=== PATIENT | male | born 1945 | race Caucasian/White ===

== ENCOUNTER 2020-11-19 09:20 | Outpatient (REF) | payer MEDICARE, SELFPAY ==
[2020-11-19 09:58] LABS: MANUAL DIFF FLAG NO
[2020-11-19 10:01] LABS: Basophils Percent Auto 0.8 % (0-2); Eosinophils Absolute Auto 0.3 X10*3/uL (0.0-0.4); Eosinophils Percent Auto 5.8 % (0-4); Hematocrit 39.1 % (42-52); Hemoglobin 13.1 g/dl (14.0-18.0); Imm Gran Abs Auto 0.05 X10*3/uL (0.00-0.03); Lymphocytes Absolute Auto 1.2 X10*3/uL (1.2-4.9); Lymphocytes Percent Auto 23.4 % (20-40); Mean Corpuscular HGB Conc 33.5 g/dl (31.0-36.0); Mean Corpuscular Hemoglobin 30.8 pg (27.0-33.0); Mean Platelet Volume 9.2 fL (9.4-12.4); Monocytes Absolute Auto 0.5 X10*3/uL (0.1-1.2); Monocytes Percent Auto 10.1 % (2-11); Neutrophils Percent Auto 58.9 % (45-73); Platelet Count 269 X10*3/uL (160-400); Red Blood Count 4.25 X10*6/uL (4.60-5.80); Red Cell Distribution Width 13.2 % (11.0-16.0); White Blood Count 5.2 X10*3/uL (4.8-10.8)
[2020-11-19 10:28] LABS: Alanine Aminotransferase 15 U/L (0-40); Albumin Level 4.2 g/dL (3.5-5.0); Alkaline Phosphatase 65 U/L (39-117); Anion Gap 12 (12-20); Aspartate Amino Transferase 18 U/L (5-37); Bilirubin Total 0.5 mg/dL (0.0-1.0); Blood Urea Nitrogen 14 mg/dL (9-16); Calcium 9.4 mg/dL (8.4-10.2); Carbon Dioxide 27 mmol/L (22-29); Chloride 100 mmol/L (96-108); Cholesterol 194 mg/dL; Estimated Glomerular Filt Rate > 60; Glucose Fasting 106 mg/dL (60-99); HDL Cholesterol 83 mg/dL; LDL Cholesterol Calculated 103 mg/dl; Potassium 4.3 mmol/L (3.3-5.1); Sodium 135 mmol/L (135-145); Total Protein 6.7 g/dL (6.5-8.0); Triglycerides 41 mg/dL
[2020-11-19 10:45] LABS: Prostate Specific Antigen 1.01 ng/mL (<0.05-4.0)
== END 2020-11-19 09:21 | disposition home or self-care (01) ==
LOC: HO.LAB 09:20
PROVIDERS: PCP Internal Medicine Medical Oncology; Visit Provider Internal Medicine Medical Oncology
DX: Z12.5 Encounter for screening for malignant neoplasm of prostate (principal); I10 Essential (primary) hypertension; E66.3 Overweight
CPT/HCPCS: 36415; 80053; 80061; 84153; 85025

== ENCOUNTER 2021-02-10 12:15 | Outpatient (REF) | payer MEDICARE, SELFPAY ==
--- NOTE | ~2021-02-10 | XR_ITS ---
EXAMINATION: XR CHEST CLINICAL INFORMATION: Dyspnea on exertion COMPARISON: Chest radiographs 01/07/2013 TECHNIQUE: 2 views of the chest were obtained. FINDINGS: There is mild hyperinflation similar to remote prior exam 2012. Fine linear scar versus disc atelectasis is present left posterior lateral base. Lungs otherwise clear. The vascularity is normal. There is no airspace consolidation or groundglass opacity or effusion. The costophrenic sulci are clear. The heart is normal in size. The hilar and mediastinal contours are normal. No acute bony abnormality. XR/XR chest 2V IMPRESSION: 1. Chronic mild hyperinflation. 2. Fine linear scar versus disc atelectasis left posterior lateral base. 3. Lungs otherwise clear.
== END 2021-02-10 12:16 | disposition home or self-care (01) ==
LOC: HO.XRAY 12:15
PROVIDERS: PCP Internal Medicine Medical Oncology; Visit Provider Internal Medicine Medical Oncology
DX: R06.00 Dyspnea, unspecified (principal)
CPT/HCPCS: 71046

== ENCOUNTER → 2021-07-18 09:35 | Outpatient (REF) | payer MEDICARE, SELFPAY ==
--- NOTE | 2021-07-18 09:39 | CA_ITS ---
Acquisition Time: 2021-07-18 10:38:24 Total Exercise Time: 00:03:22 Test Indications: Chest pain Medications: Protocol: ELDER Max HR: 160 BPM 111% of Pred: 143 BPM Max BP: 178/084 mmHG Max Work Load: 4.7 METS Exercise stress test with exercise 3 min 22 sec of Elder protocol, with moderate shortness of breath, no chest discomfort, with frequent isolated PACs, occassional PVCs and during exercise with short runs of atrial tachycardia ( artifact makes this difficult to see), with normotensive response to exercise, without EKG changes meeting criteria for ischemia at acheived workload. Test reviewed with Dr Somers. Referred By: Babatunde Hoff Overread By: MIGUEL ANGEL WELCH
== END ==
LOC: HO.CARD 09:35
PROVIDERS: PCP Internal Medicine Medical Oncology; Visit Provider Internal Medicine Medical Oncology
DX: R07.9 Chest pain, unspecified (principal)
CPT/HCPCS: 93017

== ENCOUNTER 2022-03-27 09:03 | Outpatient (REF) | payer MEDICARE, SELFPAY ==
[2022-03-27 10:43] LABS: MANUAL DIFF FLAG NO
[2022-03-27 10:53] LABS: Basophils Percent Auto 0.2 % (0-2); Eosinophils Absolute Auto 0.1 X10*3/uL (0.0-0.4); Eosinophils Percent Auto 2.6 % (0-4); Hematocrit 39.1 % (42.0-52.0); Hemoglobin 13.4 g/dl (14.0-18.0); Imm Gran Abs Auto 0.07 X10*3/uL (0.00-0.03); Imm Gran Pct Auto 1.7 % (0.0-0.4); Lymphocytes Absolute Auto 1.2 X10*3/uL (1.2-4.9); Lymphocytes Percent Auto 29.3 % (20-40); Mean Corpuscular HGB Conc 34.3 g/dl (31.0-36.0); Mean Corpuscular Volume 90.5 fL (80.0-98.0); Mean Platelet Volume 9.6 fL (9.4-12.4); Monocytes Absolute Auto 0.5 X10*3/uL (0.1-1.2); Monocytes Percent Auto 11.1 % (2-11); Neutrophils Absolute Auto 2.3 x10*3/uL (2.0-8.3); Neutrophils Percent Auto 55.1 % (45-73); Platelet Count 280 X10*3/uL (160-400); Red Blood Count 4.32 X10*6/uL (4.60-5.80); White Blood Count 4.2 X10*3/uL (4.8-10.8)
[2022-03-27 11:10] LABS: Alanine Aminotransferase 14 U/L (0-40); Albumin Level 4.4 g/dL (3.5-5.0); Alkaline Phosphatase 57 U/L (39-117); Anion Gap 15 (12-20); Aspartate Amino Transferase 18 U/L (5-37); Bilirubin Total 0.5 mg/dL (0.0-1.0); Blood Urea Nitrogen 12 mg/dL (9-16); Calcium 9.9 mg/dL (8.4-10.2); Carbon Dioxide 26 mmol/L (22-29); Chloride 99 mmol/L (96-108); Cholesterol 205 mg/dL; Estimated Glomerular Filt Rate > 60; Glucose Fasting 110 mg/dL (60-99); HDL Cholesterol 78 mg/dL; LDL Cholesterol Calculated 115 mg/dl; Potassium 4.5 mmol/L (3.3-5.1); Sodium 135 mmol/L (135-145); Triglycerides 64 mg/dL
[2022-03-27 11:36] LABS: Prostate Specific Antigen 1.06 ng/mL (<0.05-4.0)
== END 2022-03-27 09:04 | disposition home or self-care (01) ==
LOC: HO.10HDL 09:03
PROVIDERS: Visit Provider Internal Medicine Medical Oncology
DX: Z00.00 Encounter for general adult medical examination without abnormal findings (principal); E66.3 Overweight; N40.0 Benign prostatic hyperplasia without lower urinary tract symptoms; Z12.5 Encounter for screening for malignant neoplasm of prostate
CPT/HCPCS: 36415; 80053; 80061; 84153; 85025

== ENCOUNTER 2022-07-23 12:20 | Emergency (ER) | payer MEDICARE, SELFPAY ==
[2022-07-23] VITALS (8 sets, daily range): BP systolic 124–143; BP diastolic 73–81; PULSE 59–92; RESP 16–20; TEMP 36.5–36.7; O2SAT 94–98; BMI 26.1
--- NOTE | ~2022-07-23 | XR_ITS ---
EXAMINATION: XR CHEST CLINICAL INFORMATION: Cough. COMPARISON: 02/10/2021 chest radiographs. TECHNIQUE: Frontal view of the chest was obtained. FINDINGS: Mild linear markings are seen in the lingula and right middle lobe. The lungs are otherwise clear. There are no pleural effusions. The heart and mediastinal structures are unremarkable. XR/XR chest 1V IMPRESSION: Mild linear atelectasis versus scarring. No acute cardiopulmonary process.
--- NOTE | 2022-07-23 12:35 | ECG_ITS ---
Test Reason : DIZZINESS Blood Pressure : / mmHG Vent. Rate : 069 BPM Atrial Rate : 069 BPM P-R Int : 186 ms QRS Dur : 086 ms QT Int : 426 ms P-R-T Axes : 060 036 060 degrees QTc Int : 456 ms Sinus rhythm with Premature atrial complexes in a pattern of bigeminy Otherwise normal ECG No previous ECGs available Referred By: Caren Garcia Electronically Signed By:Deshawn Gama
--- NOTE | 2022-07-23 13:02 | ED_ITS ---
HPI - General Adult General Chief complaint: General Medical Stated complaint: DIZY,WEAK,LIGHTHEADED PER EMS Time Seen by Provider: 07/23/22 12:29 Source: patient and other Mode of arrival: EMS History of Present Illness HPI narrative: 76-year-old male who is brought in by EMS with reports of dizziness, lightheadedness, weakness and thirst after an argument with his friend. Patient states he has not been drinking adequate fluids and has a dry mouth. He otherwise denies any fever, chills, GI or symptoms and denies any shortness o f breath or chest pain /palpitations. The friend that he had an argument with is at the bedside and provides additional information stating that patient suffers from significant and debilitating anxiety. Related Data Allergies Allergy/AdvReac Type Severity Reaction Status Date / Time Unable to Assess Allergy Verified 07/23/22 12:35 Review of Systems Review of Systems: Pertinent positives and negatives as stated in HPI PMFSH Past Medical History Source: nursing notes reviewed Surgical History History of hernia surgery Social History Social History Smoked in Last 30 Days: No Use of substances other than those prescribed or required for medical reasons: Yes Substance Use Type: Marijuana Advance Directives: No Advance Directives Information Provided: No Physical Exam ED Vital Signs: Vital Signs - 24 hr 07/23/22 12:29 07/23/22 13:21 07/23/22 13:50 Temperature 98 F 98.0 F Pulse Rate 73 71 Respiratory Rate 20 Blood Pressure 138/77 124/73 Pulse Oximetry 98 Oxygen Delivery Method Room Air 07/23/22 14:00 07/23/22 13:52 07/23/22 13:54 Temperature 97.8 F Pulse Rate 92 72 68 Respiratory Rate Blood Pressure 143/81 H 133/76 143/81 H Pulse Oximetry 94 Oxygen Delivery Method Room Air 07/23/22 16:00 Temperature 97.7 F Pulse Rate 60 Respiratory Rate 20 Blood Pressure 133/77 Pulse Oximetry 97 Oxygen Delivery Method Room Air BMI result Body Mass Index 26.1 VITAL SIGNS: Reviewed. GENERAL: Well developed, well nourished, in no acute distress. HEAD: Normocephalic/atraumatic EYES: PERRLA, EOMI EARS: Ext canals without abnormality NOSE: Nares patent bilateral OROPHARYNX: no oral lesions noted, posterior pharynx clear, dry mucosa NECK: Supple, no adenopathy LUNGS: Normal breath sounds. No adventitious sounds or accessory muscle use. SpO2<94> CARDIOVASCULAR: Regular rate and rhythm without noted murmurs, no JVD or lower extremity edema. ABDOMEN: Soft, non-tender, non-distended with bowel sounds. MUSCULOSKELETAL: No tenderness, deformities, or effusions noted on gross inspection. EXTREMITIES: No cyanosis, clubbing or edema. SKIN: Inspection of the skin reveals no rashes NEUROLOGIC: Alert and oriented x 4. Strength and sensation to light touch were grossly intact x 4, no facial asymmetry, no pronator drift, cranial nerves 2-12 are grossly intact. Patient is noted to be leaning to the left, however he conf irms as well as his friend at bedside that this is normal for him. Medications Administered Discontinued Medications Generic Name Dose Route Start Last Admin Trade Name Freq PRN Reason Stop Dose Admin Sodium Chloride 1,000 mls @ 999 mls/hr 07/23/22 13:15 07/23/22 14:26 Ns IV 07/23/22 14:15 Infused .Q1H1M DANIEL Infusion Medical Decision Making Medical Decision Making MDM Narrative: 76-year-old male with history and clinical presentation possible underlying infection. However, after review of investigations my interpretation is that findings are consistent with patient's statement that he has not been drinking water and is dehydrated. He has received 1 L of IV fluids, will repeat BMP, in the meantime will obtain chest x-ray although on clinical exam there are no acute findings. And patient is afebrile. Review of all investigations and imaging studies and my interpretation is that patient has clinical and objective findings consistent with dehydration. On collateral information gathering from his friend who is at bedside she informs me that patient will become very diaphoretic throughout the night if he is feeling particularly anxious. Patient himself stated that he attempts to drink plenty of water . On re-evaluation with BMP after 1 L of IV fluids patient's electrolytes have significantly improved, he states that he feels much better and his friend who is at bedside concurs that patient is now at his baseline. I informed the patient that I would be sending my note to his primary care provider for further outpatient evaluation regarding the nighttime sweats, in addition, I have instructed the friend and the patient to rehydrate with Pedialyte to avoid electrolyte losses. Patient was ambulated and noted to have a steady gait and is otherwise hemodynamically stable for discharge to home. Differential Diagnosis Please see the discussion above Lab Data please see the discussion above 07/23/22 13:44 07/23/22 13:14 Labs: Lab Results 07/23/22 07/23/22 07/23/22 Range/Units 13:14 13:14 13:14 WBC (4.8-10.8) X10*3/uL RBC (4.60-5.80) X10*6/uL Hgb (14.0-18.0) g/dl Hct (42.0-52.0) % MCV (80.0-98.0) fL MCH (27.0-33.0) pg MCHC (31.0-36.0) g/dl RDW (11.0-16.0) % Plt Count (160-400) X10*3/uL MPV (9.4-12.4) fL Immature Gran % (Auto) (0.0-0.4) % Neut % (Auto) (45-73) % Lymph % (Auto) (20-40) % [place] % (Auto) (2-11) % Eos % (Auto) (0-4) % Baso % (Auto) (0-2) % Lymph # (Auto) (1.2-4.9) X10*3/uL [place] # (Auto) (0.1-1.2) X10*3/uL Eos # (Auto) (0.0-0.4) X10*3/uL Baso # (Auto) (0.0-0.2) X10*3/uL Abs Immat Gran (auto) (0.00-0.03) X10*3/uL Absolute Neuts (auto) (2.0-8.3) x10*3/uL Absolute Nucleated RBC (0.0-0.012) X10*3/uL Nucleated RBC % (auto) (0.0-0.2) /100WBC PT 11.8 (10.0-13.1) SEC INR 1.0 (0.9-1.1) Sodium 125 L (135-145) mmol/L Potassium 3.6 (3.3-5.1) mmol/L Chloride 92 L (96-108) mmol/L Carbon Dioxide 23 (22-29) mmol/L Anion Gap 14 (12-20) BUN 5 L (9-16) mg/dL Creatinine 0.75 (0.5-1.4) mg/dL Estim Creat Clear Calc 83.8 Estimated GFR > 60 Random Glucose 109 (60-115) mg/dL Calcium 8.5 D (8.4-10.2) mg/dL Total Bilirubin 0.7 (0.0-1.0) mg/dL AST 20 (5-37) U/L ALT 14 (0-40) U/L Alkaline Phosphatase 51 (39-117) U/L Troponin I High Sens 10.0 (<3.5-35.0) ng/L Total Protein 6.0 L (6.5-8.0) g/dL Albumin 3.9 (3.5-5.0) g/dL Urine Color Urine Appearance Urine pH (5.0-9.0) Ur Specific [place] (1.005-1.025) Urine Protein (Neg-Trace) mg/dL Urine Glucose (UA) (Negative) mg/dL Urine Ketones (Negative) mg/dL Urine Blood (Negative) Urine Nitrite (Negative) Ur Leukocyte Esterase (Negative) Urine RBC (0-2) /HPF Urine WBC (0-5) /HPF Ur Squamous Epith Cells (0-2) /HPF Urine Bacteria (None Seen) Hyaline Casts (0-2) /LPF COVID-19 ([facility]) (Negative) COVID-19 Clin Com 07/23/22 07/23/22 07/23/22 Range/Units 13:14 13:44 14:03 WBC 6.7 (4.8-10.8) X10*3/uL RBC 3.84 L (4.60-5.80) X10*6/uL Hgb 11.9 L (14.0-18.0) g/dl Hct 34.3 L (42.0-52.0) % MCV 89.3 (80.0-98.0) fL MCH 31.0 (27.0-33.0) pg MCHC 34.7 (31.0-36.0) g/dl RDW 12.5 (11.0-16.0) % Plt Count 237 (160-400) X10*3/uL MPV 9.3 L (9.4-12.4) fL Immature Gran % (Auto) 1.0 H (0.0-0.4) % Neut % (Auto) 78.0 H (45-73) % Lymph % (Auto) 12.1 L (20-40) % [place] % (Auto) 7.5 (2-11) % Eos % (Auto) 1.0 (0-4) % Baso % (Auto) 0.4 (0-2) % Lymph # (Auto) 0.8 L (1.2-4.9) X10*3/uL [place] # (Auto) 0.5 (0.1-1.2) X10*3/uL Eos # (Auto) 0.1 (0.0-0.4) X10*3/uL Baso # (Auto) 0.0 (0.0-0.2) X10*3/uL Abs Immat Gran (auto) 0.07 H (0.00-0.03) X10*3/uL Absolute Neuts (auto) 5.2 (2.0-8.3) x10*3/uL Absolute Nucleated RBC 0.000 (0.0-0.012) X10*3/uL Nucleated RBC % (auto) 0.0 (0.0-0.2) /100WBC PT (10.0-13.1) SEC INR (0.9-1.1) Sodium (135-145) mmol/L Potassium (3.3-5.1) mmol/L Chloride (96-108) mmol/L Carbon Dioxide (22-29) mmol/L Anion Gap (12-20) BUN (9-16) mg/dL Creatinine (0.5-1.4) mg/dL Estim Creat Clear Calc Estimated GFR Random Glucose (60-115) mg/dL Calcium (8.4-10.2) mg/dL Total Bilirubin (0.0-1.0) mg/dL AST (5-37) U/L ALT (0-40) U/L Alkaline Phosphatase (39-117) U/L Troponin I High Sens (<3.5-35.0) ng/L Total Protein (6.5-8.0) g/dL Albumin (3.5-5.0) g/dL Urine Color Yellow Urine Appearance Clear Urine pH 6.0 (5.0-9.0) Ur Specific [place] 1.010 (1.005-1.025) Urine Protein 100 (2+) H (Neg-Trace) mg/dL Urine Glucose (UA) Negative (Negative) mg/dL Urine Ketones 15 (Negative) mg/dL Urine Blood Negative (Negative) Urine Nitrite Negative (Negative) Ur Leukocyte Esterase Negative (Negative) Urine RBC 0-2 (0-2) /HPF Urine WBC 0-5 (0-5) /HPF Ur Squamous Epith Cells 0-2 (0-2) /HPF Urine Bacteria None Seen (None Seen) Hyaline Casts 0-2 (0-2) /LPF COVID-19 ([facility]) Negative (Negative) COVID-19 Clin Com See Note 07/23/22 Range/Units 16:06 WBC (4.8-10.8) X10*3/uL RBC (4.60-5.80) X10*6/uL Hgb (14.0-18.0) g/dl Hct (42.0-52.0) % MCV (80.0-98.0) fL MCH (27.0-33.0) pg MCHC (31.0-36.0) g/dl RDW (11.0-16.0) % Plt Count (160-400) X10*3/uL MPV (9.4-12.4) fL Immature Gran % (Auto) (0.0-0.4) % Neut % (Auto) (45-73) % Lymph % (Auto) (20-40) % [place] % (Auto) (2-11) % Eos % (Auto) (0-4) % Baso % (Auto) (0-2) % Lymph # (Auto) (1.2-4.9) X10*3/uL [place] # (Auto) (0.1-1.2) X10*3/uL Eos # (Auto) (0.0-0.4) X10*3/uL Baso # (Auto) (0.0-0.2) X10*3/uL Abs Immat Gran (auto) (0.00-0.03) X10*3/uL Absolute Neuts (auto) (2.0-8.3) x10*3/uL Absolute Nucleated RBC (0.0-0.012) X10*3/uL Nucleated RBC % (auto) (0.0-0.2) /100WBC PT (10.0-13.1) SEC INR (0.9-1.1) Sodium 129 L (135-145) mmol/L Potassium 3.8 (3.3-5.1) mmol/L Chloride 95 L (96-108) mmol/L Carbon Dioxide 26 (22-29) mmol/L Anion Gap 12 (12-20) BUN 5 L (9-16) mg/dL Creatinine 0.69 (0.5-1.4) mg/dL Estim Creat Clear Calc 91.1 Estimated GFR > 60 Random Glucose 91 (60-115) mg/dL Calcium 8.3 L (8.4-10.2) mg/dL Total Bilirubin (0.0-1.0) mg/dL AST (5-37) U/L ALT (0-40) U/L Alkaline Phosphatase (39-117) U/L Troponin I High Sens (<3.5-35.0) ng/L Total Protein (6.5-8.0) g/dL Albumin (3.5-5.0) g/dL Urine Color Urine Appearance Urine pH (5.0-9.0) Ur Specific [place] (1.005-1.025) Urine Protein (Neg-Trace) mg/dL Urine Glucose (UA) (Negative) mg/dL Urine Ketones (Negative) mg/dL Urine Blood (Negative) Urine Nitrite (Negative) Ur Leukocyte Esterase (Negative) Urine RBC (0-2) /HPF Urine WBC (0-5) /HPF Ur Squamous Epith Cells (0-2) /HPF Urine Bacteria (None Seen) Hyaline Casts (0-2) /LPF COVID-19 ([facility]) (Negative) COVID-19 Clin Com Independent Interpretation I performed an independent interpretation of an: EKG Interpretation: Sinus rhythm with PACs, HR- 69, no STEMI, MD/ QRS /QTC is within normal limits. Radiology Impression Radiologist Impression: My interpretation is in agreement with the radiology's impression of the imaging study. External Record Review External record reviewed: Prior outpatient labs Discharge Plan Discharge Clinical Impression: Dizziness, Lightheadedness, Dehydration Patient Disposition: Home, Self-Care Instructions: Dehydration (ED), Lightheadedness (ED) Additional Instructions: - As we discussed at the bedside, you will need to occasionally rehydrate with either Pedialyte or Gatorade. - You need to call the office of Dr. Hoff in the morning to set up an appointment for re-evaluation and further outpatient management Do not hesitate to return to the emergency room for any worsening of symptoms. Referrals: Babatunde Hoff MD [Primary Care Provider] -
[2022-07-23] MEDS: 0.9 % Sodium Chloride 1,000 ML 999 ML IV (13:25)
--- NOTE | 2022-07-23 13:26 | PC.NURSE ---
pt alert, oriented to place, but unsure of day. VSS. Rectal temp taken 98.0. EKG done, labs drawn, fluids running via pressure bag per order.
[2022-07-23 13:27] LABS: Prothrombin Time 11.8 SEC (10.0-13.1)
[2022-07-23 13:38] LABS: Alanine Aminotransferase 14 U/L (0-40); Albumin Level 3.9 g/dL (3.5-5.0); Alkaline Phosphatase 51 U/L (39-117); Anion Gap 14 (12-20); Aspartate Amino Transferase 20 U/L (5-37); Bilirubin Total 0.7 mg/dL (0.0-1.0); Blood Urea Nitrogen 5 mg/dL (9-16); Calcium 8.5 mg/dL (8.4-10.2); Carbon Dioxide 23 mmol/L (22-29); Chloride 92 mmol/L (96-108); Creatinine Clr Calc Pharmacy 83.8; Estimated Glomerular Filt Rate > 60; Glucose Random 109 mg/dL (60-115); Potassium 3.6 mmol/L (3.3-5.1); Sodium 125 mmol/L (135-145)
[2022-07-23 13:43] LABS: COVID-19 Test Negative (Negative); IDNOW Serial# 16C4AD1C
[2022-07-23 13:48] LABS: Basophils Percent Auto 0.4 % (0-2); Eosinophils Absolute Auto 0.1 X10*3/uL (0.0-0.4); Hematocrit 34.3 % (42.0-52.0); Hemoglobin 11.9 g/dl (14.0-18.0); Imm Gran Abs Auto 0.07 X10*3/uL (0.00-0.03); Lymphocytes Absolute Auto 0.8 X10*3/uL (1.2-4.9); Lymphocytes Percent Auto 12.1 % (20-40); Mean Corpuscular HGB Conc 34.7 g/dl (31.0-36.0); Mean Corpuscular Volume 89.3 fL (80.0-98.0); Mean Platelet Volume 9.3 fL (9.4-12.4); Monocytes Absolute Auto 0.5 X10*3/uL (0.1-1.2); Monocytes Percent Auto 7.5 % (2-11); Neutrophils Absolute Auto 5.2 x10*3/uL (2.0-8.3); Platelet Count 237 X10*3/uL (160-400); Red Blood Count 3.84 X10*6/uL (4.60-5.80); Red Cell Distribution Width 12.5 % (11.0-16.0); White Blood Count 6.7 X10*3/uL (4.8-10.8)
--- NOTE | 2022-07-23 14:06 | PC.NURSE ---
Urine sample collected. Orthostatic vitals neg.
[2022-07-23 14:19] LABS: Appearance Urine Clear; Color Urine Yellow; Glucose Urine UA Negative (Negative); Leukocyte Esterase Urine Negative (Negative); Nitrite Urine Negative (Negative); UMIC TRIGGER UACC YES; Urine Blood Negative (Negative); Urine Ketones 15 mg/dL (Negative); Urine Protein 100 (2+) mg/dL (Neg-Trace)
[2022-07-23 14:22] LABS: Bacteria Urine None Seen (None Seen); Hyaline Casts Urine 0-2 /LPF (0-2); RBC Urine 0-2 /HPF (0-2); Squamous Epithelial Cell Urine 0-2 /HPF (0-2); WBC Urine 0-5 /HPF (0-5)
--- NOTE | 2022-07-23 15:15 | PC.NURSE ---
pt alert and oriented. pt steadier on feet than upon arrival. conveyor monitor intact- pt resting. will continue to monitor.
--- NOTE | 2022-07-23 16:07 | PC.NURSE ---
BMP sent to lab
--- NOTE | 2022-07-23 16:11 | PC.NURSE ---
awaiting lab results, hospital monitor intact, VSS. pt resting comfortably. will cont to derek
[2022-07-23 16:37] LABS: Anion Gap 12 (12-20); Blood Urea Nitrogen 5 mg/dL (9-16); Calcium 8.3 mg/dL (8.4-10.2); Carbon Dioxide 26 mmol/L (22-29); Chloride 95 mmol/L (96-108); Creatinine Clr Calc Pharmacy 91.1; Estimated Glomerular Filt Rate > 60; Glucose Random 91 mg/dL (60-115); Potassium 3.8 mmol/L (3.3-5.1); Sodium 129 mmol/L (135-145)
== END 2022-07-23 17:48 | disposition home or self-care (01) ==
PROVIDERS: Emergency Provider Student in an Organized Health Care Education/Training Program; PCP Internal Medicine Medical Oncology
DX: R42 Dizziness and giddiness (principal); R53.1 Weakness; R07.89 Other chest pain; E86.0 Dehydration; Z20.822 Contact with and (suspected) exposure to COVID-19; Z20.828 Contact with and (suspected) exposure to other viral communicable diseases; Z79.899 Other long term (current) drug therapy
CPT/HCPCS: 36415; 71045; 80048; 80053; 81001; 84484; 85025; 85610; 87635; 93005; 99285

== ENCOUNTER 2022-07-31 15:49 | Outpatient (REF) | payer MEDICARE, SELFPAY ==
[2022-07-31 17:36] LABS: Alanine Aminotransferase 13 U/L (0-40); Albumin Level 4.5 g/dL (3.5-5.0); Alkaline Phosphatase 72 U/L (39-117); Anion Gap 17 (12-20); Aspartate Amino Transferase 19 U/L (5-37); Bilirubin Total 0.7 mg/dL (0.0-1.0); Blood Urea Nitrogen 6 mg/dL (9-16); Calcium 9.7 mg/dL (8.4-10.2); Carbon Dioxide 26 mmol/L (22-29); Chloride 96 mmol/L (96-108); Estimated Glomerular Filt Rate > 60; Glucose Random 114 mg/dL (60-115); Potassium 4.1 mmol/L (3.3-5.1); Sodium 135 mmol/L (135-145)
== END 2022-07-31 15:50 | disposition home or self-care (01) ==
LOC: HO.LAB 15:49
PROVIDERS: PCP Internal Medicine Medical Oncology; Visit Provider Internal Medicine Medical Oncology
DX: I10 Essential (primary) hypertension (principal); F41.9 Anxiety disorder, unspecified
CPT/HCPCS: 36415; 80053

== ENCOUNTER 2022-08-02 22:21 | Emergency (ER) | payer MEDICARE, SELFPAY ==
[2022-08-02 22:24] VITALS: BP 140/84; PULSE 70; O2SAT 100; BMI 27.4
[2022-08-02 22:36] VITALS: BP 132/76; PULSE 62; RESP 16; TEMP 36.4; O2SAT 95
--- NOTE | 2022-08-02 22:37 | MHC.EDTECH ---
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
--- NOTE | 2022-08-02 22:46 | ED.SOB ---
HPI - SOB/Dyspnea General Chief Complaint: Dyspnea Stated Complaint: SOB Time Seen by Provider: 08/02/22 22:39 Source: patient Mode of arrival: EMS Limitations: no limitations History of Present Illness HPI Narrative: Patient comes to the emergency room complaining of an asthma exacerbation. Patient states that today he fell a bit short of breath, patient was looking for his Combivent, confined at the and called the ambulance hoping that they would bring him a Combivent inhaler. Instead, patient was brought to the emergency room, he received a dose of DuoNeb EN route to the hospital. By the time the patient arrived to the ED, patient was feeling completely normal. At this time, patient denies chest pain or shortness of breath. Patient states that after the 1 time respiratory treatment, patient feels back to normal. Patient denies fever chills, denies any recent URI or UTI symptoms, no abdominal pain or chest pain. No shortness of breath at this time Related Data Previous Rx's Medication Instructions Recorded albuterol sulfate 90 mcg/actuation 2 puff inhalation Q4-6H PRN 08/02/22 aerosol inhaler shortness of breath or wheezing #8.5 grams ipratropium 20 mcg-albuterol 100 1 puff inhalation Q4H #4 grams 08/02/22 mcg/actuation mist for inhalation (Combivent Respimat) Allergies Allergy/AdvReac Type Severity Reaction Status Date / Time Unable to Assess Allergy Verified 07/23/22 12:35 Review of Systems Review of Systems: Constitutional : No Weight loss, No Fever, No Chills, No Night Sweats, No Fatigue, No Malaise ENT/Mouth : No Hearing loss, No Ear Pain, No Nasal Congestion, No Sinus Pain, No Hoarseness, No sore throat, No Rhinorrhea, No Swallowing Difficulty Eyes: No Eye Pain, No Swelling, No Redness, No Foreign Body, No Discharge, No Vision Changes Cardiovascular : No Chest Pain, no dyspnea on exertion, no orthopnea, no edema or palpitations Respiratory : No Cough, No Sputum, wheezing earlier today and shortness of breath, now resolved Gastrointestinal : No Nausea, No Vomiting, No Diarrhea, No Constipation, No abdominal Pain, No Hematochezia, No Melena Genitourinary : no irregular bleeding, No Dysuria, No Urinary Frequency, No Hematuria, No Urinary Incontinence, No Urgency, No Flank Pain, No Urinary Flow Changes, No Hesitancy Musculoskeletal : No joint pain, No Myalgias, No Joint Swelling Skin : No Skin Lesions, No rash Neuro : No Weakness, No Numbness, No Paresthesias, No Loss of Consciousness, No Dizziness, No Headache Psych : No Anxiety/Panic, No Depression, No SI/HI/AH/VH, No Social Issues, Heme/Lymph: No Bruising, No Bleeding,No Lymphadenopathy Endocrine : No Polyuria, No Polydipsia, No Temperature Intolerance [facility] Past Medical History Medical History Asthma exacerbation COPD (chronic obstructive pulmonary disease) Surgical History History of hernia surgery Social History Social History Substance Use Type: Marijuana Physical Exam Vital Signs: Vital Signs: Last Vital Signs Temp 97.6 F 08/02/22 22:36 Pulse 62 08/02/22 22:36 Resp 16 08/02/22 22:36 BP 132/76 08/02/22 22:36 Pulse Ox 95 08/02/22 22:36 O2 Del Method 08/02/22 22:36 BMI result Body Mass Index 27.4 Const: Other: Appearance: Alert. Oriented X3. No acute distress. Eyes: Pupils equal, round and reactive to light. ENT: Pharynx normal. Neck: Normal inspection. Neck supple. No lymph nodes noted. No crepitus CVS: Normal heart rate and rhythm. Pulses normal. Normal S1 and S2 Respiratory: No respiratory distress. Breath sounds normal. No Wheezing. No rales Abdomen: Soft and nontender. No rigidity. No distention. Skin: Skin warm and dry. Normal skin color. Normal skin turgor. Extremities: No lower extremity edema. No Lacerations. No Rash Neuro: Oriented X 3. No motor deficit. No sensory deficit. Moving all extremities. No slurred speech. CN 2 through 12 grossly intact Psych: calm, cooperative, normal affect Course Course Course Narrative: -patient received a nebulization treatment prior to arrival to the emergency room. By the time the patient arrived here, patient was completely asymptomatic. -patient was given 1 dose of p.o. prednisone 60 mg. No nebulization treatment as patient is saturating 97% in room air, not wheezing -a prescription of Combivent has been sent to the patient's pharmacy. Patient requested not to be started on prednisone until he sees his PCP tomorrow. Patient accepted a 1 time dose here in the ED. Medical Decision Making Medical Decision Making MDM Narrative: -patient does not have increased coughing, sputum production, fever, COPD is not suspected, discussed likely an asthma exacerbation Differential Diagnosis Differential Diagnoses: The differential diagnosis associated with the presentation includes (Asthma , COPD, URI) Discharge Plan Discharge Clinical Impression: Asthma exacerbation in COPD Patient Disposition: Home, Self-Care Instructions: COPD (Chronic Obstructive Pulmonary Disease) (ED) Additional Instructions: Please follow-up with your primary care physician tomorrow. If you have any worsening or new symptoms, please return to the emergency room or call 911 Prescriptions: New Combivent Respimat 20-100 mcg/actuation mist 1 puff inhalation Q4H Qty: 4 0RF albuterol sulfate 90 mcg/actuation HFA aerosol inhaler 2 puff inhalation Q4-6H PRN (Reason: shortness of breath or wheezing) Qty: 8.5 0RF
--- OUTSIDE RECORDS SUMMARY | 2022-08-02 22:58 | XMS_ITS ---
:1945 Author Organization Babatunde Hoff III, MD Address [address] [place] [address] [place] [address] Care Team Providers Name Role Phone Babatunde Hoff Unavailable Unavailable LESLEY JERRY MD Unavailable Unavailable PROBLEMS Type Condition ICD9-CM Code GBA26-UQ Code Onset Condition SNO MED Code Dates Status Problem Former smoker Z87.891 Active 712623 6 Problem Microscopic R31.2 Active 47787589 6 hematuria Problem Environmental Z91.09 Active 015189 007 allergies Problem BPH (benign N40.0 Active 05802575 9 prostatic hyperplasia) Problem Overweight E66.3 Active 833670035 Problem Acute gout M10.9 Active 36963246 involving toe of right foot, unspecified cause Problem Pulmonary J43.9 Active 46089804 emphysema, unspecified emphysema type Problem Bilateral inguinal K40.20 Active 8 4815884 hernia without obstruction or gangrene, recurrence not specified Problem Essential I10 Active 76628114 hypertension Problem Anxiety F41.9 Active 16342626 ALLERGIES No Known Allergies ENCOUNTERS Encounter Location Date Diagnosis Babatunde Hoff III, MD [address] [place] [address] DR SNELL Jul, Essent ial hypertension I10 ; [address] Anxiety F41.9 ; Bilateral [address] inguinal hernia without obstruction or g angrene, recurrence not s pecified K40.20 ; Pulmona ry emphysema, unspe cified emphysema type J 43.9 ; Environmental al lergies Z91.09 ; Former smoker Z87.891 ; Overwe ight E66.3 ; BPH (benign pros tatic hyperplasia) N40 .0 and Dehydration E86. 0 Babatunde Hoff III, MD [address] [place] [address] DR SNELL Jul, [address] [address] Babatunde Hoff III, MD [address] [place] [address] DR SNELL Jun, Essent ial hypertension I10 ; [address] Bilateral inguin al hernia without obstruct ion or gangrene, recurr ence not specified K40.20 ; Pulmonary emphysema, unspe cified emphysema type J 43.9 ; Environmental al lergies Z91.09 ; Former smoker Z87.891 and Over weight E66.3 Babatunde Hoff III, MD [address] [place] [address] DR SNELL Apr, Essent ial hypertension I10 ; [address] Overweight E66.3 ; Former [address] smoker Z87.891 ; Environmental al lergies Z91.09 ; Pulmona ry emphysema, unspe cified emphysema type J 43.9 and BPH (benign prostati c hyperplasia) N40 .0 Babatunde Hoff III, MD [address] [place] [address] DR SNELL Mar, Essent ial hypertension I10 ; [address] Bilateral inguin al hernia without obstruct ion or gangrene, recurr ence not specified K40.20 ; Pulmonary emphysema, unspe cified emphysema type J 43.9 ; Former smoker Z8 7.891 ; Overweight E66.3 ; BPH (benign prostati c hyperplasia) N40 .0 and Acute gout involving t oe of right foot, unspecifie d cause M10.9 Babatunde Hoff III, MD [address] [place] [address] DR SNELL Feb, [address] Babatunde Hoff III, MD [address] [place] [address] DR SNELL Nov, Annual physical exam Z00.00 [address] ; Overweight E66 .3 ; BPH [address] (benign prostati c hyperplasia) N40 .0 ; Essential hypert ension I10 ; Bilateral inguin al hernia without obstruct ion or gangrene, recurr ence not specified K40.20 ; Pulmonary emphysema, unspe cified emphysema type J 43.9 ; Environmental al lergies Z91.09 and Forme r smoker Z87.891 Babatunde Hoff III, MD [address] [place] [address] DR SNELL September, Chroni c gout involving toe [address] [place], [place] [address] tophus, unspecif ied cause M1A.9XX0 ; Essen tial hypertension I10 ; Pulmonary emphysema, unspe cified emphysema type J 43.9 ; Former smoker Z8 7.891 and Overweight E66.3 Babatunde Hoff III, MD [address] [place] [address] DR SNELL September, Acute gout involving toe of [address] [place] right foot, unsp ecified [address] cause M10.9 ; Es sential hypertension I10 ; Former smoker Z87.891 ; Overweight E66.3 and Enviro nmental allergies Z91.09 Babatunde Hoff III, MD [address] [place] [address] DR SNELL Aug, Essent ial hypertension I10 ; [address] [place], [place] Bilateral inguin al hernia [address] without obstruct ion or gangrene, recurr ence not specified K40.20 ; Pulmonary emphysema, unspe cified emphysema type J 43.9 ; Environmental al lergies Z91.09 ; Overwei ght E66.3 and Former smoke r Z87.891 Babatunde Hoff III, MD [address] [place] [address] DR SNELL Jul, Chest pain R07.9 ; Anxiety [address] [place] F41.9 ; Pulmonar y emphysema, [address] unspecified emph ysema type J43.9 ; Essentia l hypertension I10 ; Former smoker Z87.891 a nd Overweight E66.3 Babatunde Hoff III, MD [address] [place] [address] DR SNELL Jun, Chest pain R07.9 ; Essential [address], [place] hypertension I10 ; Former [address] smoker Z87.891 ; Overweight E66.3 and Pulmon diana emphysema, unspe cified emphysema type J 43.9 Babatunde Hoff III, MD [address] [place] [address] DR SNELL Apr, Pulmon diana emphysema, [address] [place], [place] unspecified emph ysema type [address] J43.9 ; Bilatera l inguinal hernia without o bstruction or gangrene, rec urrence not specified K40.20 ; Environmental al lergies Z91.09 ; Former smoker Z87.891 and Over weight E66.3 Babatunde Hoff III, MD [address] [place] [address] DR SNELL 15 Feb, 2021 [address] [place] [address] Babatunde Hoff III, MD [address] [place] [address] DR SNELL 15 Feb, 2021 Essent ial hypertension I10 ; [address] [facility] [place] Overweight E66.3 ; Former [address] smoker Z87.891 a nd Pulmonary emphysema, unspe cified emphysema type J 43.9 Babatunde Hoff III, MD [address] [place] [address] DR SNELL 30 Jan, 2021 Essent ial hypertension I10 ; [address] [place] Dyspnea on exert ion R06.00 ; [address] Pulmonary emphys dolores, unspecified emph ysema type J43.9 ; Former s moker Z87.891 and Over weight E66.3 Babatunde Hoff III, MD [address] [place] [address] DR SNELL Jan, Essent ial hypertension I10 ; [address] Shortness of jose f ath R06.02 ; [address] Pulmonary emphys dolores, unspecified emph ysema type J43.9 and Former smoker Z87.891 Babatunde Hoff III, MD [address] [place] [address] DR SNELL Nov, Essent ial hypertension I10 ; [address] [place] Annual physical exam Z00.00 [address] ; Overweight E66 .3 ; Former smoker Z87.891 ; Environmental al lergies Z91.09 ; Pulmona ry emphysema, unspe cified emphysema type J 43.9 and Bilateral inguin al hernia without obstruct ion or gangrene, recurr ence not specified K40.20 Babatunde Hoff III, MD [address] [place] [address] DR SNELL 14 Sep, 2020 [address] [place] [address] Babatunde Hoff III, MD [address] [place] [address] [address] SNELL September, [address] [facility] [place] [address] Babatunde Hoff III, MD [address] [place] [address] DR SNELL 16 Aug, 2020 Essent ial hypertension I10 ; [address] [place] Overweight E66.3 ; Pulmonary [address] emphysema, unspe cified emphysema type J 43.9 ; Bilateral inguin al hernia without obstruct ion or gangrene, recurr ence not specified K40.20 ; Environmental al lergies Z91.09 and Forme r smoker Z87.891 Babatunde Hoff III, MD [address] [place] [address] DR SNELL May, Essent ial hypertension I10 ; [address] Pulmonary emphys dolores, [address] unspecified emph ysema type J43.9 ; Environm ental allergies Z91.09 ; Former smoker Z87.891 a nd Overweight E66.3 Babatunde Hoff III, MD [address] [place] [address] DR SNELL Feb, Essent ial hypertension I10 ; [address] Bilateral inguin al hernia [address] without obstruct ion or gangrene, recurr ence not specified K40.20 ; Pulmonary emphysema, unspe cified emphysema type J 43.9 ; Former smoker Z8 7.891 and Overweight E66.3 Babatunde Hoff III, MD [address] [place] [address] DR SNELL Dec, Essent ial hypertension I10 ; [address] Pulmonary emphys dolores, [address] unspecified emph ysema type J43.9 ; Former s moker Z87.891 ; Overwe ight E66.3 ; Dyspnea, unspeci fied type R06.00 and Apnea R06.81 Babatunde Hoff III, MD [address] [place] [address] DR SNELL Nov, Essent ial hypertension I10 ; [address] Bilateral inguin al hernia [address] without obstruct ion or gangrene, recurr ence not specified K40.20 ; Pulmonary emphysema, unspe cified emphysema type J 43.9 ; Environmental al lergies Z91.09 ; Former smoker Z87.891 and Over weight E66.3 Babatunde Hoff III, MD [address] [place] [address] DR SNELL Oct, Essent ial hypertension I10 ; [address] Bilateral inguin al hernia [address] without obstruct ion or gangrene, recurr ence not specified K40.20 ; Pulmonary emphysema, unspe cified emphysema type J 43.9 ; Environmental al lergies Z91.09 ; Former smoker Z87.891 ; Overwe ight E66.3 and Skin lesion L98.9 Babatunde Hoff III, MD [address] [place] [address] DR SNELL Aug, Essent ial hypertension I10 ; [address] [place] Annual visit for general [address] adult medical ex amination without abnormal findings Z00.00 ; Former smoker Z87.891 ; Overwe ight E66.3 ; Environmental al lergies Z91.09 and Bilat eral inguinal hernia without obstruction or g angrene, recurrence not s pecified K40.20 Babatunde Hoff III, MD [facility] [address] Jul, [address] [address] Babatunde Hoff III, MD [address] [place] [address] DR SNELL May, Essent ial hypertension I10 ; [address] Pulmonary emphys dolores, [address] unspecified emph ysema type J43.9 ; Environm ental allergies Z91.09 ; Former smoker Z87.891 a nd Overweight E66.3 Babatunde Hoff III, MD [address] [place] [address] DR SNELL Feb, Former smoker Z87.891 ; [address] Pulmonary emphys dolores, [address] unspecified emph ysema type J43.9 ; Essentia l hypertension I10 and Overweight E66.3 Babatunde Hoff III, MD [address] [place] [address] DR SNELL Jan, Essent ial hypertension I10 [address] and Lightheadedn ess R42 [address] Babatunde Hoff III, MD [address] [place] [address] DR SNELL Jan, [address] [address] Babatunde Hoff III, MD [address] [place] [address] DR SNELL Oct, Essent ial hypertension I10 ; [address] Bilateral inguin al hernia [address] without obstruct ion or gangrene, recurr ence not specified K40.20 ; Pulmonary emphysema, unspe cified emphysema type J 43.9 ; Environmental al lergies Z91.09 ; Former smoker Z87.891 and Over weight E66.3 Babatunde Hoff III, MD [address] [place] [address] DR SNELL Aug, Essent ial hypertension I10 [address] and Dizziness R4 2 [address] Babatunde Hoff III, MD [address] [place] [address] DR SNELL Aug, [address] [address] Babatunde Hoff III, MD [address] [place] [address] DR SNELL Aug, [address] [address] Babatunde Hoff III, MD [address] [place] [address] DR SNELL Aug, [address] [address] Babatunde Hoff III, MD [address] [place] [address] DR SNELL Jul, Essent ial hypertension I10 ; [address] [place] Annual visit for general [address] adult medical ex amination without abnormal findings Z00.00 ; Bilater al inguinal hernia without o bstruction or gangrene, rec urrence not specified K40.20 ; Pain in right knee M25.5 61 ; Pulmonary emphys dolores, unspecified emph ysema type J43.9 ; Environm ental allergies Z91.09 ; Former smoker Z87.891 a nd Overweight E66.3 Babatunde Hoff III, MD [address] [place] [address] DR SNELL Jun, Essent ial hypertension I10 ; [address] Hyperglycemia R7 3.9 and [address] Overweight E66.3 Babatunde Hoff III, MD [address] [place] [address] DR SNELL Jun, [address] [address] Babatunde Hoff III, MD [address] [place] [address] DR SNELL Jun, Essent ial hypertension I10 ; [address] [place] [address] Pain in right kn ee M25.561 ; [address] Pulmonary emphys dolores, unspecified emph ysema type J43.9 ; Bilatera l inguinal hernia without o bstruction or gangrene, rec urrence not specified K40.20 ; Environmental al lergies Z91.09 ; Former smoker Z87.891 ; Overwe ight E66.3 and Transient in somnia F51.02 Babatunde Hoff III, MD [address] [place] [address] DR SNELL Feb, Essent ial hypertension I10 ; [address] Hyperglycemia R7 3.9 ; Former [address] smoker Z87.891 ; Overweight E66.3 and Left s ided sciatica M54.32 Babatunde Hoff III, MD [address] [place] [address] DR SNELL Oct, [address] [place] [address] Babatunde Hoff III, MD [address] [place] [address] DR SNELL Oct, Essent ial hypertension I10 ; [address] Hyperglycemia R7 3.9 ; [address] Bilateral inguin al hernia without obstruct ion or gangrene, recurr ence not specified K40.20 ; Pulmonary emphysema, unspe cified emphysema type J 43.9 ; Pain in right knee M2 5.561 ; Environmental al lergies Z91.09 ; Former smoker Z87.891 and Over weight E66.3 Babatunde Hoff III, MD [address] [place] [address] [address] SNE[address] September, [address] [address] Babatunde Hoff III, MD [address] [place] [address] ALIS September, [address] [address] Babatunde Hoff III, MD [address] [place] [address] [address] SNE[address] Jul, [address] [address] Babatunde Hoff III, MD [address] [place] [address] DR SNELL Jul, [address] [address] Babatunde Hoff III, MD [address] [place] [address] DR SNELL Jul, Essent ial hypertension I10 ; [address] Bilateral inguin al hernia [address] without obstruct ion or gangrene, recurr ence not specified K40.20 ; Pulmonary emphysema, unspe cified emphysema type J 43.9 ; Pain in right knee M2 5.561 ; Environmental al lergies Z91.09 ; Hypergl ycemia R73.9 ; Former smoker Z87.891 and Overweight E66.3 Babatunde Hoff III, MD [address] [place] [address] DR SNELL Mar, Essent ial hypertension I10 ; [address] Hyperglycemia R7 3.9 ; Former [address] smoker Z87.891 a nd Overweight E66.3 Babatunde Hoff III, MD [address] [place] [address] DR SNELL Dec, Essent ial hypertension I10 ; [address] Former smoker Z8 7.891 and [address] Overweight E66.3 Babatunde Hoff III, MD [address] [place] [address] DR SNELL September, Essent ial hypertension I10 ; [address] Former smoker Z8 7.891 and [address] Overweight E66.3 Babatunde Hoff III, MD [address] [place] [address] DR NSE[address] Aug, Essent ial hypertension I10 ; [address] Bronchitis J40 ; Overweight [address] E66.3 and Former smoker Z87.891 Babatunde Hoff III, MD [address] [place] [address] DR SNELL Jun, Annual physical exam Z00.00 [address] ; Essential hype rtension I10 [address] ; Bilateral ingu inal hernia without obstruct ion or gangrene, recurr ence not specified K40.20 ; Pulmonary emphysema, unspe cified emphysema type J 43.9 ; Pain in right knee M2 5.561 ; Former smoker Z8 7.891 and Overweight E66.3 Babatunde Hoff III, MD [address] [place] [address] ALIS Mar, Essent ial hypertension I10 ; [address] Pulmonary emphys dolores, [address] unspecified emph ysema type J43.9 ; Former s moker Z87.891 and Over weight E66.3 Babatunde Hoff III, MD [address] [place] [address] DR [place]IS Feb, [address] [address] Babatunde Hoff III, MD [address] [place] [address] DR SNELL Dec, Essent ial hypertension I10 ; [address] Former smoker Z8 7.891 and [address] Environmental al lergies Z91.09 Babatunde Hoff III, MD [address] [place] [address] ALIS September, Essent ial hypertension I10 [address] [address] Babatunde Hoff III, MD [address] [place] [address] AL[place] May, Essent ial hypertension I10 ; [address] Bilateral inguin al hernia [address] without obstruct ion or gangrene, recurr ence not specified K40.20 ; Environmental al lergies Z91.09 ; Hypergl ycemia R73.9 ; Former smoker Z87.891 and Overweight E66.3 Babatunde Hoff III, MD [address] [place] [address] ALIS May, [address] [address] Babatunde Hoff III, MD [facility] [address] [place] Feb, [address] [address] Babatunde Hoff III, MD [facility] DR [place] Nov, HTN (h ypertension) 401.9 ; [address] Overweight 278.0 2 and Nevus [address] 216.9 Babatunde Hoff III, MD [address] [place] [address] DR [place] Nov, [address] [address] Babatunde Hoff III, MD [address] [place] [address] AL[place] Nov, [address] [address] Babatunde Hoff III, MD [address] [place] [address] DR [place]IS Nov, HTN (h ypertension) 401.9 ; [place] Overweight 278.0 2 and Former [address] smoker V15.82 Babatunde Hoff III, MD [address] [place] [address] DR SNELL Aug, HTN (h ypertension) 401.9 ; [place] Former smoker V1 5.82 and [address] Overweight 278.0 2 Babatunde Hoff III, MD [address] [place] [address] DR SNELL Jun, [address] [address] Babatunde Hoff III, MD [address] [place] [address] DR SNELL May, HTN (h ypertension) 401.9 ; [place] Hyperglycemia 79 0.29 ; [address] Former smoker V1 5.82 ; Complicated grie f 309.0 and Insomnia 780.52 Babatunde Hoff III, MD [address] [place] [address] DR SNELL Mar, HTN (h ypertension) 401.9 ; [address] Former smoker V1 5.82 ; [address] Complicated grie f 309.0 and Insomnia 780.52 Babatunde Hoff III, MD [address] [place] [address] DR SNELL Mar, HTN (h ypertension) 401.9 ; [place] Complicated grie f 309.0 and [address] Insomnia 780.52 Babatunde Hoff III, MD [address] [place] [address] DR SNELL Dec, HTN (h ypertension) 401.9 ; [place] Former smoker V1 5.82 ; [address] Environmental al lergies V15.09 and Shoul dane pain, right 719.41 Babatunde Hoff III, MD [address] [place] [address] DR SNELL Oct, [place] [address] Babatunde Hoff III, MD [address] [place] [address] DR SNELL September, HTN (h ypertension) 401.9 and [address] Hyperglycemia 79 0.29 [address] Babatunde Hoff III, MD [address] [place] [address] DR SNELL September, HTN (h ypertension) 401.9 ; [place] Emphysema 492.8 ; [address] Environmental al lergies V15.09 ; Former smoker V15.82 and Hyper glycemia 790.29 Babatunde Hoff III, MD [address] [place] [address] DR SNELL Aug, HTN (h ypertension) 401.9 ; [address] [place] Tendonitis of ould [address] 726.10 and Forme r smoker V15.82 Babatunde Hoff III, MD [address] [place] [address] DR SNELL Jul, HTN (h ypertension) 401.9 ; [address] Tendonitis of [facility] [address] 726.10 and Forme r smoker V15.82 Babatunde Hoff III, MD [address] [place] [address] DR SNELL May, HTN (h ypertension) 401.9 ; [address] Emphysema 492.8 ; [address] Environmental al lergies V15.09 and Hyper glycemia 790.29 Babatunde Hoff III, MD [address] [place] [address] DR SNELL Feb, HTN (h ypertension) 401.9 and [address] Hyperglycemia 79 0.29 [address] Babatunde Hoff III, MD [address] [place] [address] DR SNELL Feb, [address] [address] Babatunde Hoff III, MD [address] [place] [address] DR SNELL Dec, [address] [place] [address] Babatunde Hoff III, MD [address] [place] [address] DR SNELL Oct, Diabet es mellitus 250.00 and [address] HTN (hypertensio n) 401.9 [address] Babatunde Hoff III, MD [address] [place] [address] DR SNELL Oct, [address] [address] Babatunde Hoff III, MD [address] [place] [address] DR SNELL Oct, [address] [place] [address] Babatunde Hoff III, MD [address] [place] [address] DR SNELL Aug, HTN (h ypertension) 401.9 ; [address] Bilateral inguin al hernia [address] 550.92 ; Emphyse ma 492.8 ; Environmental al lergies V15.09 and [place] nita blood sugar 790.29 Babatunde Hoff III, MD [address] [place] [address] DR SNELL Aug, [address] [address] Babatunde Hoff III, MD [address] [place] [address] DR SNELL Jan, Well a dult exam V70.0 ; [address] Hyperglycemia 79 0.29 ; HTN [address] (hypertension) 4 01.9 and Emphysema 492.8 Babatunde Hoff III, MD [address] [facility] [address] Dec, [address] [address] Babatunde Hoff III, MD [address] [facility] [address] SNELL Dec, [address] [address] Babatunde Hoff III, MD [address] [place] [address] DR SNELL Aug, Hyperg lycemia 790.29 and HTN [address] (hypertension) 4 01.9 [address] Babatunde Hoff III, MD [address] [facility] [address] S[address] Aug, [address] [place] [address] Babatunde Hoff III, MD [address] [place] [address] DR SNELL Apr, [address] [place] [address] Babatunde Hoff III, MD [address] [facility] [address] S[address] Dec, [address] [place] [address] IMMUNIZATIONS Vaccine Route Administration Date Status Influenza no Preserv 3 and > Unknown Feb 18, 2017 Adm inistered PCV13 Unknown Mar 26, 2017 Administered COVID- 19 Vaccine Unknown August 05, 2020 Administered Influenza no Preserv 3 and > Unknown Mar 31, 2021 Adm inistered Influenza no Preserv 3 and > Unknown Mar 17, 2018 Adm inistered COVID- 19 Vaccine Unknown Mar 31, 2021 Administered Influenza Unknown Feb 24, 2012 Administered Influenza no Preserv 3 and > Unknown May 12, 2019 Adm inistered COVID- 19 Vaccine Unknown Jul 08, 2020 Administered COVID- 19 Vaccine Unknown August 30, 2021 Administered PPV 23 Unknown Mar 17, 2018 Administered Influenza no Preserv 3 and > Unknown Feb 18, 2020 Adm inistered PCV13 Unknown Mar 26, 2017 Administered Influenza Unknown Feb 07, 2015 Administered Influenza Unknown Mar 08, 2014 Administered SOCIAL HISTORY Qualifiers Date Former Smoker REASON FOR REFERRAL FUNCTIONAL STATUS PLAN OF CARE Activity Details Follow Up 2 - 3 Days Reason:ov Future Appointment Provider Name:Babatunde Hoff 2022-08-04 01:30:00 PM, [address] [facility] [place], [place], [phone], Future Appointment Provider Name:Babatunde Hoff 2022-09-25 02:00:00 PM, [address] [facility] [place], [place], [id number], Future Appointment Provider Name:Babatunde Hoff 2022-12-01 10:00:00 AM, [address] [place] [address] [place], [place], [place], [phone], Pending Test PROFILE, RANDOM (COMPREHENSI VE METABOLIC) Pending Test URINE DIP STICK Pending Test PROFILE, FASTING (COMPREHENS ROYCE METABOLIC) Pending Test PSA, TOTAL Pending Test CBC w DIFF Pending Test Lipid Panel Pending Test Stress Test Pending Test XR CHEST 2 VIEW PA & LAT Pending Test PFT with DLCO Pending Test PROFILE, FASTING (COMPREHENS ROYCE METABOLIC) Pending Test LIPID PANEL Pending Test PSA, TOTAL Pending Test CBC w DIFF Pending Test PROFILE, FASTING (COMPREHENS ROYCE METABOLIC) Pending Test LIPID PANEL Pending Test FREE T4 (FT4) Pending Test TSH (THYROID STIMULATING HOR CLAUDIA) Pending Test CBC w DIFF VITAL SIGNS Height 67 in 2022-07-31 Height 67 in 2022-06-26 Height 67 in 2022-04-03 Height 67 in 2021-11-30 Height 67 in 2021-09-20 Height 67 in 2021-09-02 Height 67 in 2021-07-22 Height 67 in 2021-07-11 Height 67 in 2021-04-22 Height 67 in 2021-02-10 Height 67 in 2020-11-26 Height 67 in 2020-08-27 Height 67 in 2020-05-28 Height 67 in 2020-02-25 Height 67 in 2019-12-29 Height 67 in 2019-11-24 Height 67 in 2019-11-10 Height 67 in 2019-08-25 Height 67 in 2019-05-20 Height 67 in 2019-02-11 Height 67 in 2019-01-27 Height 67 in 2018-11-05 Height 67 in 2018-09-09 Height 67 in 2018-08-05 Height 67 in 2018-07-09 Height 67 in 2018-06-18 Height 67 in 2018-02-15 Height 67 in 2017-10-16 Height 67 in 2017-07-18 Height 67 in 2017-04-11 Height 67 in 2017-01-09 Height 67 in 2016-10-10 Height 67 in 2016-08-29 Height 67 in 2016-07-11 Height 67 in 2016-04-12 Height 67 in 2016-01-11 Height 67 in 2015-10-12 Height 67 in 2015-06-08 Height 67 in 2014-12-08 Height 67 in 2014-12-02 Height 67 in 2014-09-01 Height 67 in 2014-06-02 Height 67 in 2014-04-06 Height 67 in 2014-03-16 Height 67 in 2013-12-15 Height 67 in 2013-09-30 Height 67 in 2013-08-18 Height 67 in 2013-07-25 Height 67 in 2013-06-11 Height N/A in 2013-03-12 Height N/A in 2012-11-08 Height N/A in 2012-08-21 Height N/A in 2012-01-16 Height N/A in 2011-08-22 Height 67 in 2011-08-21 Weight 176 lbs 2022-07-31 Weight 173 lbs 2022-06-26 Weight 170 lbs 2022-04-03 Weight 172 lbs 2021-11-30 Weight 173 lbs 2021-09-20 Weight 173 lbs 2021-09-02 Weight 171 lbs 2021-07-22 Weight 171 lbs 2021-07-11 Weight 169 lbs 2021-04-22 Weight 170 lbs 2021-02-10 Weight 170 lbs 2020-11-26 Weight 175 lbs 2020-08-27 Weight 180 lbs 2020-05-28 Weight 180 lbs 2020-02-25 Weight 175 lbs 2019-12-29 Weight 174 lbs 2019-11-24 Weight 175 lbs 2019-11-10 Weight 174 lbs 2019-08-25 Weight 172 lbs 2019-05-20 Weight 169 lbs 2019-02-11 Weight 169 lbs 2019-01-27 Weight 170 lbs 2018-11-05 Weight 171 lbs 2018-09-09 Weight 169 lbs 2018-08-05 Weight 167 lbs 2018-07-09 Weight 173 lbs 2018-06-18 Weight 174 lbs 2018-02-15 Weight 177 lbs 2017-10-16 Weight 181 lbs 2017-07-18 Weight 175 lbs 2017-04-11 Weight 177 lbs 2017-01-09 Weight 176 lbs 2016-10-10 Weight 170 lbs 2016-08-29 Weight 178 lbs 2016-07-11 Weight 167 lbs 2016-04-12 Weight 170 lbs 2016-01-11 Weight 172 lbs 2015-10-12 Weight 174 lbs 2015-06-08 Weight 170 lbs 2014-12-08 Weight 170 lbs 2014-12-02 Weight 168 lbs 2014-09-01 Weight 165 lbs 2014-06-02 Weight 163 lbs 2014-04-06 Weight 163 lbs 2014-03-16 Weight 164 lbs 2013-12-15 Weight 162 lbs 2013-09-30 Weight 165 lbs 2013-08-18 Weight 159 lbs 2013-07-25 Weight 156 lbs 2013-06-11 Weight 154 lbs 2013-03-12 Weight 154 lbs 2012-11-08 Weight 157 lbs 2012-08-21 Weight 150 lbs 2012-01-16 Weight 157 lbs 2011-08-22 BMI 27.56 kg/m2 2022-07-31 BMI 27.09 kg/m2 2022-06-26 BMI 26.62 kg/m2 2022-04-03 BMI 26.94 kg/m2 2021-11-30 BMI 27.09 kg/m2 2021-09-20 BMI 27.09 kg/m2 2021-09-02 BMI 26.78 kg/m2 2021-07-22 BMI 26.78 kg/m2 2021-07-11 BMI 26.47 kg/m2 2021-04-22 BMI 26.62 kg/m2 2021-02-10 BMI 26.62 kg/m2 2020-11-26 BMI 27.41 kg/m2 2020-08-27 BMI 28.19 kg/m2 2020-05-28 BMI 28.19 kg/m2 2020-02-25 BMI 27.41 kg/m2 2019-12-29 BMI 27.25 kg/m2 2019-11-24 BMI 27.41 kg/m2 2019-11-10 BMI 27.25 kg/m2 2019-08-25 BMI 26.94 kg/m2 2019-05-20 BMI 26.47 kg/m2 2019-02-11 BMI 26.47 kg/m2 2019-01-27 BMI 26.62 kg/m2 2018-11-05 BMI 26.78 kg/m2 2018-09-09 BMI 26.47 kg/m2 2018-08-05 BMI 26.15 kg/m2 2018-07-09 BMI 27.09 kg/m2 2018-06-18 BMI 27.25 kg/m2 2018-02-15 BMI 27.72 kg/m2 2017-10-16 BMI 28.35 kg/m2 2017-07-18 BMI 27.41 kg/m2 2017-04-11 BMI 27.72 kg/m2 2017-01-09 BMI 27.56 kg/m2 2016-10-10 BMI 26.62 kg/m2 2016-08-29 BMI 27.88 kg/m2 2016-07-11 BMI 26.15 kg/m2 2016-04-12 BMI 26.62 kg/m2 2016-01-11 BMI 26.94 kg/m2 2015-10-12 BMI 27.25 kg/m2 2015-06-08 BMI 26.62 kg/m2 2014-12-08 BMI 26.62 kg/m2 2014-12-02 BMI 26.31 kg/m2 2014-09-01 BMI 25.84 kg/m2 2014-06-02 BMI 25.53 kg/m2 2014-04-06 BMI 25.53 kg/m2 2014-03-16 BMI 25.68 kg/m2 2013-12-15 BMI 25.37 kg/m2 2013-09-30 BMI 25.84 kg/m2 2013-08-18 BMI 24.90 kg/m2 2013-07-25 BMI 24.43 kg/m2 2013-06-11 BMI 24.12 kg/m2 2013-03-12 BMI 24.12 kg/m2 2012-11-08 BMI 24.59 kg/m2 2012-08-21 BMI 23.49 kg/m2 2012-01-16 BMI 24.59 kg/m2 2011-08-22 Heart Rate 71 /min 2022-07-31 Heart Rate 62 /min 2022-06-26 Heart Rate 73 /min 2022-04-03 Heart Rate 67 /min 2021-11-30 Heart Rate 62 /min 2021-09-20 Heart Rate 72 /min 2021-09-02 Heart Rate 71 /min 2021-07-22 Heart Rate 73 /min 2021-07-11 Heart Rate 61 /min 2021-04-22 Heart Rate 71 /min 2021-02-10 Heart Rate 57 /min 2020-11-26 Heart Rate 67 /min 2020-08-27 Heart Rate 72 /min 2020-05-28 Heart Rate 64 /min 2020-02-25 Heart Rate 78 /min 2019-12-29 Heart Rate 63 /min 2019-11-24 Heart Rate 64 /min 2019-11-10 Heart Rate 74 /min 2019-08-25 Heart Rate 74 /min 2019-05-20 Heart Rate 60 /min 2019-02-11 Heart Rate 67 /min 2019-01-27 Heart Rate 80 /min 2018-11-05 Heart Rate 70 /min 2018-09-09 Heart Rate 95 /min 2018-08-05 Heart Rate 68 /min 2018-07-09 Heart Rate 91 /min 2018-06-18 Heart Rate 58 /min 2018-02-15 Heart Rate 60 /min 2017-10-16 Heart Rate 77 /min 2017-07-18 Heart Rate 68 /min 2017-04-11 Heart Rate 64 /min 2017-01-09 Heart Rate 74 /min 2016-10-10 Heart Rate 79 /min 2016-08-29 Heart Rate 68 /min 2016-07-11 Heart Rate 80 /min 2016-04-12 Heart Rate 63 /min 2016-01-11 Heart Rate 58 /min 2015-10-12 Heart Rate 61 /min 2015-06-08 Heart Rate 62 /min 2014-12-08 Heart Rate 63 /min 2014-12-02 Heart Rate 57 /min 2014-09-01 Heart Rate 60 /min 2014-06-02 Heart Rate 60 /min 2014-04-06 Heart Rate 66 /min 2014-03-16 Heart Rate 64 /min 2013-12-15 Heart Rate 70 /min 2013-09-30 Heart Rate 62 /min 2013-08-18 Heart Rate 71 /min 2013-07-25 Heart Rate 63 /min 2013-06-11 Heart Rate 63 /min 2013-03-12 Heart Rate 92 /min 2012-11-08 Heart Rate 72 /min 2012-08-21 Heart Rate 76 /min 2012-01-16 Heart Rate 68 /min 2011-08-22 Temperature 96.7 degrees Fahrenheit 2022-07-31 Temperature 97.2 degrees Fahrenheit 2022-06-26 Temperature 96.6 degrees Fahrenheit 2022-04-03 Temperature 96.7 degrees Fahrenheit 2021-11-30 Temperature 96.8 degrees Fahrenheit 2021-09-20 Temperature 97.0 degrees Fahrenheit 2021-09-02 Temperature 97.2 degrees Fahrenheit 2021-07-22 Temperature 97.1 degrees Fahrenheit 2021-07-11 Temperature 97.0 degrees Fahrenheit 2021-04-22 Temperature 97.2 degrees Fahrenheit 2021-02-10 Temperature 97.5 degrees Fahrenheit 2020-11-26 Temperature 98.6 degrees Fahrenheit 2020-08-27 Temperature 97.5 degrees Fahrenheit 2020-05-28 Temperature 95.6 degrees Fahrenheit 2020-02-25 Temperature 97.3 degrees Fahrenheit 2019-12-29 Temperature 97.1 degrees Fahrenheit 2019-11-24 Temperature 98 degrees Fahrenheit 2019-11-10 Blood pressure systolic 140 mm Hg 2022-07-31 Blood pressure diastolic 70 mm Hg 2022-07-31 MEDICATIONS No Known Medications PROCEDURES Procedure Date Ordered Result Body Site GLYCATED HEMOGLOBIN TEST August 21, 2012 Fingerstick Glucose 2017-10-16 130 TEST FOR BLOOD, FECES November 30, 2021 ASSAY, GLUCOSE, BLOOD QUANT Jun 08, 2015 PHONE E/M BY PHYS 11-20 MIN September 23, 2021 PHONE E/M BY PHYS 11-20 MIN Feb 09, 2021 URINE-NO MICRO November 30, 2021 GLYCATED HEMOGLOBIN TEST October 10, 2013 URINE-NO MICRO Jul 11, 2016 ASSAY, GLUCOSE, BLOOD QUANT Mar 12, 2013 URINE-NO MICRO August 05, 2018 OCCULT BLOOD, FECES, SINGLE Jun 08, 2015 OCCULT BLOOD, FECES, SINGLE Jul 11, 2016 URINE-NO MICRO Jun 08, 2015 OCCULT BLOOD, FECES, SINGLE August 25, 2019 OCCULT BLOOD, FECES, SINGLE August 05, 2018 URINE-NO MICRO August 25, 2019 PHONE E/M BY PHYS 11-20 MIN Feb 25, 2021 PHONE E/M BY PHYS 11-20 MIN Apr 24, 2022 GLUCOSE BLOOD TEST August 22, 2011 ASSAY, GLUCOSE, BLOOD QUANT November 08, 2012 URINE-NO MICRO Jan 16, 2012 RESULTS Name Result Date Reference Range Comprehensive Met. Panel 2022-07-31 Sodium 135 135-145 Potassium 4.1 3.3-5.1 Chloride 96 96-108 Carbon Dioxide 26 22-29 Anion Gap 12-20 Blood Urea Nitrogen 6 9-16 Creatinine 0.82 0.5-1.4 Estimated Glomerular Filt Rate > 60 Glucose Random 114 60-115 Calcium 9.7 8.4-10.2 Bilirubin Total 0.7 0.0-1.0 Aspartate Amino Transferase 19 5-37 Alanine Aminotransferase 13 0-40 Total Protein 7.0 6.5-8.0 Albumin Level 4.5 3.5-5.0 Alkaline Phosphatase 72 39-117 Basic Metabolic Panel 2022-07-23 Sodium 129 135-145 Potassium 3.8 3.3-5.1 Chloride 95 96-108 Carbon Dioxide 26 22-29 Anion Gap 12 12-20 Blood Urea Nitrogen 5 9-16 Creatinine 0.69 0.5-1.4 Creatinine Clr Calc Pharmacy 91.1 Estimated Glomerular Filt Rate > 60 Glucose Random 91 60-115 Calcium 8.3 8.4-10.2 UA CC w/rflx Micro + Cult 2022-07-23 Color Urine Yellow Appearance Urine Clear PH 6.0 5.0-9.0 Glucose Urine UA Negative Negative Urine Blood Negative Negative Specific [place] - Urine 1.010 1.005-1 .025 Urine Protein 100 (2+) Neg-Trace Urine Ketones 15 Negative Nitrite Urine Negative Negative Leukocyte Esterase Urine Negative Negativ e UA ClnCatch+Micro w/rflx Cult 2022-07-23 Color Urine Yellow Appearance Urine Clear PH 6.0 5.0-9.0 Glucose Urine UA Negative Negative Urine Blood Negative Negative Specific [place] - Urine 1.010 1.005-1 .025 Urine Protein 100 (2+) Neg-Trace Urine Ketones 15 Negative Nitrite Urine Negative Negative Leukocyte Esterase Urine Negative Negativ e RBC Urine 0-2 0-2 WBC Urine 0-5 0-5 Squamous Epithelial Cell Urine 0-2 0 -2 Bacteria Urine None Seen None Seen Hyaline Casts Urine 0-2 0-2 Complete Blood Count Auto Diff 2022-03-27 White Blood Count 4.2 4.8-10.8 Red Blood Count 4.32 4.60-5.80 Hemoglobin 13.4 14.0-18.0 Hematocrit 39.1 42.0-52.0 Mean Corpuscular Volume 90.5 80.0-98. 0 Mean Corpuscular Hemoglobin 31.0 27.0 -33.0 Mean Corpuscular HGB Conc 34.3 31.0-3 6.0 Red Cell Distribution Width 13.0 11.0 -16.0 Platelet Count 280 160-400 Mean Platelet Volume 9.6 9.4-12.4 Neutrophils Percent Auto 55.1 45-73 Imm Gran Pct Auto 1.7 0.0-0.4 Lymphocytes Percent Auto 29.3 20-40 Monocytes Percent Auto 11.1 2-11 Eosinophils Percent Auto 2.6 0-4 Basophils Percent Auto 0.2 0-2 NRBC Pct Auto 0.0 0.0-0.2 Neutrophils Absolute Auto 2.3 2.0-8. 3 Imm Gran Abs Auto 0.07 0.00-0.03 Lymphocytes Absolute Auto 1.2 1.2-4. 9 Monocytes Absolute Auto 0.5 0.1-1.2 Eosinophils Absolute Auto 0.1 0.0-0. 4 Basophils Absolute Auto 0.0 0.0-0.2 NRBC Abs Auto 0.000 0.0-0.012 Comprehensive [place]. Panel Fast 2022-03-27 Sodium 135 135-145 Potassium 4.5 3.3-5.1 Chloride 99 96-108 Carbon Dioxide 26 22-29 Anion Gap 15 12-20 Blood Urea Nitrogen 12 9-16 Creatinine 0.79 0.5-1.4 Estimated Glomerular Filt Rate > 60 Glucose Fasting 110 60-99 Calcium 9.9 8.4-10.2 Bilirubin Total 0.5 0.0-1.0 Aspartate Amino Transferase 18 5-37 Alanine Aminotransferase 14 0-40 Total Protein 7.0 6.5-8.0 Albumin Level 4.4 3.5-5.0 Alkaline Phosphatase 57 39-117 Lipid Panel 2022-03-27 Triglycerides 64 Cholesterol 205 LDL Cholesterol Calculated 115 HDL Cholesterol 78 Prostate Specific Antigen 2022-03-27 Prostate Specific Antigen 1.06 <0.05- 4.0 XR chest 2V 2021-02-10 Complete Blood Count Auto Diff 2020-11-19 White Blood Count 5.2 4.8-10.8 Red Blood Count 4.25 4.60-5.80 Hemoglobin 13.1 14.0-18.0 Hematocrit 39.1 42-52 Mean Corpuscular Volume 92.0 80-98 Mean Corpuscular Hemoglobin 30.8 27.0 -33.0 Mean Corpuscular HGB Conc 33.5 31.0-3 6.0 Red Cell Distribution Width 13.2 11.0 -16.0 Platelet Count 269 160-400 Mean Platelet Volume 9.2 9.4-12.4 Neutrophils Percent Auto 58.9 45-73 Imm Gran Pct Auto 1.0 0.0-0.4 Lymphocytes Percent Auto 23.4 20-40 Monocytes Percent Auto 10.1 2-11 Eosinophils Percent Auto 5.8 0-4 Basophils Percent Auto 0.8 0-2 NRBC Pct Auto 0.0 0.0-0.2 Neutrophils Absolute Auto 3.0 2.0-8. 3 Imm Gran Abs Auto 0.05 0.00-0.03 Lymphocytes Absolute Auto 1.2 1.2-4. 9 Monocytes Absolute Auto 0.5 0.1-1.2 Eosinophils Absolute Auto 0.3 0.0-0. 4 Basophils Absolute Auto 0.0 0.0-0.2 NRBC Abs Auto 0.000 0.0-0.012 Comprehensive [place]. Panel Fast 2020-11-19 Sodium 135 135-145 Potassium 4.3 3.3-5.1 Chloride 100 96-108 Carbon Dioxide 27 22-29 Anion Gap 12 12-20 Blood Urea Nitrogen 14 9-16 Creatinine 0.82 0.5-1.4 Estimated Glomerular Filt Rate > 60 Glucose Fasting 106 60-99 Calcium 9.4 8.4-10.2 Bilirubin Total 0.5 0.0-1.0 Aspartate Amino Transferase 18 5-37 Alanine Aminotransferase 15 0-40 Total Protein 6.7 6.5-8.0 Albumin Level 4.2 3.5-5.0 Alkaline Phosphatase 65 39-117 Lipid Panel 2020-11-19 Triglycerides 41 Cholesterol 194 LDL Cholesterol Calculated 103 HDL Cholesterol 83 Prostate Specific Antigen 2020-11-19 Prostate Specific Antigen 1.01 <0.05- 4.0 GUAIAC, SINGLE SPECIMEN 2019-08-25 GUAIAC Negative URINE DIP STICK 2019-08-25 SG 1.020 pH 6.5 RAMON neg NIT neg PRO neg GLU normal KET neg UBG normal ALE neh BLD neg Menstrating n/a CBC WITH AUTO DIFF 2019-08-19 WBC 5.6 4.8-10.8 RBC 4.5 4.5-5.5 HEMOGLOBIN 13.6 13.5-17.5 HEMATOCRIT 40.4 42-54 MCV 90.8 79-98 MCH 30.6 27-32 MCHC 33.7 32-37 RDW 13.0 11-15 PLT COUNT 294 130-400 MEAN PLATELET VOLUME 9.7 7-11 NEUT % 59.3 LYMPH % 25.1 MONO % 11.1 EOS % 2.9 BASO % 0.7 ABSOLUTE NEUT 3.33 1.5-7.0 COMPREHENSIVE METABOLIC PANEL 2019-08-19 GLUCOSE 96 70-100 BUN 12 5-25 CREAT 0.74 0.7-1.3 GLOMERULAR FILTRATION RATE > 60 SODIUM 129 135-145 POTASSIUM 4.1 3.5-5.5 CHLORIDE 97 96-110 CO2 27 21-32 ANION GAP 5 3-11 CALCIUM 9.2 8.5-10.5 TOTAL PROTEIN 7.2 6.0-8.0 ALBUMIN 4.1 3.2-5.0 BILI,TOTAL 0.6 0.0-1.4 SGOT 18 10-42 SGPT 22 10-60 ALK PHOS 58 42-121 LIPID PROFILE 2019-08-19 CHOLESTEROL 206 0-200 TRIGLYCERIDES 75 0-150 HDL CHOLESTEROL 85 >40 LDL CALCULATED 106 0-100 TC-HDLC RATIO 2.4 0-4.4 PROSTATIC SPECIFIC ANTIGEN 2019-08-19 PROSTATIC SPECIFIC ANTIGEN 1.5 0.0-4 .0 GUAIAC, SINGLE SPECIMEN 2018-08-05 GUAIAC negative URINE DIP STICK 2018-08-05 SG 1.020 pH 6 RAMON neg NIT neg PRO trace GLU normal KET neg UBG normal ALE neg BLD trace Menstrating n/a CBC WITH AUTO DIFF 2018-06-11 WBC 4.5 4.8-10.8 RBC 4.6 4.5-5.5 HEMOGLOBIN 14.3 13.5-17.5 HEMATOCRIT 41.8 42-54 MCV 90.7 79-98 MCH 31.0 27-32 MCHC 34.2 32-37 RDW 13.0 11-15 PLT COUNT 321 130-400 MEAN PLATELET VOLUME 9.4 7-11 NEUT % 57.8 LYMPH % 23.0 MONO % 13.8 EOS % 3.8 BASO % 0.7 ABSOLUTE NEUT 2.59 1.5-7.0 COMPREHENSIVE METABOLIC PANEL 2018-06-11 GLUCOSE 114 70-100 BUN 9 5-25 CREAT 0.69 0.7-1.3 GLOMERULAR FILTRATION RATE > 60 SODIUM 130 133-145 POTASSIUM 4.2 3.5-5.5 CHLORIDE 95 96-110 CO2 28 21-32 ANION GAP 7 3-11 CALCIUM 9.0 8.5-10.5 TOTAL PROTEIN 7.3 6.0-8.0 ALBUMIN 4.1 3.2-5.0 BILI,TOTAL 0.6 0.0-1.4 SGOT 21 10-42 SGPT 23 10-60 ALK PHOS 66 42-121 LIPID PROFILE 2018-06-11 CHOLESTEROL 211 0-200 TRIGLYCERIDES 75 0-150 HDL CHOLESTEROL 103 >40 LDL CALCULATED 93 0-100 TC-HDLC RATIO 2.1 0-4.4 CBC WITH AUTO DIFF 2018-02-08 WBC 5.1 4.8-10.8 RBC 4.7 4.5-5.5 HEMOGLOBIN 14.5 13.5-17.5 HEMATOCRIT 41.5 42-54 MCV 88.7 79-98 MCH 31.0 27-32 MCHC 34.9 32-37 RDW 12.6 11-15 PLT COUNT 299 130-400 MEAN PLATELET VOLUME 9.3 7-11 NEUT % 59.4 LYMPH % 24.8 MONO % 11.7 EOS % 2.1 BASO % 0.8 ABSOLUTE NEUT 3.05 1.5-7.0 COMPREHENSIVE METABOLIC PANEL 2018-02-08 GLUCOSE 106 70-100 BUN 8 5-25 CREAT 0.74 0.7-1.3 GLOMERULAR FILTRATION RATE > 60 SODIUM 129 133-145 POTASSIUM 4.2 3.5-5.5 CHLORIDE 92 96-110 CO2 27 21-32 ANION GAP 10 3-11 CALCIUM 9.3 8.5-10.5 TOTAL PROTEIN 7.5 6.0-8.0 ALBUMIN 4.2 3.2-5.0 BILI,TOTAL 0.8 0.0-1.4 SGOT 24 10-42 SGPT 26 10-60 ALK PHOS 67 42-121 GLYCOHEMOGLOBIN PROFILE 2018-02-08 GLYCATED HEMOGLOBIN A1C 5.5 <6.5 ESTIMATED AVERAGE GLUCOSE 111 LIPID PROFILE 2018-02-08 CHOLESTEROL 219 0-200 TRIGLYCERIDES 55 0-150 HDL CHOLESTEROL 115 >40 LDL CALCULATED 93 0-100 TC-HDLC RATIO 1.9 0-4.4 CBC WITH AUTO DIFF 2017-10-09 WBC 4.2 4.8-10.8 RBC 4.5 4.5-5.5 HEMOGLOBIN 13.8 13.5-17.5 HEMATOCRIT 41.0 42-54 MCV 91.5 79-98 MCH 30.8 27-32 MCHC 33.7 32-37 RDW 12.7 11-15 PLT COUNT 306 130-400 MEAN PLATELET VOLUME 9.8 7-11 NEUT % 53.0 LYMPH % 28.8 MONO % 12.2 EOS % 4.6 BASO % 0.7 ABSOLUTE NEUT 2.21 1.5-7.0 COMPREHENSIVE METABOLIC PANEL 2017-10-09 GLUCOSE 107 70-100 BUN 8 5-25 CREAT 0.76 0.7-1.3 GLOMERULAR FILTRATION RATE > 60 SODIUM 132 133-145 POTASSIUM 4.1 3.5-5.5 CHLORIDE 97 96-110 CO2 27 21-32 ANION GAP 8 3-11 CALCIUM 9.1 8.5-10.5 TOTAL PROTEIN 6.9 6.0-8.0 ALBUMIN 4.4 3.2-5.0 BILI,TOTAL 0.7 0.0-1.4 SGOT 23 10-42 SGPT 27 10-60 ALK PHOS 56 42-121 LIPID PROFILE 2017-10-09 CHOLESTEROL 208 0-200 TRIGLYCERIDES 86 0-150 HDL CHOLESTEROL 87 >40 LDL CALCULATED 104 0-100 TC-HDLC RATIO 2.4 0-4.4 PROSTATIC SPECIFIC ANTIGEN 2017-10-09 PROSTATIC SPECIFIC ANTIGEN 1.6 0.0-4 .0 Colonoscopy (old) SCREENING COLONOSCOPY GUAIAC, SINGLE SPECIMEN 2016-07-11 GUAIAC Negative URINE DIP STICK 2016-07-11 SG 1.005 pH 7 RAMON neg NIT neg PRO trace GLU neg KET neg UBG normal ALE neg BLD neg Menstrating n/a CBC WITH AUTO DIFF 2016-07-04 WBC 4.4 4.8-10.8 RBC 4.5 4.5-5.5 HEMOGLOBIN 14.0 13.5-17.5 HEMATOCRIT 40.9 42-54 MCV 91.3 79-98 MCH 31.3 27-32 MCHC 34.2 32-37 RDW 12.9 11-15 PLT COUNT 297 130-400 MEAN PLATELET VOLUME 9.8 7-11 NEUT % 52.6 LYMPH % 32.0 MONO % 10.9 EOS % 2.7 BASO % 0.9 ABSOLUTE NEUT 2.32 1.5-7.0 COMPREHENSIVE METABOLIC PANEL 2016-07-04 GLUCOSE 109 70-100 BUN 8 5-25 CREAT 0.74 0.7-1.3 GLOMERULAR FILTRATION RATE > 60 SODIUM 137 133-145 POTASSIUM 4.3 3.5-5.5 CHLORIDE 99 96-110 CO2 26 21-32 ANION GAP 12 3-11 CALCIUM 9.6 8.5-10.5 TOTAL PROTEIN 7.2 6.0-8.0 ALBUMIN 4.3 3.2-5.0 BILI,TOTAL 0.9 0.0-1.4 SGOT 20 10-42 SGPT 27 10-60 ALK PHOS 56 42-121 LIPID PROFILE 2016-07-04 CHOLESTEROL 217 0-200 TRIGLYCERIDES 81 0-150 HDL CHOLESTEROL 105 >40 LDL CALCULATED 96 0-100 TC-HDLC RATIO 2.1 0-4.4 GUAIAC, SINGLE SPECIMEN 2015-06-08 GUAIAC Negative RBS/Hemocue glucose 2015-06-08 RBS 77 URINE DIP STICK 2015-06-08 SG 1.005 pH 7 RAMON neg NIT neg PRO neg GLU neg KET small UBG normal ALE neg BLD trace Menstrating n/a SCREENING COLONOSCOPY RBS/Hemocue glucose 2014-06-02 RBS 113 CBC WITH AUTO DIFF 2013-10-14 WBC 3.8 4.8-10.8 RBC 4.5 4.5-5.5 HEMOGLOBIN 14.1 13.5-17.5 HEMATOCRIT 40.4 42-54 MCV 90.4 79-98 MCH 31.5 27-32 MCHC 34.9 32-37 RDW 13.3 11-15 PLT COUNT 295 130-400 MEAN PLATELET VOLUME 9.5 7-11 NEUT % 60 41-85 LYMPH % 27 15-48 MONO % 11 0-12 EOS % 1 0-5 BASO % 1 0-2 ABSOLUTE NEUT 2.3 >1.5 COMPREHENSIVE METABOLIC PANEL 2013-10-14 GLUCOSE 100 70-100 BUN 8 5-25 CREAT 0.71 0.7-1.3 GLOMERULAR FILTRATION RATE > 60 SODIUM 134 133-145 POTASSIUM 4.0 3.5-5.5 CHLORIDE 97 96-110 CO2 27 21-32 ANION GAP 10 3-11 CALCIUM 9.5 8.5-10.5 TOTAL PROTEIN 6.7 6.0-8.0 ALBUMIN 4.4 3.2-5.0 BILI,TOTAL 0.7 0.0-1.4 SGOT 29 10-42 SGPT 23 10-60 ALK PHOS 56 42-121 GLYCOHEMOGLOBIN PROFILE 2013-10-14 GLYCATED HEMOGLOBIN A1C 5.3 <6.5 ESTIMATED AVERAGE GLUCOSE 105 LIPID PROFILE 2013-10-14 CHOLESTEROL 200 0-200 TRIGLYCERIDES 43 0-150 HDL CHOLESTEROL 110 >40 LDL CALCULATED 82 0-100 TC-HDLC RATIO 1.8 0-4.4 RBS/Hemocue glucose 2013-03-12 RBS 111 CHEST 2 VIEWS 2013-01-07 REASON FOR VISIT Annual Exam, Follow-up, telehealth, ER follow up, High blood pressure, Emphysema, Benign prostatic hypertrophy, Current, pt wants a sedative , Hypertension, Bilateral inguinal hernias, Emphysema, Current, Benign prostatic hypertrophy, Hypertension, Hypertension, Bilateral inguinal hernias, Emphysema, Overweight, Benign prostatic hypertrophy, gout, pt having chest pain anxiety attack, Annual Exam, Right first toe pain, Painful right first toe, Allergies, Hypertension, Anxiety, Dyspnea related to anxiety, Hypertension, Exertional left chest pain, Exertion left feeling, Hypertension, Emphysema, Formersmoker, Overweight, Allergies, Hypertension, Pulmonary Emphysema, Followup, 3 month f/u, only, Followup, Dyspnea, Essential Hypertension, Inguinal hernia, Shortness of breath, Annual Exam, Concern,Pt called concern, hypertension, inguinal hernias, emphysema, allergies, overweight, hypertension, environmental allergies, emphysema, hypertension, emphysema, allergies, overweight, shortness of breath, shortness of breath, periods of apnea at night, hypertension, hypertension, inguinal hernias, allergies, emphysema, hypertension, skin lesion, allergies, annual exam , Sick, hypertension, emphysema, overweight, hypertension, lightheadedness, hypertension , lightheadedness, requesting f/u appt. , hypertension, emphysema, environmental allergies, dizziness, fainted, ? next appt date, speak to , annual exam , hypertension, emphysema, environmental allergies, speak to , hypertension, right knee pain, insomnia, hypertension , copy of labs to be sent to [facility] , hypertension , cancel appt, Talk to , Message for , over due for colonoscopy with Dr Jerry, annual physical exam, hypertension, hypertension , hypertension , hyperglycemia, hypertension , hypertension , URI, annual exam, hypertension, request for labs to be sent to , hypertension, hypertension, hypertension, annual exam, Medicince ?, ? had pneumovax done here, skin lesion upper chest wall, tick in chest , has two appt same day, hypertension, hypertension, Over the counter natural HTN pills, hypertension, hypertension, hypertension, hypertension, Labs from 10/14/2013, labs, hypertension, hypertension , right shoulder pain, arm pain, hypertension, hypertension, calling back to reschedule appt, hypertension, hypertension, annual exam, Historical data abstraction, hypertension, Historical data abstraction Insurance Providers [facility] Member Patient Patient Patient Patient Patient Subscriber Subscriber Subscriber Group Insurance Plan Plan Plan Plan ID Relationship Address Phone Name Date of ID Name Date of No Type Insurance Insurance Insurance Coverage to Subscriber Address Phone Name Dates BLUE [employer]OSS [phone] [employer]UE [place] self [place] 19 [id number] BLUE [id number] [address] [place] [address] [facility] [id number] MEDICARE [phone] MEDICARE self Ones[place] [id number] [id number] [place] [phone]
--- OUTSIDE RECORDS SUMMARY | 2022-08-02 22:58 | XMS_ITS | Continuity of Care Document ---
:1945 Author Organization [facility] Address [address] [place] [address]- Care Team Providers Name Role Phone Babatunde Hoff MD Primary Care Physician En[place] [facility] [place] 02/14/21 - 02/14/[address] [address]- Discharge Disposition: A-D/C Walkout Attending Physician: Not on Staff, Attending MD Admitting Physician: Not on Staff, Admitting MD Referring Physician: Not on Staff, Referring MD Allergies, Adverse Reactions, Alerts Substance Reaction Severity Status NKA Active Medications lisinopril 5 mg oral tablet 5 mg, 1, tablet, By Mouth, Daily, # 30 tablet, Refills 0, Maintenance, 01/20/19 8:03:50 EDT Start Date: 01/20/19 Status: Ordered Results Radiology Reports Exam Date Time Procedure Performing Provider Status 02/14/21 6:48 AM Chest 2 Views Frontal and Lat Berry , Ludmila; Au th (Verified) Notes:(Chest 2 Views Frontal and Lat) Reason For Exam: Chest Pain;Other:RESULT: Chest 2 Views Frontal and Lat Chest 2 Views Frontal and Lat Hx of Present Illness: Pt reporting SOB today, stated he has a history of dust inhalation issues normally runs daily but because of rain was unable to today now feeling SOB, denies CP, fevers, cough,n v d; Reason: Other:; Chest Pain; Clinical Question(s): Other: COMPARISON: None. FINDINGS: LINES AND TUBES: None. LUNGS AND PLEURA: Clear hyperinflated lungs. Normal pulmonary vascularity. No pleural effusion. No pneumothorax. HEART, MEDIASTINUM AND FATUMA: Heart is normal in size. Normal upper mediastinal and hilar contour. BONES AND SOFT TISSUES: No acute abnormality. Diffuse osteopenia throughout the thoracic spine. Mild anterior wedge deformity likely at T12 or T11. IMPRESSION: No pneumonia or CHF. Mild hyperinflation which could be seen with asthma or COPD. Incidental mild compression fracture in the lower thoracic spine probably old. WSN: [id number] Ordering Physician: Edward Ding Dictated By: Jesus Centeno MD Dictated Date/Time: 02/14/21 8:37 am Reviewed By: Jesus Centeno MD Signed By: Jesus Centeno MD Signed Date/Time: 02/14/21 8:37 am Transcribed By: ROD Transcribed Date/Time: 02/14/21 8:36 am Vital Signs Most recent to oldest [Reference Range]: 1 2 Oxygen Saturation [94-100 %] 98 % 100 % (02/14/21 6:05 AM) (02/14/21 5:14 AM) Pulse Rate [55-90 bpm] 69 bpm 79 bpm (02/14/21 6:05 AM) (02/14/21 5:14 AM) Blood Pressure [90-138/55-84 mm Hg] 150/81 mm Hg *H* (02/14/21 6:05 AM) Respiratory Rate [16-30 br/min] 18 br/min 18 br/mi n (02/14/21 6:05 AM) (02/14/21 5:14 AM) Temperature [96.8-100.4 DegF] 98.7 DegF (02/14/21 6:05 AM) Mode of Delivery (Oxygen) Room air Room air (02/14/21 6:05 AM) (02/14/21 5:14 AM) Blood pressure sites Arm, left (02/14/21 6:05 AM) Temperature Route Oral (02/14/21 6:05 AM) Social History Social History Type Response Smoking Status Former smoker, quit more javid n 30 days ago entered on: 01/20/19 Sex
[2022-08-02] MEDS: predniSONE 20 MG TABLET 60 MG PO (22:59)
--- NOTE | 2022-08-02 23:06 | PC.NURSE ---
Medicated per Jul, notified SAY Bo
--- NOTE | 2022-08-03 00:11 | PC.NURSE ---
Pt aox4 resting at the bedside in no apparent distress. Reports improved breathing post albuterol treatment. Discharge instructions reviewed with pt. Pt ambulatory indepently with no assist and steady gait at discharge.
== END 2022-08-03 00:12 | disposition home or self-care (01) ==
PROVIDERS: Emergency Provider Emergency Medicine; PCP Internal Medicine Medical Oncology
DX: J45.901 Unspecified asthma with (acute) exacerbation (principal); J44.9 Chronic obstructive pulmonary disease, unspecified; R06.02 Shortness of breath
CPT/HCPCS: 99282; 99283

== ENCOUNTER 2022-08-17 09:21 | Emergency (ER) | payer MEDICARE, SELFPAY ==
[2022-08-17 09:31] VITALS: BP 174/93; PULSE 72; RESP 16; TEMP 36.7; O2SAT 97; BMI 25.2
--- NOTE | 2022-08-17 10:06 | ED_ITS ---
HPI - General Adult General Chief complaint: Anxiety Stated complaint: ANXIETY,CALM/COOP PER EMS Time Seen by Provider: 08/17/22 09:39 Source: patient, EMS, RN notes reviewed and old records reviewed Mode of arrival: EMS Limitations: no limitations History of Present Illness HPI narrative: 76-year-old male with past medical history COPD and asthma called EMS for shortness of breath and anxiety. Patient reports that he woke up this morning feeling very anxious, sweaty, short of breath. Patient called his roommate who called the ambulance. Patient's roommate states that patient calm down shortly after EMS was called. Patient denies any chest pain, shortness of breath, syncope, presyncope, PND. Patient denies any nausea or vomiting. Denies any abdominal pain or discomfort. Patient denies any urinary frequency. Patient denies any dyspepsia, dysphagia odynophagia. Patient denies any melena, hematochezia, unintentional weight loss or ribbon like stools. Patient reports that he has not on any medications. Recently called his PCP who prescribed him Zoloft, however patient reports that he has not started that yet. Patient is not taking any medication. Patient reports that he tries to bake marijuana cup cakes and takes that when he gets anxious. Onset (ago): hour(s) Related Data Home Medications Medication Instructions Recorded Confirmed ascorbic acid (vitamin C) 500 mg 500 mg PO DAILY 08/17/22 08/17/22 tablet (Vitamin C) multivitamin 1 tab PO DAILY 08/17/22 08/17/22 Previous Rx's Medication Instructions Recorded albuterol sulfate 90 mcg/actuation 2 puff inhalation Q4-6H PRN 08/02/22 aerosol inhaler shortness of breath or wheezing #8.5 grams levofloxacin 500 mg tablet 500 mg PO DAILY #6 tabs 08/18/22 metronidazole 500 mg tablet 500 mg PO BID 7 days #14 tabs 08/18/22 Allergies Allergy/AdvReac Type Severity Reaction Status Date / Time No Known Allergies Allergy Verified 08/17/22 09:33 Review of Systems Review of Systems: Constitutional : No Weight loss, No Fever, No Chills, No Night Sweats, No Fatigue, No Malaise ENT/Mouth : No Hearing loss, No Ear Pain, No Nasal Congestion, No Sinus Pain, No Hoarseness, No sore throat, No Rhinorrhea, No Swallowing Difficulty Eyes: No Eye Pain, No Swelling, No Redness, No Foreign Body, No Discharge, No Vision Changes Cardiovascular : No Chest Pain, no dyspnea on exertion, no orthopnea, no edema or palpitations Respiratory : No Cough, No Sputum, wheezing earlier today and shortness of breath, now resolved Gastrointestinal : No Nausea, No Vomiting, No Diarrhea, No Constipation, No abdominal Pain, No Hematochezia, No Melena Genitourinary : no irregular bleeding, No Dysuria, No Urinary Frequency, No Hematuria, No Urinary Incontinence, No Urgency, No Flank Pain, No Urinary Flow Changes, No Hesitancy Musculoskeletal : No joint pain, No Myalgias, No Joint Swelling Skin : No Skin Lesions, No rash Neuro : No Weakness, No Numbness, No Paresthesias, No Loss of Consciousness, No Dizziness, No Headache Psych : No Anxiety/Panic, No Depression, No SI/HI/AH/VH, No Social Issues, Heme/Lymph: No Bruising, No Bleeding,No Lymphadenopathy Endocrine : No Polyuria, No Polydipsia, No Temperature Intolerance [facility] Past Medical History Medical History Asthma exacerbation COPD (chronic obstructive pulmonary disease) Surgical History History of hernia surgery Social History Social History Alcohol intake: current Alcohol intake frequency: holidays/special occasions only Smoked in Last 30 Days: No Use of substances other than those prescribed or required for medical reasons: No Substance Use Type: Marijuana Advance Directives: No Advance Directives Information Provided: No Healthcare Proxy: No Guardian: No Physical Exam ED Vital Signs: Vital Signs - 24 hr 08/17/22 09:31 08/17/22 11:22 Temperature 98.1 F 98.5 F Pulse Rate 72 57 Respiratory Rate 16 17 Blood Pressure 174/93 H 144/79 H Pulse Oximetry 97 96 Oxygen Delivery Method Room Air Room Air BMI result Body Mass Index 25.2 Const Other: Appearance: Alert.? Oriented X3.? No acute distress.? Eyes: Pupils equal, round and reactive to light. ENT: Pharynx normal. Neck: Normal inspection.? Neck supple. No lymph nodes noted. No crepitus CVS: Normal heart rate and rhythm.? Pulses normal. Normal S1 and S2 Respiratory: No respiratory distress.? Breath sounds normal. No Wheezing. No rales Abdomen: Soft and nontender. No rigidity. No distention. Skin: Skin warm and dry.? Normal skin color.? Normal skin turgor. Extremities: No lower extremity edema. No Lacerations. No Rash Neuro: Oriented X 3.? No motor deficit.? No sensory deficit. Moving all extremities. No slurred speech. CN 2 through 12 grossly intact Psych: calm, cooperative, normal affect Course Course Course Narrative: 76-year-old male with past medical history COPD and asthma called EMS for shortness of breath and anxiety. Patient reports that he woke up this morning feeling very anxious, sweaty, short of breath. Patient called his roommate who called the ambulance. Patient's roommate states that patient calm down shortly after EMS was called. Patient denies any chest pain, shortness of breath, syncope, presyncope, PND. Patient denies any nausea or vomiting. Denies any abdominal pain or discomfort. Patient denies any urinary frequency. Patient denies any dyspepsia, dysphagia odynophagia. Patient denies any melena, hematochezia, unintentional weight loss or ribbon like stools. Patient reports that he has not on any medications. Recently called his PCP who prescribed him Zoloft, however patient reports that he has not started that yet. Patient is not taking any medication. Patient reports that he tries to bake marijuana cup cakes and takes that when he gets anxious. Patient denies feeling anxious is this time. Patient's roommate is at the bedside. Will do urinalysis, CBC, basic metabolic panel Reevaluation(s) Reevaluation #1: Vital signs stable. Patient is hemodynamically stable and will be sent home. Patient denies feeling anxious at this time. He will be following up with his PCP. Patient was started on Zoloft yesterday and did not start the medications yet. Patient reports that he is feeling safe to go home. Denies SI, HI. Medical Decision Making Lab Data 08/17/22 10:43 08/17/22 10:43 Labs: Lab Results 08/17/22 08/17/22 08/17/22 Range/Units 10:43 10:43 11:24 WBC 3.5 L (4.8-10.8) X10*3/uL RBC 4.34 L (4.60-5.80) X10*6/uL Hgb 13.8 L (14.0-18.0) g/dl Hct 38.5 L (42.0-52.0) % MCV 88.7 (80.0-98.0) fL MCH 31.8 (27.0-33.0) pg MCHC 35.8 (31.0-36.0) g/dl RDW 12.8 (11.0-16.0) % Plt Count 257 (160-400) X10*3/uL MPV 9.0 L (9.4-12.4) fL Immature Gran % (Auto) 1.1 H (0.0-0.4) % Neut % (Auto) 58.4 (45-73) % Lymph % (Auto) 25.5 (20-40) % [place] % (Auto) 11.6 H (2-11) % Eos % (Auto) 3.1 (0-4) % Baso % (Auto) 0.3 (0-2) % Lymph # (Auto) 0.9 L (1.2-4.9) X10*3/uL [place] # (Auto) 0.4 (0.1-1.2) X10*3/uL Eos # (Auto) 0.1 (0.0-0.4) X10*3/uL Baso # (Auto) 0.0 (0.0-0.2) X10*3/uL Abs Immat Gran (auto) 0.04 H (0.00-0.03) X10*3/uL Absolute Neuts (auto) 2.1 (2.0-8.3) x10*3/uL Absolute Nucleated RBC 0.000 (0.0-0.012) X10*3/uL Nucleated RBC % (auto) 0.0 (0.0-0.2) /100WBC Sodium 135 (135-145) mmol/L Potassium 3.6 (3.3-5.1) mmol/L Chloride 101 (96-108) mmol/L Carbon Dioxide 25 (22-29) mmol/L Anion Gap 13 (12-20) BUN 5 L (9-16) mg/dL Creatinine 0.66 (0.5-1.4) mg/dL Estim Creat Clear Calc 95.2 Estimated GFR > 60 Random Glucose 111 (60-115) mg/dL Calcium 9.0 D (8.4-10.2) mg/dL Urine Color Yellow Urine Appearance Clear Urine pH 7.0 (5.0-9.0) Ur Specific [place] <= 1.005 (1.005-1.025) Urine Protein Negative (Neg-Trace) mg/dL Urine Glucose (UA) Negative (Negative) mg/dL Urine Ketones Negative (Negative) mg/dL Urine Blood Negative (Negative) Urine Nitrite Negative (Negative) Ur Leukocyte Esterase Negative (Negative) Discharge Plan Discharge Clinical Impression: Acute anxiety, Hyperventilation, Panic disorder Patient Disposition: Home, Self-Care Instructions: Panic Disorder (ED), Anxiety (ED) Additional Instructions: You were seen here today after having an anxiety episode. Make sure that you follow-up with your primary care provider. If you have increased SOB, chest pain or any other Will worrisome symptoms please return to emergency room. Prescriptions: No Action albuterol sulfate 90 mcg/actuation HFA aerosol inhaler 2 puff inhalation Q4-6H PRN (Reason: shortness of breath or wheezing) Qty: 8.5 0RF multivitamin Tablet 1 tab PO DAILY ascorbic acid (vitamin C) [Vitamin C] 500 mg Tablet 500 mg PO DAILY levofloxacin 500 mg tablet 500 mg PO DAILY Qty: 6 0RF metronidazole 500 mg tablet 500 mg PO BID 7 Days Qty: 14 0RF Referrals: Babatunde Hoff MD [Primary Care Provider] - Interventions: ED Discharge Assessment Last Done: 08/17/22 13:00 Discharge Date/Time: 08/17/22 13:03
--- NOTE | 2022-08-17 10:19 | ECG_ITS ---
Test Reason : ANXIETY Blood Pressure : / mmHG Vent. Rate : 066 BPM Atrial Rate : 066 BPM P-R Int : 174 ms QRS Dur : 084 ms QT Int : 422 ms P-R-T Axes : 045 011 052 degrees QTc Int : 442 ms Sinus rhythm with Premature atrial complexes in a pattern of bigeminy Otherwise normal ECG When compared with ECG of 23-JUL-2022 13:22, No significant change was found Referred By: Kalpana Velázquez Electronically Signed By:KIET ORNELAS MD
[2022-08-17 10:50] LABS: MANUAL DIFF FLAG NO
[2022-08-17 10:57] LABS: Basophils Percent Auto 0.3 % (0-2); Eosinophils Absolute Auto 0.1 X10*3/uL (0.0-0.4); Eosinophils Percent Auto 3.1 % (0-4); Hematocrit 38.5 % (42.0-52.0); Hemoglobin 13.8 g/dl (14.0-18.0); Imm Gran Abs Auto 0.04 X10*3/uL (0.00-0.03); Imm Gran Pct Auto 1.1 % (0.0-0.4); Lymphocytes Absolute Auto 0.9 X10*3/uL (1.2-4.9); Lymphocytes Percent Auto 25.5 % (20-40); Mean Corpuscular HGB Conc 35.8 g/dl (31.0-36.0); Mean Corpuscular Hemoglobin 31.8 pg (27.0-33.0); Mean Corpuscular Volume 88.7 fL (80.0-98.0); Monocytes Absolute Auto 0.4 X10*3/uL (0.1-1.2); Monocytes Percent Auto 11.6 % (2-11); Neutrophils Absolute Auto 2.1 x10*3/uL (2.0-8.3); Neutrophils Percent Auto 58.4 % (45-73); Platelet Count 257 X10*3/uL (160-400); Red Blood Count 4.34 X10*6/uL (4.60-5.80); Red Cell Distribution Width 12.8 % (11.0-16.0); White Blood Count 3.5 X10*3/uL (4.8-10.8)
[2022-08-17 11:09] LABS: Anion Gap 13 (12-20); Blood Urea Nitrogen 5 mg/dL (9-16); Carbon Dioxide 25 mmol/L (22-29); Chloride 101 mmol/L (96-108); Creatinine Clr Calc Pharmacy 95.2; Estimated Glomerular Filt Rate > 60; Glucose Random 111 mg/dL (60-115); Potassium 3.6 mmol/L (3.3-5.1); Sodium 135 mmol/L (135-145)
[2022-08-17 11:22] VITALS: BP 144/79; PULSE 57; RESP 17; TEMP 36.9; O2SAT 96
[2022-08-17 11:53] LABS: Appearance Urine Clear; Color Urine Yellow; Glucose Urine UA Negative (Negative); Leukocyte Esterase Urine Negative (Negative); Nitrite Urine Negative (Negative); Specific Gravity - Urine <= 1.005 (1.005-1.025); Urine Blood Negative (Negative); Urine Ketones Negative (Negative); Urine Protein Negative (Neg-Trace)
== END 2022-08-17 13:03 | disposition home or self-care (01) ==
PROVIDERS: Nurse Practitioner Family; Emergency Provider Emergency Medicine; PCP Internal Medicine Medical Oncology
DX: F41.1 Generalized anxiety disorder (principal); F43.0 Acute stress reaction; J44.9 Chronic obstructive pulmonary disease, unspecified; F41.0 Panic disorder [episodic paroxysmal anxiety]; Z79.899 Other long term (current) drug therapy
CPT/HCPCS: 36415; 80048; 81003; 85025; 93005; 99283; 99285

== ENCOUNTER 2022-08-17 21:31 | Emergency (ER) | payer MEDICARE, SELFPAY ==
--- NOTE | ~2022-08-17 | CT_ITS ---
EXAMINATION: CT ABDOMEN AND PELVIS WITH CONTRAST CLINICAL INFORMATION: Diarrhea, abdominal pain COMPARISON: None available. TECHNIQUE: Multidetector volumetric images were obtained from the superior aspect of the liver through the pubic symphysis following administration 85 mL of Omnipaque 350 intravenous contrast. Sagittal and coronal reformatted images were obtained on the technologist's workstation. Oral contrast: No This CT examination was performed using dose optimization techniques as appropriate, variously including the following: *Automated exposure control *Adjustment of mA and/or kV according to patient size (this includes techniques or standardized protocols for targeted exams where dose is matched to indication/reason for exam; i.e. extremities or head) *Use of iterative reconstruction technique DLP: 480 mGy-cm FINDINGS: LUNG BASES: Calcified granuloma in the right lung base. ABDOMINAL AND PELVIC WALL: Unremarkable. LIVER AND BILIARY TREE: Unremarkable. GALLBLADDER: Unremarkable. PANCREAS: Unremarkable. SPLEEN: Unremarkable. ADRENAL GLANDS: Unremarkable. KIDNEYS AND URETERS: Bilateral renal hypodensities too small to characterize. GASTROINTESTINAL TRACT: Small hiatal hernia. Mild colonic wall thickening involving the sigmoid colon and rectum with minimal infiltration of the pericolonic fat which can be seen in the setting of proctocolitis which may be infectious or inflammatory. Normal appendix. VASCULAR: Unremarkable. LYMPH NODES/PERITONEUM: No lymphadenopathy. FREE FLUID: None. BLADDER: Unremarkable. PELVIC VISCERA: Unremarkable. OSSEOUS STRUCTURES: Multilevel degenerative disc disease. CT/CT abdomen pelvis w IV con IMPRESSION: Mild colonic wall thickening involving the sigmoid colon and rectum with minimal infiltration of the pericolonic fat which can be seen in the setting of proctocolitis if clinical symptoms are appropriate, which may be infectious or inflammatory.
[2022-08-17 21:37] VITALS: BP 147/77; PULSE 79; RESP 20; TEMP 36.5; O2SAT 96
[2022-08-17 21:44] VITALS: BP 147/77; BP 170/72; PULSE 79; PULSE 80; RESP 16; TEMP 36.2; O2SAT 94; O2SAT 99; BMI 19.2
--- NOTE | 2022-08-17 21:50 | PC.NURSE ---
Pt reporting increased anxiety, scared that his caregiver's grandson is going to hurt him or steal his things. Pt has been speaking in circles with EMS. EMS did note that there were several books on dementia at the house. Pt is calm and cooperative, pt called 911 himself. Pt was seen here this morning and had labs done.
--- NOTE | 2022-08-17 22:31 | PHA.MEDREC ---
Pharmacy Consult ? Medication Reconciliation Pharmacy has completed the medication reconciliation. Pt's at bedside, told not to start sertraline (new rx) by provider at earlier ED visit today
--- NOTE | 2022-08-17 22:47 | PC.NURSE ---
Pt resting quietly in bed at this time. Jenn, the caregiver and friend, is at the bedside. Pt has no complaints at this time. No new orders.
[2022-08-17 22:53] LABS: Influenza A PCR NEGATIVE (Negative); Influenza B PCR NEGATIVE (Negative); Resp Syncy Virus RNA Qual PCR NEGATIVE (Negative); SARS COV2 PCR INHOUSE NEGATIVE (Negative)
[2022-08-17 23:20] LABS: Amphetamine Screen Urine Not Detected (Not Detect); Barbiturates, Urine Not Detected (Not Detect); Benzodiazepines Screen Urine Not Detected (Not Detect); Cannabinoid Screen Urine POSITIVE (Not Detect); Cocaine Screen Urine Not Detected (Not Detect); Fentanyl, urine Not Detected (Not Detect); Opiate Screen Urine Not Detected (Not Detect); Phencyclidine Screen Urine Not Detected (Not Detect)
--- NOTE | 2022-08-17 23:37 | ED_ITS ---
HPI - General Adult General Chief complaint: Anxiety <TREASURE Navarro - Last Filed: 08/18/22 01:34> Stated complaint: ANXIETY <TREASURE Navarro Last Filed: 08/18/22 01:34> Time Seen by Provider: 08/17/22 21:49 <TREASURE Navarro Last Filed: 08/18/22 01:34> Source: patient <TREASURE Navarro Last Filed: 08/18/22 01:34> Mode of arrival: ambulatory <TREASURE Navarro Last Filed: 08/18/22 01:34> Limitations: other (Poor historian) <TREASURE Navarro Last Filed: 08/18/22 01:34> History of Present Illness HPI narrative: 76-year-old male presents to the emergency department for evaluation of anxiety, diarrhea, abdominal discomfort according to patient he was seen here earlier and he feels like nothing was done, comes back because he feels like he was going to have another anxiety attack. He reports he has also been having few episodes of completely loose foul-smelling stool, this started after he ate fish at home. Patient had diffuse abdominal discomfort at home which has resolved. Patient poor historian. According to nursing patient was very paranoid when he came in he came in paranoid thinking that his caregivers grandson was going to hurt him or still things from him as he was in some sort a gang. Patient rambles on and at times does not make sense, he tells me that he is feeling anxious and what makes him anxious is coming into the hospital however he wanted to come back into the hospital. Unreliable historian. Denying any other medical complaints at this time <TREASURE Navarro Last Filed: 08/18/22 01:34> Related Data Home medications: Home Medications Medication Instructions Recorded Confirmed ascorbic acid (vitamin C) 500 mg 500 mg PO DAILY 08/17/22 08/17/22 tablet (Vitamin C) multivitamin 1 tab PO DAILY 08/17/22 08/17/22 Previous Rx's Medication Instructions Recorded albuterol sulfate 90 mcg/actuation 2 puff inhalation Q4-6H PRN 08/02/22 aerosol inhaler shortness of breath or wheezing #8.5 grams levofloxacin 500 mg tablet 500 mg PO DAILY #6 tabs 08/18/22 metronidazole 500 mg tablet 500 mg PO BID 7 days #14 tabs 08/18/22 <TREASURE Navarro Last Filed: 08/18/22 01:34> Allergies/adverse reactions: Allergies Allergy/AdvReac Type Severity Reaction Status Date / Time No Known Allergies Allergy Verified 08/17/22 09:33 <TREASURE Navarro Last Filed: 08/18/22 01:34> Review of Systems Review of Systems: Constitutional : No Weight loss, No Fever, No Chills, No Fatigue, No Malaise ENT/Mouth : No sore throat, No Rhinorrhea Eyes: No Eye Pain, No Swelling, No Redness Cardiovascular : No Chest Pain, No SOB, No Dyspnea on Exertion, No Orthopnea, No Edema, No Palpitations Respiratory : No Cough, No Sputum, No Wheezing Gastrointestinal : No Nausea, No Vomiting, + Diarrhea, No Constipation, + abdominal Pain, No Hematochezia, No Melena Genitourinary : No Dysuria, No Urinary Frequency, No Hematuria, Musculoskeletal : No joint pain, No Myalgias, No Joint Swelling Skin : No Skin Lesions, No rash Neuro : No Weakness, No Numbness, No Dizziness, No Headache Psych : + Anxiety/Panic, No Depression, + paranoia All other systems reviewed and are negative <TREASURE Navarro Last Filed: 08/18/22 01:34> Yes all other systems are reviewed and are negative <TREASURE Navarro Last Filed: 08/18/22 01:34> [facility] Past Medical History Attestation statement: The following information was validated with the patient. <TREASURE Navarro Last Filed: 08/18/22 01:34> Source: old records reviewed and nursing notes reviewed <TREASURE Navarro Last Filed: 08/18/22 01:34> Medical History: Medical History Asthma exacerbation COPD (chronic obstructive pulmonary disease) <TREASURE Navarro Last Filed: 08/18/22 01:34> Surgical History: Surgical History History of hernia surgery <TREASURE Navarro - Last Filed: 08/18/22 01:34> Social History Social History: Social History Alcohol intake: current Alcohol intake frequency: holidays/special occasions only Smoked in Last 30 Days: No Use of substances other than those prescribed or required for medical reasons: No Substance Use Type: Marijuana Advance Directives: No Advance Directives Information Provided: No Healthcare Proxy: No Guardian: No <TREASURE Navarro - Last Filed: 08/18/22 01:34> Physical Exam ED Vital Signs: Vital Signs - 24 hr 08/17/22 21:37 08/17/22 21:44 08/18/22 02:18 Temperature 97.7 F 97.1 F 98.1 F Pulse Rate 79 79 70 Respiratory Rate 20 16 20 Blood Pressure 147/77 H 147/77 H 144/94 H Pulse Oximetry 96 94 95 Oxygen Delivery Method Room Air Room Air Room Air 08/18/22 04:59 08/18/22 08:48 08/18/22 10:58 Temperature 97.2 F 98.2 F 98.2 F Pulse Rate 78 81 82 Respiratory Rate 15 13 14 Blood Pressure 157/73 H 164/79 H 154/90 H Pulse Oximetry 96 98 98 Oxygen Delivery Method Room Air Room Air Room Air 08/18/22 12:11 Temperature Pulse Rate 79 Respiratory Rate 14 Blood Pressure 179/98 H Pulse Oximetry 97 Oxygen Delivery Method Room Air BMI result Body Mass Index 19.2 vss <TREASURE Navarro - Last Filed: 08/18/22 01:34> Vital Signs - 24 hr 08/17/22 21:37 08/17/22 21:44 08/18/22 02:18 Temperature 97.7 F 97.1 F 98.1 F Pulse Rate 79 79 70 Respiratory Rate 20 16 20 Blood Pressure 147/77 H 147/77 H 144/94 H Pulse Oximetry 96 94 95 Oxygen Delivery Method Room Air Room Air Room Air 08/18/22 04:59 08/18/22 08:48 08/18/22 10:58 Temperature 97.2 F 98.2 F 98.2 F Pulse Rate 78 81 82 Respiratory Rate 15 13 14 Blood Pressure 157/73 H 164/79 H 154/90 H Pulse Oximetry 96 98 98 Oxygen Delivery Method Room Air Room Air Room Air 08/18/22 12:11 Temperature Pulse Rate 79 Respiratory Rate 14 Blood Pressure 179/98 H Pulse Oximetry 97 Oxygen Delivery Method Room Air BMI result Body Mass Index 19.2 <TREASURE Ramirez - Last Filed: 08/18/22 14:52> Appearance: Alert.? Oriented X3.? No acute distress.?Patient appears paranoid Head: Normocephalic, atraumatic, no step-offs or deformities Eyes: Pupils equal, round and reactive to light.? Neck: Normal inspection.? Neck supple.? CVS: Normal heart rate and rhythm.? Pulses normal.? Respiratory: No respiratory distress.? Breath sounds normal.? Abdomen: Soft and nontender.?Normoactive bowel sounds. Skin: Skin warm and dry.? Normal skin color.? Normal skin turgor.? Extremities: No lower extremity edema.? No calf ttp. 5/5 strength to bilateral upper and lower extremities Back: No midline tenderness, no C-spine tenderness, full range of motion, no CVA tenderness bilaterally Neuro: Oriented X 3.? No motor deficit.? No sensory deficit. CN 2-12 intact <TREASURE Navarro - Last Filed: 08/18/22 01:34> Course Reevaluation(s) Reevaluation #1: CBC appears to be within normal limits. Chemistry with no acute electrolyte abnormalities requiring intervention. Patient's sodium 133 however tolerating p.o. fluids. UA without infection earlier today. Toxicology positive for marijuana. Ethanol negative. COVID negative. CT of the abdomen and pelvis in stool studies pending pending. <TREASURE Navarro - Last Filed: 08/18/22 01:34> Time: 00:46 <TREASURE Navarro - Last Filed: 08/18/22 01:34> Reevaluation #2: Mild colonic wall thickening involving the sigmoid colon and rectum with minimal infiltration of the pericolonic fat which can be seen in the setting of proctocolitis, will treat with Flagyl and Levaquin. Will give him oral medications as he will be seen by the care team. Antibiotics ordered he should be discharged home on same. At this time patient to be placed in observation to allow more time to be evaluated by care team. At time observation was started patient common cooperative no acute distress will continue to monitor <TREASURE Navarro - Last Filed: 08/18/22 01:34> Time: 01:32 <TREASURE Navarro - Last Filed: 08/18/22 01:34> Reevaluation #3: Patient will be a care team follow up in the morning requesting psych con sult. <TREASURE Navarro - Last Filed: 08/18/22 01:34> Time: 01:33 <TREASURE Navarro Last Filed: 08/18/22 01:34> Additional Reevaluation(s): 08/18/22 @ 14:50 - patient seen and evaluated by the care team who also consulted with psych. he is deemed stable for discharge home. His paranoia was justified. The caregivers grandson has been threatening in the patient's concerns are validated. He does have 24 hour care at home. He does have some cognitive decline but he is deemed safe for discharge home. senior services provided. stable for d/c home with his caregiver physician observation discontinued at this time. <TREASURE Ramirez - Last Filed: 08/18/22 14:52> Medications Administered Generic Name Dose Route Start Last Admin Trade Name Freq PRN Reason Stop Dose Admin Levofloxacin 500 mg 08/18/22 09:00 08/18/22 09:53 Levofloxacin 500 Mg Tablet PO 500 mg DAILY DANILE Administration Metronidazole 500 mg 08/18/22 09:00 08/18/22 09:53 Metronidazole 500 Mg Tablet PO 500 mg BID DANIEL Administration Discontinued Medications Generic Name Dose Route Start Last Admin Trade Name Freq PRN Reason Stop Dose Admin Iohexol 85 ml 08/18/22 00:00 08/18/22 00:00 Iohexol 350 Mg/Ml 100 Ml Infus..Btl IV 08/18/22 00:01 85 ml ONCE ONE Administration <TREASURE Navarro Last Filed: 08/18/22 01:34> Medications Administered Generic Name Dose Route Start Last Admin Trade Name Freq PRN Reason Stop Dose Admin Levofloxacin 500 mg 08/18/22 09:00 08/18/22 09:53 Levofloxacin 500 Mg Tablet PO 500 mg DAILY DANIEL Administration Metronidazole 500 mg 08/18/22 09:00 08/18/22 09:53 Metronidazole 500 Mg Tablet PO 500 mg BID DANIEL Administration Discontinued Medications Generic Name Dose Route Start Last Admin Trade Name Marcelq PRN Reason Stop Dose Admin Iohexol 85 ml 08/18/22 00:00 08/18/22 00:00 Iohexol 350 Mg/Ml 100 Ml Infus..Btl IV 08/18/22 00:01 85 ml ONCE ONE Administration <TREASURE Ramirez - Last Filed: 08/18/22 14:52> Medical Decision Making Medical Decision Making [facility] Narrative: 2300 76-year-old male presents with paranoia, anxiety, diarrhea, abdominal discomfort x1 day was seen here earlier today. Physical exam unremarkable. Diarrhea likely viral in nature or gastroenteritis. Unlikely C diff, no recent antibiotic use or travel. No signs of acute abdomen, obstruction, appendicitis, cholecystitis, diverticulitis, lower GI bleed. This is likely psychiatric, diarrhea could because secondary to acute anxiety and/or psych. Will rule out electrolyte abnormalities. Plan labs, urine, urine toxicology, ethanol level. Medical clearance and evaluation by the behavioral health team <TREASURE Navarro Last Filed: 08/18/22 01:34> Differential Diagnosis Differential Diagnoses: The differential diagnosis associated with the presentation includes <TREASURE Navarro Last Filed: 08/18/22 01:34> Diarrhea likely viral in nature or gastroenteritis. Unlikely C diff, no recent antibiotic use or travel. No signs of acute abdomen, obstruction, appendicitis, cholecystitis, diverticulitis, lower GI bleed. This is likely psychiatric, diarrhea could because secondary to acute anxiety and/or psych. Will rule out electrolyte abnormalities. <TREASURE Navarro Last Filed: 08/18/22 01:34> Admission/Observation Consideration of admission/observation: Escalation of care including admission/observation considered <TREASURE Navarro Last Filed: 08/18/22 01:34> Lab Data [facility] Lab Attestation statement: I reviewed the patient's lab results. <TREASURE Navarro Last Filed: 08/18/22 01:34> Result Diagrams: 08/17/22 23:45 08/17/22 23:45 <TREASURE Navarro - Last Filed: 08/18/22 01:34> Labs: Lab Results 08/17/22 08/17/22 08/17/22 Range/Units 21:57 21:57 23:04 WBC (4.8-10.8) X10*3/uL RBC (4.60-5.80) X10*6/uL Hgb (14.0-18.0) g/dl Hct (42.0-52.0) % MCV (80.0-98.0) fL MCH (27.0-33.0) pg MCHC (31.0-36.0) g/dl RDW (11.0-16.0) % Plt Count (160-400) X10*3/uL MPV (9.4-12.4) fL Immature Gran % (Auto) (0.0-0.4) % Neut % (Auto) (45-73) % Lymph % (Auto) (20-40) % Quay % (Auto) (2-11) % Eos % (Auto) (0-4) % Baso % (Auto) (0-2) % Lymph # (Auto) (1.2-4.9) X10*3/uL Quay # (Auto) (0.1-1.2) X10*3/uL Eos # (Auto) (0.0-0.4) X10*3/uL Baso # (Auto) (0.0-0.2) X10*3/uL Abs Immat Gran (auto) (0.00-0.03) X10*3/uL Absolute Neuts (auto) (2.0-8.3) x10*3/uL Absolute Nucleated RBC (0.0-0.012) X10*3/uL Nucleated RBC % (auto) (0.0-0.2) /100WBC Sodium (135-145) mmol/L Potassium (3.3-5.1) mmol/L Chloride (96-108) mmol/L Carbon Dioxide (22-29) mmol/L Anion Gap (12-20) BUN (9-16) mg/dL Creatinine (0.5-1.4) mg/dL Estim Creat Clear Calc Estimated GFR Random Glucose (60-115) mg/dL Calcium (8.4-10.2) mg/dL Magnesium (1.6-2.6) mg/dL Total Bilirubin (0.0-1.0) mg/dL AST (5-37) U/L ALT (0-40) U/L Alkaline Phosphatase (39-117) U/L Total Protein (6.5-8.0) g/dL Albumin (3.5-5.0) g/dL Stl C. cayetanensis PCR (Not Detect.) Stool Rotavirus A PCR (Not Detect.) Stl Adenov F 40/41 PCR (Not Detect.) Stool Astrovirus (PCR) (Not Detect.) Stool Campylobacter PCR (Not Detect.) Stool Cryptosporidium PCR (Not Detect.) Stl Sh Tox Pr E STEC PCR (Not Detect.) Stool E coli O157 PCR (Not Detect.) Stl Enterotoxigenic E PCR (Not Detect.) Stool EPEC (PCR) (Not Detect.) Stool EAEC (PCR) (Not Detect.) Stl E. histolytica PCR (Not Detect.) Stool Giardia Lamblia PCR (Not Detect.) Stl P. shigelloides PCR (Not Detect.) Stool Salmonella PCR (Not Detect.) Stool Sapovirus (PCR) (Not Detect.) Stl Shigella/EIEC PCR (Not Detect.) St Y.enterocolitica PCR (Not Detect.) Stool Vibrio (PCR) (Not Detect.) Stl Vibrio cholerae PCR (Not Detect.) Stl Norovirus GI/GII PCR (Not Detect.) Urine Opiates Screen Not Detected (Not Detect) Urine Fentanyl Screen Not Detected (Not Detect) Ur Barbiturates Screen Not Detected (Not Detect) Ur Phencyclidine Scrn Not Detected (Not Detect) Ur Amphetamines Screen Not Detected (Not Detect) U Benzodiazepines Scrn Not Detected (Not Detect) Urine Cocaine Screen Not Detected (Not Detect) U Marijuana (THC) Screen POSITIVE H (Not Detect) Ethyl Alcohol mg/dL C. difficile Tox B Gene (Negative) COVID-19 ([facility]) Cancelled COVID-19 Clin Com Cancelled Influenza Type A (PCR) NEGATIVE (Negative) Influenza Type B (PCR) NEGATIVE (Negative) RSV RNA Qual (PCR) NEGATIVE (Negative) SARS-CoV-2 RNA (RT-PCR) NEGATIVE (Negative) 08/17/22 08/17/22 08/17/22 Range/Units 23:37 23:37 23:45 WBC 5.4 (4.8-10.8) X10*3/uL RBC 4.63 (4.60-5.80) X10*6/uL Hgb 14.3 (14.0-18.0) g/dl Hct 41.4 L (42.0-52.0) % MCV 89.4 (80.0-98.0) fL MCH 30.9 (27.0-33.0) pg MCHC 34.5 (31.0-36.0) g/dl RDW 12.9 (11.0-16.0) % Plt Count 301 (160-400) X10*3/uL MPV 9.3 L (9.4-12.4) fL Immature Gran % (Auto) 0.7 H (0.0-0.4) % Neut % (Auto) 55.9 (45-73) % Lymph % (Auto) 25.5 (20-40) % Quay % (Auto) 12.7 H (2-11) % Eos % (Auto) 4.5 H (0-4) % Baso % (Auto) 0.7 (0-2) % Lymph # (Auto) 1.4 (1.2-4.9) X10*3/uL Quay # (Auto) 0.7 (0.1-1.2) X10*3/uL Eos # (Auto) 0.2 (0.0-0.4) X10*3/uL Baso # (Auto) 0.0 (0.0-0.2) X10*3/uL Abs Immat Gran (auto) 0.04 H (0.00-0.03) X10*3/uL Absolute Neuts (auto) 3.0 (2.0-8.3) x10*3/uL Absolute Nucleated RBC 0.000 (0.0-0.012) X10*3/uL Nucleated RBC % (auto) 0.0 (0.0-0.2) /100WBC Sodium (135-145) mmol/L Potassium (3.3-5.1) mmol/L Chloride (96-108) mmol/L Carbon Dioxide (22-29) mmol/L Anion Gap (12-20) BUN (9-16) mg/dL Creatinine (0.5-1.4) mg/dL Estim Creat Clear Calc Estimated GFR Random Glucose (60-115) mg/dL Calcium (8.4-10.2) mg/dL Magnesium (1.6-2.6) mg/dL Total Bilirubin (0.0-1.0) mg/dL AST (5-37) U/L ALT (0-40) U/L Alkaline Phosphatase (39-117) U/L Total Protein (6.5-8.0) g/dL Albumin (3.5-5.0) g/dL Stl C. cayetanensis PCR Not Detected (Not Detect.) Stool Rotavirus A PCR Not Detected (Not Detect.) Stl Adenov F 40/41 PCR Not Detected (Not Detect.) Stool Astrovirus (PCR) Not Detected (Not Detect.) Stool Campylobacter PCR Not Detected (Not Detect.) Stool Cryptosporidium PCR Not Detected (Not Detect.) Stl Sh Tox Pr E STEC PCR Not Detected (Not Detect.) Stool E coli O157 PCR Not applicable (Not Detect.) Stl Enterotoxigenic E PCR Not Detected (Not Detect.) Stool EPEC (PCR) Not Detected (Not Detect.) Stool EAEC (PCR) Not Detected (Not Detect.) Stl E. histolytica PCR Not Detected (Not Detect.) Stool Giardia Lamblia PCR Not Detected (Not Detect.) Stl P. shigelloides PCR Not Detected (Not Detect.) Stool Salmonella PCR Not Detected (Not Detect.) Stool Sapovirus (PCR) Not Detected (Not Detect.) Stl Shigella/EIEC PCR Not Detected (Not Detect.) St Y.enterocolitica PCR Detected A (Not Detect.) Stool Vibrio (PCR) Not Detected (Not Detect.) Stl Vibrio cholerae PCR Not Detected (Not Detect.) Stl Norovirus GI/GII PCR Not Detected (Not Detect.) Urine Opiates Screen (Not Detect) Urine Fentanyl Screen (Not Detect) Ur Barbiturates Screen (Not Detect) Ur Phencyclidine Scrn (Not Detect) Ur Amphetamines Screen (Not Detect) U Benzodiazepines Scrn (Not Detect) Urine Cocaine Screen (Not Detect) U Marijuana (THC) Screen (Not Detect) Ethyl Alcohol mg/dL C. difficile Tox B Gene NEGATIVE (Negative) COVID-19 ([facility]) COVID-19 Clin Com Influenza Type A (PCR) (Negative) Influenza Type B (PCR) (Negative) RSV RNA Qual (PCR) (Negative) SARS-CoV-2 RNA (RT-PCR) (Negative) 08/17/22 Range/Units 23:45 WBC (4.8-10.8) X10*3/uL RBC (4.60-5.80) X10*6/uL Hgb (14.0-18.0) g/dl Hct (42.0-52.0) % MCV (80.0-98.0) fL MCH (27.0-33.0) pg MCHC (31.0-36.0) g/dl RDW (11.0-16.0) % Plt Count (160-400) X10*3/uL MPV (9.4-12.4) fL Immature Gran % (Auto) (0.0-0.4) % Neut % (Auto) (45-73) % Lymph % (Auto) (20-40) % Quay % (Auto) (2-11) % Eos % (Auto) (0-4) % Baso % (Auto) (0-2) % Lymph # (Auto) (1.2-4.9) X10*3/uL Quay # (Auto) (0.1-1.2) X10*3/uL Eos # (Auto) (0.0-0.4) X10*3/uL Baso # (Auto) (0.0-0.2) X10*3/uL Abs Immat Gran (auto) (0.00-0.03) X10*3/uL Absolute Neuts (auto) (2.0-8.3) x10*3/uL Absolute Nucleated RBC (0.0-0.012) X10*3/uL Nucleated RBC % (auto) (0.0-0.2) /100WBC Sodium 133 L (135-145) mmol/L Potassium 4.1 (3.3-5.1) mmol/L Chloride 97 (96-108) mmol/L Carbon Dioxide 26 (22-29) mmol/L Anion Gap 14 (12-20) BUN 9 (9-16) mg/dL Creatinine 0.72 (0.5-1.4) mg/dL Estim Creat Clear Calc 70.5 Estimated GFR > 60 Random Glucose 109 (60-115) mg/dL Calcium 9.6 D (8.4-10.2) mg/dL Magnesium 2.0 (1.6-2.6) mg/dL Total Bilirubin 0.6 (0.0-1.0) mg/dL AST 19 (5-37) U/L ALT 13 (0-40) U/L Alkaline Phosphatase 68 (39-117) U/L Total Protein 6.9 (6.5-8.0) g/dL Albumin 4.5 (3.5-5.0) g/dL Stl C. cayetanensis PCR (Not Detect.) Stool Rotavirus A PCR (Not Detect.) Stl Adenov F 40/41 PCR (Not Detect.) Stool Astrovirus (PCR) (Not Detect.) Stool Campylobacter PCR (Not Detect.) Stool Cryptosporidium PCR (Not Detect.) Stl Sh Tox Pr E STEC PCR (Not Detect.) Stool E coli O157 PCR (Not Detect.) Stl Enterotoxigenic E PCR (Not Detect.) Stool EPEC (PCR) (Not Detect.) Stool EAEC (PCR) (Not Detect.) Stl E. histolytica PCR (Not Detect.) Stool Giardia Lamblia PCR (Not Detect.) Stl P. shigelloides PCR (Not Detect.) Stool Salmonella PCR (Not Detect.) Stool Sapovirus (PCR) (Not Detect.) Stl Shigella/EIEC PCR (Not Detect.) St Y.enterocolitica PCR (Not Detect.) Stool Vibrio (PCR) (Not Detect.) Stl Vibrio cholerae PCR (Not Detect.) Stl Norovirus GI/GII PCR (Not Detect.) Urine Opiates Screen (Not Detect) Urine Fentanyl Screen (Not Detect) Ur Barbiturates Screen (Not Detect) Ur Phencyclidine Scrn (Not Detect) Ur Amphetamines Screen (Not Detect) U Benzodiazepines Scrn (Not Detect) Urine Cocaine Screen (Not Detect) U Marijuana (THC) Screen (Not Detect) Ethyl Alcohol < 10 mg/dL C. difficile Tox B Gene (Negative) COVID-19 ([facility]) COVID-19 Clin Com Influenza Type A (PCR) (Negative) Influenza Type B (PCR) (Negative) RSV RNA Qual (PCR) (Negative) SARS-CoV-2 RNA (RT-PCR) (Negative) <TREASURE Navarro - Last Filed: 08/18/22 01:34> Lab Results 08/17/22 08/17/22 08/17/22 Range/Units 21:57 21:57 23:04 WBC (4.8-10.8) X10*3/uL RBC (4.60-5.80) X10*6/uL Hgb (14.0-18.0) g/dl Hct (42.0-52.0) % MCV (80.0-98.0) fL MCH (27.0-33.0) pg MCHC (31.0-36.0) g/dl RDW (11.0-16.0) % Plt Count (160-400) X10*3/uL MPV (9.4-12.4) fL Immature Gran % (Auto) (0.0-0.4) % Neut % (Auto) (45-73) % Lymph % (Auto) (20-40) % Quay % (Auto) (2-11) % Eos % (Auto) (0-4) % Baso % (Auto) (0-2) % Lymph # (Auto) (1.2-4.9) X10*3/uL Quay # (Auto) (0.1-1.2) X10*3/uL Eos # (Auto) (0.0-0.4) X10*3/uL Baso # (Auto) (0.0-0.2) X10*3/uL Abs Immat Gran (auto) (0.00-0.03) X10*3/uL Absolute Neuts (auto) (2.0-8.3) x10*3/uL Absolute Nucleated RBC (0.0-0.012) X10*3/uL Nucleated RBC % (auto) (0.0-0.2) /100WBC Sodium (135-145) mmol/L Potassium (3.3-5.1) mmol/L Chloride (96-108) mmol/L Carbon Dioxide (22-29) mmol/L Anion Gap (12-20) BUN (9-16) mg/dL Creatinine (0.5-1.4) mg/dL Estim Creat Clear Calc Estimated GFR Random Glucose (60-115) mg/dL Calcium (8.4-10.2) mg/dL Magnesium (1.6-2.6) mg/dL Total Bilirubin (0.0-1.0) mg/dL AST (5-37) U/L ALT (0-40) U/L Alkaline Phosphatase (39-117) U/L Total Protein (6.5-8.0) g/dL Albumin (3.5-5.0) g/dL Stl C. cayetanensis PCR (Not Detect.) Stool Rotavirus A PCR (Not Detect.) Stl Adenov F 40/41 PCR (Not Detect.) Stool Astrovirus (PCR) (Not Detect.) Stool Campylobacter PCR (Not Detect.) Stool Cryptosporidium PCR (Not Detect.) Stl Sh Tox Pr E STEC PCR (Not Detect.) Stool E coli O157 PCR (Not Detect.) Stl Enterotoxigenic E PCR (Not Detect.) Stool EPEC (PCR) (Not Detect.) Stool EAEC (PCR) (Not Detect.) Stl E. histolytica PCR (Not Detect.) Stool Giardia Lamblia PCR (Not Detect.) Stl P. shigelloides PCR (Not Detect.) Stool Salmonella PCR (Not Detect.) Stool Sapovirus (PCR) (Not Detect.) Stl Shigella/EIEC PCR (Not Detect.) St Y.enterocolitica PCR (Not Detect.) Stool Vibrio (PCR) (Not Detect.) Stl Vibrio cholerae PCR (Not Detect.) Stl Norovirus GI/GII PCR (Not Detect.) Urine Opiates Screen Not Detected (Not Detect) Urine Fentanyl Screen Not Detected (Not Detect) Ur Barbiturates Screen Not Detected (Not Detect) Ur Phencyclidine Scrn Not Detected (Not Detect) Ur Amphetamines Screen Not Detected (Not Detect) U Benzodiazepines Scrn Not Detected (Not Detect) Urine Cocaine Screen Not Detected (Not Detect) U Marijuana (THC) Screen POSITIVE H (Not Detect) Ethyl Alcohol mg/dL C. difficile Tox B Gene (Negative) COVID-19 ([facility]) Cancelled COVID-19 Clin Com Cancelled Influenza Type A (PCR) NEGATIVE (Negative) Influenza Type B (PCR) NEGATIVE (Negative) RSV RNA Qual (PCR) NEGATIVE (Negative) SARS-CoV-2 RNA (RT-PCR) NEGATIVE (Negative) 08/17/22 08/17/22 08/17/22 Range/Units 23:37 23:37 23:45 WBC 5.4 (4.8-10.8) X10*3/uL RBC 4.63 (4.60-5.80) X10*6/uL Hgb 14.3 (14.0-18.0) g/dl Hct 41.4 L (42.0-52.0) % MCV 89.4 (80.0-98.0) fL MCH 30.9 (27.0-33.0) pg MCHC 34.5 (31.0-36.0) g/dl RDW 12.9 (11.0-16.0) % Plt Count 301 (160-400) X10*3/uL MPV 9.3 L (9.4-12.4) fL Immature Gran % (Auto) 0.7 H (0.0-0.4) % Neut % (Auto) 55.9 (45-73) % Lymph % (Auto) 25.5 (20-40) % Quay % (Auto) 12.7 H (2-11) % Eos % (Auto) 4.5 H (0-4) % Baso % (Auto) 0.7 (0-2) % Lymph # (Auto) 1.4 (1.2-4.9) X10*3/uL Quay # (Auto) 0.7 (0.1-1.2) X10*3/uL Eos # (Auto) 0.2 (0.0-0.4) X10*3/uL Baso # (Auto) 0.0 (0.0-0.2) X10*3/uL Abs Immat Gran (auto) 0.04 H (0.00-0.03) X10*3/uL Absolute Neuts (auto) 3.0 (2.0-8.3) x10*3/uL Absolute Nucleated RBC 0.000 (0.0-0.012) X10*3/uL Nucleated RBC % (auto) 0.0 (0.0-0.2) /100WBC Sodium (135-145) mmol/L Potassium (3.3-5.1) mmol/L Chloride (96-108) mmol/L Carbon Dioxide (22-29) mmol/L Anion Gap (12-20) BUN (9-16) mg/dL Creatinine (0.5-1.4) mg/dL Estim Creat Clear Calc Estimated GFR Random Glucose (60-115) mg/dL Calcium (8.4-10.2) mg/dL Magnesium (1.6-2.6) mg/dL Total Bilirubin (0.0-1.0) mg/dL AST (5-37) U/L ALT (0-40) U/L Alkaline Phosphatase (39-117) U/L Total Protein (6.5-8.0) g/dL Albumin (3.5-5.0) g/dL Stl C. cayetanensis PCR Not Detected (Not Detect.) Stool Rotavirus A PCR Not Detected (Not Detect.) Stl Adenov F 40/41 PCR Not Detected (Not Detect.) Stool Astrovirus (PCR) Not Detected (Not Detect.) Stool Campylobacter PCR Not Detected (Not Detect.) Stool Cryptosporidium PCR Not Detected (Not Detect.) Stl Sh Tox Pr E STEC PCR Not Detected (Not Detect.) Stool E coli O157 PCR Not applicable (Not Detect.) Stl Enterotoxigenic E PCR Not Detected (Not Detect.) Stool EPEC (PCR) Not Detected (Not Detect.) Stool EAEC (PCR) Not Detected (Not Detect.) Stl E. histolytica PCR Not Detected (Not Detect.) Stool Giardia Lamblia PCR Not Detected (Not Detect.) Stl P. shigelloides PCR Not Detected (Not Detect.) Stool Salmonella PCR Not Detected (Not Detect.) Stool Sapovirus (PCR) Not Detected (Not Detect.) Stl Shigella/EIEC PCR Not Detected (Not Detect.) St Y.enterocolitica PCR Detected A (Not Detect.) Stool Vibrio (PCR) Not Detected (Not Detect.) Stl Vibrio cholerae PCR Not Detected (Not Detect.) Stl Norovirus GI/GII PCR Not Detected (Not Detect.) Urine Opiates Screen (Not Detect) Urine Fentanyl Screen (Not Detect) Ur Barbiturates Screen (Not Detect) Ur Phencyclidine Scrn (Not Detect) Ur Amphetamines Screen (Not Detect) U Benzodiazepines Scrn (Not Detect) Urine Cocaine Screen (Not Detect) U Marijuana (THC) Screen (Not Detect) Ethyl Alcohol mg/dL C. difficile Tox B Gene NEGATIVE (Negative) COVID-19 ([facility]) COVID-19 Clin Com Influenza Type A (PCR) (Negative) Influenza Type B (PCR) (Negative) RSV RNA Qual (PCR) (Negative) SARS-CoV-2 RNA (RT-PCR) (Negative) 08/17/22 Range/Units 23:45 WBC (4.8-10.8) X10*3/uL RBC (4.60-5.80) X10*6/uL Hgb (14.0-18.0) g/dl Hct (42.0-52.0) % MCV (80.0-98.0) fL MCH (27.0-33.0) pg MCHC (31.0-36.0) g/dl RDW (11.0-16.0) % Plt Count (160-400) X10*3/uL MPV (9.4-12.4) fL Immature Gran % (Auto) (0.0-0.4) % Neut % (Auto) (45-73) % Lymph % (Auto) (20-40) % [place] % (Auto) (2-11) % Eos % (Auto) (0-4) % Baso % (Auto) (0-2) % Lymph # (Auto) (1.2-4.9) X10*3/uL [place] # (Auto) (0.1-1.2) X10*3/uL Eos # (Auto) (0.0-0.4) X10*3/uL Baso # (Auto) (0.0-0.2) X10*3/uL Abs Immat Gran (auto) (0.00-0.03) X10*3/uL Absolute Neuts (auto) (2.0-8.3) x10*3/uL Absolute Nucleated RBC (0.0-0.012) X10*3/uL Nucleated RBC % (auto) (0.0-0.2) /100WBC Sodium 133 L (135-145) mmol/L Potassium 4.1 (3.3-5.1) mmol/L Chloride 97 (96-108) mmol/L Carbon Dioxide 26 (22-29) mmol/L Anion Gap 14 (12-20) BUN 9 (9-16) mg/dL Creatinine 0.72 (0.5-1.4) mg/dL Estim Creat Clear Calc 70.5 Estimated GFR > 60 Random Glucose 109 (60-115) mg/dL Calcium 9.6 D (8.4-10.2) mg/dL Magnesium 2.0 (1.6-2.6) mg/dL Total Bilirubin 0.6 (0.0-1.0) mg/dL AST 19 (5-37) U/L ALT 13 (0-40) U/L Alkaline Phosphatase 68 (39-117) U/L Total Protein 6.9 (6.5-8.0) g/dL Albumin 4.5 (3.5-5.0) g/dL Stl C. cayetanensis PCR (Not Detect.) Stool Rotavirus A PCR (Not Detect.) Stl Adenov F 40/41 PCR (Not Detect.) Stool Astrovirus (PCR) (Not Detect.) Stool Campylobacter PCR (Not Detect.) Stool Cryptosporidium PCR (Not Detect.) Stl Sh Tox Pr E STEC PCR (Not Detect.) Stool E coli O157 PCR (Not Detect.) Stl Enterotoxigenic E PCR (Not Detect.) Stool EPEC (PCR) (Not Detect.) Stool EAEC (PCR) (Not Detect.) Stl E. histolytica PCR (Not Detect.) Stool Giardia Lamblia PCR (Not Detect.) Stl P. shigelloides PCR (Not Detect.) Stool Salmonella PCR (Not Detect.) Stool Sapovirus (PCR) (Not Detect.) Stl Shigella/EIEC PCR (Not Detect.) St Y.enterocolitica PCR (Not Detect.) Stool Vibrio (PCR) (Not Detect.) Stl Vibrio cholerae PCR (Not Detect.) Stl Norovirus GI/GII PCR (Not Detect.) Urine Opiates Screen (Not Detect) Urine Fentanyl Screen (Not Detect) Ur Barbiturates Screen (Not Detect) Ur Phencyclidine Scrn (Not Detect) Ur Amphetamines Screen (Not Detect) U Benzodiazepines Scrn (Not Detect) Urine Cocaine Screen (Not Detect) U Marijuana (THC) Screen (Not Detect) Ethyl Alcohol < 10 mg/dL C. difficile Tox B Gene (Negative) COVID-19 ([facility]) COVID-19 Clin Com Influenza Type A (PCR) (Negative) Influenza Type B (PCR) (Negative) RSV RNA Qual (PCR) (Negative) SARS-CoV-2 RNA (RT-PCR) (Negative) <TREASURE Ramirez - Last Filed: 08/18/22 14:52> Independent Interpretation I performed an independent interpretation of an: CT Scan (CT/CT abdomen pelvis w IV con IMPRESSION: Mild colonic wall thickening involving the sigmoid colon and rectum with minimal infiltration of the pericolonic fat which can be seen in the setting of proctocolitis if clinical symptoms are appropriate, which may be infectious or inflammatory. ) <TREASURE Navarro - Last Filed: 08/18/22 01:34> Radiology Impression Discussion of test interpretation with radiology: I have reviewed the radiologist's reading. <TREASURE Navarro - Last Filed: 08/18/22 01:34> Core Measures AMI core measures followed: Yes <TREASURE Navarro - Last Filed: 08/18/22 01:34> Measure exclusions: not indicated <TREASURE Navarro - Last Filed: 08/18/22 01:34> Critical Care Time Critical Care Time Critical Care Time: No <TREASURE Navarro - Last Filed: 08/18/22 01:34> Discharge Plan Discharge Clinical Impression: Acute anxiety, Diarrhea, Proctocolitis <TREASURE Navarro - Last Filed: 08/18/22 01:34> Patient Disposition: Home, Self-Care <TREASURE Navarro Last Filed: 08/18/22 01:34> Instructions: Acute Diarrhea (ED), Anxiety (ED) <TREASURE Navarro Last Filed: 08/18/22 01:34> Additional Instructions: You are being discharged on Levaquin and Flagyl for proctocolitis. Take the antibiotics as directed and complete the entire course Follow up with your doctor as needed. If you develop new or worsening symptoms call 911 or come back to the ER for further evaluation. CT/CT abdomen pelvis w IV con IMPRESSION: ? Mild colonic wall thickening involving the sigmoid colon and rectum with minimal infiltration of the pericolonic fat which can be seen in the setting of proctocolitis if clinical symptoms are appropriate, which may be infectious or inflammatory. <TREASURE Navarro - Last Filed: 08/18/22 01:34> Prescriptions: New levofloxacin 500 mg tablet 500 mg PO DAILY Qty: 6 0RF metronidazole 500 mg tablet 500 mg PO BID 7 Days Qty: 14 0RF No Action albuterol sulfate 90 mcg/actuation HFA aerosol inhaler 2 puff inhalation Q4-6H PRN (Reason: shortness of breath or wheezing) Qty: 8.5 0RF multivitamin Tablet 1 tab PO DAILY ascorbic acid (vitamin C) [Vitamin C] 500 mg Tablet 500 mg PO DAILY <TREASURE Navarro - Last Filed: 08/18/22 01:34>
[2022-08-17 23:48] LABS: MANUAL DIFF FLAG NO
[2022-08-17 23:52] LABS: Basophils Percent Auto 0.7 % (0-2); Eosinophils Absolute Auto 0.2 X10*3/uL (0.0-0.4); Eosinophils Percent Auto 4.5 % (0-4); Hematocrit 41.4 % (42.0-52.0); Hemoglobin 14.3 g/dl (14.0-18.0); Imm Gran Abs Auto 0.04 X10*3/uL (0.00-0.03); Imm Gran Pct Auto 0.7 % (0.0-0.4); Lymphocytes Absolute Auto 1.4 X10*3/uL (1.2-4.9); Lymphocytes Percent Auto 25.5 % (20-40); Mean Corpuscular HGB Conc 34.5 g/dl (31.0-36.0); Mean Corpuscular Hemoglobin 30.9 pg (27.0-33.0); Mean Corpuscular Volume 89.4 fL (80.0-98.0); Mean Platelet Volume 9.3 fL (9.4-12.4); Monocytes Absolute Auto 0.7 X10*3/uL (0.1-1.2); Monocytes Percent Auto 12.7 % (2-11); Neutrophils Percent Auto 55.9 % (45-73); Platelet Count 301 X10*3/uL (160-400); Red Blood Count 4.63 X10*6/uL (4.60-5.80); Red Cell Distribution Width 12.9 % (11.0-16.0); White Blood Count 5.4 X10*3/uL (4.8-10.8)
--- NOTE | 2022-08-17 23:53 | PC.NURSE ---
Pt was able to ambulate to the bathroom with 1 assist. Pt had steady gait while holding RN's hand. Pt had a very loose bowel movement, almost completely liquid. Pt kept asking where we were going and was disoriented in the hallways. Stool was collected and brought to the lab for testing. 20g IV was placed in the left forearm for CT scan. Line is patent and secured.
[2022-08-18] MEDS: iohexoL 350 MG/ML 100 ML INFUS..BTL 85 ML IV
[2022-08-18 00:17] LABS: Alanine Aminotransferase 13 U/L (0-40); Albumin Level 4.5 g/dL (3.5-5.0); Alkaline Phosphatase 68 U/L (39-117); Anion Gap 14 (12-20); Aspartate Amino Transferase 19 U/L (5-37); Bilirubin Total 0.6 mg/dL (0.0-1.0); Blood Urea Nitrogen 9 mg/dL (9-16); Calcium 9.6 mg/dL (8.4-10.2); Carbon Dioxide 26 mmol/L (22-29); Chloride 97 mmol/L (96-108); Creatinine Clr Calc Pharmacy 70.5; Estimated Glomerular Filt Rate > 60; Ethanol < 10 mg/dL; Glucose Random 109 mg/dL (60-115); Potassium 4.1 mmol/L (3.3-5.1); Sodium 133 mmol/L (135-145); Total Protein 6.9 g/dL (6.5-8.0)
[2022-08-18 00:33] LABS: CDiff Gene PCR NEGATIVE (Negative)
[2022-08-18 02:18] VITALS: BP 144/94; PULSE 70; RESP 20; TEMP 36.7; O2SAT 95
[2022-08-18 04:59] VITALS: BP 157/73; PULSE 78; RESP 15; TEMP 36.2; O2SAT 96
--- NOTE | 2022-08-18 07:45 | PC.NURSE ---
Breakfast provided for patient and visitor, offering no complaints. Call haile within reach.
[2022-08-18 08:48] VITALS: BP 164/79; PULSE 81; RESP 13; TEMP 36.8; O2SAT 98
[2022-08-18] MEDS: metroNIDAZOLE 500 MG TABLET PO (09:53)
[2022-08-18] MEDS: levoFLOXacin 500 MG TABLET PO (09:53)
[2022-08-18 09:56] LABS: Campylobacter Not Detected (Not Detect.); Plesiomonas shigelloides Not Detected (Not Detect.); Salmonella Not Detected (Not Detect.); Vibrio Not Detected (Not Detect.); Vibrio Cholerae Not Detected (Not Detect.)
[2022-08-18 09:57] LABS: Adenovirus F 40/41 Not Detected (Not Detect.); Cryptosporidium Not Detected (Not Detect.); Cyclospora cayetanensis Not Detected (Not Detect.); E. coli EAEC Not Detected (Not Detect.); E. coli EPEC Not Detected (Not Detect.); E. coli ETEC Not Detected (Not Detect.); E. coli STEC Not Detected (Not Detect.); Entamoeba histolytica Not Detected (Not Detect.); Giardia lamblia Not Detected (Not Detect.); Shigella sp./EIEC Not Detected (Not Detect.); Yersinia enterocolitica Detected (Not Detect.)
[2022-08-18 09:58] LABS: Astrovirus Not Detected (Not Detect.); Norovirus GI/GII Not Detected (Not Detect.); Rotavirus A Not Detected (Not Detect.); Sapovirus Not Detected (Not Detect.)
[2022-08-18 10:58] VITALS: BP 154/90; PULSE 82; RESP 14; TEMP 36.8; O2SAT 98
[2022-08-18 12:11] VITALS: BP 179/98; PULSE 79; RESP 14; O2SAT 97
--- NOTE | 2022-08-18 13:27 | PC.NURSE ---
Pt participated in [facility] screen on this date. This parts data writer approached pt at beside were he was able to engage in screen. Pt scored 16/30, indicating moderate cognitive impairment. 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
== END 2022-08-18 15:08 | disposition home or self-care (01) ==
PROVIDERS: Physician Assistant; Emergency Provider Emergency Medicine; PCP Internal Medicine Medical Oncology
DX: K51.30 Ulcerative (chronic) rectosigmoiditis without complications (principal); R19.7 Diarrhea, unspecified; F41.1 Generalized anxiety disorder; F43.0 Acute stress reaction; R10.9 Unspecified abdominal pain; Z79.899 Other long term (current) drug therapy
CPT/HCPCS: 0241U; 36415; 74177; 80048; 80053; 80307; 81003; 82077; 83735; 85025; 87493; 87507; 93005; 99283; 99284; 99285; Q9967

== ENCOUNTER 2022-08-19 01:56 | Inpatient (IN) | payer MEDICARE, SELFPAY ==
--- NOTE | ~2022-08-19 | CT_ITS ---
EXAMINATION: CT HEAD WITHOUT CONTRAST CLINICAL INFORMATION: Cognitive decline COMPARISON: None available. TECHNIQUE: Contiguous axial imaging was performed from the skull base to vertex without intravenous administration of contrast. This CT examination was performed using dose optimization techniques as appropriate, variously including the following: *Automated exposure control *Adjustment of mA and/or kV according to patient size (this includes techniques or standardized protocols for targeted exams where dose is matched to indication/reason for exam; i.e. extremities or head) *Use of iterative reconstruction technique DLP: 743 mGy-cm FINDINGS: There is no evidence of acute intracranial hemorrhage or territorial infarction. No abnormal mass effect or midline shift is seen. [place] to white matter differentiation is well preserved. No extra-axial fluid collections are identified. No hydrocephalus. Proportional prominence of the ventricles and sulcal spaces is consistent with mild volume loss. Patchy periventricular and deep white matter hypoattenuation is consistent with mild small vessel ischemic changes. No acute osseous or soft tissue abnormality. The mastoid air cells and visualized portions of the paranasal sinuses are well aerated. CT/CT head/brain wo IV con IMPRESSION: No acute territorial infarct or intracranial hemorrhage. Mild volume loss and white matter small vessel ischemic changes.
[2022-08-19 02:04] VITALS: BP 156/83; BP 170/90; PULSE 74; PULSE 75; RESP 20; TEMP 36.6; O2SAT 100; O2SAT 97; BMI 24.7
--- NOTE | 2022-08-19 02:30 | PC.NURSE ---
Addendum entered by Becky Banks 08/19/22 06:23: Pt calm and cooperative. Meds given as documented. Pt ambulated to BR with staff assist, Pt reports having a BM. PO fluids provider and tolerated well. Pt changed over to hospital attire, warm blankets provided. Visitor at bedside. Original Note: Pt A&O to self and place, denies any pain, reports SOB after waking up, states I have anxiety disorder I couldn't catch my breath at home o2 sat 96% on RA, RR 18, lung sounds clear throughout, denies SI/HI, denies visual/ auditory hallucinations.
--- NOTE | 2022-08-19 02:37 | ECG_ITS ---
Test Reason : ANXIETY Blood Pressure : / mmHG Vent. Rate : 066 BPM Atrial Rate : 066 BPM P-R Int : 176 ms QRS Dur : 086 ms QT Int : 418 ms P-R-T Axes : 022 014 052 degrees QTc Int : 438 ms Normal sinus rhythm Normal ECG When compared with ECG of 17-AUG-2022 10:27, Premature atrial complexes are no longer Present Referred By: Caren Garcia Electronically Signed By:Deshawn Gama
[2022-08-19 03:09] LABS: Basophils Percent Auto 0.4 % (0-2); Eosinophils Absolute Auto 0.1 X10*3/uL (0.0-0.4); Eosinophils Percent Auto 1.8 % (0-4); Hematocrit 37.3 % (42.0-52.0); Hemoglobin 13.3 g/dl (14.0-18.0); Imm Gran Abs Auto 0.04 X10*3/uL (0.00-0.03); Imm Gran Pct Auto 0.7 % (0.0-0.4); Lymphocytes Absolute Auto 1.1 X10*3/uL (1.2-4.9); MANUAL DIFF FLAG NO; Mean Corpuscular HGB Conc 35.7 g/dl (31.0-36.0); Mean Corpuscular Hemoglobin 31.1 pg (27.0-33.0); Mean Corpuscular Volume 87.1 fL (80.0-98.0); Mean Platelet Volume 9.1 fL (9.4-12.4); Monocytes Absolute Auto 0.7 X10*3/uL (0.1-1.2); Monocytes Percent Auto 11.4 % (2-11); Neutrophils Absolute Auto 3.8 x10*3/uL (2.0-8.3); Neutrophils Percent Auto 66.7 % (45-73); Platelet Count 256 X10*3/uL (160-400); Red Blood Count 4.28 X10*6/uL (4.60-5.80); Red Cell Distribution Width 12.7 % (11.0-16.0); White Blood Count 5.7 X10*3/uL (4.8-10.8)
[2022-08-19 03:10] LABS: Appearance Urine Clear; Color Urine Yellow; Glucose Urine UA Negative (Negative); Leukocyte Esterase Urine Negative (Negative); Nitrite Urine Negative (Negative); Specific Gravity - Urine <= 1.005 (1.005-1.025); Urine Blood Negative (Negative); Urine Ketones Trace mg/dL (Negative); Urine Protein Negative (Neg-Trace)
[2022-08-19 03:26] LABS: COVID-19 Test Negative (Negative); IDNOW Serial# BCCEAD1C
[2022-08-19 03:33] LABS: Alanine Aminotransferase 13 U/L (0-40); Alkaline Phosphatase 59 U/L (39-117); Anion Gap 12 (12-20); Aspartate Amino Transferase 17 U/L (5-37); Bilirubin Total 0.8 mg/dL (0.0-1.0); Blood Urea Nitrogen 11 mg/dL (9-16); Calcium 9.2 mg/dL (8.4-10.2); Carbon Dioxide 26 mmol/L (22-29); Chloride 93 mmol/L (96-108); Creatinine Clr Calc Pharmacy 86.1; Estimated Glomerular Filt Rate > 60; Glucose Random 127 mg/dL (60-115); Potassium 3.2 mmol/L (3.3-5.1); Sodium 128 mmol/L (135-145); Total Protein 6.1 g/dL (6.5-8.0)
--- NOTE | 2022-08-19 03:49 | ED_ITS ---
HPI - Anxiety General Chief Complaint: Anxiety Stated Complaint: Anxiety Time Seen by Provider: 08/19/22 03:32 Source: patient and other Mode of arrival: ambulatory History of Present Illness HPI narrative: 76-year-old male who presents via EMS for his 3rd visit surrounding significant anxiety and paranoia. EMS states that they responded to 2 prior calls in attempted to calm the patient, but on this 3rd call they were unable to reassure the patient. I did review the documentation from 08/17 and it seems that the patient was evaluated by the care team in psych at that time. Patient states that he suffers from anxiety then goes on to have a conversation about other subjects. There is some tangential discussion although he is articulate. Related Data Home Medications Medication Instructions Recorded Confirmed ascorbic acid (vitamin C) 500 mg 500 mg PO DAILY 08/17/22 08/17/22 tablet (Vitamin C) multivitamin 1 tab PO DAILY 08/17/22 08/17/22 Previous Rx's Medication Instructions Recorded albuterol sulfate 90 mcg/actuation 2 puff inhalation Q4-6H PRN 08/02/22 aerosol inhaler shortness of breath or wheezing #8.5 grams levofloxacin 500 mg tablet 500 mg PO DAILY #6 tabs 08/18/22 metronidazole 500 mg tablet 500 mg PO BID 7 days #14 tabs 08/18/22 Allergies Allergy/AdvReac Type Severity Reaction Status Date / Time No Known Allergies Allergy Verified 08/17/22 09:33 Review of Systems Review of Systems: Pertinent positives and negatives as stated in HPI PMFSH Past Medical History Source: nursing notes reviewed Medical History Asthma exacerbation COPD (chronic obstructive pulmonary disease) Surgical History History of hernia surgery Social History Social History Alcohol intake: current Alcohol intake frequency: 0-2 drinks per day Alcohol type: beer and wine Smoked in Last 30 Days: No Use of substances other than those prescribed or required for medical reasons: No Substance Use Type: Marijuana Advance Directives: No Advance Directives Information Provided: Yes Physical Exam Vital Signs: Vital Signs: Last Vital Signs Temp 97.9 F 08/19/22 04:30 Pulse 67 08/19/22 04:30 Resp 16 08/19/22 04:30 BP 156/69 H 08/19/22 04:30 Pulse Ox 96 08/19/22 04:30 O2 Del Method Room Air 08/19/22 04:30 BMI result Body Mass Index 24.7 VITAL SIGNS: Reviewed. GENERAL: Well developed, well nourished, in no acute distress. HEAD: Normocephalic/atraumatic EYES: PERRLA, EOMI EARS: Ext canals without abnormality NOSE: Nares patent bilateral OROPHARYNX: no oral lesions noted, posterior pharynx clear NECK: Supple, no adenopathy LUNGS: Normal breath sounds. No adventitious sounds or accessory muscle use. SpO2<96> CARDIOVASCULAR: Regular rate and rhythm without noted murmurs, no JVD or lower extremity edema. ABDOMEN: Soft, non-tender, non-distended with bowel sounds. No rigidity. No guarding. No palpable masses or hernias noted MUSCULOSKELETAL: No tenderness, deformities, or effusions noted on gross ins pection. EXTREMITIES: No cyanosis, clubbing or edema. SKIN: Inspection of the skin reveals no rashes NEUROLOGIC: Alert and oriented x 3. Strength and sensation to light touch were grossly intact x 4. Medical Decision Making Medical Decision Making MDM Narrative: This is a 76-year-old male with apparent cognitive decline, though he remains well spoken he has a high degree of anxiety and paranoia. I reviewed all the laboratory investigations and there primarily chronically stable, I did provide patient with 60 mEq of potassium chloride. Although patient has been recently evaluated by the care team in conjunction with psych. He continues to return frequently for similar complaints. He is otherwise discharged for further evaluation Patient placed in physician observation because the patient needed more time for evaluation by the care team. At the time observation was started the patient's vital signs were stable, patient is alert and oriented, neuro: Nonfocal, CV RRR, lungs clear Differential Diagnosis Please see the discussion above Lab Data Please see the discussion above 08/19/22 03:02 08/19/22 03:02 Labs: Lab Results 08/19/22 08/19/22 08/19/22 Range/Units 03:02 03:02 03:02 WBC 5.7 (4.8-10.8) X10*3/uL RBC 4.28 L (4.60-5.80) X10*6/uL Hgb 13.3 L (14.0-18.0) g/dl Hct 37.3 L (42.0-52.0) % MCV 87.1 (80.0-98.0) fL MCH 31.1 (27.0-33.0) pg MCHC 35.7 (31.0-36.0) g/dl RDW 12.7 (11.0-16.0) % Plt Count 256 (160-400) X10*3/uL MPV 9.1 L (9.4-12.4) fL Immature Gran % (Auto) 0.7 H (0.0-0.4) % Neut % (Auto) 66.7 (45-73) % Lymph % (Auto) 19.0 L (20-40) % [place] % (Auto) 11.4 H (2-11) % Eos % (Auto) 1.8 (0-4) % Baso % (Auto) 0.4 (0-2) % Lymph # (Auto) 1.1 L (1.2-4.9) X10*3/uL [place] # (Auto) 0.7 (0.1-1.2) X10*3/uL Eos # (Auto) 0.1 (0.0-0.4) X10*3/uL Baso # (Auto) 0.0 (0.0-0.2) X10*3/uL Abs Immat Gran (auto) 0.04 H (0.00-0.03) X10*3/uL Absolute Neuts (auto) 3.8 (2.0-8.3) x10*3/uL Absolute Nucleated RBC 0.000 (0.0-0.012) X10*3/uL Nucleated RBC % (auto) 0.0 (0.0-0.2) /100WBC Sodium 128 L (135-145) mmol/L Potassium 3.2 L D (3.3-5.1) mmol/L Chloride 93 L (96-108) mmol/L Carbon Dioxide 26 (22-29) mmol/L Anion Gap 12 (12-20) BUN 11 (9-16) mg/dL Creatinine 0.73 (0.5-1.4) mg/dL Estim Creat Clear Calc 86.1 Estimated GFR > 60 Random Glucose 127 H (60-115) mg/dL Calcium 9.2 (8.4-10.2) mg/dL Magnesium 1.7 (1.6-2.6) mg/dL Total Bilirubin 0.8 (0.0-1.0) mg/dL AST 17 (5-37) U/L ALT 13 (0-40) U/L Alkaline Phosphatase 59 (39-117) U/L Total Protein 6.1 L (6.5-8.0) g/dL Albumin 4.0 (3.5-5.0) g/dL Urine Color Urine Appearance Urine pH (5.0-9.0) Ur Specific [place] (1.005-1.025) Urine Protein (Neg-Trace) mg/dL Urine Glucose (UA) (Negative) mg/dL Urine Ketones (Negative) mg/dL Urine Blood (Negative) Urine Nitrite (Negative) Ur Leukocyte Esterase (Negative) COVID-19 ([facility]) Negative (Negative) COVID-19 Clin Com See Note 08/19/22 Range/Units 03:02 WBC (4.8-10.8) X10*3/uL RBC (4.60-5.80) X10*6/uL Hgb (14.0-18.0) g/dl Hct (42.0-52.0) % MCV (80.0-98.0) fL MCH (27.0-33.0) pg MCHC (31.0-36.0) g/dl RDW (11.0-16.0) % Plt Count (160-400) X10*3/uL MPV (9.4-12.4) fL Immature Gran % (Auto) (0.0-0.4) % Neut % (Auto) (45-73) % Lymph % (Auto) (20-40) % [place] % (Auto) (2-11) % Eos % (Auto) (0-4) % Baso % (Auto) (0-2) % Lymph # (Auto) (1.2-4.9) X10*3/uL [place] # (Auto) (0.1-1.2) X10*3/uL Eos # (Auto) (0.0-0.4) X10*3/uL Baso # (Auto) (0.0-0.2) X10*3/uL Abs Immat Gran (auto) (0.00-0.03) X10*3/uL Absolute Neuts (auto) (2.0-8.3) x10*3/uL Absolute Nucleated RBC (0.0-0.012) X10*3/uL Nucleated RBC % (auto) (0.0-0.2) /100WBC Sodium (135-145) mmol/L Potassium (3.3-5.1) mmol/L Chloride (96-108) mmol/L Carbon Dioxide (22-29) mmol/L Anion Gap (12-20) BUN (9-16) mg/dL Creatinine (0.5-1.4) mg/dL Estim Creat Clear Calc Estimated GFR Random Glucose (60-115) mg/dL Calcium (8.4-10.2) mg/dL Magnesium (1.6-2.6) mg/dL Total Bilirubin (0.0-1.0) mg/dL AST (5-37) U/L ALT (0-40) U/L Alkaline Phosphatase (39-117) U/L Total Protein (6.5-8.0) g/dL Albumin (3.5-5.0) g/dL Urine Color Yellow Urine Appearance Clear Urine pH 7.0 (5.0-9.0) Ur Specific [place] <= 1.005 (1.005-1.025) Urine Protein Negative (Neg-Trace) mg/dL Urine Glucose (UA) Negative (Negative) mg/dL Urine Ketones Trace (Negative) mg/dL Urine Blood Negative (Negative) Urine Nitrite Negative (Negative) Ur Leukocyte Esterase Negative (Negative) COVID-19 ([facility]) (Negative) COVID-19 Clin Com Independent Interpretation I performed an independent interpretation of an: EKG Interpretation: Normal sinus rhythm, HR-66, no STEMI, KS/QRS/QTC is within normal limits. External Record Review External record reviewed: Outpatient record, Prior outpatient labs and Prior outpatient radiology Discharge Plan Discharge Clinical Impression: Panic disorder, Paranoid Patient Disposition: Still a Patient Prescriptions: No Action albuterol sulfate 90 mcg/actuation HFA aerosol inhaler 2 puff inhalation Q4-6H PRN (Reason: shortness of breath or wheezing) Qty: 8.5 0RF multivitamin Tablet 1 tab PO DAILY ascorbic acid (vitamin C) [Vitamin C] 500 mg Tablet 500 mg PO DAILY levofloxacin 500 mg tablet 500 mg PO DAILY Qty: 6 0RF metronidazole 500 mg tablet 500 mg PO BID 7 Days Qty: 14 0RF
[2022-08-19 04:30] VITALS: BP 156/69; PULSE 67; RESP 16; TEMP 36.6; O2SAT 96
[2022-08-19 04:35] LABS: Magnesium 1.7 mg/dL (1.6-2.6)
[2022-08-19] MEDS: Potassium Chloride ER 20 MEQ TAB.ER.PRT 60 MEQ PO (05:37)
[2022-08-19 07:18] VITALS: BP 145/77; PULSE 64; RESP 16; O2SAT 97
--- NOTE | 2022-08-19 07:23 | PC.NURSE ---
Patient resting on stretcher with friend at bedside. Patient set up with breakfast tray.
--- NOTE | 2022-08-19 08:16 | PHA.MEDREC ---
Pharmacy Consult ? Medication Reconciliation Pharmacy has completed the medication reconciliation. Spoke to patient and at bedside to confirm meds. Patient has not been able to obtain antibiotics at home due to the pharmacy closing before they could vegetable picker the prescription, but should be on. Patient also has not taken sertraline 25mg after discussion with ED provider in prior visit.
[2022-08-19] MEDS: Ascorbic Acid 500 MG TABLET PO (08:38)
[2022-08-19] MEDS: metroNIDAZOLE 500 MG TABLET PO ×2 (08:38→20:28)
[2022-08-19] MEDS: levoFLOXacin 500 MG TABLET PO (08:38)
[2022-08-19] MEDS: Multivitamin TABLET 1 TAB PO (08:39)
[2022-08-19 09:05] LABS: Anion Gap 13 (12-20); Blood Urea Nitrogen 8 mg/dL (9-16); Calcium 9.4 mg/dL (8.4-10.2); Carbon Dioxide 23 mmol/L (22-29); Chloride 102 mmol/L (96-108); Creatinine Clr Calc Pharmacy 93.8; Estimated Glomerular Filt Rate > 60; Glucose Random 117 mg/dL (60-115); Potassium 4.4 mmol/L (3.3-5.1); Sodium 134 mmol/L (135-145)
--- NOTE | 2022-08-19 09:06 | PC.NURSE ---
Report given to nurse in overflow, all questions answered. Patient will be transferred over.
[2022-08-19 09:41] LABS: Osmolality, Serum 280 mosm/kg (281-305)
[2022-08-19 09:43] VITALS: BP 141/85; PULSE 67; RESP 18; TEMP 36.3; O2SAT 95
--- NOTE | 2022-08-19 10:15 | PC.NURSE ---
PT RECEIVED FORM MAIN ED. TANS VIA STRETCHER. 1 ASSIST TO BED. GENERALIZED WEAKNESS. VSS. SKIN INTACT. ALERT AND ORIENTED. BED SEARCH FOR [facility].
[2022-08-19 12:44] LABS: Potassium Urine Random 28.5 mmol/L
[2022-08-19 13:08] LABS: Osmolality Urine 316 mosm/kg (373-1093)
--- NOTE | 2022-08-19 13:40 | PC.NURSE ---
Pt c/o being cold. given warm packs and blankets. declined lunch. requesting to have temperature taken frequently.
[2022-08-19 14:00] VITALS: BP 159/73; PULSE 80; RESP 18; TEMP 36.3; O2SAT 96
--- NOTE | 2022-08-19 16:52 | PC.NURSE ---
[facility] CALLED TO GIVE REPORT , AWAITING JAYESHRN TO CALL BACK FOR THE NURSE TO NURSE REPORT
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
--- NOTE | 2022-08-19 17:14 | PC.NURSE ---
report called to JAYESH DEAL from [facility].
--- NOTE | 2022-08-19 17:22 | PC.NURSE ---
casimiro lucas RN at the bedside for patient to sign voluntary admission to the unit
[2022-08-19 18:00] VITALS: BP 174/83; PULSE 79; RESP 16; TEMP 37.1; O2SAT 97
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
[2022-08-20] MEDS: hydrOXYzine HCL 25 MG TABLET PO ×2 (01:53→20:16)
[2022-08-20 08:00] VITALS: BP 194/89; PULSE 75; RESP 18; TEMP 36.2; O2SAT 98
[2022-08-20] MEDS: Multivitamin TABLET 1 TAB PO (09:07)
[2022-08-20] MEDS: levoFLOXacin 500 MG TABLET PO (09:07)
[2022-08-20] MEDS: metroNIDAZOLE 500 MG TABLET PO ×2 (09:08→20:16)
[2022-08-20] MEDS: Ascorbic Acid 500 MG TABLET PO (09:08)
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
[2022-08-20 18:00] VITALS: BP 168/80; PULSE 78; RESP 18; TEMP 36.6; O2SAT 97
[2022-08-20] MEDS: traZODone HCL 50 MG TABLET PO ×2 (20:16→22:49)
[2022-08-20] MEDS: Acetaminophen 325 MG TABLET 650 MG PO (20:16)
[2022-08-21] MEDS: hydrOXYzine HCL 25 MG TABLET PO ×2 (04:38→09:39)
[2022-08-21 06:00] VITALS: BP 156/76; PULSE 77; RESP 16; TEMP 36.2; O2SAT 97
[2022-08-21 08:45] LABS: Alanine Aminotransferase 14 U/L (0-40); Albumin Level 4.3 g/dL (3.5-5.0); Alkaline Phosphatase 52 U/L (39-117); Anion Gap 17 (12-20); Aspartate Amino Transferase 23 U/L (5-37); Bilirubin Total 1.5 mg/dL (0.0-1.0); Blood Urea Nitrogen 7 mg/dL (9-16); Calcium 9.6 mg/dL (8.4-10.2); Carbon Dioxide 22 mmol/L (22-29); Chloride 92 mmol/L (96-108); Cholesterol 191 mg/dL; Creatinine Clr Calc Pharmacy 81.6; Estimated Glomerular Filt Rate > 60; Glucose Fasting 107 mg/dL (60-99); HDL Cholesterol 85 mg/dL; LDL Cholesterol Calculated 90 mg/dl; Potassium 3.9 mmol/L (3.3-5.1); Sodium 127 mmol/L (135-145); Total Protein 6.7 g/dL (6.5-8.0); Triglycerides 83 mg/dL
[2022-08-21] MEDS: metroNIDAZOLE 500 MG TABLET PO (09:31)
[2022-08-21] MEDS: Multivitamin TABLET 1 TAB PO (09:31)
[2022-08-21] MEDS: levoFLOXacin 500 MG TABLET PO (09:31)
[2022-08-21] MEDS: Ascorbic Acid 500 MG TABLET PO (09:31)
[2022-08-21 10:02] LABS: Glucose, Whole Blood 130 mg/dL (60-115)
--- NOTE | 2022-08-21 12:47 | P.PNPSI_ITS ---
Subjective Subjective Date of Service: 08/21/22 Reason For Visit: Anxiety Subjective Notes: Conditional Voluntary Interim History: The nursing staff reported that the patient had been pleasant, cooperative, but confused. On intake he refused to start antipsychotics or any medications right now. On interview we discussed treatment options and recent why he was paranoid, psychoeducation into his condition was provided. Mental Status Exam Mental Status Exam Patient Appearance: Well Grooomed and Appropriate Patient Orientation: Person and Situation Level of Consciousness: Awake and Appropriate Patient Behavior: Guarded and Passive Mood Description: Calm Affect Description: Constricted Patient Cognition Impaired: Yes Ability to Follow Directions: Good Speech Pattern: Clear Hallucinations: None Delusions: Paranoid Ideation Thought Process: Distracted and Evasive Thought Content: positive for [place] and positive for Circumstantial Judgement: Fair Diagnostics Vital Signs (24Hr): Vital Signs - 24 hr 08/20/22 18:00 Temperature 97.9 F Pulse Rate 78 Respiratory Rate 18 Blood Pressure 168/80 H Pulse Oximetry 97 Oxygen Delivery Method Room Air BMI result Body Mass Index 24.7 Labs 08/19/22 03:02 08/21/22 08:14 Labs: Laboratory Results - last 48 hr 08/19/22 08/21/22 08/21/22 12:33 08:14 09:43 Sodium 127 L Potassium 3.9 Chloride 92 L Carbon Dioxide 22 Anion Gap 17 BUN 7 L Creatinine 0.77 Estim Creat Clear Calc 81.6 Estimated GFR > 60 POC Glucose 130 H Fasting Glucose 107 H Calcium 9.6 Total Bilirubin 1.5 H AST 23 ALT 14 Alkaline Phosphatase 52 Total Protein 6.7 Albumin 4.3 Triglycerides 83 Cholesterol 191 LDL Cholesterol, Calc 90 HDL Cholesterol 85 Urine Osmolality 316 L Imaging Radiology Impressions: ITS Impressions Head CT 08/19/22 06:14 IMPRESSION: No acute territorial infarct or intracranial hemorrhage. Mild volume loss and white matter small vessel ischemic changes. Medications Medications Current Medications Acetaminophen (Acetaminophen 325 Mg Tablet) 650 mg PO Q6H PRN PRN Reason: Headache/Pain Mild Scale (1-3) Last Admin: 08/20/22 20:16 Dose: 650 mg Al Hydroxide/Mg Hydroxide (Magnesium Hydrox/Alum Hydrox 30 Ml Oral.Susp) 30 ml PO Q6H PRN PRN Reason: Heartburn/Nausea Albuterol Sulfate (Albuterol Sulfate 90 Mcg 8 Gm Inhaler) 2 puff INHALE Q4H PRN PRN Reason: shortness of breath or wheezing Ascorbic Acid (Ascorbic Acid 500 Mg Tablet) 500 mg PO DAILY [facility] Last Admin: 08/21/22 09:31 Dose: 500 mg Hydroxyzine HCl (Hydroxyzine Hcl 25 Mg Tablet) 25 mg PO Q6H PRN PRN Reason: Anxiety Last Admin: 08/21/22 09:39 Dose: 25 mg Levofloxacin (Levofloxacin 500 Mg Tablet) 500 mg PO DAILY [facility] Last Admin: 08/21/22 09:31 Dose: 500 mg Magnesium Hydroxide (Milk Of Magnesia 30 Ml Oral.Susp) 30 ml PO DAILY PRN PRN Reason: Constipation Metronidazole (Metronidazole 500 Mg Tablet) 500 mg PO BID [facility] Last Admin: 08/21/22 09:31 Dose: 500 mg Multivitamins/Vitamin C (Multivitamin Tablet) 1 tab PO DAILY [facility] Last Admin: 08/21/22 09:31 Dose: 1 tab Trazodone HCl (Trazodone Hcl 50 Mg Tablet) 50 mg PO BEDTIME MRX1 PRN PRN Reason: Insomnia Last Admin: 08/20/22 22:49 Dose: 50 mg Allergies Allergies Allergy/AdvReac Type Severity Reaction Status Date / Time No Known Allergies Allergy Verified 08/17/22 09:33 Assessment & Plan Assessment & Plan (1) Cognitive decline: Status: Acute Code(s): R41.89 - Other symptoms and signs involving cognitive functions and awareness (2) Psychosis: Status: Acute Code(s): F29 - Unspecified psychosis not due to a substance or known physiological condition Plan Does present with evidence of early cognitive impairment (at least 6 months as per collateral). Will benefit from observation on unit and ongoing assessment regarding same. Does present with paranoid delusions and likely comorbid anxiety disorder. Appears these have never been treated and patient reluctant around medications currently. Can continue to review this during admission. Plan 1. Gather collateral information. 2. Continue with medical workout. 3. Consider the use of a low dose of antipsychotics at night. 4. Started assessment of cognition with [place] and Rell cognitive test. Reason for contiued inpatient stay Substantial Risk for: inability to function, rapid decompensation and med/psych decompensation Time Spent With Patient Time: Total time managing care of this patient today ___20_ minutes.
[2022-08-21 18:00] VITALS: BP 158/97; PULSE 88; RESP 16; TEMP 36.9; O2SAT 95
[2022-08-21] MEDS: lisinopriL 10 MG TABLET PO (19:30)
--- NOTE | 2022-08-21 20:41 | PC.NURSE ---
Patient was very anxious this morning, sweaty, incontinent of urine, resistant to care, paranoid ideation. Rambling and rapidly talking without taking a breath. Patient was redirected and PRN atarax with good effect. Patient then allowed personal care and changing. Patient's housemate in to visit. Patient was abrasive to her. No SI or HI. Anxiety, diaphoresis. Random POC 130. Patient cold sweat. Patient's son, Marcial, is HCP, sent paperwork for this via fax and is in chart. Marcial would like to meet with SW on Tuesday 08/22, will call. Marcial and patient discussed patient's coping skills. Patient and son would like to discuss plan.
[2022-08-22] MEDS: hydrOXYzine HCL 25 MG TABLET PO ×2 (04:50→19:52)
[2022-08-22 05:09] VITALS: BP 150/90; PULSE 90; RESP 18; TEMP 36.1; O2SAT 97
[2022-08-22 08:00] VITALS: BP 158/88; PULSE 94; RESP 18; TEMP 36.1; O2SAT 98
[2022-08-22] MEDS: metroNIDAZOLE 500 MG TABLET PO ×2 (09:34→19:52)
[2022-08-22] MEDS: lisinopriL 10 MG TABLET PO (09:34)
[2022-08-22] MEDS: levoFLOXacin 500 MG TABLET PO (09:35)
[2022-08-22] MEDS: Multivitamin TABLET 1 TAB PO (09:35)
[2022-08-22] MEDS: Ascorbic Acid 500 MG TABLET PO (09:35)
--- NOTE | 2022-08-22 16:12 | PC.NURSE ---
Dr Moralez notified of abnormal lab values today. Dr Moralez will reorder labs tomorrow.
--- NOTE | 2022-08-22 16:49 | HO.PSYCHPN ---
Subjective Subjective Date of Service: 08/22/22 Reason For Visit: Anxiety Subjective Notes: Conditional Voluntary Interim History: The nursing staff reported the patient slept well, he has been quiet and no behavioral issues. The occupational therapist reported that he has court 3.0 on the Rell test and they are going to try to do a [place] today. The social media campaign manager reported that she will try to get collateral information from her roommate. On interview the patient reported that he is scared of walking and requested a wheelchair we are going to a PT consult. No evidence of psychotic symptoms at this moment Mental Status Exam Mental Status Exam Patient Appearance: Appropriate Patient Orientation: Person and Situation Level of Consciousness: Awake and Appropriate Patient Behavior: Guarded and Passive Mood Description: Withdrawn and Constricted Affect Description: Constricted Patient Cognition Impaired: Yes Ability to Follow Directions: Good Speech Pattern: Clear Hallucinations: None Delusions: Not Present Thought Process: Distracted and Linear Thought Content: positive for [place] and positive for Circumstantial Judgement: Poor Diagnostics Vital Signs (24Hr): Vital Signs - 24 hr 08/21/22 18:00 08/22/22 05:09 08/22/22 08:00 Temperature 98.5 F 97 F 97.0 F Pulse Rate 88 90 94 Respiratory Rate 16 18 18 Blood Pressure 158/97 H 150/90 H 158/88 H Pulse Oximetry 95 97 98 Oxygen Delivery Method Room Air Room Air Room Air BMI result Body Mass Index 24.7 Labs 08/19/22 03:02 08/21/22 08:14 Labs: Laboratory Results - last 48 hr 08/21/22 08/21/22 08:14 09:43 Sodium 127 L Potassium 3.9 Chloride 92 L Carbon Dioxide 22 Anion Gap 17 BUN 7 L Creatinine 0.77 Estim Creat Clear Calc 81.6 Estimated GFR > 60 POC Glucose 130 H Fasting Glucose 107 H Calcium 9.6 Total Bilirubin 1.5 H AST 23 ALT 14 Alkaline Phosphatase 52 Total Protein 6.7 Albumin 4.3 Triglycerides 83 Cholesterol 191 LDL Cholesterol, Calc 90 HDL Cholesterol 85 Imaging Radiology Impressions: ITS Impressions Head CT 08/19/22 06:14 IMPRESSION: No acute territorial infarct or intracranial hemorrhage. Mild volume loss and white matter small vessel ischemic changes. Medications Medications Current Medications Acetaminophen (Acetaminophen 325 Mg Tablet) 650 mg PO Q6H PRN PRN Reason: Headache/Pain Mild Scale (1-3) Last Admin: 08/20/22 20:16 Dose: 650 mg Al Hydroxide/Mg Hydroxide (Magnesium Hydrox/Alum Hydrox 30 Ml Oral.Susp) 30 ml PO Q6H PRN PRN Reason: Heartburn/Nausea Albuterol Sulfate (Albuterol Sulfate 90 Mcg 8 Gm Inhaler) 2 puff INHALE Q4H PRN PRN Reason: shortness of breath or wheezing Ascorbic Acid (Ascorbic Acid 500 Mg Tablet) 500 mg PO DAILY [facility] Last Admin: 08/22/22 09:35 Dose: 500 mg Hydroxyzine HCl (Hydroxyzine Hcl 25 Mg Tablet) 25 mg PO Q6H PRN PRN Reason: Anxiety Last Admin: 08/22/22 04:50 Dose: 25 mg Levofloxacin (Levofloxacin 500 Mg Tablet) 500 mg PO DAILY [facility] Stop: 08/23/22 09:01 Last Admin: 08/22/22 09:35 Dose: 500 mg Lisinopril (Lisinopril 10 Mg Tablet) 10 mg PO DAILY [facility]; Protocol Last Admin: 08/22/22 09:34 Dose: 10 mg Magnesium Hydroxide (Milk Of Magnesia 30 Ml Oral.Susp) 30 ml PO DAILY PRN PRN Reason: Constipation Metronidazole (Metronidazole 500 Mg Tablet) 500 mg PO BID [facility] Stop: 08/23/22 21:01 Last Admin: 08/22/22 09:34 Dose: 500 mg Multivitamins/Vitamin C (Multivitamin Tablet) 1 tab PO DAILY [facility] Last Admin: 08/22/22 09:35 Dose: 1 tab Trazodone HCl (Trazodone Hcl 50 Mg Tablet) 50 mg PO BEDTIME MRX1 PRN PRN Reason: Insomnia Last Admin: 08/20/22 22:49 Dose: 50 mg Allergies Allergies Allergy/AdvReac Type Severity Reaction Status Date / Time No Known Allergies Allergy Verified 08/17/22 09:33 Assessment & Plan Assessment & Plan (1) Cognitive decline: Status: Acute Code(s): R41.89 - Other symptoms and signs involving cognitive functions and awareness (2) Psychosis: Status: Acute Code(s): F29 - Unspecified psychosis not due to a substance or known physiological condition Plan Does present with evidence of early cognitive impairment (at least 6 months as per collateral). Will benefit from observation on unit and ongoing assessment regarding same. Does present with paranoid delusions and likely comorbid anxiety disorder. Appears these have never been treated and patient reluctant around medications currently. Can continue to review this during admission. Plan 1. Gather collateral information. 2. Continue with medical workout. 3. Consider the use of a low dose of antipsychotics at night. 4. Started assessment of cognition with [place] and Rell cognitive test. Reason for contiued inpatient stay Substantial Risk for: rapid decompensation and med/psych decompensation Time Spent With Patient Time: Total time managing care of this patient today __20__ minutes.
[2022-08-22 18:00] VITALS: BP 131/82; PULSE 80; RESP 18; TEMP 36.1; O2SAT 97
[2022-08-22] MEDS: traZODone HCL 50 MG TABLET PO (19:52)
[2022-08-23] MEDS: hydrOXYzine HCL 25 MG TABLET PO ×2 (04:52→20:30)
[2022-08-23 06:00] VITALS: BP 169/87; PULSE 90; RESP 16; TEMP 36.2; O2SAT 97
[2022-08-23] MEDS: lisinopriL 10 MG TABLET PO (08:42)
[2022-08-23] MEDS: Ascorbic Acid 500 MG TABLET PO (08:42)
[2022-08-23] MEDS: Multivitamin TABLET 1 TAB PO (08:42)
[2022-08-23] MEDS: levoFLOXacin 500 MG TABLET PO (08:42)
[2022-08-23] MEDS: metroNIDAZOLE 500 MG TABLET PO ×2 (08:42→20:30)
--- NOTE | 2022-08-23 12:37 | P.PNPSI_ITS ---
Subjective Subjective Date of Service: 08/23/22 Reason For Visit: Anxiety Subjective Notes: Conditional Voluntary Interim History: The nursing staff reported that his sodium came back on 06/09 yesterday, he decreased anxiety or depression. The social science professor reported that spoke with his roommate and roommate's son and we will have a family meeting next Sunday. The staff has noticed that he has been more paranoid at night regarding clears son. The occupational therapist reported that he has scored 3.4 on the [place] cognitive test and she is going to try to get again a [place] test today. On interview the patient reports that he feels unsteady and wants a wheelchair. Mental Status Exam Mental Status Exam Patient Appearance: Well Grooomed and Appropriate Patient Orientation: Person and Situation Level of Consciousness: Awake and Appropriate Patient Behavior: Guarded and Passive Mood Description: Withdrawn Affect Description: Constricted Patient Cognition Impaired: Yes Ability to Follow Directions: Good Speech Pattern: Clear Hallucinations: None Delusions: Paranoid Ideation Thought Process: Linear Thought Content: positive for [place], positive for [place] and positive for Thought Blocking Judgement: Fair Diagnostics Vital Signs (24Hr): Vital Signs - 24 hr 08/22/22 18:00 08/23/22 06:00 Temperature 96.9 F 97.2 F Pulse Rate 80 90 Respiratory Rate 18 16 Blood Pressure 131/82 169/87 H Pulse Oximetry 97 97 Oxygen Delivery Method Room Air Room Air BMI result Body Mass Index 24.7 Labs 08/19/22 03:02 08/21/22 08:14 Imaging Radiology Impressions: ITS Impressions Head CT 08/19/22 06:14 IMPRESSION: No acute territorial infarct or intracranial hemorrhage. Mild volume loss and white matter small vessel ischemic changes. Medications Medications Current Medications Acetaminophen (Acetaminophen 325 Mg Tablet) 650 mg PO Q6H PRN PRN Reason: Headache/Pain Mild Scale (1-3) Last Admin: 08/20/22 20:16 Dose: 650 mg Al Hydroxide/Mg Hydroxide (Magnesium Hydrox/Alum Hydrox 30 Ml Oral.Susp) 30 ml PO Q6H PRN PRN Reason: Heartburn/Nausea Albuterol Sulfate (Albuterol Sulfate 90 Mcg 8 Gm Inhaler) 2 puff INHALE Q4H PRN PRN Reason: shortness of breath or wheezing Ascorbic Acid (Ascorbic Acid 500 Mg Tablet) 500 mg PO DAILY DANIEL Last Admin: 08/23/22 08:42 Dose: 500 mg Hydroxyzine HCl (Hydroxyzine Hcl 25 Mg Tablet) 25 mg PO Q6H PRN PRN Reason: Anxiety Last Admin: 08/23/22 04:52 Dose: 25 mg Lisinopril (Lisinopril 10 Mg Tablet) 10 mg PO DAILY DANIEL; Protocol Last Admin: 08/23/22 08:42 Dose: 10 mg Magnesium Hydroxide (Milk Of Magnesia 30 Ml Oral.Susp) 30 ml PO DAILY PRN PRN Reason: Constipation Metronidazole (Metronidazole 500 Mg Tablet) 500 mg PO BID DANIEL Stop: 08/23/22 21:01 Last Admin: 08/23/22 08:42 Dose: 500 mg Multivitamins/Vitamin C (Multivitamin Tablet) 1 tab PO DAILY DANIEL Last Admin: 08/23/22 08:42 Dose: 1 tab Trazodone HCl (Trazodone Hcl 50 Mg Tablet) 50 mg PO BEDTIME MRX1 PRN PRN Reason: Insomnia Last Admin: 08/22/22 19:52 Dose: 50 mg Allergies Allergies Allergy/AdvReac Type Severity Reaction Status Date / Time No Known Allergies Allergy Verified 08/17/22 09:33 Assessment & Plan Assessment & Plan (1) Cognitive decline: Status: Acute Code(s): R41.89 - Other symptoms and signs involving cognitive functions and awareness (2) Psychosis: Status: Acute Code(s): F29 - Unspecified psychosis not due to a substance or known physiological condition Plan Does present with evidence of early cognitive impairment (at least 6 months as per collateral). Will benefit from observation on unit and ongoing assessment regarding same. Does present with paranoid delusions and likely comorbid anxiety disorder. Appears these have never been treated and patient reluctant around medications currently. Can continue to review this during admission. Plan 1. Gather collateral information. 2. Continue with medical workout. 3. Consider the use of a low dose of antipsychotics at night. 4. Started assessment of cognition with [place] and [place]ell cognitive test. 5. The patient is on metronidazole for colonic infection, we will repeat blood work for tomorrow with CBC, basic metabolic panel, TSH, folate level. Reason for contiued inpatient stay Substantial Risk for: inability to function, rapid decompensation and med/psych decompensation Time Spent With Patient Time: Total time managing care of this patient today ___20_ minutes.
[2022-08-23 18:00] VITALS: BP 137/60; PULSE 69; RESP 15; TEMP 36.2; O2SAT 96
[2022-08-23] MEDS: traZODone HCL 50 MG TABLET PO (20:30)
[2022-08-24] MEDS: traZODone HCL 50 MG TABLET PO (00:20)
[2022-08-24] MEDS: hydrOXYzine HCL 25 MG TABLET PO (03:11)
[2022-08-24] MEDS: OLANZapine 2.5 MG TABLET PO (04:17)
--- NOTE | 2022-08-24 04:19 | PC.NURSE ---
Onesimo presented with increased agitation throughout the night, in and out of his room, yelling loudly, repetitive verbalization of I'm cold. That's not normal for me. I'm 76 going on 77. I'm cold. He was given multiple blankets, warm tea with no reported relief from feeling cold. Continued to be loud, disrupting the milieu. Receptive to take PRN atarax, but contiuned to escalate verbally, MD [place] updated and order obtained to give Zyprexa. Onesimo was receptive to take medication, provided with 1:1 contact and water as he complained, I'm anxious, can I call Jenn? You know when your chill it's one step away from pneumonia. My heart area feels stressed, some of it is emotional. I'm so thirsty. Currently calm, sitting in chair wrapped in 2 blankets in the day room with staff. Scheduled for lab work this morning. POC as outlined, continues on unit safety observation per order.
[2022-08-24 07:00] VITALS: BMI 23.1
[2022-08-24 07:30] VITALS: BP 166/81; PULSE 86; RESP 16; TEMP 37; O2SAT 95
[2022-08-24 08:16] LABS: MANUAL DIFF FLAG NO
[2022-08-24 08:18] LABS: Basophils Percent Auto 0.8 % (0-2); Eosinophils Percent Auto 0.8 % (0-4); Hematocrit 42.2 % (42.0-52.0); Hemoglobin 14.9 g/dl (14.0-18.0); Imm Gran Abs Auto 0.09 X10*3/uL (0.00-0.03); Imm Gran Pct Auto 1.8 % (0.0-0.4); Lymphocytes Absolute Auto 1.1 X10*3/uL (1.2-4.9); Lymphocytes Percent Auto 22.6 % (20-40); Mean Corpuscular HGB Conc 35.3 g/dl (31.0-36.0); Mean Corpuscular Hemoglobin 30.4 pg (27.0-33.0); Mean Corpuscular Volume 86.1 fL (80.0-98.0); Mean Platelet Volume 8.7 fL (9.4-12.4); Monocytes Absolute Auto 0.7 X10*3/uL (0.1-1.2); Monocytes Percent Auto 14.1 % (2-11); Neutrophils Absolute Auto 2.9 x10*3/uL (2.0-8.3); Neutrophils Percent Auto 59.9 % (45-73); Platelet Count 327 X10*3/uL (160-400); Red Cell Distribution Width 13.1 % (11.0-16.0); White Blood Count 4.9 X10*3/uL (4.8-10.8)
[2022-08-24] MEDS: lisinopriL 10 MG TABLET PO (09:04)
[2022-08-24] MEDS: Ascorbic Acid 500 MG TABLET PO (09:04)
[2022-08-24] MEDS: Multivitamin TABLET 1 TAB PO (09:04)
[2022-08-24 09:07] LABS: Anion Gap 14 (12-20); Blood Urea Nitrogen 8 mg/dL (9-16); Calcium 9.6 mg/dL (8.4-10.2); Carbon Dioxide 25 mmol/L (22-29); Chloride 94 mmol/L (96-108); Creatinine Clr Calc Pharmacy 78.5; Estimated Glomerular Filt Rate > 60; Glucose Random 119 mg/dL (60-115); Potassium 3.7 mmol/L (3.3-5.1); Sodium 129 mmol/L (135-145)
[2022-08-24 09:38] LABS: Folate 15.6 ng/mL (> or = 4.0); Thyroid Stimulating Hormone 2.15 uIU/mL (0.32-4.0); Vitamin B12 647 pg/mL (200-900)
--- NOTE | 2022-08-24 10:52 | PC.NURSE ---
Pt. with good balance and steady gait while using walker appropriately. No bed alarm indicated at this time.
--- NOTE | 2022-08-24 14:28 | P.PNPSI_ITS ---
Subjective Subjective Date of Service: 08/24/22 Reason For Visit: Anxiety Subjective Notes: Conditional Voluntary Interim History: The nursing staff reported the patient had being confused but oriented to place and person. The morning he is mostly more awake and alert and restless in the afternoon. The social sciences department chair reported will have a family meeting tomorrow 13:00. On interview we discussed with the patient the results of the occupational therapist, [place] test 3.4 and a [place] test from a few weeks ago of . He agreed to start Aricept Mental Status Exam Mental Status Exam Patient Appearance: Well Grooomed Patient Orientation: Person and Situation Level of Consciousness: Awake and Appropriate Patient Behavior: Guarded and Passive Mood Description: Withdrawn and Constricted Affect Description: Calm Patient Cognition Impaired: Yes Ability to Follow Directions: Good Speech Pattern: Clear Hallucinations: None Delusions: Not Present Thought Process: Distracted and Slowed Thinking Thought Content: positive for [place] and positive for Circumstantial Judgement: Fair Diagnostics Vital Signs (24Hr): Vital Signs - 24 hr 08/23/22 18:00 08/24/22 07:30 Temperature 97.1 F 98.6 F Pulse Rate 69 86 Respiratory Rate 15 16 Blood Pressure 137/60 166/81 H Pulse Oximetry 96 95 Oxygen Delivery Method Room Air Room Air BMI result Body Mass Index 24.7 Labs 08/24/22 08:01 08/24/22 08:01 Labs: Laboratory Results - last 48 hr 08/24/22 08/24/22 08:01 08:01 WBC 4.9 RBC 4.90 Hgb 14.9 Hct 42.2 MCV 86.1 MCH 30.4 MCHC 35.3 RDW 13.1 Plt Count 327 D MPV 8.7 L Immature Gran % (Auto) 1.8 H Neut % (Auto) 59.9 Lymph % (Auto) 22.6 [place] % (Auto) 14.1 H Eos % (Auto) 0.8 Baso % (Auto) 0.8 Lymph # (Auto) 1.1 L [place] # (Auto) 0.7 Eos # (Auto) 0.0 Baso # (Auto) 0.0 Abs Immat Gran (auto) 0.09 H Absolute Neuts (auto) 2.9 Absolute Nucleated RBC 0.000 Nucleated RBC % (auto) 0.0 Sodium 129 L Potassium 3.7 Chloride 94 L Carbon Dioxide 25 Anion Gap 14 BUN 8 L Creatinine 0.80 Estim Creat Clear Calc 78.5 Estimated GFR > 60 Random Glucose 119 H Calcium 9.6 Vitamin B12 647 Folate 15.6 TSH 2.15 Imaging Radiology Impressions: ITS Impressions Head CT 08/19/22 06:14 IMPRESSION: No acute territorial infarct or intracranial hemorrhage. Mild volume loss and white matter small vessel ischemic changes. Medications Medications Current Medications Acetaminophen (Acetaminophen 325 Mg Tablet) 650 mg PO Q6H PRN PRN Reason: Headache/Pain Mild Scale (1-3) Last Admin: 08/20/22 20:16 Dose: 650 mg Al Hydroxide/Mg Hydroxide (Magnesium Hydrox/Alum Hydrox 30 Ml Oral.Susp) 30 ml PO Q6H PRN PRN Reason: Heartburn/Nausea Albuterol Sulfate (Albuterol Sulfate 90 Mcg 8 Gm Inhaler) 2 puff INHALE Q4H PRN PRN Reason: shortness of breath or wheezing Ascorbic Acid (Ascorbic Acid 500 Mg Tablet) 500 mg PO DAILY DANIEL Last Admin: 08/24/22 09:04 Dose: 500 mg Hydroxyzine HCl (Hydroxyzine Hcl 25 Mg Tablet) 25 mg PO Q6H PRN PRN Reason: Anxiety Last Admin: 08/24/22 03:11 Dose: 25 mg Lisinopril (Lisinopril 10 Mg Tablet) 10 mg PO DAILY DANIEL; Protocol Last Admin: 08/24/22 09:04 Dose: 10 mg Magnesium Hydroxide (Milk Of Magnesia 30 Ml Oral.Susp) 30 ml PO DAILY PRN PRN Reason: Constipation Multivitamins/Vitamin C (Multivitamin Tablet) 1 tab PO DAILY DANIEL Last Admin: 08/24/22 09:04 Dose: 1 tab Trazodone HCl (Trazodone Hcl 50 Mg Tablet) 50 mg PO BEDTIME MRX1 PRN PRN Reason: Insomnia Last Admin: 08/24/22 00:20 Dose: 50 mg Allergies Allergies Allergy/AdvReac Type Severity Reaction Status Date / Time No Known Allergies Allergy Verified 08/17/22 09:33 Assessment & Plan Assessment & Plan (1) Cognitive decline: Status: Acute Code(s): R41.89 - Other symptoms and signs involving cognitive functions and awareness (2) Psychosis: Status: Acute Code(s): F29 - Unspecified psychosis not due to a substance or known physiological condition Plan Does present with evidence of early cognitive impairment (at least 6 months as per collateral). Will benefit from observation on unit and ongoing assessment regarding same. Does present with paranoid delusions and likely comorbid anxiety disorder. Appears these have never been treated and patient reluctant around medications currently. Can continue to review this during admission. Plan 1. Gather collateral information. 2. Continue with medical workout. 3. Consider the use of a low dose of antipsychotics at night. 4. Started assessment of cognition with [place] and Rell cognitive test. 5. The patient is on metronidazole for colonic infection, we will repeat blood work for tomorrow with CBC, basic metabolic panel, TSH, folate level. 6. Start Aricept 5 mg p.o. q.h.s. Reason for contiued inpatient stay Substantial Risk for: inability to function, rapid decompensation and med/psych decompensation Time Spent With Patient Time: Total time managing care of this patient today __20__ minutes.
[2022-08-24 20:47] VITALS: BP 140/99; PULSE 104; RESP 16; TEMP 35.9; O2SAT 96
--- NOTE | 2022-08-24 23:52 | PC.NURSE ---
Onesimo is noted to be confused and suspicious. He stated why should I trust you to take any medications I don't even know you My tank truck milk receiver Linsey Gan to me not to sign anything or bring any kind of grievance before talking to her first. Will you help me call her in the morning When this advertising copy writer informed the patient that I would be leaving in the morning he stated so that's just another way of saying no you wont help me this advertising copy writer attempted to assist the patient with changing his brief however he would not allow the help again stating that he didn't know me so he didn't trust me. he did allow this advertising copy writer to help him to put on socks he showed this advertising copy writer an ingrown nail in his left foot and stated that it was sore but declined pain medication . this advertising copy writer also attempted to give the patient atarax and trazodone which he also declined. continue to monitor for safety and medication compliance, continue plan of care '
[2022-08-25 08:30] VITALS: BP 162/86; PULSE 99; RESP 20; TEMP 36.2; O2SAT 94
[2022-08-25] MEDS: Multivitamin TABLET 1 TAB PO (08:33)
[2022-08-25] MEDS: hydrOXYzine HCL 25 MG TABLET PO (08:33)
[2022-08-25] MEDS: Ascorbic Acid 500 MG TABLET PO (08:33)
[2022-08-25] MEDS: lisinopriL 10 MG TABLET PO (08:33)
--- NOTE | 2022-08-25 14:17 | P.PNPSI_ITS ---
Subjective Subjective Date of Service: 08/25/22 Reason For Visit: Anxiety Subjective Notes: Conditional Voluntary Interim History: the nursing staff reported that yesterday the patient was confused, exit seeking, he slept only for 5 hours. He had been irritable at times. Today we had a family meeting with his son, brother and partner. We explained that he suffers from dementia, and probably he was on delirium when he was more agitated. We discussed options and he agreed to continue with Aricept and start a low dose of Haldol to target psychosis. Also we decided to discontinue hydroxyzine and start trazodone p.r.n. for anxiety. Mental Status Exam Mental Status Exam Patient Appearance: Well Grooomed and Appropriate Patient Orientation: Person and Situation Level of Consciousness: Awake and Appropriate Patient Behavior: Guarded and Passive Mood Description: Constricted Affect Description: Calm and Depressed Patient Cognition Impaired: Yes Ability to Follow Directions: Good Speech Pattern: Clear Hallucinations: None Delusions: Not Present Thought Process: Distracted and Evasive Thought Content: positive for [place], positive for [place]overty of [place] and positive for Thought Blocking Judgement: Fair Diagnostics Vital Signs (24Hr): Vital Signs - 24 hr 08/24/22 20:47 08/25/22 08:30 Temperature 96.7 F L 97.2 F Pulse Rate 104 H 99 Respiratory Rate 16 20 Blood Pressure 140/99 H 162/86 H Pulse Oximetry 96 94 Oxygen Delivery Method Room Air Room Air BMI result Body Mass Index 23.1 Labs 08/24/22 08:01 08/24/22 08:01 Labs: Laboratory Results - last 48 hr 08/24/22 08/24/22 08:01 08:01 WBC 4.9 RBC 4.90 Hgb 14.9 Hct 42.2 MCV 86.1 MCH 30.4 MCHC 35.3 RDW 13.1 Plt Count 327 D MPV 8.7 L Immature Gran % (Auto) 1.8 H Neut % (Auto) 59.9 Lymph % (Auto) 22.6 [place] % (Auto) 14.1 H Eos % (Auto) 0.8 Baso % (Auto) 0.8 Lymph # (Auto) 1.1 L [place] # (Auto) 0.7 Eos # (Auto) 0.0 Baso # (Auto) 0.0 Abs Immat Gran (auto) 0.09 H Absolute Neuts (auto) 2.9 Absolute Nucleated RBC 0.000 Nucleated RBC % (auto) 0.0 Sodium 129 L Potassium 3.7 Chloride 94 L Carbon Dioxide 25 Anion Gap 14 BUN 8 L Creatinine 0.80 Estim Creat Clear Calc 78.5 Estimated GFR > 60 Random Glucose 119 H Calcium 9.6 Vitamin B12 647 Folate 15.6 TSH 2.15 Imaging Radiology Impressions: ITS Impressions Head CT 08/19/22 06:14 IMPRESSION: No acute territorial infarct or intracranial hemorrhage. Mild volume loss and white matter small vessel ischemic changes. Medications Medications Current Medications Acetaminophen (Acetaminophen 325 Mg Tablet) 650 mg PO Q6H PRN PRN Reason: Headache/Pain Mild Scale (1-3) Last Admin: 08/20/22 20:16 Dose: 650 mg Al Hydroxide/Mg Hydroxide (Magnesium Hydrox/Alum Hydrox 30 Ml Oral.Susp) 30 ml PO Q6H PRN PRN Reason: Heartburn/Nausea Albuterol Sulfate (Albuterol Sulfate 90 Mcg 8 Gm Inhaler) 2 puff INHALE Q4H PRN PRN Reason: shortness of breath or wheezing Ascorbic Acid (Ascorbic Acid 500 Mg Tablet) 500 mg PO DAILY DANIEL Last Admin: 08/25/22 08:33 Dose: 500 mg Donepezil HCl (Donepezil Hcl 5 Mg Tablet) 5 mg PO BEDTIME DANIEL Last Admin: 08/24/22 20:57 Dose: Not Given Haloperidol (Haloperidol 0.5 Mg Tablet) 0.5 mg PO BID DANIEL Lisinopril (Lisinopril 10 Mg Tablet) 10 mg PO DAILY [facility]; Protocol Last Admin: 08/25/22 08:33 Dose: 10 mg Magnesium Hydroxide (Milk Of Magnesia 30 Ml Oral.Susp) 30 ml PO DAILY PRN PRN Reason: Constipation Multivitamins/Vitamin C (Multivitamin Tablet) 1 tab PO DAILY DANIEL Last Admin: 08/25/22 08:33 Dose: 1 tab Trazodone HCl (Trazodone Hcl 50 Mg Tablet) 50 mg PO BEDTIME MRX1 PRN PRN Reason: Insomnia Last Admin: 08/24/22 00:20 Dose: 50 mg Trazodone HCl (Trazodone Hcl 25 Mg Halftab) 25 mg PO TID PRN PRN Reason: Anxiety Allergies Allergies Allergy/AdvReac Type Severity Reaction Status Date / Time No Known Allergies Allergy Verified 08/17/22 09:33 Assessment & Plan Assessment & Plan (1) Cognitive decline: Status: Acute Code(s): R41.89 - Other symptoms and signs involving cognitive functions and awareness (2) Psychosis: Status: Acute Code(s): F29 - Unspecified psychosis not due to a substance or known physiological condition Plan Does present with evidence of early cognitive impairment (at least 6 months as per collateral). Will benefit from observation on unit and ongoing assessment regarding same. Does present with paranoid delusions and likely comorbid anxiety disorder. Appears these have never been treated and patient reluctant around medications currently. Can continue to review this during admission. Plan 1. Gather collateral information. 2. Continue with medical workout. 3. Consider the use of a low dose of antipsychotics at night. 4. Started assessment of cognition with [place] and Rell cognitive test. [place] of admission was [place] of 08/25 03/12 5. The patient is on metronidazole for colonic infection, we will repeat blood work for tomorrow with CBC, basic metabolic panel, TSH, folate level. 6. Start Aricept 5 mg p.o. q.h.s. On August 24. 7. Start Haldol 0.5 p.o. b.i.d. to target psychosis. 8. Discontinue hydroxyzine p.r.n.. 9. Start trazodone 25 mg p.o. t.i.d. p.r.n. anxiety Reason for continued inpatient stay Substantial Risk for: inability to function, rapid decompensation and med/psych decompensation Time Spent With Patient Time: Total time managing care of this patient today ___20_ minutes.
[2022-08-25 18:00] VITALS: BP 142/100; PULSE 89; RESP 16; TEMP 36.4; O2SAT 98
[2022-08-25] MEDS: HaloperidoL 0.5 MG TABLET PO (20:05)
[2022-08-25] MEDS: Donepezil HCl 5 MG TABLET PO (20:05)
[2022-08-25] MEDS: traZODone HCL 50 MG TABLET PO (20:05)
[2022-08-26] MEDS: hydrOXYzine HCL 25 MG TABLET PO ×2 (05:20→20:01)
--- NOTE | 2022-08-26 05:44 | PC.NURSE ---
awake extremely anxious focused on being wet and cold. pt is also worried that he has signed paperwork while being delirious. he is stating my contract attorney told me never to sign anything out of trust. im afraid that something criminal is going on. dr lopez contacted about panic attack and that no anxiolytics are available. also dr lopez notified of warning in regard to qt prolongation associated with haldol,aricept and atarax administration.
[2022-08-26 06:00] VITALS: BP 146/73; PULSE 84; RESP 18; TEMP 36.2; O2SAT 96
[2022-08-26] MEDS: Ascorbic Acid 500 MG TABLET PO (09:01)
[2022-08-26] MEDS: HaloperidoL 0.5 MG TABLET PO ×2 (09:01→20:00)
[2022-08-26] MEDS: lisinopriL 10 MG TABLET PO (09:01)
[2022-08-26] MEDS: Multivitamin TABLET 1 TAB PO (09:02)
--- NOTE | 2022-08-26 11:29 | P.PNPSI_ITS ---
Subjective Subjective Date of Service: 08/26/22 Reason For Visit: Anxiety Interim History: Patient with periods of anxiety irritability seems somewhat improved reportedly Medication Compliance: Yes Side effects from medications: Yes Mental Status Exam Mental Status Exam Patient Appearance: Well Grooomed and Appropriate Patient Orientation: Person and Situation Level of Consciousness: Awake and Appropriate Patient Behavior: Guarded and Passive Mood Description: Constricted Affect Description: Calm and Depressed Patient Cognition Impaired: Yes Ability to Follow Directions: Good Speech Pattern: Clear Hallucinations: None Delusions: Not Present Thought Process: Distracted and Evasive Thought Content: positive for [place], positive for Poverty of Content and p ositive for Thought Blocking Judgement: Fair Diagnostics Vital Signs (24Hr): Vital Signs - 24 hr 08/25/22 18:00 08/26/22 06:00 Temperature 97.5 F 97.1 F Pulse Rate 89 84 Respiratory Rate 16 18 Blood Pressure 142/100 H 146/73 H Pulse Oximetry 98 96 Oxygen Delivery Method Room Air Room Air BMI result Body Mass Index 23.1 Labs 08/24/22 08:01 08/24/22 08:01 Imaging Radiology Impressions: ITS Impressions Head CT 08/19/22 06:14 IMPRESSION: No acute territorial infarct or intracranial hemorrhage. Mild volume loss and white matter small vessel ischemic changes. Medications Medications Current Medications Acetaminophen (Acetaminophen 325 Mg Tablet) 650 mg PO Q6H PRN PRN Reason: Headache/Pain Mild Scale (1-3) Last Admin: 08/20/22 20:16 Dose: 650 mg Al Hydroxide/Mg Hydroxide (Magnesium Hydrox/Alum Hydrox 30 Ml Oral.Susp) 30 ml PO Q6H PRN PRN Reason: Heartburn/Nausea Albuterol Sulfate (Albuterol Sulfate 90 Mcg 8 Gm Inhaler) 2 puff INHALE Q4H PRN PRN Reason: shortness of breath or wheezing Ascorbic Acid (Ascorbic Acid 500 Mg Tablet) 500 mg PO DAILY [facility] Last Admin: 08/26/22 09:01 Dose: 500 mg Donepezil HCl (Donepezil Hcl 5 Mg Tablet) 5 mg PO BEDTIME DANIEL Last Admin: 08/25/22 20:05 Dose: 5 mg Haloperidol (Haloperidol 0.5 Mg Tablet) 0.5 mg PO BID [facility] Last Admin: 08/26/22 09:01 Dose: 0.5 mg Lisinopril (Lisinopril 10 Mg Tablet) 10 mg PO DAILY [facility]; Protocol Last Admin: 08/26/22 09:01 Dose: 10 mg Magnesium Hydroxide (Milk Of Magnesia 30 Ml Oral.Susp) 30 ml PO DAILY PRN PRN Reason: Constipation Multivitamins/Vitamin C (Multivitamin Tablet) 1 tab PO DAILY DANIEL Last Admin: 08/26/22 09:02 Dose: 1 tab Trazodone HCl (Trazodone Hcl 50 Mg Tablet) 50 mg PO BEDTIME MRX1 PRN PRN Reason: Insomnia Last Admin: 08/25/22 20:05 Dose: 50 mg Trazodone HCl (Trazodone Hcl 25 Mg Halftab) 25 mg PO TID PRN PRN Reason: Anxiety Allergies Allergies Allergy/AdvReac Type Severity Reaction Status Date / Time No Known Allergies Allergy Verified 08/17/22 09:33 Assessment & Plan Assessment & Plan (1) Cognitive decline: Status: Acute Code(s): R41.89 - Other symptoms and signs involving cognitive functions and awareness (2) Psychosis: Status: Acute Code(s): F29 - Unspecified psychosis not due to a substance or known physiological condition Plan Does present with evidence of early cognitive impairment (at least 6 months as per collateral). Will benefit from observation on unit and ongoing assessment regarding same. Does present with paranoid delusions and likely comorbid anxiety disorder. Appears these have never been treated and patient reluctant around medications currently. Can continue to review this during admission. Plan 1. Gather collateral information. 2. Continue with medical workout. 3. Consider the use of a low dose of antipsychotics at night. 4. Started assessment of cognition with [place] and Rell cognitive test. [place] of admission was [place] of 08/25 03/12 5. The patient is on metronidazole for colonic infection, we will repeat blood work for tomorrow with CBC, basic metabolic panel, TSH, folate level. 6. Start Aricept 5 mg p.o. q.h.s. On August 24. 7. Start Haldol 0.5 p.o. b.i.d. to target psychosis. 8. Discontinue hydroxyzine p.r.n.. 9. Start trazodone 25 mg p.o. t.i.d. p.r.n. anxiety 08/26/2022 Continue low-dose Haldol patient with some anxiety irritability Reason for continued inpatient stay Substantial Risk for: inability to function, rapid decompensation and med/psych decompensation Time Spent With Patient Time: Total time managing care of this patient today ____ minutes.
[2022-08-26 15:55] VITALS: BP 136/74; PULSE 85; TEMP 36.2
[2022-08-26] MEDS: Donepezil HCl 5 MG TABLET PO (20:00)
[2022-08-26] MEDS: traZODone HCL 50 MG TABLET PO (21:32)
[2022-08-27] MEDS: traZODone HCL 25 MG HALFTAB PO (00:01)
[2022-08-27 08:50] VITALS: BP 177/104; PULSE 89; RESP 18; TEMP 36.8; O2SAT 94
[2022-08-27] MEDS: lisinopriL 10 MG TABLET PO (09:02)
[2022-08-27] MEDS: Multivitamin TABLET 1 TAB PO (09:02)
[2022-08-27] MEDS: HaloperidoL 0.5 MG TABLET PO ×2 (09:03→20:18)
[2022-08-27] MEDS: Ascorbic Acid 500 MG TABLET PO (09:03)
[2022-08-27 11:52] VITALS: BP 170/102; PULSE 84; RESP 18; O2SAT 95
[2022-08-27 15:37] VITALS: BP 164/92; PULSE 78; RESP 18; O2SAT 97
[2022-08-27 18:00] VITALS: BP 162/80; PULSE 79; RESP 18; TEMP 36.9; O2SAT 98
[2022-08-27] MEDS: Donepezil HCl 5 MG TABLET PO (20:17)
[2022-08-27] MEDS: traZODone HCL 50 MG TABLET PO (20:17)
[2022-08-27] MEDS: hydrOXYzine HCL 25 MG TABLET PO (20:18)
--- NOTE | 2022-08-27 23:16 | HO.PSYCHPN ---
Subjective Subjective Date of Service: 08/27/22 Reason For Visit: Anxiety Subjective Notes: Conditional Voluntary Interim History: the nursing staff reported the patient had been compliant with treatment some anxiety regarding his blood pressure cooperative for treatment Mental Status Exam Mental Status Exam Patient Appearance: Well Grooomed and Appropriate Patient Orientation: Person and Situation Level of Consciousness: Awake and Appropriate Patient Behavior: Guarded and Passive Mood Description: Calm Affect Description: Constricted Patient Cognition Impaired: Yes Ability to Follow Directions: Good Speech Pattern: Clear and Appropriate Hallucinations: None Delusions: Not Present Thought Process: Linear Thought Content: positive for [place] Judgement: Fair Diagnostics Vital Signs (24Hr): Vital Signs - 24 hr 08/27/22 08:50 08/27/22 11:52 08/27/22 15:37 Temperature 98.3 F Pulse Rate 89 84 78 Respiratory Rate 18 18 18 Blood Pressure 177/104 H 170/102 H 164/92 H Pulse Oximetry 94 95 97 Oxygen Delivery Method Room Air Room Air Room Air 08/27/22 18:00 Temperature 98.4 F Pulse Rate 79 Respiratory Rate 18 Blood Pressure 162/80 H Pulse Oximetry 98 Oxygen Delivery Method Room Air BMI result Body Mass Index 23.1 Labs 08/24/22 08:01 08/24/22 08:01 Imaging Radiology Impressions: ITS Impressions Head CT 08/19/22 06:14 IMPRESSION: No acute territorial infarct or intracranial hemorrhage. Mild volume loss and white matter small vessel ischemic changes. Medications Medications Current Medications Acetaminophen (Acetaminophen 325 Mg Tablet) 650 mg PO Q6H PRN PRN Reason: Headache/Pain Mild Scale (1-3) Last Admin: 08/20/22 20:16 Dose: 650 mg Al Hydroxide/Mg Hydroxide (Magnesium Hydrox/Alum Hydrox 30 Ml Oral.Susp) 30 ml PO Q6H PRN PRN Reason: Heartburn/Nausea Albuterol Sulfate (Albuterol Sulfate 90 Mcg 8 Gm Inhaler) 2 puff INHALE Q4H PRN PRN Reason: shortness of breath or wheezing Ascorbic Acid (Ascorbic Acid 500 Mg Tablet) 500 mg PO DAILY [facility] Last Admin: 08/27/22 09:03 Dose: 500 mg Donepezil HCl (Donepezil Hcl 5 Mg Tablet) 5 mg PO BEDTIME [facility] Last Admin: 08/27/22 20:17 Dose: 5 mg Haloperidol (Haloperidol 0.5 Mg Tablet) 0.5 mg PO BID [facility] Last Admin: 08/27/22 20:18 Dose: 0.5 mg Hydroxyzine HCl (Hydroxyzine Hcl 25 Mg Tablet) 25 mg PO BEDTIME [facility] Last Admin: 08/27/22 20:18 Dose: 25 mg Lisinopril (Lisinopril 10 Mg Tablet) 10 mg PO DAILY [facility]; Protocol Last Admin: 08/27/22 09:02 Dose: 10 mg Magnesium Hydroxide (Milk Of Magnesia 30 Ml Oral.Susp) 30 ml PO DAILY PRN PRN Reason: Constipation Multivitamins/Vitamin C (Multivitamin Tablet) 1 tab PO DAILY [facility] Last Admin: 08/27/22 09:02 Dose: 1 tab Trazodone HCl (Trazodone Hcl 50 Mg Tablet) 50 mg PO BEDTIME MRX1 PRN PRN Reason: Insomnia Last Admin: 08/27/22 20:17 Dose: 50 mg Trazodone HCl (Trazodone Hcl 25 Mg Halftab) 25 mg PO TID PRN PRN Reason: Anxiety Last Admin: 08/27/22 00:01 Dose: 25 mg Allergies Allergies Allergy/AdvReac Type Severity Reaction Status Date / Time No Known Allergies Allergy Verified 08/17/22 09:33 Assessment & Plan Assessment & Plan (1) Cognitive decline: Status: Acute Code(s): R41.89 - Other symptoms and signs involving cognitive functions and awareness (2) Psychosis: Status: Acute Code(s): F29 - Unspecified psychosis not due to a substance or known physiological condition Plan Does present with evidence of early cognitive impairment (at least 6 months as per collateral). Will benefit from observation on unit and ongoing assessment regarding same. Does present with paranoid delusions and likely comorbid anxiety disorder. Appears these have never been treated and patient reluctant around medications currently. Can continue to review this during admission. Plan 1. Gather collateral information. 2. Continue with medical workout. 3. Consider the use of a low dose of antipsychotics at night. 4. Started assessment of cognition with [place] and Rell cognitive test. [place] of admission was [place] of 08/25 03/12 5. The patient is on metronidazole for colonic infection, we will repeat blood work for tomorrow with CBC, basic metabolic panel, TSH, folate level. 6. Start Aricept 5 mg p.o. q.h.s. On August 24. 7. Start Haldol 0.5 p.o. b.i.d. to target psychosis. 8. Discontinue hydroxyzine p.r.n.. 9. Start trazodone 25 mg p.o. t.i.d. p.r.n. anxiety 08/26/2022 Continue low-dose Haldol patient with some anxiety irritability 08/27/2022 Continue plan of care Aricept started monitor blood pressure Reason for continued inpatient stay Substantial Risk for: inability to function and rapid decompensation Time Spent With Patient Time: Total time managing care of this patient today ____ minutes.
[2022-08-28] MEDS: traZODone HCL 25 MG HALFTAB PO (01:27)
[2022-08-28 08:40] VITALS: BP 163/79; PULSE 79; RESP 18; TEMP 36.8; O2SAT 94
[2022-08-28] MEDS: HaloperidoL 0.5 MG TABLET PO ×2 (09:02→22:28)
[2022-08-28] MEDS: lisinopriL 10 MG TABLET PO (09:02)
[2022-08-28] MEDS: Ascorbic Acid 500 MG TABLET PO (09:02)
[2022-08-28] MEDS: Multivitamin TABLET 1 TAB PO (09:02)
--- NOTE | 2022-08-28 10:22 | P.PNPSI_ITS ---
Subjective Subjective Date of Service: 08/28/22 Reason For Visit: Anxiety Subjective Notes: Conditional Voluntary Interim History: the nursing staff reported the patient had been compliant with treatment, no new changes in his behavior. On interview the patient looks pleasantly confused easily redirectable. Unable to remember the conversation that we had last Sunday The 1 we had a family meeting. We will increase Aricept today to 10 mg p.o. q.h.s. Mental Status Exam Mental Status Exam Patient Appearance: Well Grooomed and Appropriate Patient Orientation: Person and Situation Level of Consciousness: Awake and Appropriate Patient Behavior: Guarded and Passive Mood Description: Calm Affect Description: Constricted Patient Cognition Impaired: Yes Ability to Follow Directions: Good Speech Pattern: Clear and Appropriate Hallucinations: None Delusions: Not Present Thought Process: Linear Thought Content: positive for [place] Judgement: Fair Diagnostics Vital Signs (24Hr): Vital Signs - 24 hr 08/27/22 11:52 08/27/22 15:37 08/27/22 18:00 Temperature 98.4 F Pulse Rate 84 78 79 Respiratory Rate 18 18 18 Blood Pressure 170/102 H 164/92 H 162/80 H Pulse Oximetry 95 97 98 Oxygen Delivery Method Room Air Room Air Room Air 08/28/22 08:40 Temperature 98.3 F Pulse Rate 79 Respiratory Rate 18 Blood Pressure 163/79 H Pulse Oximetry 94 Oxygen Delivery Method Room Air BMI result Body Mass Index 23.1 Labs 08/24/22 08:01 08/24/22 08:01 Imaging Radiology Impressions: ITS Impressions Head CT 08/19/22 06:14 IMPRESSION: No acute territorial infarct or intracranial hemorrhage. Mild volume loss and white matter small vessel ischemic changes. Medications Medications Current Medications Acetaminophen (Acetaminophen 325 Mg Tablet) 650 mg PO Q6H PRN PRN Reason: Headache/Pain Mild Scale (1-3) Last Admin: 08/20/22 20:16 Dose: 650 mg Al Hydroxide/Mg Hydroxide (Magnesium Hydrox/Alum Hydrox 30 Ml Oral.Susp) 30 ml PO Q6H PRN PRN Reason: Heartburn/Nausea Albuterol Sulfate (Albuterol Sulfate 90 Mcg 8 Gm Inhaler) 2 puff INHALE Q4H PRN PRN Reason: shortness of breath or wheezing Ascorbic Acid (Ascorbic Acid 500 Mg Tablet) 500 mg PO DAILY [facility] Last Admin: 08/28/22 09:02 Dose: 500 mg Donepezil HCl (Donepezil Hcl 5 Mg Tablet) 5 mg PO BEDTIME [facility] Last Admin: 08/27/22 20:17 Dose: 5 mg Haloperidol (Haloperidol 0.5 Mg Tablet) 0.5 mg PO BID [facility] Last Admin: 08/28/22 09:02 Dose: 0.5 mg Hydroxyzine HCl (Hydroxyzine Hcl 25 Mg Tablet) 25 mg PO BEDTIME [facility] Last Admin: 08/27/22 20:18 Dose: 25 mg Lisinopril (Lisinopril 10 Mg Tablet) 10 mg PO DAILY [facility]; Protocol Last Admin: 08/28/22 09:02 Dose: 10 mg Magnesium Hydroxide (Milk Of Magnesia 30 Ml Oral.Susp) 30 ml PO DAILY PRN PRN Reason: Constipation Multivitamins/Vitamin C (Multivitamin Tablet) 1 tab PO DAILY [facility] Last Admin: 08/28/22 09:02 Dose: 1 tab Trazodone HCl (Trazodone Hcl 50 Mg Tablet) 50 mg PO BEDTIME MRX1 PRN PRN Reason: Insomnia Last Admin: 08/27/22 20:17 Dose: 50 mg Trazodone HCl (Trazodone Hcl 25 Mg Halftab) 25 mg PO TID PRN PRN Reason: Anxiety Last Admin: 08/28/22 01:27 Dose: 25 mg Allergies Allergies Allergy/AdvReac Type Severity Reaction Status Date / Time No Known Allergies Allergy Verified 08/17/22 09:33 Assessment & Plan Assessment & Plan (1) Cognitive decline: Status: Acute Code(s): R41.89 - Other symptoms and signs involving cognitive functions and awareness (2) Psychosis: Status: Acute Code(s): F29 - Unspecified psychosis not due to a substance or known physiological condition Plan Does present with evidence of early cognitive impairment (at least 6 months as per collateral). Will benefit from observation on unit and ongoing assessment regarding same. Does present with paranoid delusions and likely comorbid anxiety disorder. Appears these have never been treated and patient reluctant around medications currently. Can continue to review this during admission. Plan 1. Gather collateral information. 2. Continue with medical workout. 3. Consider the use of a low dose of antipsychotics at night. 4. Started assessment of cognition with [place] and Rell cognitive test. [place] of admission was [place] of 08/25 03/12 5. The patient is on metronidazole for colonic infection, we will repeat blood work for tomorrow with CBC, basic metabolic panel, TSH, folate level. 6. Start Aricept 5 mg p.o. q.h.s. On August 24. increased up to 10 mg on August 28 7. Start Haldol 0.5 p.o. b.i.d. to target psychosis. 8. Discontinue hydroxyzine p.r.n.. 9. Start trazodone 25 mg p.o. t.i.d. p.r.n. anxiety Reason for continued inpatient stay Substantial Risk for: inability to function, rapid decompensation and med/psych decompensation Time Spent With Patient Time: Total time managing care of this patient today __20__ minutes.
[2022-08-28 18:00] VITALS: BP 143/80; PULSE 80; RESP 18; TEMP 36.3; O2SAT 95
[2022-08-28] MEDS: hydrOXYzine HCL 25 MG TABLET PO (22:28)
[2022-08-28] MEDS: Donepezil HCl 10 MG TABLET PO (22:28)
[2022-08-29 08:26] VITALS: BP 176/104; PULSE 74; RESP 18; TEMP 36.9; O2SAT 97
[2022-08-29] MEDS: HaloperidoL 0.5 MG TABLET PO ×2 (08:29→21:08)
[2022-08-29] MEDS: lisinopriL 10 MG TABLET PO (08:29)
[2022-08-29] MEDS: Ascorbic Acid 500 MG TABLET PO (08:29)
[2022-08-29] MEDS: Multivitamin TABLET 1 TAB PO (08:29)
[2022-08-29 09:55] VITALS: BP 142/84
--- NOTE | 2022-08-29 12:04 | HO.PSYCHPN ---
Subjective Subjective Date of Service: 08/29/22 Reason For Visit: Anxiety Subjective Notes: Conditional Voluntary Interim History: the nursing staff reported the patient had been medication compliant, he has been pleasant and he was visited yesterday by a friend. 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 The social security benefits interviewer reported the possibility of discharging back home with several outpatient services and ancillary. On interview the patient denies side effects with haloperidol or Aricept. Still he looks slightly confused at times. Mental Status Exam Mental Status Exam Patient Appearance: Well Grooomed and Appropriate Patient Orientation: Person and Situation Level of Consciousness: Awake and Appropriate Patient Behavior: Guarded and Passive Mood Description: Withdrawn Affect Description: Constricted Patient Cognition Impaired: Yes Ability to Follow Directions: Good Speech Pattern: Clear Hallucinations: None Delusions: Not Present Thought Process: Distracted and Linear Thought Content: positive for [place] and positive for [place] Judgement: Fair Diagnostics Vital Signs (24Hr): Vital Signs - 24 hr 08/28/22 18:00 08/29/22 08:26 08/29/22 09:55 Temperature 97.4 F 98.4 F Pulse Rate 80 74 Respiratory Rate 18 18 Blood Pressure 143/80 H 176/104 H 142/84 H Pulse Oximetry 95 97 Oxygen Delivery Method Room Air Room Air BMI result Body Mass Index 23.1 Labs 08/24/22 08:01 08/24/22 08:01 Imaging Radiology Impressions: ITS Impressions Head CT 08/19/22 06:14 IMPRESSION: No acute territorial infarct or intracranial hemorrhage. Mild volume loss and white matter small vessel ischemic changes. Medications Medications Current Medications Acetaminophen (Acetaminophen 325 Mg Tablet) 650 mg PO Q6H PRN PRN Reason: Headache/Pain Mild Scale (1-3) Last Admin: 08/20/22 20:16 Dose: 650 mg Al Hydroxide/Mg Hydroxide (Magnesium Hydrox/Alum Hydrox 30 Ml Oral.Susp) 30 ml PO Q6H PRN PRN Reason: Heartburn/Nausea Albuterol Sulfate (Albuterol Sulfate 90 Mcg 8 Gm Inhaler) 2 puff INHALE Q4H PRN PRN Reason: shortness of breath or wheezing Ascorbic Acid (Ascorbic Acid 500 Mg Tablet) 500 mg PO DAILY [facility] Last Admin: 08/29/22 08:29 Dose: 500 mg Donepezil HCl (Donepezil Hcl 10 Mg Tablet) 10 mg PO BEDTIME [facility] Last Admin: 08/28/22 22:28 Dose: 10 mg Haloperidol (Haloperidol 0.5 Mg Tablet) 0.5 mg PO BID [facility] Last Admin: 08/29/22 08:29 Dose: 0.5 mg Hydroxyzine HCl (Hydroxyzine Hcl 25 Mg Tablet) 25 mg PO BEDTIME [facility] Last Admin: 08/28/22 22:28 Dose: 25 mg Lisinopril (Lisinopril 10 Mg Tablet) 10 mg PO DAILY [facility]; Protocol Last Admin: 08/29/22 08:29 Dose: 10 mg Magnesium Hydroxide (Milk Of Magnesia 30 Ml Oral.Susp) 30 ml PO DAILY PRN PRN Reason: Constipation Multivitamins/Vitamin C (Multivitamin Tablet) 1 tab PO DAILY [facility] Last Admin: 08/29/22 08:29 Dose: 1 tab Trazodone HCl (Trazodone Hcl 50 Mg Tablet) 50 mg PO BEDTIME MRX1 PRN PRN Reason: Insomnia Last Admin: 08/27/22 20:17 Dose: 50 mg Trazodone HCl (Trazodone Hcl 25 Mg Halftab) 25 mg PO TID PRN PRN Reason: Anxiety Last Admin: 08/28/22 01:27 Dose: 25 mg Allergies Allergies Allergy/AdvReac Type Severity Reaction Status Date / Time No Known Allergies Allergy Verified 08/17/22 09:33 Assessment & Plan Assessment & Plan (1) Cognitive decline: Status: Acute Code(s): R41.89 - Other symptoms and signs involving cognitive functions and awareness (2) Psychosis: Status: Acute Code(s): F29 - Unspecified psychosis not due to a substance or known physiological condition Plan Does present with evidence of early cognitive impairment (at least 6 months as per collateral). Will benefit from observation on unit and ongoing assessment regarding same. Does present with paranoid delusions and likely comorbid anxiety disorder. Appears these have never been treated and patient reluctant around medications currently. Can continue to review this during admission. Plan 1. Gather collateral information. 2. Continue with medical workout. 3. Consider the use of a low dose of antipsychotics at night. 4. Started assessment of cognition with [place] and Rell cognitive test. [place] of admission was [place] of 08/25 03/12 5. The patient is on metronidazole for colonic infection, we will repeat blood work for tomorrow with CBC, basic metabolic panel, TSH, folate level. 6. Start Aricept 5 mg p.o. q.h.s. On August 24. Aricept will be increased up to 10 mg p.o. q.h.s. 7. Start Haldol 0.5 p.o. b.i.d. to target psychosis. 8. Discontinue hydroxyzine p.r.n.. 9. Start trazodone 25 mg p.o. t.i.d. p.r.n. anxiety Reason for continued inpatient stay Substantial Risk for: inability to function, rapid decompensation and med/psych decompensation Time Spent With Patient Time: Total time managing care of this patient today __20__ minutes.
[2022-08-29 18:49] VITALS: BP 165/88; PULSE 82; RESP 16; TEMP 36.5; O2SAT 97
[2022-08-29] MEDS: Donepezil HCl 10 MG TABLET PO (21:08)
[2022-08-29] MEDS: hydrOXYzine HCL 25 MG TABLET PO (21:08)
[2022-08-30] MEDS: Acetaminophen 325 MG TABLET 650 MG PO (03:59)
[2022-08-30] MEDS: traZODone HCL 25 MG HALFTAB PO (04:00)
[2022-08-30 06:00] VITALS: BP 162/88; PULSE 73; RESP 16; TEMP 36.1; O2SAT 96
[2022-08-30] MEDS: Ascorbic Acid 500 MG TABLET PO (08:23)
[2022-08-30] MEDS: HaloperidoL 0.5 MG TABLET PO ×2 (08:23→20:17)
[2022-08-30] MEDS: Multivitamin TABLET 1 TAB PO (08:23)
[2022-08-30] MEDS: lisinopriL 10 MG TABLET PO (08:23)
--- NOTE | 2022-08-30 14:03 | P.PNPSI_ITS ---
Subjective Subjective Date of Service: 08/30/22 Reason For Visit: Anxiety Subjective Notes: Conditional Voluntary Interim History: The nursing staff reported the patient had been compliant with treatment, his affect is good and he slept 7 hours. The social worker palliative care reported that family wants him back at home with services. On interview the patient denies new symptoms still confused but easily redirectable. Mental Status Exam Mental Status Exam Patient Appearance: Well Grooomed and Appropriate Patient Orientation: Person and Situation Level of Consciousness: Awake and Appropriate Patient Behavior: Guarded and Passive Mood Description: Withdrawn and Constricted Affect Description: Calm Patient Cognition Impaired: Yes Ability to Follow Directions: Good Speech Pattern: Clear Hallucinations: None Delusions: Not Present Thought Process: Linear Thought Content: positive for [place] Judgement: Fair Diagnostics Vital Signs (24Hr): Vital Signs - 24 hr 08/29/22 18:49 08/30/22 06:00 Temperature 97.7 F 97.0 F Pulse Rate 82 73 Respiratory Rate 16 16 Blood Pressure 165/88 H 162/88 H Pulse Oximetry 97 96 Oxygen Delivery Method Room Air Room Air BMI result Body Mass Index 23.1 Labs 08/24/22 08:01 08/24/22 08:01 Imaging Radiology Impressions: ITS Impressions Head CT 08/19/22 06:14 IMPRESSION: No acute territorial infarct or intracranial hemorrhage. Mild volume loss and white matter small vessel ischemic changes. Medications Medications Current Medications Acetaminophen (Acetaminophen 325 Mg Tablet) 650 mg PO Q6H PRN PRN Reason: Headache/Pain Mild Scale (1-3) Last Admin: 08/30/22 03:59 Dose: 650 mg Al Hydroxide/Mg Hydroxide (Magnesium Hydrox/Alum Hydrox 30 Ml Oral.Susp) 30 ml PO Q6H PRN PRN Reason: Heartburn/Nausea Albuterol Sulfate (Albuterol Sulfate 90 Mcg 8 Gm Inhaler) 2 puff INHALE Q4H PRN PRN Reason: shortness of breath or wheezing Ascorbic Acid (Ascorbic Acid 500 Mg Tablet) 500 mg PO DAILY [facility] Last Admin: 08/30/22 08:23 Dose: 500 mg Donepezil HCl (Donepezil Hcl 10 Mg Tablet) 10 mg PO BEDTIME [facility] Last Admin: 08/29/22 21:08 Dose: 10 mg Haloperidol (Haloperidol 0.5 Mg Tablet) 0.5 mg PO BID [facility] Last Admin: 08/30/22 08:23 Dose: 0.5 mg Hydroxyzine HCl (Hydroxyzine Hcl 25 Mg Tablet) 25 mg PO BEDTIME [facility] Last Admin: 08/29/22 21:08 Dose: 25 mg Lisinopril (Lisinopril 10 Mg Tablet) 10 mg PO DAILY [facility]; Protocol Last Admin: 08/30/22 08:23 Dose: 10 mg Magnesium Hydroxide (Milk Of Magnesia 30 Ml Oral.Susp) 30 ml PO DAILY PRN PRN Reason: Constipation Multivitamins/Vitamin C (Multivitamin Tablet) 1 tab PO DAILY [facility] Last Admin: 08/30/22 08:23 Dose: 1 tab Trazodone HCl (Trazodone Hcl 50 Mg Tablet) 50 mg PO BEDTIME MRX1 PRN PRN Reason: Insomnia Last Admin: 08/27/22 20:17 Dose: 50 mg Trazodone HCl (Trazodone Hcl 25 Mg Halftab) 25 mg PO TID PRN PRN Reason: Anxiety Last Admin: 08/30/22 04:00 Dose: 25 mg Allergies Allergies Allergy/AdvReac Type Severity Reaction Status Date / Time No Known Allergies Allergy Verified 08/17/22 09:33 Assessment & Plan Assessment & Plan (1) Cognitive decline: Status: Acute Code(s): R41.89 - Other symptoms and signs involving cognitive functions and awareness (2) Psychosis: Status: Acute Code(s): F29 - Unspecified psychosis not due to a substance or known physiological condition Plan Does present with evidence of early cognitive impairment (at least 6 months as per collateral). Will benefit from observation on unit and ongoing assessment regarding same. Does present with paranoid delusions and likely comorbid anxiety disorder. Appears these have never been treated and patient reluctant around medications currently. Can continue to review this during admission. Plan 1. Gather collateral information. 2. Continue with medical workout. 3. Consider the use of a low dose of antipsychotics at night. 4. Started assessment of cognition with [place] and Rell cognitive test. [place] of admission was [place] of 08/25 03/12 5. The patient is on metronidazole for colonic infection, we will repeat blood work for tomorrow with CBC, basic metabolic panel, TSH, folate level. 6. Start Aricept 5 mg p.o. q.h.s. On August 24. Aricept will be increased up to 10 mg p.o. q.h.s. 7. Start Haldol 0.5 p.o. b.i.d. to target psychosis. 8. Discontinue hydroxyzine p.r.n.. 9. Start trazodone 25 mg p.o. t.i.d. p.r.n. anxiety Reason for continued inpatient stay Substantial Risk for: inability to function, rapid decompensation and med/psych decompensation Time Spent With Patient Time: Total time managing care of this patient today __20__ minutes.
[2022-08-30 18:00] VITALS: BP 154/94; PULSE 76; RESP 18; TEMP 36.6; O2SAT 96
[2022-08-30] MEDS: Donepezil HCl 10 MG TABLET PO (20:17)
[2022-08-30] MEDS: hydrOXYzine HCL 25 MG TABLET PO (20:17)
[2022-08-30] MEDS: traZODone HCL 50 MG TABLET PO ×2 (20:18→21:39)
[2022-08-31 06:00] VITALS: BP 166/88; PULSE 78; RESP 18; TEMP 36.6; O2SAT 97
[2022-08-31] MEDS: lisinopriL 10 MG TABLET PO (08:35)
[2022-08-31] MEDS: HaloperidoL 0.5 MG TABLET PO ×2 (08:35→21:02)
[2022-08-31] MEDS: Ascorbic Acid 500 MG TABLET PO (08:35)
[2022-08-31] MEDS: Multivitamin TABLET 1 TAB PO (08:35)
[2022-08-31 11:03] VITALS: BMI 22.8
--- NOTE | 2022-08-31 14:00 | P.PNPSI_ITS ---
Subjective Subjective Date of Service: 08/31/22 Reason For Visit: Anxiety Subjective Notes: Conditional Voluntary Interim History: The nursing staff reported the patient had been compliant with treatment, his confused at times but easily redirectable. Yesterday he received p.r.n. trazodone with for effect. On interview the patient remains pleasantly confused, easily redirectable. We will try to discharge him tomorrow or Sunday. Mental Status Exam Mental Status Exam Patient Appearance: Well Grooomed Patient Orientation: Person and Situation Level of Consciousness: Awake and Appropriate Patient Behavior: Guarded and Passive Mood Description: Calm Affect Description: Constricted Patient Cognition Impaired: Yes Ability to Follow Directions: Good Speech Pattern: Clear Hallucinations: None Delusions: Not Present Thought Process: Distracted and Goal Oriented Thought Content: positive for [place] and positive for [place] of Content Judgement: Fair Diagnostics Vital Signs (24Hr): Vital Signs - 24 hr 08/30/22 18:00 08/31/22 06:00 Temperature 97.9 F 97.9 F Pulse Rate 76 78 Respiratory Rate 18 18 Blood Pressure 154/94 H 166/88 H Pulse Oximetry 96 97 Oxygen Delivery Method Room Air Room Air BMI result Body Mass Index 22.8 Labs 08/24/22 08:01 08/24/22 08:01 Imaging Radiology Impressions: ITS Impressions Head CT 08/19/22 06:14 IMPRESSION: No acute territorial infarct or intracranial hemorrhage. Mild volume loss and white matter small vessel ischemic changes. Medications Medications Current Medications Acetaminophen (Acetaminophen 325 Mg Tablet) 650 mg PO Q6H PRN PRN Reason: Headache/Pain Mild Scale (1-3) Last Admin: 08/30/22 03:59 Dose: 650 mg Al Hydroxide/Mg Hydroxide (Magnesium Hydrox/Alum Hydrox 30 Ml Oral.Susp) 30 ml PO Q6H PRN PRN Reason: Heartburn/Nausea Albuterol Sulfate (Albuterol Sulfate 90 Mcg 8 Gm Inhaler) 2 puff INHALE Q4H PRN PRN Reason: shortness of breath or wheezing Ascorbic Acid (Ascorbic Acid 500 Mg Tablet) 500 mg PO DAILY [facility] Last Admin: 08/31/22 08:35 Dose: 500 mg Donepezil HCl (Donepezil Hcl 10 Mg Tablet) 10 mg PO BEDTIME [facility] Last Admin: 08/30/22 20:17 Dose: 10 mg Haloperidol (Haloperidol 0.5 Mg Tablet) 0.5 mg PO BID [facility] Last Admin: 08/31/22 08:35 Dose: 0.5 mg Hydroxyzine HCl (Hydroxyzine Hcl 25 Mg Tablet) 25 mg PO BEDTIME [facility] Last Admin: 08/30/22 20:17 Dose: 25 mg Lisinopril (Lisinopril 10 Mg Tablet) 10 mg PO DAILY [facility]; Protocol Last Admin: 08/31/22 08:35 Dose: 10 mg Magnesium Hydroxide (Milk Of Magnesia 30 Ml Oral.Susp) 30 ml PO DAILY PRN PRN Reason: Constipation Multivitamins/Vitamin C (Multivitamin Tablet) 1 tab PO DAILY [facility] Last Admin: 08/31/22 08:35 Dose: 1 tab Trazodone HCl (Trazodone Hcl 50 Mg Tablet) 50 mg PO BEDTIME MRX1 PRN PRN Reason: Insomnia Last Admin: 08/30/22 21:39 Dose: 50 mg Trazodone HCl (Trazodone Hcl 25 Mg Halftab) 25 mg PO TID PRN PRN Reason: Anxiety Last Admin: 08/30/22 04:00 Dose: 25 mg Allergies Allergies Allergy/AdvReac Type Severity Reaction Status Date / Time No Known Allergies Allergy Verified 08/17/22 09:33 Assessment & Plan Assessment & Plan (1) Cognitive decline: Status: Acute Code(s): R41.89 - Other symptoms and signs involving cognitive functions and awareness (2) Psychosis: Status: Acute Code(s): F29 - Unspecified psychosis not due to a substance or known physiological condition Plan Does present with evidence of early cognitive impairment (at least 6 months as per collateral). Will benefit from observation on unit and ongoing assessment regarding same. Does present with paranoid delusions and likely comorbid anxiety disorder. Appears these have never been treated and patient reluctant around medications currently. Can continue to review this during admission. Plan 1. Gather collateral information. 2. Continue with medical workout. 3. Consider the use of a low dose of antipsychotics at night. 4. Started assessment of cognition with [place] and Rell cognitive test. [place] of admission was [place] of 08/25 03/12 5. The patient is on metronidazole for colonic infection, we will repeat blood work for tomorrow with CBC, basic metabolic panel, TSH, folate level. 6. Start Aricept 5 mg p.o. q.h.s. On August 24. Aricept will be increased up to 10 mg p.o. q.h.s. 7. Start Haldol 0.5 p.o. b.i.d. to target psychosis. 8. Discontinue hydroxyzine p.r.n.. 9. Start trazodone 25 mg p.o. t.i.d. p.r.n. anxiety Reason for continued inpatient stay Substantial Risk for: inability to function, rapid decompensation and med/psych decompensation Time Spent With Patient Time: Total time managing care of this patient today __20__ minutes.
[2022-08-31 20:44] VITALS: BP 162/83; PULSE 78; RESP 18; TEMP 36.3; O2SAT 97
[2022-08-31] MEDS: hydrOXYzine HCL 25 MG TABLET PO (21:02)
[2022-08-31] MEDS: Donepezil HCl 10 MG TABLET PO (21:02)
[2022-09-01 06:00] VITALS: BP 163/97; PULSE 68; RESP 12; TEMP 36.3; O2SAT 97
--- NOTE | 2022-09-01 08:33 | PM.PSYDC ---
DS: Providers Provider Date of Service: 09/01/22 Date of admission: 08/19/22 16:10 Date of discharge: 09/01/22 Primary care physician: Babatunde Hoff MD Attending physician on discharge: Bowen Moralez DS: Diagnosis Discharge Diagnosis (1) Psychosis: Status: Acute (2) Cognitive decline: Status: Acute DS: Medications Discharge Medications Home Medications: Home Medications Medication Instructions Recorded Confirmed ascorbic acid (vitamin C) 500 mg 500 mg PO DAILY 08/17/22 08/19/22 tablet (Vitamin C) multivitamin 1 tab PO DAILY 08/17/22 08/19/22 lisinopril 10 mg tablet 10 mg PO DAILY 08/21/22 08/21/22 Previous Rx's Medication Instructions Recorded albuterol sulfate 90 mcg/actuation 2 puff inhalation Q4-6H PRN 08/02/22 aerosol inhaler shortness of breath or wheezing #8.5 grams levofloxacin 500 mg tablet 500 mg PO DAILY #6 tabs 08/18/22 metronidazole 500 mg tablet 500 mg PO BID 7 days #14 tabs 08/18/22 Mental Status Exam Mental Status Exam Patient Appearance: Well Grooomed and Appropriate Patient Orientation: Person and Situation Level of Consciousness: Awake and Appropriate Patient Behavior: Guarded and Passive Mood Description: Calm Affect Description: Constricted Patient Cognition Impaired: Yes Ability to Follow Directions: Good Speech Pattern: Clear Hallucinations: None Delusions: Not Present Thought Process: Distracted and Linear Thought Content: positive for [place] and positive for Circumstantial Judgement: Fair Data Imaging Diagnostic Imaging Impressions Head CT 08/19/22 06:14 IMPRESSION: No acute territorial infarct or intracranial hemorrhage. Mild volume loss and white matter small vessel ischemic changes. DS: Summary Hospital Course Hospital Course: The patient was admitted for exacerbation of psychotic symptoms elicited by paranoia against the son of his roomate, disorganized behavior and frequent calls to the police. See the HPI of the admission note for further details. While he was on the ED of another hospital, he was medically worked out and an infection was diagnosed and started on Metronidazole. On admission, he was assessed and he continued his antibiotics for 5 days. The patient also reported that in the community he was using cannabis. He was assessed by occupational therapist and his dementia was quite advanced. We discussed risks, benefits, side-effects and alternatives and he agreed to try a low dose of haloperidol to target psychosis and start Aricept. Several family meetings were held and we explained about his diagnosis and treatment options. The patient improved, there was no evidence of psychosis but he remains chronically with poor short-term memory. No safety concerns at this moment, we discussed discharge planning he agreed on the plan below. No safety concerns Time spent discussing smoking cessation with patient: 3 to 10 minutes Status at Discharge Cognitive/behavioral status at discharge: Chronically impaired Functional status at discharge: independent ambulation Overall status at discharge: patient is back to baseline Time Spent with Patient Time attestation: Total time managing care of this patient today _30___ minutes. Time spent: Less than 30 minutes Discharge Plan Discharge Anticipated Discharge Date/Time: 09/01/22 14:00 Patient Disposition: Home, Self-Care Discharge Diagnosis: Neuro cognitive impairment. Delirium with psychotic features resolved Referrals: Luanne Galvan [facility] [facility] (Geriatric [facility]OST[facility]) [Other] - 1 Week [facility] Case management [Other] - 09/05/22 (You are scheduled for an intake/assessment with Josi Correa dependency case manager at [facility] ext [phone] for Sunday09/05/22. Please be available that day to meet with her in your home. ) Babatunde Hoff MD [Primary Care Provider] - 09/08/22 1:00 pm (Follow up appointment made 08/31/2022) Discharge Medications: New haloperidol 0.5 mg Tablet 0.5 mg PO BID 30 Days Qty: 60 0RF trazodone 50 mg Tablet 50 mg PO BEDTIME MRX1 PRN (Reason: Insomnia) 30 Days Qty: 45 0RF donepezil 10 mg Tablet 10 mg PO BEDTIME 30 Days Qty: 30 0RF hydroxyzine HCl 25 mg Tablet 25 mg PO BEDTIME 30 Days Qty: 30 0RF Continued multivitamin Tablet 1 tab PO DAILY 30 Days Qty: 30 0RF ascorbic acid (vitamin C) [Vitamin C] 500 mg Tablet 500 mg PO DAILY 30 Days Qty: 30 0RF lisinopril 10 mg tablet 10 mg PO DAILY 30 Days Qty: 30 0RF albuterol sulfate 90 mcg/actuation HFA aerosol inhaler 2 puff inhalation Q4-6H PRN (Reason: shortness of breath or wheezing) 30 Days Qty: 8.5 0RF Discontinued levofloxacin 500 mg tablet 500 mg PO DAILY Qty: 6 0RF metronidazole 500 mg tablet 500 mg PO BID 7 Days Qty: 14 0RF Discharge Orders: Discharge Order (Routine); Ordered 09/01/22 Ordered By: Bowen Moralez Diet: Advance to usual diet Activity on Discharge: As tolerated Stand Alone Forms: Patient Portal Discharge page Care Plan Goals: Care plan goals achieved in this admission Health Concerns: Continue treatment by primary care physician Plan of Treatment: Continue medication management and psychotherapy Assessment: Elderly male with cognitive deterioration, admitted for psychotic symptoms in the context of delirium and possible abuse of cannabis. At this moment no evidence of psychosis, on Aricept for dementia with no tolerability issues. Safe in the community ready for discharge
[2022-09-01] MEDS: Ascorbic Acid 500 MG TABLET PO (09:18)
[2022-09-01] MEDS: HaloperidoL 0.5 MG TABLET PO (09:18)
[2022-09-01] MEDS: Multivitamin TABLET 1 TAB PO (09:18)
[2022-09-01] MEDS: lisinopriL 10 MG TABLET PO (09:18)
--- NOTE | 2022-09-01 14:20 | PC.NURSE ---
Pt awake and states ready to be discharged home. VSS Follow up appts made and information faxed to PCP. Information given to pt and family members with understanding. medication reviewed and All belongings given to pt and pt dc home with family
== END 2022-09-01 14:50 | disposition home or self-care (01) | DRG 885 ==
LOC: HO.ED 09:11 → HO.PGERI 16:16
PROVIDERS: Physician Assistant; Psychiatry & Neurology Psychiatry; Admitting Provider Psychiatry & Neurology Psychiatry; Emergency Provider Student in an Organized Health Care Education/Training Program; PCP Internal Medicine Medical Oncology; Visit Provider Psychiatry & Neurology Psychiatry
DX: F29 Unspecified psychosis not due to a substance or known physiological condition (principal); E87.1 Hypo-osmolality and hyponatremia; F41.9 Anxiety disorder, unspecified; R41.81 Age-related cognitive decline; E87.6 Hypokalemia; Z20.822 Contact with and (suspected) exposure to COVID-19; Z87.891 Personal history of nicotine dependence; Z79.899 Other long term (current) drug therapy
CPT/HCPCS: 0241U; 36415; 70450; 74177; 80048; 80053; 80061; 80307; 81003; 82077; 82436; 82607; 82746; 82947; 83735; 83930; 83935; 84133; 84300; 84443; 85025; 87493; 87507; 87635; 93005; 97161; 99283; 99284; 99285; Q9967; S9485

== ENCOUNTER 2022-09-18 14:38 | Emergency (ER) | payer MEDICARE, SELFPAY ==
[2022-09-18 14:46] VITALS: BP 102/53; BP 124/72; PULSE 62; PULSE 69; RESP 17; TEMP 36.6; O2SAT 95; BMI 24.2
[2022-09-18 16:07] VITALS: BP 128/63; PULSE 66
--- NOTE | 2022-09-18 16:07 | ECG_ITS ---
Test Reason : CP Blood Pressure : / mmHG Vent. Rate : 063 BPM Atrial Rate : 063 BPM P-R Int : 190 ms QRS Dur : 080 ms QT Int : 420 ms P-R-T Axes : 113 019 035 degrees QTc Int : 429 ms Normal sinus rhythm with sinus arrhythmia Normal ECG When compared with ECG of 19-AUG-2022 03:28, No significant change was found Referred By: Jesus Franks Electronically Signed By:LEVI HU
[2022-09-18 16:24] LABS: MANUAL DIFF FLAG NO
[2022-09-18 16:27] LABS: Basophils Absolute Auto 0.1 X10*3/uL (0.0-0.2); Basophils Percent Auto 0.8 % (0-2); Eosinophils Absolute Auto 0.2 X10*3/uL (0.0-0.4); Eosinophils Percent Auto 3.1 % (0-4); Hematocrit 38.9 % (42.0-52.0); Hemoglobin 13.1 g/dl (14.0-18.0); Imm Gran Abs Auto 0.06 X10*3/uL (0.00-0.03); Imm Gran Pct Auto 0.9 % (0.0-0.4); Lymphocytes Percent Auto 16.1 % (20-40); Mean Corpuscular HGB Conc 33.7 g/dl (31.0-36.0); Mean Platelet Volume 8.9 fL (9.4-12.4); Monocytes Absolute Auto 0.5 X10*3/uL (0.1-1.2); Monocytes Percent Auto 8.3 % (2-11); Neutrophils Absolute Auto 4.5 x10*3/uL (2.0-8.3); Neutrophils Percent Auto 70.8 % (45-73); Platelet Count 309 X10*3/uL (160-400); Red Blood Count 4.23 X10*6/uL (4.60-5.80); Red Cell Distribution Width 12.9 % (11.0-16.0); White Blood Count 6.4 X10*3/uL (4.8-10.8)
--- NOTE | 2022-09-18 16:27 | ED.GENADULT ---
HPI - General Adult General Chief complaint: Altered Mental Status Stated complaint: syncope eating when stopped resp per ems Time Seen by Provider: 09/18/22 15:23 Source: patient and family Mode of arrival: EMS Limitations: no limitations History of Present Illness HPI narrative: 76-year-old male presents after a syncopal event. This was witnessed by his . He was sitting at the lunch table when he started to feel lightheaded. He then passed out. He was out for approximately 45 seconds. There is no tonic clonic movements. There is no postictal confusion, loss of bowel or bladder control or tongue biting. Patient denied any chest pain, palpitations or shortness breath. He has had this happen in the past. Patient reports having recent hospitalization. Prior to that hospitalization he was on diet controlled hypertension. During his hospitalization, he was restarted on lisinopril 10 mg daily. He had been off these medications for some time due to resolution of his high blood pressure. Patient currently feels well. He is at his baseline mental status. His agrees. Related Data Home Medications Medication Instructions Recorded Confirmed albuterol sulfate 90 mcg/actuation 2 puff inhalation Q4H PRN wheezing 09/18/22 09/18/22 aerosol inhaler ascorbic acid (vitamin C) 500 mg 500 mg PO DAILY 09/18/22 09/18/22 tablet (Vitamin C) donepezil 10 mg tablet 10 mg PO BEDTIME 09/18/22 09/18/22 haloperidol 0.5 mg tablet 0.5 mg PO BID 09/18/22 09/18/22 hydroxyzine pamoate 25 mg capsule 25 mg PO BEDTIME 09/18/22 09/18/22 lisinopril 10 mg tablet 10 mg PO DAILY 09/18/22 09/18/22 multivitamin with folic acid 400 1 tab PO DAILY 09/18/22 09/18/22 mcg tablet (Tab-A-Manoj) sertraline 25 mg tablet 25 mg PO DAILY 09/18/22 09/18/22 trazodone 50 mg tablet 50 mg PO QD-BID PRN Sleep 09/18/22 09/18/22 Allergies Allergy/AdvReac Type Severity Reaction Status Date / Time No Known Allergies Allergy Verified 08/17/22 09:33 [facility] Past Medical History Medical History Asthma exacerbation COPD (chronic obstructive pulmonary disease) Surgical History History of hernia surgery Social History Social History Household Members: Friend(s) Housing: House Do you presently have visiting nurse or other home services: No Alcohol intake: current Alcohol intake frequency: 0-2 drinks per day Alcohol type: beer and wine Patient Tobacco Use Status: Former Tobacco user Second Hand Smoke Exposure: No Substance Use Type: Marijuana Advance Directives: Yes Advance Directives on File: Yes Advance Directives Date on File: 09/04/22 service: Yes Physical Exam ED Vital Signs: Vital Signs - 24 hr 09/18/22 14:46 09/18/22 16:07 09/18/22 17:53 Temperature 97.9 F Pulse Rate 69 66 74 Respiratory Rate 17 Blood Pressure 102/53 L 128/63 120/72 Pulse Oximetry 95 Oxygen Delivery Method Room Air 09/18/22 17:53 09/18/22 18:13 Temperature 97.6 F Pulse Rate 78 78 Respiratory Rate 20 Blood Pressure 115/71 115/70 Pulse Oximetry 96 Oxygen Delivery Method Room Air BMI result Body Mass Index 24.2 GEN: Well developed, no acute distress, alert, oriented HEENT: Normocephalic, atraumatic, normal external ears, nose appears normal, no oropharyngeal edema or exudates Eyes: Normal to appearance Neck: Supple, no lymphadenopathy Respiratory: Talks in complete sentences, no respiratory distress, clear to auscultation bilaterally Cardiovascular: Regular rate and rhythm, no murmurs rubs or gallops Abdomen: Soft, nontender, nondistended, no guarding, no rebound Back: No CVA tenderness Extremities: No clubbing cyanosis or edema Neurologic: No focal neurologic deficits, cranial nerves 2-12 intact, strength is 5/5 bilaterally Skin: No rash Course Course Course Narrative: 68-year-old male presents after syncopal event. Examination is benign. Patient will need full workup including EKG, cardiac enzymes, laboratory analysis. The differential diagnosis is broad. Will provide patient with IV fluids in the interim will consider patient for hospitalization to monitor for cardiac dysrhythmia as well as monitoring of blood pressure Reevaluation(s) Reevaluation #1: Patient is doing well. He feels well. Has no complaints at this time. Repeating a 2nd cardiac enzyme. Based on the [place] syncope criteria as well as the [place] syncope criteria, patient is low risk and may be discharged. We will reduce his lisinopril from 10 mg to 5 mg daily. He can follow up with his primary care provider assuming his cardiac enzymes are negative. Time: 18:00 Medications Administered Discontinued Medications Generic Name Dose Route Start Last Admin Trade Name Freq PRN Reason Stop Dose Admin Sodium Chloride 1,000 mls @ 999 mls/hr 09/18/22 16:15 09/18/22 17:50 Ns IV 09/18/22 17:15 999 mls/hr .Q1H1M DANIEL Administration Medical Decision Making Medical Decision Making [facility] Narrative: 76-year-old male presents after syncopal event. Patient has had syncope in the past but denies having had a cardiology workup. Patient was recently hospitalized and restarted on lisinopril for elevated blood pressure. However, prior to hospitalizations blood pressure readings had normalized. Patient did report feeling lightheaded prior to arrival. On my exam, is benign. EKG is currently pending. Laboratory analysis to rule out a broad differential diagnosis currently being considered including hyponatremia, hypokalemia, cardiac dysrhythmia for which will be placed on a manager monitoring, anemia, hypoglycemia, acute coronary syndrome. I will also check orthostatic vital signs. Patient will be given IV fluids and food with serial re-evaluations. Differential Diagnosis Differential Diagnoses: The differential diagnosis associated with the presentation includes (See above) Syncope Admission/Observation Consideration of admission/observation: Escalation of care including admission/observation considered Lab Data [facility] Lab Attestation statement: I reviewed the patient's lab results. 09/18/22 16:19 09/18/22 16:19 Labs: Lab Results 09/18/22 09/18/22 09/18/22 Range/Units 16:19 16:19 16:19 WBC 6.4 (4.8-10.8) X10*3/uL RBC 4.23 L (4.60-5.80) X10*6/uL Hgb 13.1 L (14.0-18.0) g/dl Hct 38.9 L (42.0-52.0) % MCV 92.0 (80.0-98.0) fL MCH 31.0 (27.0-33.0) pg MCHC 33.7 (31.0-36.0) g/dl RDW 12.9 (11.0-16.0) % Plt Count 309 (160-400) X10*3/uL MPV 8.9 L (9.4-12.4) fL Immature Gran % (Auto) 0.9 H (0.0-0.4) % Neut % (Auto) 70.8 (45-73) % Lymph % (Auto) 16.1 L (20-40) % [place] % (Auto) 8.3 (2-11) % Eos % (Auto) 3.1 (0-4) % Baso % (Auto) 0.8 (0-2) % Lymph # (Auto) 1.0 L (1.2-4.9) X10*3/uL [place] # (Auto) 0.5 (0.1-1.2) X10*3/uL Eos # (Auto) 0.2 (0.0-0.4) X10*3/uL Baso # (Auto) 0.1 (0.0-0.2) X10*3/uL Abs Immat Gran (auto) 0.06 H (0.00-0.03) X10*3/uL Absolute Neuts (auto) 4.5 (2.0-8.3) x10*3/uL Absolute Nucleated RBC 0.000 (0.0-0.012) X10*3/uL Nucleated RBC % (auto) 0.0 (0.0-0.2) /100WBC Sodium 135 (135-145) mmol/L Potassium 4.4 (3.3-5.1) mmol/L Chloride 99 (96-108) mmol/L Carbon Dioxide 28 (22-29) mmol/L Anion Gap 12 (12-20) BUN 11 (9-16) mg/dL Creatinine 0.82 (0.5-1.4) mg/dL Estim Creat Clear Calc 76.6 Estimated GFR > 60 Random Glucose 87 (60-115) mg/dL Calcium 9.7 (8.4-10.2) mg/dL Troponin I High Sens 4.8 D (<3.5-35.0) ng/L TSH 1.36 (0.32-4.0) uIU/mL Independent Interpretation I performed an independent interpretation of an: EKG (Normal sinus rhythm with her heart rate is 63, sinus arrhythmia, normal intervals, no acute ST elevations or depressions, nonspecific T-wave flattening.) Independent Historian Clinical information obtained from an independent historian. History obtained from or confirmed by: Spouse and EMS Prescription Management I considered prescription management with: Antibiotic Chronic Conditions Patient?s care impacted by: Hypertension Discharge Plan Discharge Clinical Impression: Syncope Patient Disposition: Home, Self-Care Instructions: Syncope (DC) Additional Instructions: Reduce her lisinopril from 10 mg to 5 mg daily. Make sure to keep yourself appropriately hydrated drinking approximately 2 L of water daily Prescriptions: No Action haloperidol 0.5 mg tablet 0.5 mg PO BID trazodone 50 mg tablet 50 mg PO QD-BID PRN (Reason: Sleep) donepezil 10 mg tablet 10 mg PO BEDTIME lisinopril 10 mg tablet 10 mg PO DAILY sertraline 25 mg tablet 25 mg PO DAILY albuterol sulfate 90 mcg/actuation HFA aerosol inhaler 2 puff inhalation Q4H PRN (Reason: wheezing) hydroxyzine pamoate 25 mg capsule 25 mg PO BEDTIME multivitamin with folic acid [Tab-A-Manoj] 400 mcg tablet 1 tab PO DAILY ascorbic acid (vitamin C) [Vitamin C] 500 mg Tablet 500 mg PO DAILY Referrals: Babatunde Hoff MD [Primary Care Provider] - 3 days James Trevino MD [Physician] - 1 week
[2022-09-18 16:46] LABS: Anion Gap 12 (12-20); Blood Urea Nitrogen 11 mg/dL (9-16); Calcium 9.7 mg/dL (8.4-10.2); Carbon Dioxide 28 mmol/L (22-29); Chloride 99 mmol/L (96-108); Creatinine Clr Calc Pharmacy 76.6; Estimated Glomerular Filt Rate > 60; Glucose Random 87 mg/dL (60-115); Potassium 4.4 mmol/L (3.3-5.1); Sodium 135 mmol/L (135-145)
[2022-09-18 16:49] LABS: Troponin-I High Sensitivity 4.8 ng/L (<3.5-35.0)
[2022-09-18 17:04] LABS: TSH reflex Free T4 1.36 uIU/mL (0.32-4.0)
[2022-09-18] MEDS: 0.9 % Sodium Chloride 1,000 ML 999 ML IV (17:50)
[2022-09-18 17:53] VITALS: BP 115/71; BP 120/72; PULSE 74; PULSE 78
--- NOTE | 2022-09-18 18:11 | PHA.MEDREC ---
Pharmacy Consult ? Medication Reconciliation Pharmacy has completed the medication reconciliation.
[2022-09-18 18:13] VITALS: BP 115/70; PULSE 78; RESP 20; TEMP 36.4; O2SAT 96
[2022-09-18 18:29] LABS: Troponin-I High Sensitivity 3.7 ng/L (<3.5-35.0)
[2022-09-18 19:17] VITALS: BP 120/65; PULSE 64; RESP 18; O2SAT 96
== END 2022-09-18 19:20 | disposition home or self-care (01) ==
PROVIDERS: Emergency Provider Emergency Medicine; PCP Internal Medicine Medical Oncology
DX: R55 Syncope and collapse (principal); R07.89 Other chest pain; Z79.899 Other long term (current) drug therapy
CPT/HCPCS: 36415; 80048; 84443; 84484; 85025; 93005; 99284; 99285

== ENCOUNTER 2022-10-17 18:41 | Emergency (ER) | payer OTHER, MEDICARE, SELFPAY ==
[2022-10-17 18:50] VITALS: BP 149/79; PULSE 72; O2SAT 97
--- NOTE | 2022-10-17 18:52 | ECG_ITS ---
Test Reason : FALL Blood Pressure : / mmHG Vent. Rate : 068 BPM Atrial Rate : 068 BPM P-R Int : 170 ms QRS Dur : 088 ms QT Int : 412 ms P-R-T Axes : -04 021 038 degrees QTc Int : 438 ms Sinus rhythm with marked sinus arrhythmia Otherwise normal ECG When compared with ECG of 18-SEP-2022 16:32, No significant change was found Referred By: Emani Reddy Electronically Signed By:Deshawn Gama
--- NOTE | 2022-10-17 19:03 | ED.FALL ---
HPI - Fall General Chief Complaint: Fall Stated Complaint: fall Time Seen by Provider: 10/17/22 18:45 Source: patient Mode of arrival: EMS Limitations: no limitations History of Present Illness HPI Narrative: patient comes to the emergency room complaining of a fall. According to EMS, patient's partner reported that the patient has gradually been becoming weaker. Patient agrees that for the last 3 weeks he has gradually been losing generalized strength. Patient states that patient stood up from the chair, tried grabbing something across the table, his legs gave out and fell. Patient denies hitting his head or losing consciousness, denies headache, neck pain, no rib pain or back pain. Patient states he has no knee pain or lower extremity pain. However, patient was too weak to get up by himself, patient pressed his Life Alert button and EMS arrived. Patient denies any lightheadedness or chest pain. Patient states that he is still able to walk by himself, does occasionally fall. Patient is not on blood thinners. Related Data Home Medications Medication Instructions Recorded Confirmed albuterol sulfate 90 mcg/actuation 2 puff inhalation Q4H PRN wheezing 09/18/22 09/18/22 aerosol inhaler ascorbic acid (vitamin C) 500 mg 500 mg PO DAILY 09/18/22 09/18/22 tablet (Vitamin C) donepezil 10 mg tablet 10 mg PO BEDTIME 09/18/22 09/18/22 haloperidol 0.5 mg tablet 0.5 mg PO BID 09/18/22 09/18/22 hydroxyzine pamoate 25 mg capsule 25 mg PO BEDTIME 09/18/22 09/18/22 lisinopril 10 mg tablet 10 mg PO DAILY 09/18/22 09/18/22 multivitamin with folic acid 400 1 tab PO DAILY 09/18/22 09/18/22 mcg tablet (Tab-A-Manoj) sertraline 25 mg tablet 25 mg PO DAILY 09/18/22 09/18/22 trazodone 50 mg tablet 50 mg PO QD-BID PRN Sleep 09/18/22 09/18/22 Allergies Allergy/AdvReac Type Severity Reaction Status Date / Time No Known Allergies Allergy Verified 08/17/22 09:33 Review of Systems Review of Systems: Constitutional : No Weight loss, No Fever, No Chills, No Night Sweats, No Fatigue, No Malaise , complaining of generalized weakness ENT/Mouth : No Hearing loss, No Ear Pain, No Nasal Congestion, No Sinus Pain, No Hoarseness, No sore throat, No Rhinorrhea, No Swallowing Difficulty Eyes: No Eye Pain, No Swelling, No Redness, No Foreign Body, No Discharge, No Vision Changes Cardiovascular : No Chest Pain, No SOB, No Dyspnea on Exertion, No Orthopnea, No Edema, No Palpitations Respiratory : No Cough, No Sputum, No Wheezing, No Smoke Exposure, No Dyspnea Gastrointestinal : No Nausea, No Vomiting, No Diarrhea, No Constipation, No abdominal Pain, No Hematochezia, No Melena Genitourinary : no irregular bleeding, No Dysuria, No Urinary Frequency, No Hematuria, No Urinary Incontinence, No Urgency, No Flank Pain, No Urinary Flow Changes, No Hesitancy Musculoskeletal : No joint pain, No Myalgias, No Joint Swelling Skin : No Skin Lesions, No rash Neuro : No Weakness, No Numbness, No Paresthesias, No Loss of Consciousness, No Dizziness, No Headache Psych : No Anxiety/Panic, No Depression, No SI/HI/AH/VH, No Social Issues, Heme/Lymph: No Bruising, No Bleeding,No Lymphadenopathy Endocrine : No Polyuria, No Polydipsia, No Temperature Intolerance [facility] Past Medical History Medical History Asthma exacerbation COPD (chronic obstructive pulmonary disease) Surgical History History of hernia surgery Social History Social History Household Members: Friend(s) Housing: House Do you presently have visiting nurse or other home services: No Alcohol intake: current Alcohol intake frequency: 0-2 drinks per day Alcohol type: beer Patient Tobacco Use Status: Former Tobacco user Smoked in Last 30 Days: No Second Hand Smoke Exposure: No Use of substances other than those prescribed or required for medical reasons: No Substance Use Type: Marijuana Advance Directives: Yes Advance Directives on File: Yes Advance Directives Date on File: 09/04/22 service: Yes Physical Exam Vital Signs: Vital Signs: Last Vital Signs Temp 98.6 F 10/17/22 22:00 Pulse 75 10/17/22 22:00 Resp 18 10/17/22 22:00 BP 136/80 10/17/22 22:00 Pulse Ox 98 10/17/22 22:00 O2 Del Method Room Air 10/17/22 22:00 Const: Other: Appearance: Alert. Oriented X3. No acute distress. seems weak Eyes: Pupils equal, round and reactive to light. ENT: Pharynx normal. Neck: Normal inspection. Neck supple. No lymph nodes noted. No crepitus CVS: Normal heart rate and rhythm. Pulses normal. Normal S1 and S2 Respiratory: No respiratory distress. Breath sounds normal. No Wheezing. No rales Abdomen: Soft and nontender. No rigidity. No distention. Skin: Skin warm and dry. Normal skin color. Normal skin turgor. Extremities: No lower extremity edema. No Lacerations. No Rash Neuro: Oriented X 3. No motor deficit. No sensory deficit. Moving all extremities. No slurred speech. CN 2 through 12 grossly intact Psych: calm, cooperative, normal affect Course Course Course Narrative: of patient's labs pending. Patient is hitting his head or loss of consciousness, no headache or neck pain. At this time, we will fall off on imaging. Medications Administered Discontinued Medications Generic Name Dose Route Start Last Admin Trade Name Freq PRN Reason Stop Dose Admin Sodium Chloride 1,000 mls @ 999 mls/hr 10/17/22 21:23 10/18/22 00:49 Ns IVCONT 10/17/22 22:23 Infused .Q1H1M ONE Infusion Medical Decision Making Medical Decision Making [facility] Narrative: - admission was considered for hyponatremia and weakness. - Patient received IV fluids, sodium improved. - Case Management Physical therapy evaluation were offered to the patient and his . - Patient walked in the emergency room and he did well, patient will likely be discharged home. Admission/Observation Consideration of admission/observation: Escalation of care including admission/observation considered Lab Data [facility] Lab Attestation statement: I reviewed the patient's lab results. 10/17/22 19:23 10/18/22 00:39 Labs: Lab Results 10/17/22 10/17/22 10/17/22 Range/Units 19:23 19:23 19:23 WBC 7.0 (4.8-10.8) X10*3/uL RBC 3.93 L (4.60-5.80) X10*6/uL Hgb 12.2 L (14.0-18.0) g/dl Hct 35.6 L (42.0-52.0) % MCV 90.6 (80.0-98.0) fL MCH 31.0 (27.0-33.0) pg MCHC 34.3 (31.0-36.0) g/dl RDW 12.8 (11.0-16.0) % Plt Count 272 (160-400) X10*3/uL MPV 9.6 (9.4-12.4) fL Immature Gran % (Auto) 0.6 H (0.0-0.4) % Neut % (Auto) 72.3 (45-73) % Lymph % (Auto) 15.9 L (20-40) % Sharkey % (Auto) 9.0 (2-11) % Eos % (Auto) 1.8 (0-4) % Baso % (Auto) 0.4 (0-2) % Lymph # (Auto) 1.1 L (1.2-4.9) X10*3/uL Sharkey # (Auto) 0.6 (0.1-1.2) X10*3/uL Eos # (Auto) 0.1 (0.0-0.4) X10*3/uL Baso # (Auto) 0.0 (0.0-0.2) X10*3/uL Abs Immat Gran (auto) 0.04 H (0.00-0.03) X10*3/uL Absolute Neuts (auto) 5.1 (2.0-8.3) x10*3/uL Absolute Nucleated RBC 0.000 (0.0-0.012) X10*3/uL Nucleated RBC % (auto) 0.0 (0.0-0.2) /100WBC PT 11.5 (10.0-13.1) SEC INR 1.0 (0.9-1.1) Sodium 129 L (135-145) mmol/L Potassium 3.9 (3.3-5.1) mmol/L Chloride 96 (96-108) mmol/L Carbon Dioxide 25 (22-29) mmol/L Anion Gap 12 (12-20) BUN 12 (9-16) mg/dL Creatinine 0.74 (0.5-1.4) mg/dL Estim Creat Clear Calc TNP Estimated GFR > 60 Random Glucose 108 (60-115) mg/dL Lactic Acid (0.5-2.0) mmol/L Calcium 9.2 (8.4-10.2) mg/dL Magnesium 1.8 (1.6-2.6) mg/dL Total Bilirubin 0.6 (0.0-1.0) mg/dL Direct Bilirubin 0.2 (0.0-0.5) mg/dL AST 25 (5-37) U/L ALT 16 (0-40) U/L Alkaline Phosphatase 66 (39-117) U/L Troponin I High Sens (<3.5-35.0) ng/L Total Protein 6.4 L (6.5-8.0) g/dL Albumin 4.0 (3.5-5.0) g/dL TSH 1.27 (0.32-4.0) uIU/mL Urine Color Urine Appearance Urine pH (5.0-9.0) Ur Specific [place] (1.005-1.025) Urine Protein (Neg-Trace) mg/dL Urine Glucose (UA) (Negative) mg/dL Urine Ketones (Negative) mg/dL Urine Blood (Negative) Urine Nitrite (Negative) Ur Leukocyte Esterase (Negative) Urine Opiates Screen (Not Detect) Urine Fentanyl Screen (Not Detect) Ur Barbiturates Screen (Not Detect) Ur Phencyclidine Scrn (Not Detect) Ur Amphetamines Screen (Not Detect) U Benzodiazepines Scrn (Not Detect) Urine Cocaine Screen (Not Detect) U Marijuana (THC) Screen (Not Detect) Ethyl Alcohol < 10 mg/dL 10/17/22 10/17/22 10/17/22 Range/Units 19:23 19:23 22:10 WBC (4.8-10.8) X10*3/uL RBC (4.60-5.80) X10*6/uL Hgb (14.0-18.0) g/dl Hct (42.0-52.0) % MCV (80.0-98.0) fL MCH (27.0-33.0) pg MCHC (31.0-36.0) g/dl RDW (11.0-16.0) % Plt Count (160-400) X10*3/uL MPV (9.4-12.4) fL Immature Gran % (Auto) (0.0-0.4) % Neut % (Auto) (45-73) % Lymph % (Auto) (20-40) % Sharkey % (Auto) (2-11) % Eos % (Auto) (0-4) % Baso % (Auto) (0-2) % Lymph # (Auto) (1.2-4.9) X10*3/uL Sharkey # (Auto) (0.1-1.2) X10*3/uL Eos # (Auto) (0.0-0.4) X10*3/uL Baso # (Auto) (0.0-0.2) X10*3/uL Abs Immat Gran (auto) (0.00-0.03) X10*3/uL Absolute Neuts (auto) (2.0-8.3) x10*3/uL Absolute Nucleated RBC (0.0-0.012) X10*3/uL Nucleated RBC % (auto) (0.0-0.2) /100WBC PT (10.0-13.1) SEC INR (0.9-1.1) Sodium (135-145) mmol/L Potassium (3.3-5.1) mmol/L Chloride (96-108) mmol/L Carbon Dioxide (22-29) mmol/L Anion Gap (12-20) BUN (9-16) mg/dL Creatinine (0.5-1.4) mg/dL Estim Creat Clear Calc Estimated GFR Random Glucose (60-115) mg/dL Lactic Acid 1.0 (0.5-2.0) mmol/L Calcium (8.4-10.2) mg/dL Magnesium (1.6-2.6) mg/dL Total Bilirubin (0.0-1.0) mg/dL Direct Bilirubin (0.0-0.5) mg/dL AST (5-37) U/L ALT (0-40) U/L Alkaline Phosphatase (39-117) U/L Troponin I High Sens 6.2 D (<3.5-35.0) ng/L Total Protein (6.5-8.0) g/dL Albumin (3.5-5.0) g/dL TSH (0.32-4.0) uIU/mL Urine Color Yellow Urine Appearance Clear Urine pH 6.0 (5.0-9.0) Ur Specific [place] 1.010 (1.005-1.025) Urine Protein Negative (Neg-Trace) mg/dL Urine Glucose (UA) Negative (Negative) mg/dL Urine Ketones Trace (Negative) mg/dL Urine Blood Negative (Negative) Urine Nitrite Negative (Negative) Ur Leukocyte Esterase Negative (Negative) Urine Opiates Screen (Not Detect) Urine Fentanyl Screen (Not Detect) Ur Barbiturates Screen (Not Detect) Ur Phencyclidine Scrn (Not Detect) Ur Amphetamines Screen (Not Detect) U Benzodiazepines Scrn (Not Detect) Urine Cocaine Screen (Not Detect) U Marijuana (THC) Screen (Not Detect) Ethyl Alcohol mg/dL 10/17/22 10/18/22 Range/Units 22:10 00:39 WBC (4.8-10.8) X10*3/uL RBC (4.60-5.80) X10*6/uL Hgb (14.0-18.0) g/dl Hct (42.0-52.0) % MCV (80.0-98.0) fL MCH (27.0-33.0) pg MCHC (31.0-36.0) g/dl RDW (11.0-16.0) % Plt Count (160-400) X10*3/uL MPV (9.4-12.4) fL Immature Gran % (Auto) (0.0-0.4) % Neut % (Auto) (45-73) % Lymph % (Auto) (20-40) % Sharkey % (Auto) (2-11) % Eos % (Auto) (0-4) % Baso % (Auto) (0-2) % Lymph # (Auto) (1.2-4.9) X10*3/uL Sharkey # (Auto) (0.1-1.2) X10*3/uL Eos # (Auto) (0.0-0.4) X10*3/uL Baso # (Auto) (0.0-0.2) X10*3/uL Abs Immat Gran (auto) (0.00-0.03) X10*3/uL Absolute Neuts (auto) (2.0-8.3) x10*3/uL Absolute Nucleated RBC (0.0-0.012) X10*3/uL Nucleated RBC % (auto) (0.0-0.2) /100WBC PT (10.0-13.1) SEC INR (0.9-1.1) Sodium 134 L (135-145) mmol/L Potassium 3.6 (3.3-5.1) mmol/L Chloride 102 (96-108) mmol/L Carbon Dioxide 23 (22-29) mmol/L Anion Gap 13 (12-20) BUN 11 (9-16) mg/dL Creatinine 0.72 (0.5-1.4) mg/dL Estim Creat Clear Calc TNP Estimated GFR > 60 Random Glucose 130 H (60-115) mg/dL Lactic Acid (0.5-2.0) mmol/L Calcium 9.0 (8.4-10.2) mg/dL Magnesium (1.6-2.6) mg/dL Total Bilirubin (0.0-1.0) mg/dL Direct Bilirubin (0.0-0.5) mg/dL AST (5-37) U/L ALT (0-40) U/L Alkaline Phosphatase (39-117) U/L Troponin I High Sens (<3.5-35.0) ng/L Total Protein (6.5-8.0) g/dL Albumin (3.5-5.0) g/dL TSH (0.32-4.0) uIU/mL Urine Color Urine Appearance Urine pH (5.0-9.0) Ur Specific [place] (1.005-1.025) Urine Protein (Neg-Trace) mg/dL Urine Glucose (UA) (Negative) mg/dL Urine Ketones (Negative) mg/dL Urine Blood (Negative) Urine Nitrite (Negative) Ur Leukocyte Esterase (Negative) Urine Opiates Screen Not Detected (Not Detect) Urine Fentanyl Screen POSITIVE H (Not Detect) Ur Barbiturates Screen Not Detected (Not Detect) Ur Phencyclidine Scrn Not Detected (Not Detect) Ur Amphetamines Screen Not Detected (Not Detect) U Benzodiazepines Scrn Not Detected (Not Detect) Urine Cocaine Screen Not Detected (Not Detect) U Marijuana (THC) Screen POSITIVE H (Not Detect) Ethyl Alcohol mg/dL Critical Care Time Critical Care Time Total Critical Care Time: 60 Attestation: I have personally provided critical care time. Time includes review of lab data, radiology results, discussion with consultants, and monitoring for potential decompensation. Intervention performed as documented. Discharge Plan Discharge Clinical Impression: Acute hyponatremia, Weakness Patient Disposition: Home, Self-Care Instructions: Hyponatremia (ED) Additional Instructions: Please follow-up with your primary care physician tomorrow. If you have any worsening or new symptoms, please return to the emergency room or call 911 Prescriptions: No Action haloperidol 0.5 mg tablet 0.5 mg PO BID trazodone 50 mg tablet 50 mg PO QD-BID PRN (Reason: Sleep) donepezil 10 mg tablet 10 mg PO BEDTIME lisinopril 10 mg tablet 10 mg PO DAILY sertraline 25 mg tablet 25 mg PO DAILY albuterol sulfate 90 mcg/actuation HFA aerosol inhaler 2 puff inhalation Q4H PRN (Reason: wheezing) hydroxyzine pamoate 25 mg capsule 25 mg PO BEDTIME multivitamin with folic acid [Tab-A-Manoj] 400 mcg tablet 1 tab PO DAILY ascorbic acid (vitamin C) [Vitamin C] 500 mg Tablet 500 mg PO DAILY
[2022-10-17 19:29] LABS: MANUAL DIFF FLAG NO
[2022-10-17 19:33] LABS: Basophils Percent Auto 0.4 % (0-2); Eosinophils Absolute Auto 0.1 X10*3/uL (0.0-0.4); Eosinophils Percent Auto 1.8 % (0-4); Hematocrit 35.6 % (42.0-52.0); Hemoglobin 12.2 g/dl (14.0-18.0); Imm Gran Abs Auto 0.04 X10*3/uL (0.00-0.03); Imm Gran Pct Auto 0.6 % (0.0-0.4); Lymphocytes Absolute Auto 1.1 X10*3/uL (1.2-4.9); Lymphocytes Percent Auto 15.9 % (20-40); Mean Corpuscular HGB Conc 34.3 g/dl (31.0-36.0); Mean Corpuscular Volume 90.6 fL (80.0-98.0); Mean Platelet Volume 9.6 fL (9.4-12.4); Monocytes Absolute Auto 0.6 X10*3/uL (0.1-1.2); Neutrophils Absolute Auto 5.1 x10*3/uL (2.0-8.3); Neutrophils Percent Auto 72.3 % (45-73); Platelet Count 272 X10*3/uL (160-400); Red Blood Count 3.93 X10*6/uL (4.60-5.80); Red Cell Distribution Width 12.8 % (11.0-16.0)
[2022-10-17 19:37] VITALS: BP 130/71; PULSE 70; RESP 15; TEMP 36.2; O2SAT 97
[2022-10-17 19:46] LABS: Prothrombin Time 11.5 SEC (10.0-13.1)
[2022-10-17 20:00] VITALS: BP 145/85; PULSE 71; RESP 18; O2SAT 99
[2022-10-17 20:01] LABS: Troponin-I High Sensitivity 6.2 ng/L (<3.5-35.0)
[2022-10-17 20:05] LABS: Alanine Aminotransferase 16 U/L (0-40); Alkaline Phosphatase 66 U/L (39-117); Anion Gap 12 (12-20); Aspartate Amino Transferase 25 U/L (5-37); Bilirubin Direct 0.2 mg/dL (0.0-0.5); Bilirubin Total 0.6 mg/dL (0.0-1.0); Blood Urea Nitrogen 12 mg/dL (9-16); Calcium 9.2 mg/dL (8.4-10.2); Carbon Dioxide 25 mmol/L (22-29); Chloride 96 mmol/L (96-108); Estimated Glomerular Filt Rate > 60; Ethanol < 10 mg/dL; Glucose Random 108 mg/dL (60-115); Magnesium 1.8 mg/dL (1.6-2.6); Potassium 3.9 mmol/L (3.3-5.1); Sodium 129 mmol/L (135-145); Total Protein 6.4 g/dL (6.5-8.0)
[2022-10-17 20:15] LABS: TSH reflex Free T4 1.27 uIU/mL (0.32-4.0)
[2022-10-17 21:54] VITALS: BP 136/80; PULSE 69; RESP 18; TEMP 36.7; O2SAT 95
[2022-10-17 22:00] VITALS: BP 136/80; PULSE 75; RESP 18; TEMP 37; O2SAT 98
[2022-10-17 22:17] LABS: Appearance Urine Clear; Color Urine Yellow; Glucose Urine UA Negative (Negative); Leukocyte Esterase Urine Negative (Negative); Nitrite Urine Negative (Negative); Urine Blood Negative (Negative); Urine Ketones Trace mg/dL (Negative); Urine Protein Negative (Neg-Trace)
[2022-10-17] MEDS: 0.9 % Sodium Chloride 1,000 ML 999 ML IVCONT (23:26)
[2022-10-17 23:49] LABS: Amphetamine Screen Urine Not Detected (Not Detect); Barbiturates, Urine Not Detected (Not Detect); Benzodiazepines Screen Urine Not Detected (Not Detect); Cannabinoid Screen Urine POSITIVE (Not Detect); Cocaine Screen Urine Not Detected (Not Detect); Fentanyl, urine POSITIVE (Not Detect); Opiate Screen Urine Not Detected (Not Detect); Phencyclidine Screen Urine Not Detected (Not Detect)
[2022-10-18 00:59] LABS: Anion Gap 13 (12-20); Blood Urea Nitrogen 11 mg/dL (9-16); Carbon Dioxide 23 mmol/L (22-29); Chloride 102 mmol/L (96-108); Estimated Glomerular Filt Rate > 60; Glucose Random 130 mg/dL (60-115); Potassium 3.6 mmol/L (3.3-5.1); Sodium 134 mmol/L (135-145)
--- NOTE | 2022-10-18 01:59 | PC.NURSE ---
patient passed ambulation trial no issues denies dizziness or lightheadedness . ambulatory with steady gait
== END 2022-10-18 02:02 | disposition home or self-care (01) ==
PROVIDERS: Emergency Provider Emergency Medicine
DX: E87.1 Hypo-osmolality and hyponatremia (principal); R53.1 Weakness; F12.90 Cannabis use, unspecified, uncomplicated; Z79.899 Other long term (current) drug therapy
CPT/HCPCS: 36415; 80048; 80076; 80307; 81003; 83605; 83735; 84443; 84484; 85025; 85610; 87040; 93005; 99285

== ENCOUNTER 2023-05-28 09:47 | Outpatient (REF) | payer MEDICARE, SELFPAY ==
[2023-05-28 10:32] LABS: MANUAL DIFF FLAG NO
[2023-05-28 11:24] LABS: Basophils Percent Auto 0.6 % (0-2); Eosinophils Absolute Auto 0.1 X10*3/uL (0.0-0.4); Eosinophils Percent Auto 1.8 % (0-4); Hematocrit 37.3 % (42.0-52.0); Hemoglobin 12.8 g/dl (14.0-18.0); Imm Gran Abs Auto 0.04 X10*3/uL (0.00-0.03); Imm Gran Pct Auto 0.8 % (0.0-0.4); Lymphocytes Absolute Auto 1.5 X10*3/uL (1.2-4.9); Lymphocytes Percent Auto 28.4 % (20-40); Mean Corpuscular HGB Conc 34.3 g/dl (31.0-36.0); Mean Corpuscular Hemoglobin 30.7 pg (27.0-33.0); Mean Corpuscular Volume 89.4 fL (80.0-98.0); Mean Platelet Volume 9.9 fL (9.4-12.4); Monocytes Absolute Auto 0.5 X10*3/uL (0.1-1.2); Monocytes Percent Auto 9.8 % (2-11); Neutrophils Percent Auto 58.6 % (45-73); Platelet Count 238 X10*3/uL (160-400); Red Blood Count 4.17 X10*6/uL (4.60-5.80); Red Cell Distribution Width 12.6 % (11.0-16.0); White Blood Count 5.1 X10*3/uL (4.8-10.8)
[2023-05-28 11:44] LABS: Alanine Aminotransferase 13 U/L (0-40); Albumin Level 4.2 g/dL (3.5-5.0); Alkaline Phosphatase 59 U/L (39-117); Anion Gap 12 (12-20); Aspartate Amino Transferase 17 U/L (5-37); Bilirubin Total 0.7 mg/dL (0.0-1.0); Blood Urea Nitrogen 9 mg/dL (9-16); Calcium 9.4 mg/dL (8.4-10.2); Carbon Dioxide 25 mmol/L (22-29); Chloride 98 mmol/L (96-108); Cholesterol 188 mg/dL (<200); Estimated Glomerular Filt Rate > 60; Glucose Fasting 95 mg/dL (60-99); HDL Cholesterol 68 mg/dL (>40); LDL Cholesterol Calculated 111 mg/dL (<100); Sodium 131 mmol/L (135-145); Total Protein 7.1 g/dL (6.5-8.0); Triglycerides 45 mg/dL (<150)
[2023-05-28 12:03] LABS: Prostate Specific Antigen 0.83 ng/mL (<0.05-4.0)
== END 2023-05-28 09:48 | disposition home or self-care (01) ==
LOC: HO.LAB 09:47
PROVIDERS: PCP Internal Medicine Medical Oncology; Visit Provider Internal Medicine Medical Oncology
DX: Z12.5 Encounter for screening for malignant neoplasm of prostate (principal); E66.3 Overweight; N40.0 Benign prostatic hyperplasia without lower urinary tract symptoms
CPT/HCPCS: 36415; 80053; 80061; 84153; 85025

== ENCOUNTER 2023-06-20 14:57 | Outpatient (REF) | payer MEDICARE, SELFPAY ==
[2023-06-20 16:03] LABS: Anion Gap 11 (12-20); Blood Urea Nitrogen 8 mg/dL (9-16); Calcium 9.6 mg/dL (8.4-10.2); Carbon Dioxide 30 mmol/L (22-29); Chloride 96 mmol/L (96-108); Estimated Glomerular Filt Rate > 60; Glucose Random 91 mg/dL (60-115); Sodium 133 mmol/L (135-145)
== END 2023-06-20 14:58 | disposition home or self-care (01) ==
LOC: HO.LABR 14:57
PROVIDERS: PCP Internal Medicine Medical Oncology; Visit Provider Nurse Practitioner Psychiatric/Mental Health
DX: F41.1 Generalized anxiety disorder (principal)
CPT/HCPCS: 36415; 80048

== ENCOUNTER 2023-06-29 13:59 | Outpatient (REF) | payer MEDICARE, SELFPAY ==
[2023-06-29 14:15] LABS: MANUAL DIFF FLAG NO
[2023-06-29 14:47] LABS: Basophils Percent Auto 0.5 % (0-2); Eosinophils Absolute Auto 0.1 X10*3/uL (0.0-0.4); Eosinophils Percent Auto 1.6 % (0-4); Hematocrit 41.9 % (42.0-52.0); Hemoglobin 14.2 g/dl (14.0-18.0); Imm Gran Abs Auto 0.03 X10*3/uL (0.00-0.03); Imm Gran Pct Auto 0.8 % (0.0-0.4); Lymphocytes Absolute Auto 1.4 X10*3/uL (1.2-4.9); Lymphocytes Percent Auto 37.9 % (20-40); Mean Corpuscular HGB Conc 33.9 g/dl (31.0-36.0); Mean Corpuscular Hemoglobin 30.2 pg (27.0-33.0); Mean Corpuscular Volume 89.1 fL (80.0-98.0); Mean Platelet Volume 9.1 fL (9.4-12.4); Monocytes Absolute Auto 0.6 X10*3/uL (0.1-1.2); Monocytes Percent Auto 15.6 % (2-11); Neutrophils Absolute Auto 1.6 x10*3/uL (2.0-8.3); Neutrophils Percent Auto 43.6 % (45-73); Platelet Count 269 X10*3/uL (160-400); Red Cell Distribution Width 13.1 % (11.0-16.0); White Blood Count 3.8 X10*3/uL (4.8-10.8)
[2023-06-29 15:02] LABS: Alanine Aminotransferase 13 U/L (0-40); Albumin Level 4.5 g/dL (3.5-5.0); Alkaline Phosphatase 63 U/L (39-117); Anion Gap 12 (12-20); Aspartate Amino Transferase 18 U/L (5-37); Bilirubin Total 0.6 mg/dL (0.0-1.0); Blood Urea Nitrogen 7 mg/dL (9-16); Calcium 9.7 mg/dL (8.4-10.2); Carbon Dioxide 28 mmol/L (22-29); Chloride 99 mmol/L (96-108); Estimated Glomerular Filt Rate > 60; Glucose Random 97 mg/dL (60-115); Potassium 3.4 mmol/L (3.3-5.1); Sodium 136 mmol/L (135-145); Total Protein 7.5 g/dL (6.5-8.0)
== END 2023-06-29 14:00 | disposition home or self-care (01) ==
LOC: HO.LAB 13:59
PROVIDERS: PCP Internal Medicine Medical Oncology; Visit Provider Internal Medicine Medical Oncology
DX: E66.3 Overweight (principal)
CPT/HCPCS: 36415; 80053; 85025

== ENCOUNTER 2024-04-01 10:06 | Outpatient (REF) | payer MEDICARE, SELFPAY ==
[2024-04-01 10:55] LABS: MANUAL DIFF FLAG NO
[2024-04-01 11:23] LABS: Basophils Percent Auto 0.8 % (0-2); Eosinophils Absolute Auto 0.2 X10*3/uL (0.0-0.4); Eosinophils Percent Auto 3.6 % (0-4); Hematocrit 39.9 % (42.0-52.0); Hemoglobin 13.8 g/dl (14.0-18.0); Imm Gran Abs Auto 0.03 X10*3/uL (0.00-0.03); Imm Gran Pct Auto 0.6 % (0.0-0.4); Lymphocytes Absolute Auto 1.7 X10*3/uL (1.2-4.9); Lymphocytes Percent Auto 34.4 % (20-40); Mean Corpuscular HGB Conc 34.6 g/dl (31.0-36.0); Mean Corpuscular Hemoglobin 30.5 pg (27.0-33.0); Mean Corpuscular Volume 88.3 fL (80.0-98.0); Mean Platelet Volume 9.8 fL (9.4-12.4); Monocytes Absolute Auto 0.6 X10*3/uL (0.1-1.2); Monocytes Percent Auto 11.5 % (2-11); Neutrophils Absolute Auto 2.5 x10*3/uL (2.0-8.3); Neutrophils Percent Auto 49.1 % (45-73); Platelet Count 281 X10*3/uL (160-400); Red Blood Count 4.52 X10*6/uL (4.60-5.80); Red Cell Distribution Width 13.1 % (11.0-16.0)
[2024-04-01 11:53] LABS: Prostate Specific Antigen 1.06 ng/mL (<0.05-4.0)
[2024-04-01 12:10] LABS: Alanine Aminotransferase 16 U/L (0-40); Albumin Level 4.3 g/dL (3.5-5.0); Alkaline Phosphatase 60 U/L (39-117); Anion Gap 10 (12-20); Aspartate Amino Transferase 23 U/L (5-37); Bilirubin Total 0.7 mg/dL (0.0-1.0); Blood Urea Nitrogen 5 mg/dL (9-16); Calcium 9.4 mg/dL (8.4-10.2); Carbon Dioxide 29 mmol/L (22-29); Chloride 102 mmol/L (96-108); Cholesterol 184 mg/dL (<200); Estimated Glomerular Filt Rate > 60; Glucose Fasting 99 mg/dL (60-99); HDL Cholesterol 63 mg/dL (>40); LDL Cholesterol Calculated 108 mg/dL (<100); Potassium 3.6 mmol/L (3.3-5.1); Sodium 137 mmol/L (135-145); Total Protein 7.1 g/dL (6.5-8.0); Triglycerides 68 mg/dL (<150); Vitamin D 25-OH Total 30.1 ng/mL (>30)
== END 2024-04-01 10:07 | disposition home or self-care (01) ==
LOC: HO.10HDL 10:06
PROVIDERS: Visit Provider Internal Medicine Medical Oncology
DX: Z00.00 Encounter for general adult medical examination without abnormal findings (principal); E66.9 Obesity, unspecified; F41.9 Anxiety disorder, unspecified; N40.0 Benign prostatic hyperplasia without lower urinary tract symptoms; E56.9 Vitamin deficiency, unspecified; Z12.5 Encounter for screening for malignant neoplasm of prostate
CPT/HCPCS: 36415; 80053; 80061; 82306; 84153; 85025

== ENCOUNTER 2024-12-01 09:39 | Outpatient (REF) | payer MEDICARE, SELFPAY ==
--- OUTSIDE RECORDS SUMMARY | 2017-11-08 09:18 | XMS_ITS | Continuity of Care Document ---
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 It does not include entries that were removed or entered in error. Problem Status Onset Date Problem Type Date of Resolution Comments Source Diverticulosis of sigmoid colon Active 015 Condition [facility] Internal hemorrhoids Active 015 Condition [facility] Condylomata Acuminata * (ICD-9-CM 078.10) Active Condition [place] Essential hypertension (SNOMED CT 81073197) Active Condition [place] [facility] Hypercholesterolemia (SNOMED CT 30743366) Active Condition [place] Impaired fasting glycaemia (SNOMED CT 104657263) Active Condition [place] Microscopic Hematuria Active Condition [place] Polyp of colon (SNOMED CT 04603981) Active Condition Mar 04, 2015 Entered By: KENNEDY COLE Comment: 2 polyps, diverticulosi s, int hemorrhoids - repeat (2017)Jan 15, 2018 Entered By: FLORENCIA WHEELER Comment: September 2017: 1 tubular adenoma removed; repeat colonscopy in 5 years (2022) [place] Medications Combined list of outpatient medications from Department of [facility] and Veterans Affairs facilities.Medications provided include 1) outpatient medications from the last 15 months, and 2) patient-reported medications. Medication Details Route Status Patient Instructions Prescription Expires Prescription Number Last Dispense Date Ordering Provider Order Date Order Qty Source ASCORBIC ACID 500MG TAB TAKE ONE TABLET BY MOUTH EVERY DAY ORAL ACTIVE ELDER BOOTH 2008 [place] LECITHIN CAP,ORAL TAKE 1 CAP BY MOUTH EVERY DAY ORAL ACTIVE ELDER BOOTH 2008 [place] LISINOPRIL 5MG TAB TAKE ONE TABLET BY MOUTH DAILY ORAL ACTIVE JUAN FARNSWORTH 07/29/ 2013 [place] MULTIVITAMI NS W/MINERALS TAB TAKE ONE TABLET BY MOUTH EVERY DAY ORAL ACTIVE ELDER BOOTH 2008 [place] Immunizations Combined list of available immunizations from the Department of Defense and Veterans Affairs facilities. Immunization Series Date Given Administered By Site Reaction Lot Number CVX Code Drug Fish Cleaner Status Comments Source INFLUENZA, SEASONAL, INJECTABLE 2016 141 complet ed [facility] FLU,3 YRS (HISTORICAL) 2015 88 complet ed [place] [facility] FLU,3 YRS (HISTORICAL) 2013 88 complet ed stop n shop w sprg[place] [facility] FLU,3 YRS (HISTORICAL) 2012 88 complet ed [facility] FLU,3 YRS (HISTORICAL) 2011 88 complet ed [facility] FLU,3 YRS (HISTORICAL) 2010 88 complet ed [facility] TD(ADULT) UNSPECIFIED FORMULATION 2010 139 complet ed Site: Left Deltoid [place] FLU,3 YRS (HISTORICAL) 2009 88 complet ed Site: Left Deltoid [place] PNEUMOCOCCAL, UNSPECIFIED FORMULATION 2009 109 complet ed Site: Left Deltoid [place] ZOSTER LIVE 2009 121 complet ed [place] FLU,3 YRS (HISTORICAL) 2008 88 complet ed Site: Right Deltoid [place] FLU,3 YRS (HISTORICAL) 2007 88 complet ed [facility] FLU,3 YRS (HISTORICAL) 2006 88 complet ed [facility] FLU,3 YRS (HISTORICAL) 2001 STEPHANIE HARPER 88 complet ed [place] FLU,3 YRS (HISTORICAL) 2000 REBECCA FERMIN 88 complet ed [place] FLU,3 YRS (HISTORICAL) 1999 SANDRA RAMIRES 88 complet ed [place] FLU,3 YRS (HISTORICAL) 1998 REBECCA FERMIN 88 complet ed [facility] IELD HEP A, ADULT 1998 GINI VILLALTA 52 complet ed [facility] [place] Social History Combined list of available smoking, tobacco, and other social history from Department of Defense and Veterans Affairs facilities. Social History Type Response Date Comment Sourc e Tobacco smoking status IDIS QUIT TOBACCO USE > 7 YEARS AGO 11/08/2017 [place] History of tobacco use QUIT TOBACCO USE > 7 YEARS AGO 11/07/2016 quit 1968 [place] History of tobacco use QUIT TOBACCO USE > 7 YEARS AGO 10/06/2015 [place] History of tobacco use HISTORY OF SMOKING 08/10/2003 Patient states he smoked from age befor quitting.[age] [place] History of tobacco use HISTORY OF SMOKING 08/07/2002 Stopped tobacco 34 years ago [place] History of tobacco use QUIT TOBACCO USE > 7 YEARS AGO 10/03/2001 [place] History of tobacco use NON-TOBACCO USER 04/15/2001 Stopped tobacco 30 years ago [place] History of tobacco use HISTORY OF SMOKING 10/17/2000 quit 30 yrs ago [place] Advance Directives List of completed, amended, or rescinded Advance Directives on record at Department of Veterans Affairs facilities. An actual copy of the Directive is not included. Date Advance Directive Provider Source 01/01/2009 ADVANCE DIRECTIVE KENIA,CARMEN CATALAN
[2024-12-01 10:11] LABS: MANUAL DIFF FLAG NO
--- OUTSIDE RECORDS SUMMARY | 2024-12-01 10:16 | XMS_ITS | Patient Health Record ---
Author Organization Babatunde Hoff III, MD Address [address] [place] [address] [address] [place] [address] Care Team Providers Care Center Sales And Service Associate Name Role Phone Babatunde Hoff Primary Care Provider Allergies Allergen (clinical drug ingredient) Drug/Non Drug Allergy documented on EMR Reaction Allergy Type Onset Date Status No Known Drug Allergy Unknown Drug Allergy Active Results Component Value Reference Range Notes URINE DIP STICK Reviewed date:12/07/2023 02:25:16 PM Interpretation: Performing Lab: Notes/Report: SG 1.020 1.005 - 1.025 pH 6.0 5.0 - 9.0 RAMON Negative Negative - NIT Negative Negative - PRO 100 Negative - Trace GLU Negative Negative - KET 40 Negative - UBG 0.2 0.1 - 1.8 ALE 1 0.2 - 1.3 BLD Neg Negative - Complete Blood Count Auto Di ff Reviewed date:04/02/2024 08:52:43 AM Interpretation: Performing Lab:[facility], [address] [place] [phone] Notes/Report: White Blood Count 5.0 4.8-10.8 X10*3/uL Red Blood Count 4.52 4.60-5.80 X10*6/uL Hemoglobin 13.8 14.0-18.0 g/dl Hematocrit 39.9 42.0-52.0 % Mean Corpuscular Volume 88.3 80.0-98.0 fL Mean Corpuscular Hemoglobin 30.5 27.0-33.0 pg Mean Corpuscular HGB Conc 34.6 31.0-36.0 g/dl Red Cell Distribution Width 13.1 11.0-16.0 % Platelet Count 281 160-400 X10*3/uL Mean Platelet Volume 9.8 9.4-12.4 fL Neutrophils Percent Auto 49.1 45-73 % Imm Gran Pct Auto 0.6 0.0-0.4 % Lymphocytes Percent Auto 34.4 20-40 % Monocytes Percent Auto 11.5 2-11 % Eosinophils Percent Auto 3.6 0-4 % Basophils Percent Auto 0.8 0-2 % NRBC Pct Auto 0.0 0.0-0.2 /100WBC Neutrophils Absolute Auto 2.5 2.0-8.3 x10*3/u L Imm Gran Abs Auto 0.03 0.00-0.03 X10*3/uL Lymphocytes Absolute Auto 1.7 1.2-4.9 X10*3/u L Monocytes Absolute Auto 0.6 0.1-1.2 X10*3/uL Eosinophils Absolute Auto 0.2 0.0-0.4 X10*3/u L Basophils Absolute Auto 0.0 0.0-0.2 X10*3/uL NRBC Abs Auto 0.000 0.0-0.012 X10*3/uL Comprehensive [place]. Panel Fa st Reviewed date:04/02/2024 08:52:43 AM Interpretation: Performing Lab:[facility], [address] [place] [phone] Notes/Report: Sodium 137 135-145 mmol/L Potassium 3.6 3.3-5.1 mmol/L Chloride 102 96-108 mmol/L Carbon Dioxide 29 22-29 mmol/L Anion Gap 10 12-20 Blood Urea Nitrogen 5 9-16 mg/dL Creatinine 0.76 0.5-1.4 mg/dL Estimated Glomerular Filt Rate > 60 Chronic Kidney Disease: Estimated GFR < 60 mL/min/1.73m2 Severe Kidney Disease: Estimated GFR < 15 mL/min/1.73m2 Glucose Fasting 99 60-99 mg/dL Calcium 9.4 8.4-10.2 mg/dL Bilirubin Total 0.7 0.0-1.0 mg/dL Aspartate Amino Transferase 23 5-37 U/L Alanine Aminotransferase 16 0-40 U/L Total Protein 7.1 6.5-8.0 g/dL Albumin Level 4.3 3.5-5.0 g/dL Alkaline Phosphatase 60 39-117 U/L Lipid Panel Reviewed date:04/02/2024 08:52:43 AM Interpretation: Performing Lab:[facility], [address] [place] [phone] Notes/Report: Triglycerides 68 <150 mg/dL Desirable Triglyceride: less than 150 mg/dL Borderline High Triglyceride 150-199 mg/dL High Triglyceride: 200-499 mg/dL Very High Triglyceride: greater than or equal to 5OO mg/dL Cholesterol 184 <200 mg/dL Desirable Cholesterol: less than 200 mg/dL Borderline High Cholesterol: 200-239 mg/dL High Cholesterol: greater than 239 mg/dL LDL Cholesterol Calculated 108 <100 mg/dL Desirable LDL: less than 100 mg/dL Near Optimal/Above Optimal LDL: 110-129 mg/dL Borderline High LDL: 130-159 mg/dL High LDL: 160-189 mg/dL Very High LDL: greater than or equal to 190 mg/dL HDL Cholesterol 63 >40 mg/dL Desirable HDL: greater than 40 mg/dL Note: This HDL assay may give artificially low results in patients with liver disease. Prostate Specific Antigen Reviewed date:04/02/2024 08:52:43 AM Interpretation: Performing Lab:[facility], [address] [place] [phone] Notes/Report: Prostate Specific Antigen 1.06 <0.05-4.0 ng/mL PSA methodology: Chairez Alinity i Chemiluminescent Microparticle Immunoassay (CMIA) Vitamin D 25-OH Total Reviewed date:04/02/2024 08:52:43 AM Interpretation: Performing Lab:[address] [phone] Notes/Report: Vitamin D 25-OH Total 30.1 >30 ng/mL Health Based Reference Values* < 20 ng/mL Deficient 20-30 ng/mL Insufficient > 30 ng/mL Sufficient *Yaima RUANO. N Engl J Med. 2007;357:266-280 Care must be taken in interpreting Vitamin D results from different laboratories and methodologies. Published data demonstrated that results from patients undergoing hemodialysis may show a negative bias when tested with various automated 25-OH vitamin D assays when compared to LC-MS/MS. When testing samples from patients whose predominant form of Vitamin D is Vitamin D2, such as patients receiving Vitamin D2 supplementation, results that are subtherapeutic should be confirmed with another method such as LC-MS/MS. Reason For Referral Reason Evaluate and Treat Physical Therapy Diagnosis 1 Generalized weakness (R53.1) Referral Organization Babatunde Hoff III, MD Referring Provider First Name Babatunde Referring Provider Last Name Kavya Referring Provider Speciality Internal M edicine Referred Provider Marie, [facility] Referred Provider Specialty Physical The rapist General Notes D, Monique 07/14/2024 10:42:03 AM > Referral faxed with progress note and cover sheet. Referral Priority Routine Referral Appointment Date 07/17/2024 Medications Medication SIG (Take, Route, Frequency, Duration) Notes Start Date End Date Status Vitamin C 500 MG 1 tablet Orally Once a day Active Multivitamin - 1 tablet Orally Once a day Active traZODone HCl 50 MG 1/2 tab at bedtime O ral at bedtime Active Albuterol Sulfate HFA 108 (90 Base) MCG/ACT Inhalation Active Sertraline HCl 25 MG 1.5 tablet Orally O nce a day 09/02/2024 Active Haloperidol 5 MG 1 Tablet Orally at Bedtime 09/02/2024 Active Lisinopril 5 MG 1 tablet Orally Once a day 09/22/2022 Active risperiDONE 0.5 MG 1 tablet Orally Once a day 06/05/2023 Active Immunizations Vaccine Route Administration Date Status Comme nts Influenza Unknown 02/24/2012 Administered Influenza Unknown 03/08/2014 Administered Influenza Unknown 02/07/2015 Administered PCV13 Unknown 03/26/2017 Administered Influenza no Preserv 3 and > Unknown 02/18/2020 Adminis tered PPV 23 Unknown 03/17/2018 Administered COVID- 19 Vaccine Unknown 08/30/2021 Administered COVID- 19 Vaccine Unknown 07/08/2020 Administered Influenza no Preserv 3 and > Unknown 05/12/2019 Adminis tered Influenza no Preserv 3 and > Unknown 03/31/2021 Adminis tered Influenza no Preserv 3 and > Unknown 03/17/2018 Adminis tered COVID- 19 Vaccine Unknown 03/31/2021 Administered Influenza no Preserv 3 and > Unknown 02/18/2017 Adminis tered PCV13 Unknown 03/26/2017 Administered COVID- 19 Vaccine Unknown 08/05/2020 Administered Social History Tobacco Use: Social History Observation Description Date Details (start date - stop date) Former Smoker NA - NA Sex Assigned At : Social History Observation Description Sex Assigned At Male Tobacco Use/Smoking Question Answer Notes Patient is a former smoker How long has it been since you last smoked? > 10 years Additional Findings: Tobacco Non-User Ex-cigaret te smoker Alcohol Screen Question Answer Notes Did you have a drink containing alcohol in the p ast year? No Points 0 Interpretation Negative Problems Problem Type SNOMED Code ICD Code Onset Dates Problem Status W/U Status Risk Notes Problem 8091300 Former smoker (Z87.891) Active confirmed He is highly motivated not to smoke tobacco. He has a plan to prevent relapse in times of stress. Problem 715080431 Overweight (E66.3) Active confirmed He is very slightly overweight. I recommended losing a few pounds through a diet restricted in fat calories and sodium. He has gained 4 pounds since his last visit and his body mass index is 25.53. He weighs 163 pounds. Problem 97927750 Anxiety (F41.9) Active confirmed His anxiety was not present today. Was rational and coherent and well spoken. Problem 5436795 Brief psychotic disorder (F23) Active confirmed He developed a brief paranoid psychosis with multiple calls to the police and visits to the emergency room. He is now on medication and doing well with resolution of the psychosis. He understands what happened to him. He is back at home with his significant other, Jenn.He continues on the risperidone and trazodone without difficulty. Problem Benign prostatic hyperplasia (015327573) BPH (benign prostatic hyperplasia) (N40.0) Active confirmed He says he has been rising from sleep once a night occasionally depending upon his fluid intake. Problem 39202137 Essential hypertension (I10) Active confirmed His blood pressure today is unremarkable. Several times in the morning his systolic blood pressure has been under 90. I stopped the lisinopril and arranged close follow-up His pressure is slightly higher now will be observed carefully. Problem 216475706 Microscopic hematuria (R31.2) Active confirmed Problem 390803764 Environmental allergies (Z91.09) Active confirmed He had mi ld allergic symptoms during pollen season. He feels well today. Problem 31359706 Bilateral inguin al hernia without obstruction or gangrene, recurrence not specified (K40.20) Active confirmed These hav e been repaired and no longer a problem. Problem 45441579 Pulmonary emphysema, unspecified emphysema type (J43.9) Active confirmed His pulmonary status is stable and he is using his medications appropriately . No change in his regimen is needed today. Problem 930278791 Acute gout involving toe of right foot, unspecified cause (M10.9) Active confirmed He has had no attacks of gout since his last visit. The pain in his foot has resolved. Problem 52603935 Neurodegenerativ e cognitive impairment (G31.9) Active confirmed His memor y is intact for the most part, but he does have some cognitive impairment. There has been no change in his dementia. He has conducting all of the activities of daily life without impairment. Vital Signs Heart Rate 89 /min 10/07/2024 Temperature 97.5 degrees Fahrenheit 10/07/2024 Blood pressure diastolic 89 mm Hg 10/07/2024 Height 67 in 10/07/2024 Blood pressure systolic 136 mm Hg 10/07/2024 Weight 165 lbs 10/07/2024 BMI 25.84 kg/m2 10/07/2024 Encounters Encounter Location Date Provider Diagnosis Babatunde Hoff III, MD [address] [place] [address] [place] [address] 12/07/2023 Babatunde Hoff Anxiety F41.9 ; BPH (benign prostatic hyperplasia) N40.0 ; Vitamin deficiency, unspecified E56.9 ; Bilateral inguinal hernia without obstruction or gangrene, recurrence not specified K40.20 ; Pulmonary emphysema, unspecified emphysema type J43.9 ; Environmental allergies Z91.09 ; Former smoker Z87.891 ; Acute gout involving toe of right foot, unspecified cause M10.9 and Neurodegenerative cognitive impairment G31.9 Babatunde Hoff III, MD [address] [place] [address] [place] [phone] 04/08/2024 Babatunde Hoff Essential hypertensi on I10 ; Overweight E66.3 ; Former smoker Z87.891 ; Pulmonary emphysema, unspecified emphysema type J43.9 ; Environmental allergies Z91.09 ; BPH (benign prostatic hyperplasia) N40.0 and Brief psychotic disorder F23 Babatunde Hoff III, MD [address] [place] [address] [place] [address] 07/09/2024 Babatunde Hoff Generalized weakness R53.1 ; Neurodegenerative cognitive impairment G31.9 ; Essential hypertension I10 ; Environmental allergies Z91.09 ; Acute gout involving toe of right foot, unspecified cause M10.9 ; BPH (benign prostatic hyperplasia) N40.0 ; Brief psychotic disorder F23 and Former smoker Z87.891 Babatunde Hoff III, MD [address] [place] [address] [place] [address] 10/07/2024 Babatunde Hoff Essential hypertensi on I10 ; Bilateral inguinal hernia without obstruction or gangrene, recurrence not specified K40.20 ; Pulmonary emphysema, unspecified emphysema type J43.9 ; Environmental allergies Z91.09 ; Brief psychotic disorder F23 ; Neurodegenerative cognitive impairment G31.9 ; Acute gout involving toe of right foot, unspecified cause M10.9 ; Overweight E66.3 and Former smoker Z87.891 Babatunde Hoff III, MD [address] [place] [address] [place] [address] 07/16/2024 Babatunde Hoff III, MD [address] [place] [address] [place] [address] 07/17/2024 Babatunde Hoff III, MD [address] [place] [address] [place] [address] 07/25/2024 Babatunde Hoff III, MD [address] [place] [address] [place] [address] 09/02/2024 Babatunde Hoff Assessments Encounter Date Diagnosis (ICD Code) Assessment Notes T reatment Notes Treatment Clinical Notes 12/07/2023 Anxiety (ICD-10 - F41.9) His anxiety was not present today. Was rational and coherent and well spoken. 12/07/2023 BPH (benign prostati c hyperplasia) (ICD-10 - N40.0) He says he has been rising from sleep once a night occasionally depending upon his fluid intake. 04/08/2024 Overweight (ICD-10 - E66.3) He is very slightly overweight. I recommended losing a few pounds through a diet restricted in fat calories and sodium. He has gained 4 pounds since his last visit and his body mass index is 25.53. He weighs 163 pounds. 04/08/2024 Essential hypertensi on (ICD-10 - I10) His blood pressure today is unremarkable. Several times in the morning his ssystolic blood pressure has been under 90. I stopped the lisinopril and arranged close follow-up. 07/09/2024 Generalized weakness (ICD-10 - R53.1) He was able to stand up from the chair without difficulty was unsteady walking to the examining table and had difficulty extending. I have referred him for physical therapy evaluation and treatment. 07/09/2024 Neurodegenerative cognitive impairment (ICD-10 - G31.9) His memory is intact for the most part, but he does have some cognitive impairment. There has been no change in his dementia. He has conducting all of the activities of daily life without impairment. 10/07/2024 Essential hypertensi on (ICD-10 - I10) [...] been repaired and no longer a problem. 12/07/2023 Vitamin deficiency, unspecified (ICD-10 - E56.9) His supplementation was continued. 04/08/2024 Former smoker (ICD-1 0 - Z87.891) He is highly motivated not to smoke tobacco. He has a plan to prevent relapse in times of stress. 07/09/2024 Essential hypertensi on (ICD-10 - I10) His blood pressure today is unremarkable. Several times in the morning his ssystolic blood pressure has been under 90. I stopped the lisinopril and arranged close follow-up. 10/07/2024 Pulmonary emphysema, unspecified emphysema type (ICD-10 - J43.9) His pulmonary status is stable and he is using his medications appropriately. No change in his regimen is needed today. 12/07/2023 Bilateral inguinal hernia without obstruction or gangrene, recurrence not specified (ICD-10 - K40.20) These have been repaired and no longer a problem. 04/08/2024 Pulmonary emphysema, unspecified emphysema type (ICD-10 - J43.9) His pulmonary status is stable and he is using his medications appropriately. No change in his regimen is needed today. 07/09/2024 Environmental allergies (ICD-10 - Z91.09) He had mild allergic symptoms during pollen season. He feels well today. 10/07/2024 Environmental allergies (ICD-10 - Z91.09) He had mild allergic symptoms during pollen season. He feels well today. 12/07/2023 Pulmonary emphysema, unspecified emphysema type (ICD-10 - J43.9) His pulmonary status is stable and he is using his medications appropriately. No change in his regimen is needed today. 04/08/2024 Environmental allergies (ICD-10 - Z91.09) He had mild allergic symptoms during pollen season. He feels well today. 07/09/2024 Acute gout involving toe of right foot, unspecified cause (ICD-10 - M10.9) He has had no attacks of gout since his last visit. The pain in his foot has resolved. 10/07/2024 Brief psychotic disorder (ICD-10 - F23) He developed a brief paranoid psychosis with multiple calls to the police and visits to the emergency room. He is now on medication and doing well with resolution of the psychosis. He understands what happened to him. He is back at home with his significant other, Jenn.He continues on the risperidone and trazodone without difficulty. 12/07/2023 Environmental allergies (ICD-10 - Z91.09) He had mild allergic symptoms during pollen season. He feels well today. 04/08/2024 BPH (benign prostati c hyperplasia) (ICD-10 - N40.0) He says he has been rising from sleep once a night occasionally depending upon his fluid intake. 07/09/2024 BPH (benign prostati c hyperplasia) (ICD-10 - N40.0) He says he has been rising from sleep once a night occasionally depending upon his fluid intake. 10/07/2024 Neurodegenerative cognitive impairment (ICD-10 - G31.9) His memory is intact for the most part, but he does have some cognitive impairment. There has been no change in his dementia. He has conducting all of the activities of daily life without impairment. 12/07/2023 Former smoker (ICD-1 0 - Z87.891) He is highly motivated not to smoke tobacco. He has a plan to prevent relapse in times of stress. 04/08/2024 Brief psychotic disorder (ICD-10 - F23) He developed a brief paranoid psychosis with multiple calls to the police and visits to the emergency room. He is now on medication and doing well with resolution of the psychosis. He understands what happened to him. He is back at home with his significant other, Jenn.He continues on the risperidone and trazodone without difficulty. 07/09/2024 Brief psychotic disorder (ICD-10 - F23) He developed a brief paranoid psychosis with multiple calls to the police and visits to the emergency room. He is now on medication and doing well with resolution of the psychosis. He understands what happened to him. He is back at home with his significant other, Jenn.He continues on the risperidone and trazodone without difficulty. 10/07/2024 Acute gout involving toe of right foot, unspecified cause (ICD-10 - M10.9) He has had no attacks of gout since his last visit. The pain in his foot has resolved. 12/07/2023 Acute gout involving toe of right foot, unspecified cause (ICD-10 - M10.9) He has had no attacks of gout since his last visit. The pain in his foot has resolved. 07/09/2024 Former smoker (ICD-1 0 - Z87.891) He is highly motivated not to smoke tobacco. He has a plan to prevent relapse in times of stress. 10/07/2024 Overweight (ICD-10 - E66.3) He is very slightly overweight. I recommended losing a few pounds through a diet restricted in fat calories and sodium. He has gained 4 pounds since his last visit and his body mass index is 25.53. He weighs 163 pounds. 12/07/2023 Neurodegenerative cognitive impairment (ICD-10 - G31.9) His memory is intact for the most part, but he does have some cognitive impairment. There has been no change in his dementia. He has conducting all of the activities of daily life without impairment. 10/07/2024 Former smoker (ICD-1 0 - Z87.891) He is highly motivated not to smoke tobacco. He has a plan to prevent relapse in times of stress. Plan Of Treatment Pending Test Test Name Order Date PROFILE, FASTING (COMPREHENSIVE METABOLI C) 10/07/2024 PROFILE, FASTING (COMPREHENSIVE METABOLI C) 12/07/2023 PSA, TOTAL 10/07/2024 PSA, TOTAL 12/07/2023 CBC w DIFF 10/07/2024 XR CHEST 2 VIEW PA & LAT 02/10/2021 Stress Test 07/11/2021 PFT with DLCO 02/09/2021 CBC WITH AUTO DIFF 12/07/2023 Uric Acid 10/07/2024 Lipid Panel 12/07/2023 Lipid Panel 10/07/2024 Vitamin D 25-OH Total 12/07/2023 Next Appt Details Provider Name:Babatunde Hoff, 12/08/2024 02:30:00 PM, [address] [place] [address] [address], [place], [address], Insurance Providers Payer Name Payer Address Payer Phone Subscriber Number Group Number Insured Name Patient Relationship to Insured Coverage Start Date Coverage End Date MEDICARE [place] [address] [place] [address] [id number] Onesimo Forrester Self - patient is the insured [facility] [address] [place], [place] [id number] [phone] [id number] Onesimo Forrester Self - patient is the insured Medical (General) History Medical History History ICD Code bilateral inguinal hernias emphysema left knee pain hypertension allergies microscopic hematuria Early mild dementia and Intermittent psychotic ideation Surgical History Surgery Date(Month/Year) No history right great toe nail 06/2022 colonoscopy [address] Jerry 2011 bilateral inguinal herniorraphies Hospitalization History Reason Date(Month/Year) No history
--- OUTSIDE RECORDS SUMMARY | 2024-12-01 10:17 | XMS_ITS | Patient Health Record ---
Author Organization [facility] [place] Address [address] [place] [address] Care Team Providers Care Brim Pouncer Machine Operator Name Role Phone Kavya GR, Babatunde Primary Care Provider Alfonso Thayer Unavailable [phone] Allergies Allergen (clinical drug ingredient) Drug/Non Drug Allergy documented on EMR Reaction Allergy Type Onset Date Status hay fever (uncoded) runny eyes, sneezing, SOB Allergy Active Reason For Referral No Information Medications Medication SIG (Take, Route, Fr equency, Duration) Notes Start Date End Date Status Vitamin C Active Hair Booster Active Lisinopril 10 MG 1 tablet Once a day Not-Taking Hydrocortisone 1 % 1 application to aff ected area Externally Twice a day to affected areas on feet; Duration: 30 days 06/20/2022 Active Lisinopril Not-Takin g Immunizations Vaccine Route Administration Date Status Comme nts COVID-19 Moderna Vaccine Unknown 08/31/2021 Administered 07/08/20, 08/05/20 , 03/31/21 Social History Tobacco Use: Social History Observation Description Date Details (start date - stop date) Former Smoker NA - NA Tobacco Use/Smoking Question Answer Notes Are you a: former smoker Additional Findings: Tobacco Non-User Current no n-smoker Alcohol Screen Question Answer Notes Did you have a drink containing alcohol in the p ast year? Yes Points 0 Interpretation Negative Tobacco use other than smoking: Question Answer Notes Are you an other tobacco user? 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 confirmed Plan Of Treatment No Information Insurance Providers Payer Name Payer Address Payer Phone Subscriber Number Group Number Insured Name Patient Relationship to Insured Coverage Start Date Coverage End Date Medicare National [facility] [address] [place] [address] [id number] Onesimo Forrester Self - patient is the insured [employer] [address] [place] [address] [id number] Onesimo Forrester Self - patient is the insured Medical (General) History Medical History History ICD Code Anxiety Chicken pox Hepatitis A High blood pressure Measles Mumps Surgical History Surgery Date(Month/Year) inguinal hernia 1988
[2024-12-01 10:22] LABS: Hematocrit 41.1 % (42.0-52.0); Hemoglobin 14.0 g/dl (14.0-18.0); Imm Gran Abs Auto 0.03 X10*3/uL (0.00-0.03); Imm Gran Pct Auto 0.6 % (0.0-0.4); Lymphocytes Absolute Auto 1.7 X10*3/uL (1.2-4.9); Mean Corpuscular HGB Conc 34.1 g/dl (31.0-36.0); Mean Corpuscular Hemoglobin 31.0 pg (27.0-33.0); Mean Corpuscular Volume 91.1 fL (80.0-98.0); NRBC Abs Auto 0.000 X10*3/uL (0.0-0.012); NRBC Pct Auto 0.0 /100WBC (0.0-0.2); Platelet Count 281 X10*3/uL (160-400); Red Blood Count 4.51 X10*6/uL (4.60-5.80); White Blood Count 4.9 X10*3/uL (4.8-10.8)
[2024-12-01 11:00] LABS: Alanine Aminotransferase 20 U/L (0-40); Albumin Level 4.6 g/dL (3.5-5.0); Alkaline Phosphatase 64 U/L (39-117); Anion Gap 12 (12-20); Aspartate Amino Transferase 38 U/L (5-37); Blood Urea Nitrogen 9 mg/dL (9-16); Calcium 9.2 mg/dL (8.4-10.2); Carbon Dioxide 28 mmol/L (22-29); Chloride 101 mmol/L (96-108); Cholesterol 198 mg/dL (<200); Estimated Glomerular Filt Rate > 60; HDL Cholesterol 68 mg/dL (>40); Potassium 4.3 mmol/L (3.3-5.1); Sodium 137 mmol/L (135-145); Total Protein 7.4 g/dL (6.5-8.0); Triglycerides 62 mg/dL (<150); Uric Acid 4.1 mg/dL (3.4-7.0)
[2024-12-01 11:05] LABS: Prostate Specific Antigen 1.42 ng/mL (<0.05-4.0)
== END 2024-12-01 09:40 | disposition home or self-care (01) ==
LOC: HO.10HDL 09:39
PROVIDERS: Visit Provider Internal Medicine Medical Oncology
DX: N40.0 Benign prostatic hyperplasia without lower urinary tract symptoms (principal); E66.3 Overweight; M10.9 Gout, unspecified
CPT/HCPCS: 36415; 80053; 80061; 84153; 84550; 85025

== ENCOUNTER → 2024-12-08 15:17 | Outpatient (REF) | payer MEDICARE, SELFPAY ==
--- OUTSIDE RECORDS SUMMARY | 2017-11-08 09:18 | XMS_ITS | Continuity of Care Document ---
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 Name Role Phone [facility] Unavailable Unavailable Problems Combined list of problems [...] Condition [place] Essential hypertension (SNOMED CT 36441434) Active Condition [place] [facility] Hypercholesterolemia (SNOMED CT 32303671) Active Condition [place] Impaired fasting glycaemia (SNOMED CT 325974583) Active Condition [place] Microscopic Hematuria Active Condition [place] Polyp of colon (SNOMED CT 34616475) Active Condition Mar 04, 2015 Entered By: KENNEDY COLE Comment: 2 polyps, diverticulosi s, int hemorrhoids - repeat (2017)Jan 15, 2018 Entered By: FLORENCIA WHEELER Comment: September 2017: 1 tubular adenoma removed; repeat colonscopy in 5 years (2022) [place] Medications Combined list of outpatient medications from Department of [facility] and Veterans Affairs facilities.Medications provided include 1) [...] Site Reaction Lot Number CVX Code Drug Cancer Genetic Counselor Status Comments Source INFLUENZA, SEASONAL, INJECTABLE 2016 [...] (HISTORICAL) 1998 REBECCA FERMIN 88 complet ed [facility] IELD HEP A, ADULT 1998 GINI VILLALTA 52 complet ed [facility] IE Social History Combined list of available smoking, tobacco, and other social history from Department of Defense and Veterans Affairs facilities. Social History Type Response Date Comment Sourc e Tobacco smoking status CAIS QUIT TOBACCO USE > 7 YEARS AGO 11/08/2017 [place] History of tobacco use QUIT TOBACCO USE > 7 YEARS AGO 11/07/2016 quit 1968 [place] History of tobacco use QUIT TOBACCO USE > 7 YEARS AGO 10/06/2015 [place] History of tobacco use HISTORY OF SMOKING 08/10/2003 Patient states he smoked from age befor quitting.[age] [place] History of tobacco use HISTORY OF SMOKING 08/07/2002 Stopped tobacco 34 years ago [place] History of tobacco use QUIT TOBACCO USE > 7 YEARS AGO 10/03/2001 [place] History of tobacco use NON-TOBACCO USER 04/15/2001 Stopped tobacco 30 years ago [place] History of tobacco use HISTORY OF SMOKING 10/17/2000 quit 30 yrs ago [place] Advance Directives List of completed, amended, or rescinded Advance Directives on record at Department of Veterans Affairs facilities. An actual copy of the Directive is not included. Date Advance Directive Provider Source 01/01/2009 ADVANCE DIRECTIVE KENIA,CARMEN CATALAN
--- OUTSIDE RECORDS SUMMARY | 2024-12-08 10:30 | XMS_ITS ---
Author Organization Babatunde Hoff III, MD Address [address] [place] [address] [address] [facility] [address] Care Team Providers Care Services Mgr Name Role Phone Babatunde Hoff Primary Care Provider Allergies Allergen (clinical drug ingredient) Drug/Non Drug Allergy documented on EMR Reaction Allergy Type Onset Date Status No Known Drug Allergy Unknown Drug Allergy Active No Known Food Allergy Unknown Drug Allergy Active REASON FOR VISIT Annual Exam Medications Medication SIG (Take, Route, Frequency, Duration) Notes Start Date End Date Status Albuterol Sulfate HFA 108 (90 Base) MCG/ACT Inhalation Active Haloperidol 5 MG 1 Tablet Orally at Bedtime 09/02/2024 Active Sertraline HCl 25 MG 1.5 tablet Orally O nce a day 09/02/2024 Active Social History Tobacco Use: Social History Observation Description Date Details (start date - stop date) Former Smoker NA - NA Sex Assigned At : Social History Observation Description Sex Assigned At Male Tobacco Control (Standard) Question Answer Notes Tobacco use: Former smoker How long has it been since you last smoked? Grea ter than 10 years Additional Findings: Tobacco non-user Ex-cigaret te smoker AUDIT-C (Standard) Question Answer Notes Did you have a drink contain ing alcohol in the past year? Yes How often did you have six o r more drinks on one occasion in the past year? 4 or more times a week (4 points) How many drinks did you have on a typical day when you were drinking in the past year? 1 or 2 drinks (0 point) How often did you have a dri nk containing alcohol in the past year? Never (0 point) Points 4 Interpretation Positive Vital Signs Temperature 98.1 degrees Fahrenheit 12/09/19 25 Blood pressure systolic 133 mm Hg 12/09/19 25 Blood pressure diastolic 81 mm Hg 025 Heart Rate 70 /min 12/08/2024 Height 67 in 12/08/2024 Weight 165 lbs 12/08/2024 BMI 25.84 kg/m2 12/08/2024 Encounters Encounter Location Date Provider Diagnosis Babatunde Hoff III, MD [address] [place] [address] [place] [id number] 12/08/2024 Babatunde Hoff Essential hypertensi on I10 and Palpitation R00.2 Assessments Encounter Date Diagnosis (ICD Code) Assessment Notes Treat ment Notes Treatment Clinical Notes 12/08/2024 Essential hypertension (ICD-10 - I10) His blood pressure today is unremarkable. Several times in the morning his systolic blood pressure has been under 90. I stopped the lisinopril and arranged close follow-up His pressure is slightly higher now will be observed carefully. 12/08/2024 Palpitation (ICD-10 - R00.2) Plan Of Treatment Medication Medication Name Sig Start Date Stop Date Notes Albuterol Sulfate HFA 108 (9 0 Base) MCG/ACT Inhalation Haloperidol 5 MG 1 Tablet Orally at Bedtime 09/02/2024 Sertraline HCl 25 MG 1.5 tablet Orally Once a day 09/03/19 25 Pending Test Test Name Order Date ECG 12 lead EKG 12/08/2024 Next Appt Details Follow Up: 1 Week,2 Months, Reason: Telehealth, OV Provider Name:Babatunde Hoff, 12/12/2024 02:15:00 PM, [address] [place] [address] [place], [address], Provider Name:Babatunde Hoff, 02/11/2025 02:00:00 PM, [address] [place] [address] [place], [phone], Provider Name:Babatunde Hoff, 12/09/2025 02:00:00 PM, [address] [place] [address] [place], [phone], Progress Notes * Onesimo BUSTILLO GDOB:1945 (79 yo M)Acc No.[id number]:12/08/2024 Progress Notes Patient: Onesimo MCFARLANE Provider: Chaparrita Hoff MD :1945 A ge:79 Y S ex:Male Date:12/08/2024 Address:[address] [place], [place] [id number] Subjective: * Chief Complaints: * 1 . Annual Exam. * HPI: D epression Screening: bigeminy, breathing ok , no cp, no nvd ?NEEDS A DAIJA. PHQ-9 L ittle interest or pleasure in doing things?Not at all F eeling down, depressed, or hopeless N ot at all T rouble falling or staying asleep, or sleeping too much N ot at all F eeling tired or having little energy N ot at all P oor appetite or overeating N ot at all F eeling bad about yourself or that you are a failure, or have let yourself or your family down N ot at all T rouble concentrating on things, such as reading the newspaper or watching television N ot at all M oving or speaking so slowly that other people could have noticed; or the opposite, being so fidgety or restless that you have been moving around a lot more than usual N ot at all T houghts that you would be better off or of hurting yourself in some way N ot at all T otal Score 0 C OVID-19 Screening: Questions H ave you had any new onset fever, chills, cough, congestion, sore throat, shortness of breath, muscle aches? N o F all Risk Screening: Fall History H ave you had any falls with injury in the past year? N o H ave you had two or more falls in the past year? N o F all Risk Assessment: N o falls in the past year S CARLOS ALBERTO Questions: SDOH Questions I n the past year have you been worried about losing your housing? N o I n the past year have you or any family members you live with been unable to get any of the following when it was really needed? Check all that apply: N one * ROS: G eneral/Constitutional: pain o nly normal aches and pains. C hills d enies.?Fatigue a dmits. F ever d enies. E NT: Decreased hearing d enies. R espiratory: Cough d enies. C ardiovascular: Chest pain with exertion d enies. D yspnea on exertion?denies. S hortness of breath d enies. G astrointestinal: Constipation d enies. D ecreased appetite d enies.?Diarrhea d enies. H eartburn d enies. N ausea d enies. R ectal bleeding?denies. V omiting d enies. H ematology: bruising [...] Depressed mood d enies. * Medical History: B ilateral inguinal hernias, Emphysema, Left knee pain, Hypertension, Allergies, Microscopic hematuria, Early mild dementia and, Intermittent psychotic ideation. * Surgical History: b ilateral inguinal herniorraphies , colonoscopy [address] Jerry 2011, right great toe nail 06/2022, No history . * Hospitalization/Major Diagno stic Procedure: N o history . * Family History: F ather: 65 yrs, chronic obstructive pulmonary disease. M other: 85 yrs, colon cancer, diagnosed with Cancer. 2 brother(s) . 2 son(s) . . A son is schizophrenic. * Social History: T obacco Use: T obacco Control (Standard) T obacco use: F ormer smoker H ow long has it been since you last smoked??Greater than 10 years A dditional Findings: Tobacco non-user E x-cigarette smoker D rugs/Alcohol: D rugs H ave you used drugs other than those for medical reasons in the past 12 months? N o D rug/Alcohol: A NENA-C (Standard) D id you have a drink containing alcohol in the past year? Y es H ow often did you have six or more drinks on one occasion in the past year? 4 or more times a week (4 points) H ow many drinks did you have on a typical day when you were drinking in the past year? 1 or 2 drinks (0 point) H ow often did you have a drink containing alcohol in the past year? N ever (0 point) P oints 4 I nterpretation P ositive H e was for many years to [employer] who in 2013. He is not working now, did [employer] and [employer]. 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 One son was a patient occupational safety specialist at [employer] and now is a employee services manager. He is in a platonic relationship at home with Jenn. * Medications: T aking Haloperidol 5 MG Tablet 1 Tablet Orally at Bedtime , Taking Sertraline HCl 25 MG Tablet 1.5 tablet Orally Once a day , Taking Albuterol Sulfate HFA 108 (90 Base) MCG/ACT Aerosol Solution Inhalation , Discontinued Multivitamin - Tablet 1 tablet Orally Once a day , Discontinued Vitamin C 500 MG Tablet 1 tablet Orally Once a day , Discontinued traZODone HCl 50 MG Tablet 1/2 tab at bedtime Oral at bedtime , Discontinued Lisinopril 5 MG Tablet 1 tablet Orally Once a day , Discontinued risperiDONE 0.5 MG Tablet 1 tablet Orally Once a day , Medication List reviewed and reconciled with the patient * Allergies: N o Known Drug Allergy, No Known Food Allergy. Objective: * Vitals: H t: 67, Wt:165, BMI:25.84, BP:133/81, HR:70, Temp:98.1, Wt-k.84. * Examination: G eneral Examination: GENERAL APPEARANCE: p leasant, well nourished, well developed, in no acute distress, calm and relaxed. HEAD: a traumatic, normocephalic. EYES: e lei, [...] normal, no s3, or vascular bruits. LUNGS: c lear to auscultation . BREASTS: no masses palpable bilaterally. ABDOMEN: b owel sounds normal, no ascites, no organomegaly, no mass. RECTAL EXAM: n ot examined. MUSCULOSKELETAL: e xtremities unremarkable, no clubbing, cyanosis or edema. PERIPHERAL PULSES: n ormal. NEUROLOGIC: a lert and oriented, cranial nerves 2-12 grossly intact, deep tendon reflexes 2+ symmetrical, motor strength normal upper and lower extremities, sensory exam intact. PSYCH: a lert, oriented. Assessment: * Assessment: 1. E ssential hypertension - I10 N otes :His blood pressure today is unremarkable. Several times in the morning his systolic blood pressure has been under 90. I stopped the lisinopril and arranged close follow-up His pressure is slightly higher now will be observed carefully. 2 . P alpitation - R00.2 Plan: * Treatment: 2. P alpitation I maging: ECG 12 lead EKG * Follow Up: 1 Week,2 Months (Reason: Telehealth, OV) * Images: * The named appointment provid er may or may not be the originator of this progress note, and it is not deemed complete until electronically signed by the appointment provider. Sign off status: Pending * Provider: Chaparrita Hoff MD Date: 12/08/2024 Generated for John loyd/Edda/Gauravitting on: 12/08/2024 03:39 PM EDT History and Physical Notes * HPI (History of Present Illness) Category Sub-Category Detail Notes Depression Screening PHQ-9 Little inte rest or pleasure in doing things: Not at all Feeling down, depressed, or hopeless: No t at all Trouble falling or staying asleep, or sl eeping too much: Not at all Feeling tired or having little energy: N ot at all Poor appetite or overeating: Not at all Feeling bad about yourself o r that you are a failure, or have let yourself or your family down: Not at all Trouble concentrating on thi ngs, such as reading the newspaper or watching television: Not at all Moving or speaking so slowly that other people could have noticed; or the opposite, being so fidgety or restless that you have been moving around a lot more than usual: Not at all Thoughts that you would be b matt off or of hurting yourself in some way: Not at all Total Score: 0 Fall Risk Screening Fall History Have you had any falls with injury in the past year?: No Have you had two or more falls in the year?: No Fall Risk Assessment:: No falls in the p year COVID-19 Screening Questions Have you had any new onset fever, chills, cough, congestion, sore throat, shortness of breath, muscle aches?: No SDOH Questions SDOH Questions In the past year have you been worried about losing your housing?: No In the past year have you or any family members you live with been unable to get any of the following when it was really needed? Check all that apply:: None Examination Category Sub-Category Detail Notes General Examination GENERAL APPEARANCE: pleasant , well nourished, well developed, in no acute distress, calm and relaxed HEAD: atraumatic, normocep halic EYES: eomi, perrla, anicte yusef, conjugate EARS: normal NOSE: septum intact NECK/THYROID: no jugular venous di stention, no carotid bruit, thyroid normal HEART: no clicks, gallops, murmurs, or rubs, regular rhythm, S1, S2 normal, no s3, or vascular bruits LUNGS: clear to auscultatio n ABDOMEN: bowel sounds normal, no ascites, no organomegaly, no mass NEUROLOGIC: alert and oriented, cranial nerves 2-12 grossly intact, deep tendon reflexes 2+ symmetrical, motor strength normal upper and lower extremities, sensory exam intact SKIN: no suspicious lesion s, anicteric PERIPHERAL PULSES: normal BREASTS: no masses palpable b ilaterally MUSCULOSKELETAL: extremities unremark able, no clubbing, cyanosis or edema LYMPH NODES: no enlarged lymph no mehnaz,spleen normal RECTAL EXAM: not examined PSYCH: alert, oriented ORAL CAVITY: normal, unremarkable
--- NOTE | 2024-12-08 15:25 | ECG_ITS ---
Test Reason : R00.2 PAPITATION Blood Pressure : */* mmHG Vent. Rate : 68 BPM Atrial Rate : 68 BPM P-R Int : 194 ms QRS Dur : 84 ms QT Int : 418 ms P-R-T Axes : 77 65 72 degrees QTcB Int : 444 ms Sinus rhythm with Blocked Premature atrial complexes Nonspecific ST abnormality Abnormal ECG When compared with ECG of 17-Oct-2022 19:06, Premature atrial complexes are now Present Referred By: Babatunde Hoff Electronically Signed By: KIET ORNELAS MD
--- OUTSIDE RECORDS SUMMARY | 2024-12-08 15:40 | XMS_ITS | Patient Health Record ---
Author Organization [facility] cierra [place] Address [address] [place] [address] Care Team Providers Care Short Piece Handler Name Role Phone Kavya GR, Babatunde Primary Care Provider Alfonso Thayer Unavailable [phone] Allergies Allergen (clinical drug ingredient) Drug/Non Drug [...] Start Date Coverage End Date Medicare [facility] [address] [place] [address] [id number] Onesimo Forrester Self - patient is the insured [employer] [address] [place] [address] [phone] [id number] Onesimo Forrester Self - patient is the insured Medical (General) History Medical History History ICD Code Anxiety Chicken pox Hepatitis A High blood pressure Measles Mumps Surgical History Surgery Date(Month/Year) inguinal hernia 1988
== END ==
LOC: HO.CARD 15:17
PROVIDERS: PCP Internal Medicine Medical Oncology; Visit Provider Internal Medicine Medical Oncology
DX: R00.2 Palpitations (principal)
CPT/HCPCS: 93005

== ENCOUNTER → 2024-12-08 15:25 | Outpatient (BNV) | payer MEDICARE, SELFPAY | PROVIDERS: PCP Internal Medicine Medical Oncology; Visit Provider Internal Medicine Cardiovascular Disease | DX: I49.1 Atrial premature depolarization (principal) | CPT/HCPCS: 93010 ==

== ENCOUNTER 2025-01-25 17:21 | Inpatient (IN) | payer MEDICARE, SELFPAY ==
--- OUTSIDE RECORDS SUMMARY | 2024-09-02 07:39 | XMS_ITS ---
Author Organization Babatunde Hoff III, MD Address [address] [place] [address] [place] [address] Care Team Providers Care Group Product Manager Name Role Phone Babatunde Hoff Primary Care Provider [phone] REASON FOR VISIT Updated Med List Medications Medication SIG (Take, Route, Frequency, Duration) Notes Start Date End Date Status Albuterol Sulfate HFA 108 (90 Base) MCG/ACT Inhalation Unknown traZODone HCl 50 MG 1/2 tab at bedtime O ral at bedtime Unknown risperiDONE 0.5 MG 1 tablet Orally Once a day 06/05/2023 Unknown Sertraline HCl 25 MG 1.5 tablet Orally O nce a day 09/02/2024 Active Vitamin C 500 MG 1 tablet Orally Once a day Unknown Lisinopril 5 MG 1 tablet Orally Once a day 09/22/2022 Unknown Haloperidol 5 MG 1 Tablet Orally at Bedtime 09/02/2024 Active Multivitamin - 1 tablet Orally Once a day Unknown Social History Sex Assigned At : Social History Observation Description Sex Assigned At Male Encounters Encounter Location Date Provider Diagnosis Babatunde Hoff III, MD [address] [place] [address] [place] [address] 09/02/2024 Babatunde Hoff Plan Of Treatment Next Appt Details Provider Name:Babatunde Hoff, 03/24/2025 02:00:00 PM, [address] [place] [address] [place], [address], Provider Name:Babatunde Hoff, 12/09/2025 02:00:00 PM, [address] [place] [address] [place], [place], [address], Progress Notes * KENYOnesimo LEDBETTER GDOB:1945 (78 yo M)Acc No.[id number]:09/02/2024 Patient: Onesimo MCFARLANE :1945 A ge:78 Y S ex:Male Address:[address] [place] [id number] Subjective: * Chief Complaints: * U pdated Med List * Medical History: * Surgical History: * Hospitalization/Major Diagno stic Procedure: * Medications: T akingHaloperidol 5 MG Tablet 1 Tablet Orally at Bedtime Sertraline HCl 25 MG Tablet 1.5 tablet Orally Once a day Taking Haloperidol 5 MG Tablet 1 Tablet Orally at Bedtime Taking Sertraline HCl 25 MG Tablet 1.5 tablet Orally Once a day UnknownLisinopril 5 MG Tablet 1 tablet Orally Once a day Multivitamin - Tablet 1 tablet Orally Once a day Vitamin C 500 MG Tablet 1 tablet Orally Once a day Albuterol Sulfate HFA 108 (90 Base) MCG/ACT Aerosol Solution Inhalation traZODone HCl 50 MG Tablet 1/2 tab at bedtime Oral at bedtime risperiDONE 0.5 MG Tablet 1 tablet Orally Once a day Unknown Lisinopril 5 MG Tablet 1 tablet Orally Once a day Unknown Multivitamin - Tablet 1 tablet Orally Once a day Unknown Vitamin C 500 MG Tablet 1 tablet Orally Once a day Unknown Albuterol Sulfate HFA 108 (90 Base) MCG/ACT Aerosol Solution Inhalation Unknown traZODone HCl 50 MG Tablet 1/2 tab at bedtime Oral at bedtime Unknown risperiDONE 0.5 MG Tablet 1 tablet Orally Once a day Objective: * Vitals: * Physical Examination: Assessment: Plan: * Treatment: * Procedure Codes: * true * Date: Generated for John loyd/Edda/Lamonte on: 0 01/25/2025 06:47 PM EDT
--- OUTSIDE RECORDS SUMMARY | 2024-10-07 11:15 | XMS_ITS ---
Author Organization Babatunde Hoff III, MD Address [address] [place] [address] DR SNELL Nick [facility] [place] [address] Care Team Providers Care Greenhouse Technician Name Role Phone Babatunde Hoff Primary Care Provider Allergies Allergen (clinical drug ingredient) Drug/Non Drug Allergy documented on EMR Reaction Allergy Type Onset Date Status No Known Drug Allergy Unknown Drug Allergy Active REASON FOR VISIT Hypertension, Internal hernias, Emphysema, Allergies, Benign prostatic hypertrophy, cognitive Impairment Medications Medication SIG (Take, Route, Frequency, Duration) Notes Start Date End Date Status Vitamin C 500 MG 1 tablet Orally Once a day Active traZODone HCl 50 MG 1/2 tab at bedtime O ral at bedtime Active Albuterol Sulfate HFA 108 (90 Base) MCG/ACT Inhalation Active Lisinopril 5 MG 1 tablet Orally Once a day 09/22/2022 Active risperiDONE 0.5 MG 1 tablet Orally Once a day 06/05/2023 Active Multivitamin - 1 tablet Orally Once a day Active Sertraline HCl 25 MG 1.5 tablet Orally O nce a day 09/02/2024 Active Haloperidol 5 MG 1 Tablet Orally at Bedtime 09/02/2024 Active Social History Tobacco Use: Social History Observation Description Date Details (start date - stop date) Former Smoker NA - NA Sex Assigned At : Social History Observation Description Sex Assigned At Male Tobacco Use/Smoking Question Answer Notes Patient is a former smoker How long has it been since you last smoked? > 10 years Additional Findings: Tobacco Non-User Ex-cigaret te smoker Vital Signs Temperature 97.5 degrees Fahrenheit 10/08/19 25 Blood pressure systolic 136 mm Hg 10/08/19 25 Blood pressure diastolic 89 mm Hg 025 Heart Rate 89 /min 10/07/2024 Height 67 in 10/07/2024 Weight 165 lbs 10/07/2024 BMI 25.84 kg/m2 10/07/2024 Encounters Encounter Location Date Provider Diagnosis Babatunde Hoff III, MD [address] [place] [address] [place] [address] 10/07/2024 Babatunde Hoff Essential hypertensi on I10 ; Bilateral inguinal hernia without obstruction or gangrene, recurrence not specified K40.20 ; Pulmonary emphysema, unspecified emphysema type J43.9 ; Environmental allergies Z91.09 ; Brief psychotic disorder F23 ; Neurodegenerative cognitive impairment G31.9 ; Acute gout involving toe of right foot, unspecified cause M10.9 ; Overweight E66.3 and Former smoker Z87.891 Assessments Encounter Date Diagnosis (ICD Code) Assessment Notes Treat ment Notes Treatment Clinical Notes 10/07/2024 Essential hypertensi on (ICD-10 - I10) His blood pressure today is unremarkable. Several times in the morning his systolic blood pressure has been under 90. I stopped the lisinopril and arranged close follow-up His pressure is slightly higher now will be observed carefully. 10/07/2024 Bilateral inguinal hernia without obstruction or gangrene, recurrence not specified (ICD-10 - K40.20) These have been repaired and no longer a problem. 10/07/2024 Pulmonary emphysema, unspecified emphysema type (ICD-10 - J43.9) His pulmonary status is stable and he is using his medications appropriately. No change in his regimen is needed today. 10/07/2024 Environmental allerg ies (ICD-10 - Z91.09) He had mild allergic symptoms during pollen season. He feels well today. 10/07/2024 Brief psychotic disorder (ICD-10 - F23) He developed a brief paranoid psychosis with multiple calls to the police and visits to the emergency room. He is now on medication and doing well with resolution of the psychosis. He understands what happened to him. He is back at home with his significant other, Jenn.He continues on the risperidone and trazodone without difficulty. 10/07/2024 Neurodegenerative cognitive impairment (ICD-10 - G31.9) His memory is intact for the most part, but he does have some cognitive impairment. There has been no change in his dementia. He has conducting all of the activities of daily life without impairment. 10/07/2024 Acute gout involving toe of right foot, unspecified cause (ICD-10 - M10.9) He has had no attacks of gout since his last visit. The pain in his foot has resolved. 10/07/2024 Overweight (ICD-10 - E66.3) He is very slightly overweight. I recommended losing a few pounds through a diet restricted in fat calories and sodium. He has gained 4 pounds since his last visit and his body mass index is 25.53. He weighs 163 pounds. 10/07/2024 Former smoker (ICD-1 0 - Z87.891) He is highly motivated not to smoke tobacco. He has a plan to prevent relapse in times of stress. Plan Of Treatment Medication Medication Name Sig Start Date Stop Date Notes Vitamin C 500 MG 1 tablet Orally Once a day traZODone HCl 50 MG 1/2 tab at bedtime O ral at bedtime Albuterol Sulfate HFA 108 (9 0 Base) MCG/ACT Inhalation Lisinopril 5 MG 1 tablet Orally Once a day 09/22/2022 risperiDONE 0.5 MG 1 tablet Orally Once a day 06/05/2023 Multivitamin - 1 tablet Orally Once a day Sertraline HCl 25 MG 1.5 tablet Orally Once a day 09/03/19 25 Haloperidol 5 MG 1 Tablet Orally at Bedtime 09/02/2024 Pending Test Test Name Order Date PROFILE, FASTING (COMPREHENSIVE METABOLI C) 10/07/2024 PSA, TOTAL 10/07/2024 CBC w DIFF 10/07/2024 Uric Acid 10/07/2024 Lipid Panel 10/07/2024 Next Appt Details Follow Up: As Scheduled, Didi son: Annual Exam Provider Name:Babatunde Hoff, 03/24/2025 02:00:00 PM, [address] [place] [address], [place] [address], [place], [address], Provider Name:Babatunde Hoff, 12/09/2025 02:00:00 PM, [address] [place] [address] [address], [place], [address], Progress Notes * Onesimo BUSTILLO GDOB:1945 (78 yo M)Acc No.[id number]:10/07/2024 Progress Notes Patient: Oensimo MCFARLANE Provider: Chaparrita Hoff MD :1945 A ge:78 Y S ex:Male Date:10/07/2024 Address:[address] [place], [place] [id number] Subjective: * Chief Complaints: * H ypertensionInternal herniasEmphysemaAllergiesBenign prostatic hypertrophycognitive Impairment * HPI: C OVID-19 Screening: Lincoln nance returns for medical management.He has gained 3 pounds. His blood pressure is 136/69.? He says he feels healthy and well except for pain in his left first toe. On examination it seemed unremarkable. There was no sign of gout or fracture. There was no bruising.? He says he is no longer rising from sleep at night to urinate. He has no new complaints. He has been compliant with all of his medications.He has had no. Questions H ave you had any new onset fever, chills, cough, congestion, sore throat, shortness of breath, muscle aches? N o * ROS: G eneral/Constitutional: pain o nly normal aches and pains. C hills d enies.?Fatigue a dmits. F ever d enies. E NT: Decreased hearing d enies. R espiratory: Cough d enies. C ardiovascular: Chest pain with exertion d enies. D yspnea on exertion?denies. S hortness of breath d enies. G astrointestinal: Constipation o ccasional. D ecreased appetite d enies. D iarrhea d enies. H eartburn o ccasional. N ausea d enies. R ectal bleeding d enies. V omiting d enies. H ematology: bruising d enies. p etechiae d enies. S wollen glands n one have been noted. G enitourinary: Frequent urination d enies. M usculoskeletal: Muscle aches d enies. P ainful joints d enies. S ciatica d enies. W eakness d enies. S kin: Itching d enies. R valencia d enies. S kin lesion(s)?denies. N eurologic: Difficulty speaking d enies. D izziness d enies.?Headache d enies. L ow back pain d enies. P sychiatric: Depressed mood d enies. * Medical History: * Surgical History: b ilateral inguinal herniorraphies colonoscopy [address] Jerry 2011right great toe nail 06/2022No history * Hospitalization/Major Diagno stic Procedure: N o history * Family History: F ather: 65 yrs, chronic obstructive pulmonary disease. M other: 85 yrs, colon cancer, diagnosed with Cancer. 2 brother(s) . 2 son(s) . . A son is schizophrenic. * Social History: T obacco Use: T obacco Use/Smoking P atient is a f ormer smoker H ow long has it been since you last smoked??> 10 years A dditional Findings: Tobacco Non-User E x-cigarette smoker H e was for many years to [employer] who in 2013. 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 One son was a patient avionics safety inspector at [employer] [employer] and now is a manager appointment. He is in a platonic relationship at home with Jenn. * Medications: T akingHaloperidol 5 MG Tablet 1 Tablet Orally at Bedtime Sertraline HCl 25 MG Tablet 1.5 tablet Orally Once a day Multivitamin - Tablet 1 tablet Orally Once a day Vitamin C 500 MG Tablet 1 tablet Orally Once a day Albuterol Sulfate HFA 108 (90 Base) MCG/ACT Aerosol Solution Inhalation traZODone HCl 50 MG Tablet 1/2 tab at bedtime Oral at bedtime Taking Haloperidol 5 MG Tablet 1 Tablet Orally at Bedtime Taking Sertraline HCl 25 MG Tablet 1.5 tablet Orally Once a day Taking Multivitamin - Tablet 1 tablet Orally Once a day Taking Vitamin C 500 MG Tablet 1 tablet Orally Once a day Taking Albuterol Sulfate HFA 108 (90 Base) MCG/ACT Aerosol Solution Inhalation Taking traZODone HCl 50 MG Tablet 1/2 tab at bedtime Oral at bedtime Not-Taking/PRNLisinopril 5 MG Tablet 1 tablet Orally Once a day risperiDONE 0.5 MG Tablet 1 tablet Orally Once a day Medication List reviewed and reconciled with the patientNot-Taking/PRN Lisinopril 5 MG Tablet 1 tablet Orally Once a day Not-Taking/PRN risperiDONE 0.5 MG Tablet 1 tablet Orally Once a day Medication List reviewed and reconciled with the patient * Allergies: N o Known Drug Allergyno[Allergies Verified] Objective: * Vitals: H t: 67, Wt:165, BMI:25.84, BP:136/89, HR:89, Temp:97.5, Wt-k.84. * Examination: G eneral Examination: GENERAL APPEARANCE: p leasant, well nourished, well developed, in no acute distress, calm and relaxed, , overweight, man. HEAD: a traumatic, normocephalic. EYES: e lei, perrla, anicteric, conjugate. EARS: n ormal. NOSE: s eptum intact. ORAL CAVITY: n ormal, unremarkable. NECK/THYROID: n o jugular venous distention, no carotid bruit, thyroid normal. LYMPH NODES: n o enlarged lymph nodes,spleen normal. SKIN: n o suspicious lesions, anicteric. HEART: n o clicks, gallops, murmurs, or rubs, regular rhythm, S1, S2 normal, no s3, or vascular bruits. LUNGS: , diminished breath sounds throughout. BREASTS: no masses palpable bilaterally. ABDOMEN: b owel sounds normal, no ascites, no organomegaly, no mass, overweight. RECTAL EXAM: n ot examined. MUSCULOSKELETAL: e xtremities unremarkable, no clubbing, cyanosis or edema. PERIPHERAL PULSES: n ormal. NEUROLOGIC: a lert and oriented, cranial nerves 2-12 grossly intact, deep tendon reflexes 2+ symmetrical, motor strength normal upper and lower extremities, sensory exam intact. PSYCH: a lert, oriented, confused, anxious appearing, mood depressed, speech diminished output, volume. Assessment: * Assessment: 1. E ssential hypertension - I10 (Primary) N otes :His blood pressure today is unremarkable. Several times in the morning his systolic blood pressure has been under 90. I stopped the lisinopril and arranged close follow-up His pressure is slightly higher now will be observed carefully. 2 . B ilateral inguinal hernia without obstruction or gangrene, recurrence not specified - K40.20 N otes :These have been repaired and no longer a problem. 3 . P ulmonary emphysema, unspecified emphysema type - J43.9 N otes :His pulmonary status is stable and he is using his medications appropriately. No change in his regimen is needed today. 4 . E nvironmental allergies - Z91.09 N otes :He had mild allergic symptoms during pollen season. He feels well today. 5 . B rief psychotic disorder - F23 N otes :He developed a brief paranoid psychosis with multiple calls to the police and visits to the emergency room. He is now on medication and doing well with resolution of the psychosis. He understands what happened to him. He is back at home with his significant other, Jenn.He continues on the risperidone and trazodone without difficulty. 6 . N eurodegenerative cognitive impairment - G31.9 N otes :His memory is intact for the most part, but he does have some cognitive impairment. There has been no change in his dementia. He has conducting all of the activities of daily life without impairment. 7 . A cute gout involving toe of right foot, unspecified cause - M10.9 ? N otes :He has had no attacks of gout since his last visit. The pain in his foot has resolved. 8 . O verweight - E66.3 N otes :He is very slightly overweight. I recommended losing a few pounds through a diet restricted in fat calories and sodium. He has gained 4 pounds since his last visit and his body mass index is 25.53. He weighs 163 pounds. 9 . F ormer smoker - Z87.891 N otes :He is highly motivated not to smoke tobacco. He has a plan to prevent relapse in times of stress. Plan: * Treatment: 2. A cute gout involving toe of right foot, unspecified cause L AB: PROFILE, FASTING (COMPREHENSIVE METABOLIC) L AB: PSA, TOTAL L AB: CBC w DIFF L AB: Uric Acid L AB: Lipid Panel 3. O thers Continue Haloperidol Tablet, 5 MG, 1 Tablet, Orally, at Bedtime; C ontinue Sertraline HCl Tablet, 25 MG, 1.5 tablet, Orally, Once a day; C ontinue Multivitamin Tablet, -, 1 tablet, Orally, Once a day; C ontinue Vitamin C Tablet, 500 MG, 1 tablet, Orally, Once a day; C ontinue Albuterol Sulfate HFA Aerosol Solution, 108 (90 Base) MCG/ACT, Inhalation; C ontinue traZODone HCl Tablet, 50 MG, 1/2 tab at bedtime, Oral, at bedtime. * Procedure Codes: * Preventive Medicine: Counseling: C are goal follow-up plan: Counseling for abnormal BMI given Y es Above Normal BMI Follow-up D ietary management education, guidance, and counseling, Dietary needs education S moking/Tobacco Use Patient counseled on the dangers of tobacco use and urged to quit. 0 10/07/2024 * Follow Up: A s Scheduled (Reason: Annual Exam) * Images: * Sign off status: Completed true * Provider: Chaparrita Hoff MD Date: 0 10/07/2024 Generated for John loyd/Edda/eTransmitting on: 0 01/25/2025 06:46 PM EDT History and Physical Notes * HPI (History of Present Illness) Category Sub-Category Detail Notes COVID-19 Screening Questions Have you had any new onset fever, chills, cough, congestion, sore throat, shortness of breath, muscle aches?: No Examination Category Sub-Category Detail Notes General Examination GENERAL APPEARANCE: pleasant , well nourished, well developed, in no acute distress, calm and relaxed, , overweight, man HEAD: atraumatic, normocep halic EYES: eomi, perrla, anicte yusef, conjugate EARS: normal NOSE: septum intact NECK/THYROID: no jugular venous di stention, no carotid bruit, thyroid normal HEART: no clicks, gallops, murmurs, or rubs, regular rhythm, S1, S2 normal, no s3, or vascular bruits LUNGS: , diminished breath sounds throughout ABDOMEN: bowel sounds normal, no ascites, no organomegaly, no mass, overweight NEUROLOGIC: alert and oriented, cranial nerves 2-12 grossly intact, deep tendon reflexes 2+ symmetrical, motor strength normal upper and lower extremities, sensory exam intact SKIN: no suspicious lesion s, anicteric PERIPHERAL PULSES: normal BREASTS: no masses palpable b ilaterally MUSCULOSKELETAL: extremities unremark able, no clubbing, cyanosis or edema LYMPH NODES: no enlarged lymph no mehnaz,spleen normal RECTAL EXAM: not examined PSYCH: alert, oriented, con fused, anxious appearing, mood depressed, speech diminished output, volume ORAL CAVITY: normal, unremarkable
--- OUTSIDE RECORDS SUMMARY | 2024-12-08 10:30 | XMS_ITS ---
Author Organization Babatunde Hoff III, MD Address [address] [place] [address] DR SNELL Nick [facility] [address] Care Team Providers Care Lace Machine Operator Name Role Phone Babatunde Hoff Primary Care Provider [phone] Allergies Allergen (clinical drug ingredient) Drug/Non Drug [...] Never (0 point) Points 4 Interpretation Positive Problems Problem Type SNOMED Code ICD Code Onset Dates Problem Status W/U Status Risk Notes Problem Palpitations (41997171) Palpitation (R00.2) Active confirmed Use this to the emergency room and rhythm. He was asymptomatic. An EKG to document his was requested. Comprehensive blood work was ordered to evaluate his metabolic status. Vital Signs Temperature 98.1 degrees Fahrenheit 12/09/19 25 Blood pressure systolic 133 mm Hg 12/09/19 25 Blood pressure diastolic 81 mm Hg 025 Heart Rate 70 /min 12/08/2024 Height 67 in 12/08/2024 Weight 165 lbs 12/08/2024 BMI 25.84 kg/m2 12/08/2024 Encounters Encounter Location Date Provider Diagnosis Babatunde Hoff III, MD [address] [place] [address] [place] [address] 12/08/2024 Babatunde Hoff Essential hypertensi on I10 ; Palpitation R00.2 ; Bilateral inguinal hernia without obstruction or gangrene, recurrence not specified K40.20 ; Pulmonary emphysema, unspecified emphysema type J43.9 ; Environmental allergies Z91.09 ; Overweight E66.3 ; Acute gout involving toe of right foot, unspecified cause M10.9 ; Brief psychotic disorder F23 and Former smoker Z87.891 Assessments Encounter Date [...] observed carefully. 12/08/2024 Palpitation (ICD-10 - R00.2) Use this to the emergency room and rhythm. He was asymptomatic. An EKG to document his was requested. Comprehensive blood work was ordered to evaluate his metabolic status. 12/08/2024 Bilateral inguinal hernia without obstruction or gangrene, recurrence not specified (ICD-10 - K40.20) These have been repaired and no longer a problem. 12/08/2024 Pulmonary emphysema, unspecified emphysema type (ICD-10 - J43.9) His pulmonary status is stable and he is using his medications appropriately. No change in his regimen is needed today. 12/08/2024 Environmental allergies (ICD-10 - Z91.09) He had mild allergic symptoms during pollen season. He feels well today. 12/08/2024 Overweight (ICD-10 - E66.3) He is very slightly overweight. I recommended losing a few pounds through a diet restricted in fat calories and sodium. He has gained 4 pounds since his last visit and his body mass index is 25.53. He weighs 163 pounds. 12/08/2024 Acute gout involving toe of right foot, unspecified cause (ICD-10 - M10.9) He has had no attacks of gout since his last visit. The pain in his foot has resolved. 12/08/2024 Brief psychotic disorder (ICD-10 - F23) He developed a brief paranoid psychosis with multiple calls to the police and visits to the emergency room. He is now on medication and doing well with resolution of the psychosis. He understands what happened to him. He is back at home with his significant other, Jenn.He continues on the risperidone and trazodone without difficulty. 12/08/2024 Former smoker (ICD-10 - Z87.891) He is highly motivated not [...] Months, Reason: Telehealth, OV Provider Name:Babatunde Hoff, 03/24/2025 02:00:00 PM, [address] [place] [address] [address], [place], [phone], Provider Name:Babatunde Hoff, 12/09/2025 02:00:00 PM, [address] [place] [address] [address], [place], [phone], Progress Notes * Onesimo BUSTILLO GDOB:1945 (79 yo M)Acc No.[id number]:12/08/2024 Progress Notes Patient: Onesimo MCFARLANE Provider: Chaparrita Hoff MD :1945 A ge:79 Y S ex:Male Date:12/08/2024 Address:[address] [place], [place] [id number] Subjective: * Chief Complaints: * A nnual Exam * HPI: D epression Screening: He returns to the office today for his annual examination. He says that he is breathing comfortably with and without exertion. He has had no chest pain. He denies any nausea, vomiting or diarrhea. He arises from sleep once a night to urinate. His appetite is good and his vital signs are stable. On his cardiac examination he was noted to be in a bigeminal rhythm. An EKG was requested and is pending at the time of dictation. He was asymptomatic and not aware of this rhythm.He did not feel like a rectal examination today, but agreed to do so his next office visit. No changes were made in his regimen today. Comprehensive blood work was ordered to evaluate the cardiac rhythm. PHQ-9 L ittle interest or pleasure in [...] ever d enies. E NT: Decreased hearing m ild. R espiratory: Cough d enies. C ardiovascular: Chest pain with exertion d enies. D yspnea on exertion?denies. S hortness of breath d enies. G astrointestinal: Constipation o ccasional. D ecreased appetite d enies. D iarrhea d enies. H eartburn O ccasional. N ausea d enies. R ectal bleeding d enies. V omiting d enies. H ematology: bruising d enies. p etechiae d enies. S wollen glands n one have been noted. G enitourinary: Frequent urination o nce a night. M usculoskeletal: Muscle aches d enies. P [...] 2013. He is not working now, did [employer] and [employer]. 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 One son was a patient senior safety management consultant at [employer] and now is a clinical quality manager. He is in a platonic relationship at home with Jenn. * Medications: T akingHaloperidol 5 MG Tablet 1 Tablet Orally at Bedtime Sertraline HCl 25 MG Tablet 1.5 tablet Orally Once a day Albuterol Sulfate HFA 108 (90 Base) MCG/ACT Aerosol Solution Inhalation Taking Haloperidol 5 MG Tablet 1 Tablet Orally at Bedtime Taking Sertraline HCl 25 MG Tablet 1.5 tablet Orally Once a day Taking Albuterol Sulfate HFA 108 (90 Base) MCG/ACT Aerosol Solution Inhalation DiscontinuedMultivitamin - Tablet 1 tablet Orally Once a day Vitamin C 500 MG Tablet 1 tablet Orally Once a day traZODone HCl 50 MG Tablet 1/2 tab at bedtime Oral at bedtime Lisinopril 5 MG Tablet 1 tablet Orally Once a day risperiDONE 0.5 MG Tablet 1 tablet Orally Once a day Medication List reviewed and reconciled with the patientDiscontinued Multivitamin - Tablet 1 tablet Orally Once a day Discontinued Vitamin C 500 MG Tablet 1 tablet Orally Once a day Discontinued traZODone HCl 50 MG Tablet 1/2 tab at bedtime Oral at bedtime Discontinued Lisinopril 5 MG Tablet 1 tablet Orally Once a day Discontinued risperiDONE 0.5 MG Tablet 1 tablet Orally Once a day Medication List reviewed and reconciled with the patient * Allergies: N o Known Drug AllergyNo Known Food Allergyno[Allergies Verified] Objective: * Vitals: H t: 67, Wt:165, BMI:25.84, BP:133/81, HR:70, Temp:98.1, Wt-k.84. * Examination: G eneral Examination: GENERAL APPEARANCE: p leasant, well nourished, well developed, in no acute distress, calm and relaxed: overweight: man. HEAD: a traumatic, normocephalic. EYES: e lei, perrla, anicteric, conjugate. EARS: n ormal. NOSE: s eptum intact. ORAL CAVITY: n ormal, unremarkable. NECK/THYROID: n o jugular venous distention, no carotid bruit, thyroid normal. LYMPH NODES: n o enlarged lymph nodes,spleen normal. SKIN: n o suspicious lesions, anicteric. HEART: n o clicks, gallops, murmurs, or rubs, Bigeminal?rhythm, S1, S2 normal, no s3, or vascular bruits. LUNGS: c lear to auscultation . BREASTS: no masses palpable bilaterally. ABDOMEN: b owel sounds normal, no ascites, no organomegaly, no mass. RECTAL EXAM: n ot examined At his request. MUSCULOSKELETAL: e xtremities unremarkable, no clubbing, cyanosis or edema. PERIPHERAL PULSES: n ormal. NEUROLOGIC: a lert and oriented, cranial nerves 2-12 grossly intact, deep tendon reflexes 2+ symmetrical, motor strength normal upper and lower extremities, sensory exam intact. PSYCH: a lert, oriented, Disheveled appearance, fluent,.? Assessment: * Assessment: 1. E ssential hypertension - I10 (Primary) N otes :His blood pressure today is unremarkable. Several times in the morning his systolic blood pressure has been under 90. I stopped the lisinopril and arranged close follow-up His pressure is slightly higher now will be observed carefully. 2 . P alpitation - R00.2 N otes :Use this to the emergency room and rhythm. He was asymptomatic. An EKG to document his was requested. Comprehensive blood work was ordered to evaluate his metabolic status. 3 . B ilateral inguinal hernia without obstruction or gangrene, recurrence not specified - K40.20 N otes :These have been repaired and no longer a problem. 4 . P ulmonary emphysema, unspecified emphysema type - J43.9 N otes :His pulmonary status is stable and he is using his medications appropriately. No change in his regimen is needed today. 5 . E nvironmental allergies - Z91.09 N otes :He had mild allergic symptoms during pollen season. He feels well today. 6 . O verweight - E66.3 N otes :He is very slightly overweight. I recommended losing a few pounds through a diet restricted in fat calories and sodium. He has gained 4 pounds since his last visit and his body mass index is 25.53. He weighs 163 pounds. 7 . A cute gout involving toe of right foot, unspecified cause - M10.9 ? N otes :He has had no attacks of gout since his last visit. The pain in his foot has resolved. 8 . B rief psychotic disorder - F23 [...] on the risperidone and trazodone without difficulty. 9 . F ormer smoker - Z87.891 N otes :He is highly motivated not to smoke tobacco. He has a plan to prevent relapse in times of stress. Plan: * Treatment: 2. P alpitation I maging: ECG 12 lead EKG * Procedure Codes: * Preventive Medicine: Counseling: C are goal follow-up plan: Counseling for abnormal BMI given Y es Above Normal BMI Follow-up D ietary management education, guidance, and counseling S moking/Tobacco Use Patient counseled on the dangers of tobacco use and urged to quit. 0 12/08/2024 * Follow Up: 1 Week,2 Months (Reason: Telehealth, OV) * Images: * Sign off status: Completed true * Provider: Chaparrita Hoff MD Date: 0 12/08/2024 Generated for John loyd/Edda/Gauravitting on: 0 01/25/2025 06:46 PM EDT History [...] developed, in no acute distress, calm and relaxed: overweight: man HEAD: atraumatic, normocep halic EYES: eomi, perrla, anicte yusef, conjugate EARS: normal NOSE: septum intact NECK/THYROID: no jugular venous di stention, no carotid bruit, thyroid normal HEART: no clicks, gallops, murmurs, or rubs, Bigeminal rhythm, S1, S2 normal, no s3, or [...] no mehnaz,spleen normal RECTAL EXAM: not examined At his request PSYCH: alert, oriented, Dis heveled appearance, fluent, ORAL CAVITY: normal, unremarkable
--- OUTSIDE RECORDS SUMMARY | 2024-12-12 10:15 | XMS_ITS ---
Author Organization Babatunde Hoff III, MD Address [address] [place] [address] [place] [address] Care Team Providers Care Regulatory Intern Name Role Phone Babatunde Hoff Primary Care Provider [phone] Allergies Allergen (clinical drug ingredient) Drug/Non Drug [...] Provider Speciality Internal M edicine Referred Provider [facility] er, Speech and Hearing Referred Provider Specialty [...] Problem Status W/U Status Risk Notes Problem [id number] Atrial arrhythmia (I49.8) Active confirmed The EKG showed premature atrial contractions which were blocked. He remains asymptomatic. His labs were normal. It was arranged that he will come back to the office for reexamination. Vital Signs Height 67 in 12/12/2024 Weight 165 lbs 12/12/2024 BMI 25.84 kg/m2 12/12/2024 Encounters Encounter Location Date Provider Diagnosis Babatunde Hoff III, MD [address] [place] [address] [place] [address] 12/12/2024 Babatunde Hoff Essential hypertensi on I10 [...] Treat Bilateral Hearing Loss, Speech and Hearing [facility] Next Appt Details Follow Up: 2 Weeks, Reason: OV Provider Name:Babatunde Hoff, 03/24/2025 02:00:00 PM, [address] [place] [address] [address], [place], [address], Provider Name:Babatunde Hoff, 12/09/2025 02:00:00 PM, [address] [place] [address] [address], [place], [address], Progress Notes * KENYOnesimo GDOB:1945 (79 yo M)Acc No.[id number]:12/12/2024 Patient: Onesimo MCFARLANE Provider: Chaparrita Hoff MD :1945 A ge:79 Y S ex:Male Date:12/12/2024 Address:[address] [place], [place] [id number] Subjective: * Chief Complaints: * A trial [...] of provider rendering services: { ...} [address] [facility] [address] L ocation of patient: herminia ddrsoledad listed in demographics for today's visit P [...] herniorraphies colonoscopy [address] Jerry 2012right great toe nail 06/2022No history * Hospitalization/Major [...] dditional Findings: Tobacco non-user E x-cigarette smoker [place] nance was for many years to [employer]uelo who in 2013. He is not working now, did [employer] and [employer]. 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 One son was a patient servicenow administrator developer at [employer] and now is a manager freelance. He is in a platonic relationship at [...] hearing loss type Referral To:Speech and Hearing [facility] Audiologists Reason:Evaluate and Treat Bilateral Hearing [...] MD Date: 0 12/12/2024 Generated for John loyd/Edda/Gauravitting on: 0 01/25/2025 06:46 PM EDT History and Physical Notes * HPI (History of Present Illness) Category Sub-Category Detail Notes Telehealth Location of [facility] rendering services:: {...} [address] [facility] [address] Location of patient:: address listed in demographics [...] Notes Referral Date Referring Provider Referred Provider Timbo sol 12/12/2024 Kavya [facility], Speech and Hearing Evaluate and Treat Bilateral Hearing Loss
--- OUTSIDE RECORDS SUMMARY | 2024-12-26 10:30 | XMS_ITS ---
Author Organization Babatunde Hoff III, MD Address [address] [place] [address] [place] [address] Care Team Providers Care Information Developer Name Role Phone Babatunde Hoff Primary Care [...] Date Provider Diagnosis Babatunde Hoff III, MD [address] [place] [address] DR [place], [place] [id number] 12/26/2024 Babatunde Hoff Essential hypertensi on I10 [...] Up: 3 Months, Reason: OV Provider Name:Babatunde Hoff, 03/24/2025 02:00:00 PM, [address] [place] [address] [address], [place], [address], Provider Name:Babatunde Hoff, 12/09/2025 02:00:00 PM, [address] [place] [address] [address], [place], [address], Progress Notes * Onesimo BUSTILLO GDOB:1945 (79 yo M)Acc No.[id number]:12/26/2024 Progress Notes Patient: Onesimo MCFARLANE Provider: Chaparrita Hoff MD :1945 A ge:79 Y S ex:Male Date:12/26/2024 Address:[address] [place], [place] [id number] Subjective: * Chief Complaints: * H ypertensionEmphysemaEnvironmental [...] 2013. 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 One son was a patient safety patrol officer at [employer] and now is a manager of exhibitions and collections. He is in a platonic relationship at [...] AM)?ValueReference Range?Uric Acid4.13.4-7.0 - mg/dL * Lab:Comprehensive [place]. Pane l Fast * Collection Date 12/01/2024 [...] 0 12/26/2024 Generated for John loyd/Edda/eTransmitting on: 0 01/25/2025 06:47 PM EDT History and Physical Notes * [...]
--- NOTE | ~2025-01-25 | XR_ITS ---
CLINICAL HISTORY: sob 1 view chest x-ray Comparison: PA and lateral chest x-ray 07/23/2022 Findings: The lungs are clear. Normal size heart. No acute fracture. IMPRESSION: 1. No acute findings. This document has been electronically signed by: Daryl Merrill MD on 01/25/2025 18:38:35
--- NOTE | ~2025-01-25 | CT_ITS ---
CLINICAL HISTORY: near syncope CT head without contrast Comparison: CT/SR - CT HEAD WITHOUT IV CONTRAST - 08/19/22 06:02 EDT Findings: No intra-axial mass, midline shift, hydrocephalus, or acute hemorrhage. Age appropriate cerebral volume loss. Patchy low-density within the periventricular and subcortical white matter. There is no sinus or mastoid fluid. The orbits are within normal limits. No skull fracture. IMPRESSION: 1. No acute intracranial findings. This document has been electronically signed by: Gege Benitez MD on 01/25/2025 19:48:13
[2025-01-25 17:30] VITALS: BP 141/75; BP 152/81; PULSE 63; PULSE 74; RESP 19; TEMP 36.8; O2SAT 94; O2SAT 96; BMI 24.2
--- NOTE | 2025-01-25 17:34 | ECG_ITS ---
Test Reason : SYNCOPE Blood Pressure : */* mmHG Vent. Rate : 81 BPM Atrial Rate : 81 BPM P-R Int : 158 ms QRS Dur : 82 ms QT Int : 378 ms P-R-T Axes : * 30 80 degrees QTcB Int : 439 ms Normal sinus rhythm Nonspecific T wave abnormality Abnormal ECG When compared with ECG of 08-Dec-2024 15:31, Premature atrial complexes are no longer Present Nonspecific T wave abnormality now evident in Anterolateral leads Referred By: Generic ED Physician Electronically Signed By: LEVI HU
[2025-01-25 17:48] LABS: MANUAL DIFF FLAG NO
[2025-01-25 17:50] LABS: Hematocrit 37.1 % (42.0-52.0); Hemoglobin 13.0 g/dl (14.0-18.0); Imm Gran Abs Auto 0.05 X10*3/uL (0.00-0.03); Imm Gran Pct Auto 0.7 % (0.0-0.4); Lymphocytes Absolute Auto 1.0 X10*3/uL (1.2-4.9); Mean Corpuscular HGB Conc 35.0 g/dl (31.0-36.0); Mean Corpuscular Hemoglobin 31.3 pg (27.0-33.0); Mean Corpuscular Volume 89.2 fL (80.0-98.0); NRBC Abs Auto 0.000 X10*3/uL (0.0-0.012); NRBC Pct Auto 0.0 /100WBC (0.0-0.2); Platelet Count 255 X10*3/uL (160-400); Red Blood Count 4.16 X10*6/uL (4.60-5.80); White Blood Count 7.1 X10*3/uL (4.8-10.8)
--- NOTE | 2025-01-25 18:04 | ED.GENADULT ---
HPI - General Adult General Chief complaint: Fall Stated complaint: near syncopal episode Time Seen by Provider: 01/25/25 17:46 History of Present Illness HPI narrative: Patient is an 79-year-old male felt lightheaded was trying to sit on a recliner but missed. Subsequently tried to lower himself to the floor. Denies any head strike. Not on blood thinners. Was on the ground for about half an hour. There is no chest pain during the episode. [place] weakness. Patient lives with an elderly friend. There is no fever no chills. There is no coughing or congestion. History of COPD. Patient from home. No diaphoresis. No bloody stool. Just feel weak. Denies any changes in medication. Related Data Home Medications ?Medication ?Instructions ?Recorded ?Confirmed albuterol sulfate 90 mcg/actuation 2 puff inhalation Q4H PRN wheezing 09/18/22 09/18/22 aerosol inhaler ascorbic acid (vitamin C) 500 mg 500 mg PO DAILY 09/18/22 09/18/22 tablet (Vitamin C) donepezil 10 mg tablet 10 mg PO BEDTIME 09/18/22 09/18/22 haloperidol 0.5 mg tablet 0.5 mg PO BEDTIME 09/18/22 01/25/25 hydroxyzine pamoate 25 mg capsule 25 mg PO BEDTIME 09/18/22 09/18/22 lisinopril 10 mg tablet 10 mg PO DAILY 09/18/22 09/18/22 multivitamin with folic acid 400 1 tab PO DAILY 09/18/22 09/18/22 mcg tablet (Tab-A-Manoj) sertraline 25 mg tablet 25 mg PO DAILY 09/18/22 01/25/25 trazodone 50 mg tablet 50 mg PO QD-BID PRN Sleep 09/18/22 01/25/25 Allergies Allergy/AdvReac Type Severity Reaction Status Date / Time No Known Allergies Allergy Verified 01/25/25 17:33 Review of Systems Review of Systems: No fever no chills positive generalized malaise Yes all other systems are reviewed and are negative [facility] Past Medical History Attestation statement: The following information was validated with the patient. Medical History Asthma exacerbation COPD (chronic obstructive pulmonary disease) Surgical History History of hernia surgery Social History Social History (Updated 01/25/25 @ 22:33 by BRENDAN Gibson) Household Members: Friend(s) Housing: House Do you presently have visiting nurse or other home services: No Alcohol intake: current Alcohol intake frequency: 0-2 drinks per day Alcohol type: beer Comment: 1 beer per day Patient Tobacco Use Status: Former Tobacco user Smoked in Last 30 Days: No Second Hand Smoke Exposure: No Substance Use Type: Marijuana Substance Use Type Other:: Patient uses 2-3 gummies per day Substance Use Frequency: Daily Advance Directives: Yes Advance Directives on File: Yes Advance Directives Date on File: 09/04/22 service: Yes Physical Exam ED Exam Exam: Appearance: Alert. Oriented X3. No acute distress. Eyes: Pupils equal, round and reactive to light. ENT: Pharynx normal. Neck: Normal inspection. Neck supple. No lymph nodes noted. No crepitus CVS: Normal heart rate and rhythm. Pulses normal. Normal S1 and S2 Respiratory: No respiratory distress. Breath sounds normal. No Wheezing. No rales Abdomen: Soft and nontender. No rigidity. No distention. good BS x4 Skin: Skin warm and dry. Normal skin color. Normal skin turgor. Extremities: No lower extremity edema. Neurovascular intact to all extremities. No Lacerations. No Rash Neuro: Oriented X 3. No motor deficit. No sensory deficit. Moving all extermities. No slurred speech Vital Signs: Vital Signs - 24 hr 01/25/25 17:30 01/25/25 19:29 Temperature 98.2 F 97.9 F Pulse Rate 74 66 Respiratory Rate 19 18 Blood Pressure 141/75 H 141/77 H Pulse Oximetry 96 96 Oxygen Delivery Method Room Air Room Air BMI result Body Mass Index 24.2 Medical Decision Making Medical Decision Making MDM Narrative: Sinus heart rate is 80 OR QRS QTC within normal limits is diffuse T-wave flattening noted. Patient had a near syncopal episode. [place] lightheaded then almost passed out. Troponin is negative. Patient's CT scan head by my interpretation was grossly negative. Nevertheless patient very unsteady. Week. My interpretation patient's chest x-ray was also negative. First set of troponins negative. CPK 79 there is no evidence for rhabdo. TSH is 2.25 no evidence for hypo hyperthyroid. Patient to be admitted for further monitoring hemoglobin is 13. No signs of anemia Patient had syncopal episode will admit for further evaluation. Differential Diagnosis Differential Diagnoses: The differential diagnosis associated with the presentation includes Near-syncope, syncope, arrhythmia Admission/Observation Consideration of admission/observation: Escalation of care including admission/observation considered Consult Healthcare Provider Management of the patient was discussed with: Hospitalist Lab Data [facility] Lab Attestation statement: I reviewed the patient's lab results. 01/25/25 17:44 01/25/25 17:44 Labs: Lab Results 01/25/25 01/25/25 Range/Units 17:44 18:33 WBC 7.1 (4.8-10.8) X10*3/uL RBC 4.16 L (4.60-5.80) X10*6/uL Hgb 13.0 L (14.0-18.0) g/dl Hct 37.1 L (42.0-52.0) % MCV 89.2 (80.0-98.0) fL MCH 31.3 (27.0-33.0) pg MCHC 35.0 (31.0-36.0) g/dl RDW 13.0 (11.0-16.0) % Plt Count 255 (160-400) X10*3/uL MPV 9.4 (9.4-12.4) fL Immature Gran % (Auto) 0.7 H (0.0-0.4) % Neut % (Auto) 74.0 H (45-73) % Lymph % (Auto) 14.4 L (20-40) % [place] % (Auto) 8.4 (2-11) % Eos % (Auto) 2.2 (0-4) % Baso % (Auto) 0.3 (0-2) % Lymph # (Auto) 1.0 L (1.2-4.9) X10*3/uL [place] # (Auto) 0.6 (0.1-1.2) X10*3/uL Eos # (Auto) 0.2 (0.0-0.4) X10*3/uL Baso # (Auto) 0.0 (0.0-0.2) X10*3/uL Abs Immat Gran (auto) 0.05 H (0.00-0.03) X10*3/uL Absolute Neuts (auto) 5.3 (2.0-8.3) x10*3/uL Absolute Nucleated RBC 0.000 (0.0-0.012) X10*3/uL Nucleated RBC % (auto) 0.0 (0.0-0.2) /100WBC Sodium 134 L (135-145) mmol/L Potassium 3.9 (3.3-5.1) mmol/L Chloride 101 (96-108) mmol/L Carbon Dioxide 24 (22-29) mmol/L Anion Gap 13 (12-20) BUN 9 (9-16) mg/dL Creatinine 0.72 (0.5-1.4) mg/dL Estim Creat Clear Calc 83.0 Estimated GFR > 60 Random Glucose 112 (60-115) mg/dL Calcium 9.0 (8.4-10.2) mg/dL Magnesium 1.8 (1.6-2.6) mg/dL Total Bilirubin 0.4 (0.0-1.0) mg/dL AST 31 (5-37) U/L ALT 14 (0-40) U/L Alkaline Phosphatase 66 (39-117) U/L Total Creatine Kinase 79 (38-174) U/L Troponin I High Sens 8.4 (<3.5-35.0) ng/L Total Protein 6.9 (6.5-8.0) g/dL Albumin 4.3 (3.5-5.0) g/dL TSH 2.25 (0.32-4.0) uIU/mL Urine Color Yellow Urine Appearance Clear Urine pH 7.5 (5.0-9.0) Ur Specific [place] 1.015 (1.005-1.025) Urine Protein 30 (1+) H (Neg-Trace) mg/dL Urine Glucose (UA) Negative (Negative) mg/dL Urine Ketones Trace (Negative) mg/dL Urine Blood Negative (Negative) Urine Nitrite Negative (Negative) Ur Leukocyte Esterase Small (1+) H (Negative) Urine RBC 3-5 H (0-2) /HPF Urine WBC 6-10 (0-5) /HPF Ur Squamous Epith Cells 0-2 (0-2) /HPF Urine Bacteria None Seen (None Seen) Hyaline Casts 3-5 (0-2) /LPF Independent Interpretation I performed an independent interpretation of an: EKG (Sinus heart rate is 80 OR QRS QTC normal no acute ST segment elevation diffuse T-wave flattening noted.), Plain X-Ray (Chest x-ray negative) and CT Scan (CT head grossly negative no bleed) Radiology Impression Discussion of test interpretation with radiology: I have reviewed the radiologist's reading. External Record Review External record reviewed: Inpatient record Chronic Conditions History of hypertension Social Determinants Patient?s care significantly limited by Social Determinants of Health including: Problems related to primary support group Discharge Plan Discharge Clinical Impression: Near syncope Patient Disposition: Admitted As Inpatient
[2025-01-25 18:12] LABS: Troponin-I High Sensitivity 8.4 ng/L (<3.5-35.0)
[2025-01-25 18:16] LABS: Alanine Aminotransferase 14 U/L (0-40); Albumin Level 4.3 g/dL (3.5-5.0); Alkaline Phosphatase 66 U/L (39-117); Anion Gap 13 (12-20); Blood Urea Nitrogen 9 mg/dL (9-16); Calcium 9.0 mg/dL (8.4-10.2); Carbon Dioxide 24 mmol/L (22-29); Chloride 101 mmol/L (96-108); Creatinine Clr Calc Pharmacy 83.0; Estimated Glomerular Filt Rate > 60; Potassium 3.9 mmol/L (3.3-5.1); Sodium 134 mmol/L (135-145); Total Protein 6.9 g/dL (6.5-8.0)
--- NOTE | 2025-01-25 18:25 | PC.NURSE ---
Pt BIBA from home after feeling lightheaded and lowering self to floor earlier today while attempting to transfer to recliner. Pt appeared unsteady while transferring from EMS stretcher. Pt alert and responding to questions appropriately, denies pain and reports feeling much better . Labs collected and sent, CT pending.
[2025-01-25 18:28] LABS: Aspartate Amino Transferase 31 U/L (5-37)
[2025-01-25 18:39] LABS: Thyroid Stimulating Hormone 2.25 uIU/mL (0.32-4.0)
[2025-01-25 18:40] LABS: Appearance Urine Clear; Glucose Urine UA Negative (Negative); PH 7.5 (5.0-9.0); Specific Gravity - Urine 1.015 (1.005-1.025); UMIC TRIGGER UACC YES
--- OUTSIDE RECORDS SUMMARY | 2025-01-25 18:47 | XMS_ITS | Patient Health Record ---
Author Organization Babatunde Hoff III, MD Address [address] [place] [address] [address] [place] [address] Care Team Providers Care Summer Child Caregiver Name Role Phone Babatunde Hoff Primary Care Provider [phone] Allergies Allergen (clinical drug ingredient) Drug/Non Drug Allergy documented on EMR Reaction Allergy Type Onset Date Status No Known Drug Allergy Unknown Drug Allergy Active No Known Food Allergy Unknown Drug Allergy Active Results Component Value Reference Range Notes Complete Blood Count Auto Di ff Reviewed date:04/02/2024 08:52:43 AM Interpretation: Performing Lab:[facility], [address] [place] [phone] Notes/Report: White Blood Count 5.0 4.8-10.8 X10*3/uL [...] NRBC Abs Auto 0.000 0.0-0.012 X10*3/uL Comprehensive [place]. Panel Fa st Reviewed date:04/02/2024 08:52:43 AM Interpretation: Performing Lab:[facility], [address] [place] [phone] Notes/Report: Sodium 137 135-145 mmol/L Potassium 3.6 [...] Panel Reviewed date:04/02/2024 08:52:43 AM Interpretation: Performing Lab:[address] [phone] Notes/Report: Triglycerides 68 <150 mg/dL Desirable Triglyceride: [...] Antigen Reviewed date:04/02/2024 08:52:43 AM Interpretation: Performing Lab:[address] [phone] Notes/Report: Prostate Specific Antigen 1.06 <0.05-4.0 ng/mL PSA methodology: Chairez Alinity i Chemiluminescent Microparticle Immunoassay (CMIA) Vitamin D 25-OH Total Reviewed date:04/02/2024 08:52:43 AM Interpretation: Performing Lab:[address] [phone] Notes/Report: Vitamin D 25-OH Total 30.1 >30 [...] confirmed with another method such as LC-MS/MS. Complete Blood Count Auto Di ff Reviewed date:12/12/2024 02:19:57 PM Interpretation: Performing Lab:[facility], [address] [place] [phone] Notes/Report: White Blood Count 4.9 4.8-10.8 X10*3/uL Red Blood Count 4.51 4.60-5.80 X10*6/uL Hemoglobin 14.0 14.0-18.0 g/dl Hematocrit 41.1 42.0-52.0 % Mean Corpuscular Volume 91.1 80.0-98.0 fL Mean Corpuscular Hemoglobin 31.0 27.0-33.0 pg Mean Corpuscular HGB Conc 34.1 31.0-36.0 g/dl Red Cell Distribution Width 13.2 11.0-16.0 % Platelet Count 281 160-400 X10*3/uL Mean Platelet Volume 9.7 9.4-12.4 fL Neutrophils Percent Auto 49.7 45-73 % Imm Gran Pct Auto 0.6 0.0-0.4 % Lymphocytes Percent Auto 34.2 20-40 % Monocytes Percent Auto 11.2 2-11 % Eosinophils Percent Auto 3.7 0-4 % Basophils Percent Auto 0.6 0-2 % NRBC Pct Auto 0.0 0.0-0.2 /100WBC Neutrophils Absolute Auto 2.4 2.0-8.3 x10*3/u L Imm Gran Abs Auto 0.03 0.00-0.03 X10*3/uL Lymphocytes Absolute Auto 1.7 1.2-4.9 X10*3/u L Monocytes Absolute Auto 0.6 0.1-1.2 X10*3/uL Eosinophils Absolute Auto 0.2 0.0-0.4 X10*3/u L Basophils Absolute Auto 0.0 0.0-0.2 X10*3/uL NRBC Abs Auto 0.000 0.0-0.012 X10*3/uL Comprehensive [place]. Panel Fa st Reviewed date:12/12/2024 02:19:57 PM Interpretation: Performing Lab:[facility], [address] [place] [phone] Notes/Report: Sodium 137 135-145 mmol/L Potassium 4.3 3.3-5.1 mmol/L Chloride 101 96-108 mmol/L Carbon Dioxide 28 22-29 mmol/L Anion Gap 12 12-20 Blood Urea Nitrogen 9 9-16 mg/dL Creatinine 0.71 0.5-1.4 mg/dL Estimated Glomerular Filt Rate > 60 Chronic Kidney Disease: Estimated GFR < 60 mL/min/1.73m2 Severe Kidney Disease: Estimated GFR < 15 mL/min/1.73m2 Glucose Fasting 102 60-99 mg/dL A fasting glucose from 100-125 mg/dl is considered impaired (pre-diabetes). Calcium 9.2 8.4-10.2 mg/dL Bilirubin Total 0.8 0.0-1.0 mg/dL Aspartate Amino Transferase 38 5-37 U/L Alanine Aminotransferase 20 0-40 U/L Total Protein 7.4 6.5-8.0 g/dL Albumin Level 4.6 3.5-5.0 g/dL Alkaline Phosphatase 64 39-117 U/L Uric Acid Reviewed date:12/12/2024 02:19:57 PM Interpretation: Performing Lab:[facility], [address] [place] [phone] Notes/Report: Uric Acid 4.1 3.4-7.0 mg/dL Lipid Panel Reviewed date:12/12/2024 02:19:57 PM Interpretation: Performing Lab:[facility], [address] [place] [phone] Notes/Report: Triglycerides 62 <150 mg/dL Desirable Triglyceride: less than 150 mg/dL Borderline High Triglyceride 150-199 mg/dL High Triglyceride: 200-499 mg/dL Very High Triglyceride: greater than or equal to 5OO mg/dL Cholesterol 198 <200 mg/dL Desirable Cholesterol: less than 200 mg/dL Borderline High Cholesterol: 200-239 mg/dL High Cholesterol: greater than 239 mg/dL LDL Cholesterol Calculated 118 <100 mg/dL Desirable LDL: less than 100 mg/dL Near Optimal/Above Optimal LDL: 110-129 mg/dL Borderline High LDL: 130-159 mg/dL High LDL: 160-189 mg/dL Very High LDL: greater than or equal to 190 mg/dL HDL Cholesterol 68 >40 mg/dL Desirable HDL: greater than 40 mg/dL Note: This HDL assay may give artificially low results in patients with liver disease. Prostate Specific Antigen Reviewed date:12/12/2024 02:19:57 PM Interpretation: Performing Lab:[facility], [address], [place] [address] Notes/Report: Prostate Specific Antigen 1.42 <0.05-4.0 ng/mL PSA methodology: Chairez Alinity i Chemiluminescent Microparticle Immunoassay (CMIA) Reason For Referral Reason Evaluate and Treat Physical Therapy Diagnosis 1 Generalized weakness (R53.1) Referral Organization Babatunde Hoff III, MD Referring Provider First Name Babatunde Referring Provider Last Name Kavya Referring Provider Speciality Internal edicine Referred Provider [facility] Referred Provider Specialty Physical The rapist General Notes D Monique 07/14/2024 10:42:03 AM > Referral faxed with progress note and cover sheet. Referral Priority Routine Referral Appointment Date 07/17/2024 Reason Evaluate and Treat Bilateral Hearing Loss Diagnosis 1 Bilateral hearing lo ss, unspecified hearing loss type (H91.93) Referral Organization Babatunde Hoff III, MD Referring Provider First Name Babatunde Referring Provider Last Name Kavya [facility]erred Provider [facility], Speech and Hearing Referred Provider Specialty Audiologists General Notes DMonique 12/22/2024 09:35:59 AM > Faxed referral with progress note. Referral Priority Routine Referral Appointment Date 03/24/2025 Medications Medication SIG (Take, Route, Frequency, Duration) Notes Start Date End Date Status Sertraline HCl 25 MG 1.5 tablet Orally O nce a day 09/02/2024 Active Haloperidol 5 MG 1 Tablet Orally at Bedtime 09/02/2024 Active Albuterol Sulfate HFA 108 (90 Base) MCG/ACT Inhalation Active Immunizations Vaccine Route Administration Date Status [...] Administered COVID- 19 Vaccine Unknown 08/05/2020 Administered COVID Moderna Bivalent Unknown 02/03/2022 Administered COVID-19 Moderna SPIKEVAX Unknown 04/24/2023 Administer ed Flu-IIv3 Unknown 05/12/2019 Administered Influenza-iiv4 p-free high dose Unknown 04/05/2022 Admi nistered Fluzone High-Dose (HD-IIV3) Unknown 03/17/2018 Administ ered Zostavax Unknown 01/10/2010 Administered Flu-IIv3 Unknown 05/10/2024 Administered COVID-19 Moderna SPIKEVAX Unknown 05/10/2024 Administer ed Influenza-iiv4 p-free high dose Unknown 03/31/2021 Admi nistered Fluzone High-Dose (HD-IIV3) Unknown 02/18/2017 Administ ered Hepatitis A (adult) Unknown 10/20/1998 Administered Pneumococcal Unknown 01/10/2010 Administered Td (adult) Unknown 12/01/2010 Administered Social History Tobacco Use: Social History [...] Problem Status W/U Status Risk Notes Problem 2840644 Former smoker (Z87.891) Active confirmed He is highly motivated not to smoke tobacco. He has a plan to prevent relapse in times of stress. Problem 205511182 Overweight (E66.3) Active confirmed He is very slightly overweight. I recommended losing a few pounds through a diet restricted in fat calories and sodium. He has gained 4 pounds since his last visit and his body mass index is 25.53. He weighs 163 pounds. Problem 97203689 Anxiety (F41.9) Active confirmed His anxiety was not present today. Was rational and coherent and well spoken. Problem 0878571 Brief psychotic disorder (F23) Active confirmed He [...] trazodone without difficulty. Problem Benign prostatic hyperplasia (799949705) BPH (benign prostatic hyperplasia) (N40.0) Active confirmed He says he has been rising from sleep once a night occasionally depending upon his fluid intake. Problem 04826388 Essential hypertension (I10) Active confirmed His blood pressure today is at its target range. No change in his medications was made. Follow-up visit was arranged in the near future to confirm this. Problem 363917046 Microscopic hematuria (R31.2) Active confirmed Problem 624026086 Environmental allergies (Z91.09) Active confirmed He had mi ld allergic symptoms during pollen season. He feels well today. Problem 96070353 Bilateral inguin al hernia without obstruction or gangrene, recurrence not specified (K40.20) Active confirmed These hav e been repaired and no longer a problem. Problem 63855755 Pulmonary emphysema, unspecified emphysema type (J43.9) Active confirmed His pulmonary status is stable and he is using his medications appropriately. No change in his regimen is needed today. Problem Hearing loss (19876451) Bilateral hearing loss, unspecified hearing loss type (H91.93) Active confirmed His hearing remains adequate. Problem Palpitations (00318970) Palpitation (R00.2) Active confirmed Use t his to the emergency room and rhythm. He was asymptomatic. An EKG to document his was requested. Comprehensive blood work was ordered to evaluate his metabolic status. Problem 241402982 Acute gout involving toe of right foot, unspecified cause (M10.9) Active confirmed He has had no attacks of gout since his last visit. The pain in his foot has resolved. Problem 09551735 Atrial arrhythmi a (I49.8) Active confirmed The EKG showed premature atrial contractions which were blocked. He remains asymptomatic. His labs were normal. It was arranged that he will come back to the office for reexamination. Problem 56669162 Neurodegenerativ e cognitive impairment (G31.9) Active confirmed His memor y is intact for the most part, but he does have some cognitive impairment. There has been no change in his dementia. He has conducting all of the activities of daily life without impairment. Vital Signs Heart Rate 55 /min 12/26/2024 Temperature 97.3 degrees Fahrenheit 12/26/2024 Blood pressure diastolic 71 mm Hg 12/26/2024 Height 67 in 12/26/2024 Blood pressure systolic 132 mm Hg 12/26/2024 Weight 165 lbs 12/26/2024 BMI 25.84 kg/m2 12/26/2024 Encounters Encounter Location Date Provider Diagnosis Babatunde Hoff III, MD [address] [place] [address] [place] [address] 04/08/2024 Babatunde Hoff Essential hypertensi on I10 ; Overweight E66.3 ; Former smoker Z87.891 ; Pulmonary emphysema, unspecified emphysema type J43.9 ; Environmental allergies Z91.09 ; BPH (benign prostatic hyperplasia) N40.0 and Brief psychotic disorder F23 Babatunde Hoff III, MD [address] [place] [address] [place] [address] 07/09/2024 Babatunde Hoff Generalized weakness R53.1 ; Neurodegenerative cognitive impairment G31.9 ; Essential hypertension I10 ; Environmental allergies Z91.09 ; Acute gout involving toe of right foot, unspecified cause M10.9 ; BPH (benign prostatic hyperplasia) N40.0 ; Brief psychotic disorder F23 and Former smoker Z87.891 Babatunde Hoff III, MD [address] [place] [address] [place] [address] 10/07/2024 Babatunde Hoff Essential hypertensi on I10 ; Bilateral inguinal hernia without obstruction or gangrene, recurrence not specified K40.20 ; Pulmonary emphysema, unspecified emphysema type J43.9 ; Environmental allergies Z91.09 ; Brief psychotic disorder F23 ; Neurodegenerative cognitive impairment G31.9 ; Acute gout involving toe of right foot, unspecified cause M10.9 ; Overweight E66.3 and Former smoker Z87.891 Babatunde Hoff III, MD [address] [place] [address] [place] [address] 12/08/2024 Babatunde Hoff Essential hypertensi on I10 ; Palpitation R00.2 ; Bilateral inguinal hernia without obstruction or gangrene, recurrence not specified K40.20 ; Pulmonary emphysema, unspecified emphysema type J43.9 ; Environmental allergies Z91.09 ; Overweight E66.3 ; Acute gout involving toe of right foot, unspecified cause M10.9 ; Brief psychotic disorder F23 and Former smoker Z87.891 Babatunde Hoff III, MD [address] [place] [address] [place] [address] 12/12/2024 Babatunde Hoff Essential hypertensi on I10 ; Atrial arrhythmia I49.8 ; Former smoker Z87.891 ; Overweight E66.3 ; Pulmonary emphysema, unspecified emphysema type J43.9 ; Environmental allergies Z91.09 and Bilateral hearing loss, unspecified hearing loss type H91.93 Babatunde Hoff III, MD [address] [place] [address] [place] [address] 12/26/2024 Babatunde Hoff Essential hypertensi on I10 ; Former smoker Z87.891 ; Overweight E66.3 ; Pulmonary emphysema, unspecified emphysema type J43.9 ; Environmental allergies Z91.09 ; Brief psychotic disorder F23 ; Neurodegenerative cognitive impairment G31.9 and Bilateral hearing loss, unspecified hearing loss type H91.93 Babatunde Hoff III, MD [address] [place] [address] [place] [address] 07/16/2024 Babatunde Hoff III, MD [address] [place] [address] [place] [address] 07/17/2024 Babatunde Hoff III, MD [address] [place] [address] [place] [address] 07/25/2024 Babatunde Hoff III, MD [address] [place] [address] [place] [address] 09/02/2024 Babatunde Hoff Assessments Encounter Date Diagnosis (ICD Code) Assessment Notes T reatment Notes Treatment Clinical Notes 04/08/2024 Overweight (ICD-10 - E66.3) He is [...] repaired and no longer a problem. 12/08/2024 Essential hypertensi on (ICD-10 - I10) His [...] was ordered to evaluate his metabolic status. 12/12/2024 Essential hypertensi on (ICD-10 - I10) His blood pressure has [...] come back to the office for reexamination. 12/26/2024 Former smoker (ICD-1 0 - Z87.891) He is highly motivated not to smoke tobacco. He has a plan to prevent relapse in times of stress. 12/26/2024 Essential hypertensi on (ICD-10 - I10) His blood pressure today is at its target range. No change in his medications was made. Follow-up visit was arranged in the near future to confirm this. 04/08/2024 Former smoker (ICD-1 0 - Z87.891) [...] in his regimen is needed today. 12/08/2024 Bilateral inguinal hernia without obstruction or gangrene, recurrence not specified (ICD-10 - K40.20) These have been repaired and no longer a problem. 12/12/2024 Former smoker (ICD-1 0 - Z87.891) He [...] is 25.53. He weighs 163 pounds. 04/08/2024 Pulmonary emphysema, unspecified emphysema type (ICD-10 - J43.9) His pulmonary status is stable and he is using his medications appropriately. No change in his regimen is needed today. 07/09/2024 Environmental allerg ies (ICD-10 - Z91.09) He had mild allergic symptoms during pollen season. He feels well today. 10/07/2024 Environmental allerg ies (ICD-10 - Z91.09) He had mild allergic symptoms during pollen season. He feels well today. 12/08/2024 Pulmonary emphysema, unspecified emphysema type (ICD-10 - J43.9) His pulmonary status is stable and he is using his medications appropriately. No change in his regimen is needed today. 12/12/2024 Overweight (ICD-10 - E66.3) He is [...] his regimen is needed today. 04/08/2024 Environmental allerg ies (ICD-10 - Z91.09) He [...] the risperidone and trazodone without difficulty. 12/08/2024 Environmental allerg ies (ICD-10 - Z91.09) He had mild allergic symptoms during pollen season. He feels well today. 12/12/2024 Pulmonary emphysema, unspecified emphysema type (ICD-10 [...] the activities of daily life without impairment. 12/08/2024 Overweight (ICD-10 - E66.3) He is very slightly overweight. I recommended losing a few pounds through a diet restricted in fat calories and sodium. He has gained 4 pounds since his last visit and his body mass index is 25.53. He weighs 163 pounds. 12/12/2024 Environmental allerg ies (ICD-10 - Z91.09) He [...] on the risperidone and trazodone without difficulty. 04/08/2024 Brief psychotic disorder (ICD-10 - F23) [...] pain in his foot has resolved. 12/08/2024 Acute gout involving toe of right foot, unspecified cause (ICD-10 - M10.9) He has had no attacks of gout since his last visit. The pain in his foot has resolved. 12/12/2024 Bilateral hearing lo ss, unspecified hearing loss type (ICD-10 - H91.93) His hearing remains adequate. 12/26/2024 Neurodegenerative cognitive impairment (ICD-10 - G31.9) His memory is intact for the most part, but he does have some cognitive impairment. There has been no change in his dementia. He has conducting all of the activities of daily life without impairment. 07/09/2024 Former smoker (ICD-1 0 - Z87.891) [...] is 25.53. He weighs 163 pounds. 12/08/2024 Brief psychotic disorder (ICD-10 - F23) He developed a brief paranoid psychosis with multiple calls to the police and visits to the emergency room. He is now on medication and doing well with resolution of the psychosis. He understands what happened to him. He is back at home with his significant other, Jenn.He continues on the risperidone and trazodone without difficulty. 12/26/2024 Bilateral hearing lo ss, unspecified hearing loss type (ICD-10 - H91.93) His hearing remains adequate. 10/07/2024 Former smoker (ICD-1 0 - Z87.891) He is highly motivated not to smoke tobacco. He has a plan to prevent relapse in times of stress. 12/08/2024 Former smoker (ICD-1 0 - Z87.891) He [...] Panel 10/07/2024 Vitamin D 25-OH Total 12/07/2023 ECG 12 lead EKG 12/08/2024 Next Appt Details Provider Name:Babatunde Hoff, 03/24/2025 02:00:00 PM, [address] [place] [address] AL[address] RANGEL, [place], [address], Provider Name:Babatunde Hoff, 12/09/2025 02:00:00 PM, [address] [place] [address] AL[address] RANGEL, [place], [address], Insurance Providers Payer Name Payer Address Payer Phone Subscriber Number Group Number Insured Name Patient Relationship to Insured Coverage Start Date Coverage End Date MEDICARE NGS [address] [place] [address] [id number] Onesimo Forrester Self - patient is the insured [facility] [address] [place], [place] [id number] [phone] [id number] Onesimo Forrester Self - patient is [...]
--- OUTSIDE RECORDS SUMMARY | 2025-01-25 18:47 | XMS_ITS | Patient Health Record ---
Author Organization [facility] [place] Address [address] [place] [address] Care Team Providers Care Automatic Pilot Mechanic Name Role Phone Kavya GR, Babatunde Primary Care Provider Alfonso Thayer Unavailable [phone] Allergies Allergen (clinical drug ingredient) Drug/Non Drug [...] Start Date Coverage End Date Medicare [facility] [address] [place] [address] [id number] Onesimo Forrester Self - patient is the insured [employer] [address] [place] [address] [id number] Onesimo Forrester Self - patient is the insured Medical (General) History Medical History History ICD Code Anxiety Chicken pox Hepatitis A High blood pressure Measles Mumps Surgical History Surgery Date(Month/Year) inguinal hernia 1988
[2025-01-25 18:53] LABS: UACC Culture Trigger YES
[2025-01-25 19:29] VITALS: BP 141/77; PULSE 66; RESP 18; TEMP 36.6; O2SAT 96
--- NOTE | 2025-01-25 21:33 | PC.NURSE ---
attempted ambulation trial. patient able to stand at bedside with min. level of assist but is unsteady and falls/sits into bed (controlled by nurse). MD Ayonu notified
--- NOTE | 2025-01-25 21:42 | PM.IMHP ---
History of Present Illness Date of Service: 01/25/25 Attending physician on admission: Dejon Ibarra Chief Complaint: near fall Pt is an 79 yo male with PMH dementia, hypertension, hyponatremia, anxiety, asthma/ COPD not on oxygen, bilateral inguinal hernia repair, marijuana use via gummies 2-3 per day, presents to the emergency room after experiencing a near fall witnessed by his significant other with no loss of consciousness and no hit to the head. Also confirmed the patient is not currently on any blood thinners. Significant other indicate the patient had just eaten branch and ambulated to the recliner chair in the living area and was too weak to make it into the chair. Caregiver came over and attempted to move patient to the floor safely. Once patient was on the floor, it was impossible for patient to get up on his own and also impossible for this significant other to assist patient to a sitting/standing position. Patient then used his Alert device and notified EMS. Patient's blood pressure was checked in the interim by his caregiver and it was noted to be initially 99/62 and then 108 over 78. Caregiver also indicates that patient may have undiagnosed sleep apnea. Patient did have an opportunity for sleep study in the last 2 years but refused to be seen in the sleep lab for the study. Workup in the emergency department included CT of the head which was negative for acute findings and chest x-ray which noted no pneumonia, pulmonary edema or pleural effusion. Vital signs currently stable. Labs negative for acute anemia, leukocytosis, transaminitis, electrolyte imbalances or elevated troponin. UA negative for UTI. Na 134. Patient did denied any chest pain or shortness of breath at the time of the event. There was no loss of bowel or bladder witnessed. Review of Systems Review of Systems: Patient denies any chest pain, shortness of breath at rest or with exertion, abdominal pain, nausea, vomiting, diarrhea or constipation issues. Patient does report intermittent weakness in the legs. This weakness comes out especially after sitting for longer periods of time. Patient denies any open wounds. Patient denies any visual changes or headache. Yes all other systems are reviewed and are negative [facility] Medical History Asthma exacerbation COPD (chronic obstructive pulmonary disease) Cognitive capacity: A/O X3 Functional capacity: independent ambulation Surgical History History of hernia surgery Social History (Updated 01/25/25 @ 22:33 by BRENDAN Gibson) Household Members: Friend(s) Housing: House Do you presently have visiting nurse or other home services: No Alcohol intake: current Alcohol intake frequency: 0-2 drinks per day Alcohol type: beer Comment: 1 beer per day Patient Tobacco Use Status: Former Tobacco user Smoked in Last 30 Days: No Second Hand Smoke Exposure: No Substance Use Type: Marijuana Substance Use Type Other:: Patient uses 2-3 gummies per day Substance Use Frequency: Daily Advance Directives: Yes Advance Directives on File: Yes Advance Directives Date on File: 09/04/22 service: Yes Ebola Risk: Travel/Contact With Anyone From Affected Area/s: No Has Patient Experienced Ebola Symptoms: No Meds Allergies Allergy/AdvReac Type Severity Reaction Status Date / Time No Known Allergies Allergy Verified 01/25/25 17:33 Home Medications ?Medication ?Instructions ?Recorded ?Confirmed ?Last Taken ?Type albuterol sulfate 90 mcg/actuation 2 puff inhalation Q4H PRN wheezing 09/18/22 09/18/22 Unknown History aerosol inhaler ascorbic acid (vitamin C) 500 mg 500 mg PO DAILY 09/18/22 09/18/22 09/18/22 History tablet (Vitamin C) donepezil 10 mg tablet 10 mg PO BEDTIME 09/18/22 09/18/22 09/17/22 History haloperidol 0.5 mg tablet 0.5 mg PO BEDTIME 09/18/22 01/25/25 01/24/25 History hydroxyzine pamoate 25 mg capsule 25 mg PO BEDTIME 09/18/22 09/18/22 09/17/22 History lisinopril 10 mg tablet 10 mg PO DAILY 09/18/22 09/18/22 09/18/22 History multivitamin with folic acid 400 1 tab PO DAILY 09/18/22 09/18/22 09/18/22 History mcg tablet (Tab-A-Manoj) sertraline 25 mg tablet 25 mg PO DAILY 09/18/22 01/25/25 01/24/25 History trazodone 50 mg tablet 50 mg PO QD-BID PRN Sleep 09/18/22 01/25/25 Unknown History Physical Exam Vital Signs and Narrative: Vital Signs: Last Vital Signs Temp 97.9 F 01/25/25 19:29 Pulse 66 01/25/25 19:29 Resp 18 01/25/25 19:29 BP 141/77 H 01/25/25 19:29 Pulse Ox 96 01/25/25 19:29 O2 Del Method Room Air 01/25/25 19:29 BMI result Body Mass Index 24.2 Alert and orientated X2 (self and caregiver), able to follow commands Neuro: CN II-X11 intact, visual acuity intact EYES: PERRLA, EOM intact, sclerae nonicteric, conjunctiva pink ENT: hearing intact, no issues with swallowing, uvula midline, lips moist, nares patent no epistaxis Cardiac: S1 S2 RRR, no murmur, no JVD, no edema in Lower ext Pulmonary: lungs diminished bilaterally Abdominal: BS active in all 4 quadrants, no guarding, tenderness, rebounding MSK: strength 4/5 upper and 3/5 lower extremities : no CVA tenderness no bladder distension Extremities: no edema in lower extremities, PT and DP pulses palpable +2 Psych: mood stable, judgement and insight fair Skin: No new rashes or lesions, no report of open wounds Results Labs 01/25/25 17:44 01/25/25 17:44 Labs: Laboratory Results - last 24 hr 01/25/25 01/25/25 17:44 18:33 MCV 89.2 MCH 31.3 MCHC 35.0 RDW 13.0 Plt Count 255 MPV 9.4 Immature Gran % (Auto) 0.7 H Neut % (Auto) 74.0 H Lymph % (Auto) 14.4 L [place] % (Auto) 8.4 Eos % (Auto) 2.2 Baso % (Auto) 0.3 Lymph # (Auto) 1.0 L [place] # (Auto) 0.6 Eos # (Auto) 0.2 Baso # (Auto) 0.0 Abs Immat Gran (auto) 0.05 H Absolute Neuts (auto) 5.3 Absolute Nucleated RBC 0.000 Nucleated RBC % (auto) 0.0 Anion Gap 13 Estim Creat Clear Calc 83.0 Estimated GFR > 60 Random Glucose 112 Calcium 9.0 Total Bilirubin 0.4 AST 31 ALT 14 Alkaline Phosphatase 66 Total Creatine Kinase 79 Total Protein 6.9 Albumin 4.3 TSH 2.25 Urine Color Yellow Urine Appearance Clear Urine pH 7.5 Ur Specific [place] 1.015 Urine Protein 30 (1+) H Urine Glucose (UA) Negative Urine Ketones Trace Urine Blood Negative Urine Nitrite Negative Ur Leukocyte Esterase Small (1+) H Urine RBC 3-5 H Urine WBC 6-10 Ur Squamous Epith Cells 0-2 Urine Bacteria None Seen Hyaline Casts 3-5 ECG Attestation: I personally reviewed and interpreted this ECG as follows: (Normal sinus rhythm, normal QTC) Prior ECG tracings: available for review Imaging Radiologist's Impressions: HEAD CT Findings: No intra-axial mass, midline shift, hydrocephalus, or acute hemorrhage. Age appropriate cerebral volume loss. Patchy low-density within the periventricular and subcortical white matter. There is no sinus or mastoid fluid. The orbits are within normal limits. No skull fracture. IMPRESSION: 1. No acute intracranial findings. CXR Findings: The lungs are clear. Normal size heart. No acute fracture. IMPRESSION: 1. No acute findings. Assessment and Plan (1) Near syncope: Status: Acute Plan Pt is an 79 yo male with PMH dementia, hypertension, hyponatremia, anxiety, asthma/ COPD not on oxygen, bilateral inguinal hernia repair, marijuana use via gummies 2-3 per day, presents to the emergency room after experiencing a near fall witnessed by his significant other with no loss of consciousness and no hit to the head. Also confirmed the patient is not currently on any blood thinners. Significant other indicate the patient had just eaten branch and ambulated to the recliner chair in the living area and was too weak to make it into the chair. Pt being admitted for near syncope event and weakness. Near-syncope Blood pressure 149/77 on admission, renal function stable Orthostatics x3 Q shift ECG NSR, Normal Qtc TEDS Telemetry Echo ordered for the a.m., troponins negative, BNP pending, no obvious indication of heart failure or fluid overload, no murmur on exam TSH within normal limits Cardiology consulted Toxicology screen pendng, hx of positive screen for fentanyl, uses marijuana gummies 2-3 per day and one beer per day Generalized weakness PT eval requested Fall prevention measures requested, patient considered high fall risk Hyponatremia History of hyponatremia lowest sodium 129 in 2021 Sodium currently 134 BMP in the morning ? MARYANN Continuous CO2 monitor ordered overnight To need for outpatient testing Hypertension Patient normally on lisinopril Med rec pending Hydralazine PRN Anxiety Continue sertraline Patient states anxiety has been well controlled since history of admission to [facility] in 2021 Caregiver denies any behavioral issues including agitation, hallucinations Dementia Continue Haldol Patient states he has not been taking his donepezil No behavioral issues requiring one-to-one observation Fall prevention measures requested Pt is a vegetarian, diet updated. DVT prophylaxis: Lovenox Med rec pending Full Code status Quality Stroke Does the patient have a stroke diagnosis?: No Reason for No Anti-thrombotic by Day Two: N/A - Med Ordered VTE Prior VTE?: No VTE Risk Level:: Medical - moderate - high VTE Device Contraindication: N/A - Device Ordered VTE Drug Contraindication: N/A - Med Ordered
[2025-01-25 21:48] VITALS: BP 120/78; PULSE 62; RESP 20; TEMP 36.5; O2SAT 97
[2025-01-25 22:22] LABS: Magnesium 1.8 mg/dL (1.6-2.6)
[2025-01-26] VITALS (9 sets, daily range): BP systolic 142–162; BP diastolic 65–89; PULSE 63–84; RESP 16–23; TEMP 36.2–37.1; O2SAT 95–97
--- NOTE | 2025-01-26 06:05 | PC.NURSE ---
pt calm but disoriented and confused, asking where he is, where his is, why he is here. reoriented however patient reiterates questioning soon after being informed. ATOMIC PROCESS ENGINEER Graciela aware. pt states he is no pain, needs are met, demonstrates use of call haile in reach. accepted being covered back up with blankets, now in left lateral position, eyes closed, nonlabored respirations, plan of care ongoing.
--- NOTE | 2025-01-26 07:00 | CA_ITS ---
Transthoracic Echocardiogram Patient (Last, First, Middle): Onesimo Forrester, Gender: M Date of : 1945 Age: 79 Procedure Date: 01/26/2025 Procedure Type: Transthoracic Echocardiogram Location: [facility] [place] Height: 177.8 cm Weight: 76.2 kg BSA: 1.94 m2 Heart Rate: 64 bpm BP: 148 / 65 mmHg Online Services Manager: JEROD Referring MD: Graciela Hopkins TIE CARRIER- Symptoms: near syncope Study Quality: Adequate ECG Rhythm: Sinus Conclusions: - The left ventricular systolic function is normal. The calculated ejection fraction is 61% by biplane method. - There is moderate calcification of the aortic valve. There is no aortic valve stenosis. - There is mild mitral valve regurgitation. Findings Left Ventricle Normal left ventricular cavity size. There is mildly increased left ventricular wall thickness. The left ventricular systolic function is normal. The calculated ejection fraction is 61% by biplane method. There is no evidence of regional wall motion abnormalities. Diastolic function is normal for age. Right Ventricle Normal right ventricular cavity size and systolic function. Atria Both atria are normal in size. Aortic Valve There is moderate calcification of the aortic valve. There is no aortic valve stenosis. There is no aortic valve regurgitation. Mitral Valve The mitral valve appears normal. There is mild mitral valve regurgitation. There is no mitral valve stenosis. Pulmonic Valve The pulmonic valve is likely normal. Tricuspid Valve There is trace tricuspid valve regurgitation. There is no evidence of pulmonary hypertension. Great Vessels The asc aorta and aortic arch are normal in size. Venous The inferior vena cava is normal in size and collapses greater than 50% with inspiration. Pericardium/Pleural There is no evidence of pericardial effusion. Prior Study Comparison No prior study available for comparison. Measurements 2D Linear Measurements IVSd: 1.09 0.6-0.9/0.6-1.0 cm LVIDd: 4.03 3.9-5.3/4.2-5.9 cm LVIDd Index: 2.08 2.4-3.2/2.2-3.1 cm/m2 LVIDs: 2.52 2.0-3.6 cm LVPWd: 1.17 0.7-1.1 cm LA Diam: 3.10 2.7-3.8/3.0-4.0 cm LAIDs Index: 1.60 1.5-2.3 cm/m2 LV Mass: 190.74 67-162/88-224 g LV Mass Index: 98.32 43-95/49-115 g/m2 LVOT Diam: 2.40 3.0+(-)1.3 cm 2D Systolic Function EF 4C: 55.60 >55% EF 2C: 67.00 >55% EF BiP: 60.70 >55% Mitral Valve MV Pk E: 0.78 MV PK A: 0.89 MV Decel Time: 397.00 E/A: 0.90 E'Lateral: 9.46 E'Medial: 7.62 E/E' Med: 10.20 E/E' Lat: 8.20 PHT: 116.00 MVA PHT: 1.90 Decel Sharkey: 1.95 Aortic Valve AoV Pk Davon: 1.71 AoV Mn Davon: 1.17 AoV VTI: 0.35 AoV Pk Grad: 12.00 Aov Mn Grad: 6.00 ROSHNI Cont.VTI: 2.87 LVOT LVOT Pk Davon: 1.25 LVOT Mn Davon: 0.72 LVOT VTI: 0.22 LVOT Pk Grad: 6.00 LVOT Mn Grad: 3.00 LVOT Diam: 2.40 LVOT Area: 4.52 Diastolic Function MV Pk E: 0.78 MV Pk A: 0.89 E/A: 0.90 E'Medial: 7.62 E/E' Med: 10.20 E' Laterial: 9.46 E/E' Lat: 8.20 Right Ventricle TAPSE (mm): 19.40 TVS' Davon: 13.80 Tricuspid Valve TR Pk Davon: 1.94 TR Pk Grad: 15.00 RA Press: 3.00 RVSP: 18.00 Great Vessels Aorta Sinus of Valsalva: 3.70 2.0-3.5 cm Ao Asc: 3.30 2.1-3.4 cm Ao Arch: 3.20 Pulmonary Veins Pulm Vein S/D 1.80 Pulmonary Valve PV Pk Davon: 0.69 Peak PV Grad: 2.00 Updated in Other Vendor System with Status of Final James Trevino MD electronically signed on 01/26/2025 4:12:24 PM with status of Final
--- NOTE | 2025-01-26 07:03 | PC.NURSE ---
heavy assist to bathroom. BM x1 per tech
--- NOTE | 2025-01-26 07:45 | PC.NURSE ---
Assumed care of pt at 0700. Pt resting in bed quietly, a/ox1, confused but easily redirectable. Respirations even and unlabored, no increased wob/sob noted, maintaining O2 sat <92% on RA. Normal sinus/sinus ashlyn on mechanic and welder- denies SOB/CP. Pt up at side of bed, assisted by laborer laboratory and this RN. Pt very unsteady on feet/tipping forwards and backwards, able to use urinal with assistance. Pt placed on male Dragon [place]wick d/t high fall risk. Pt repositioned in bed, given breakfast tray- eating independently. Vitals updated in worklist. Call haile within reach, all needs met at this time.
[2025-01-26 07:54] LABS: Cannabinoid Screen Urine POSITIVE (Not Detect)
--- NOTE | 2025-01-26 08:50 | HO.PM.IMPN ---
Subjective Subjective Date of Service: 01/26/25 Interval History: no complaints Physical Exam Exam: Exam: General: AO X 2, no acute distress Resp: CTA bilateral, no accessory muscles used CVS: S1,S2,RRR GI: soft, non tender, non distended Neuro: motor grossly intact, alert, resting tremor, some EPS rigidity Vital Signs: Vital Signs: Last Vital Signs Temp 98.2 F 01/26/25 07:38 Pulse 69 01/26/25 07:38 Resp 23 H 01/26/25 07:38 BP 156/89 H 01/26/25 07:38 Pulse Ox 97 01/26/25 07:38 O2 Del Method Room Air 01/26/25 07:38 BMI result Body Mass Index 24.2 Objective Data Active Medications Acetaminophen (Acetaminophen 325 Mg Tablet) 650 mg PO Q6H PRN PRN Reason: Pain, Mild 1-3,fever,headache Albuterol/Ipratropium (Albuterol/Iprat 2.5/0.5mg 3 Ml Ampul.Neb) 3 ml INHALE Q4H PRN PRN Reason: Shortness of Breath/Wheezing Calcium Carbonate (Calcium Carbonate 750 Mg Tab.Chew) 750 mg PO Q4H PRN PRN Reason: Heartburn Haloperidol (Haloperidol 0.5 Mg Tablet) 0.5 mg PO BEDTIME DANIEL Last Admin: 01/26/25 00:10 Dose: 0.5 mg Documented By: CHRISTIE Magnesium Hydroxide (Milk Of Magnesia 30 Ml Oral.Susp) 30 ml PO DAILY PRN PRN Reason: Constipation Melatonin (Melatonin 3 Mg Tablet) 6 mg PO BEDTIME PRN PRN Reason: Insomnia Ondansetron HCl (Ondansetron Hcl 4 Mg/2 Ml Vial) 4 mg IVPUSH Q8H PRN PRN Reason: Nausea and Vomiting Polyethylene Glycol (Polyethylene Glycol 3350 17 Gm Powd.Pack) 17 gm PO DAILY PRN PRN Reason: Constipation Senna (Sennosides 8.6 Mg Tablet) 17.2 mg PO BEDTIME DANIEL Sertraline HCl (Sertraline Hcl 25 Mg Tablet) 25 mg PO DAILY DANIEL Sodium Chloride (0.9 % Sodium Chloride Flush 3 Ml Syringe) 3 ml IVFLUSH QSHIFT [facility] Last Admin: 01/26/25 02:49 Dose: Not Given Documented By: CHRISTIE Non-Admin Reason: Previously Administered Trazodone HCl (Trazodone Hcl 50 Mg Tablet) 50 mg PO BEDTIME PRN PRN Reason: Sleep Labs 01/25/25 17:44 01/25/25 17:44 Labs: Laboratory Results - last 24 hr 01/25/25 01/25/25 01/26/25 17:44 18:33 07:38 MCV 89.2 MCH 31.3 MCHC 35.0 RDW 13.0 Plt Count 255 MPV 9.4 Immature Gran % (Auto) 0.7 H Neut % (Auto) 74.0 H Lymph % (Auto) 14.4 L [place] % (Auto) 8.4 Eos % (Auto) 2.2 Baso % (Auto) 0.3 Lymph # (Auto) 1.0 L [place] # (Auto) 0.6 Eos # (Auto) 0.2 Baso # (Auto) 0.0 Abs Immat Gran (auto) 0.05 H Absolute Neuts (auto) 5.3 Absolute Nucleated RBC 0.000 Nucleated RBC % (auto) 0.0 Anion Gap 13 Estim Creat Clear Calc 83.0 Estimated GFR > 60 Random Glucose 112 Calcium 9.0 Magnesium 1.8 Total Bilirubin 0.4 AST 31 ALT 14 Alkaline Phosphatase 66 Total Creatine Kinase 79 Troponin I High Sens 8.4 Total Protein 6.9 Albumin 4.3 TSH 2.25 Urine Color Yellow Urine Appearance Clear Urine pH 7.5 Ur Specific [place] 1.015 Urine Protein 30 (1+) H Urine Glucose (UA) Negative Urine Ketones Trace Urine Blood Negative Urine Nitrite Negative Ur Leukocyte Esterase Small (1+) H Urine RBC 3-5 H Urine WBC 6-10 Ur Squamous Epith Cells 0-2 Urine Bacteria None Seen Hyaline Casts 3-5 Urine Opiates Screen Not Detected Ur Buprenorphine Scrn Not Detected Ur Oxycodone Screen Not Detected Urine Methadone Screen Not Detected Urine Fentanyl Screen Not Detected Ur Barbiturates Screen Not Detected Ur Phencyclidine Scrn Not Detected Ur Amphetamines Screen Not Detected U Benzodiazepines Scrn Not Detected Urine Cocaine Screen Not Detected U Marijuana (THC) Screen POSITIVE H Microbiology Microbiology Results: Microbiology 01/25/25 18:33 Urine Culture - Preliminary Urine clean catch - Clean Catch Midstream Culture too young to evaluate. Assessment and Plan (1) Near syncope: Status: Acute Plan 79M PMH dementia, htn, hyponatremia, anxiety, copd, presented with near syncope Near-syncope Suspect orthostatic, check orthostatics Move lisinopril to bedtime PT eval Monitor on tele will defer cardiology eval for now Chronic hyponatremia Stable Hypertension Lisinopril at bedtime Anxiety Sertraline Unspecified dementia Stable DVT prophylaxis-Lovenox Full Code reason for continued hospitalization: pt eval Quality Stroke Does the patient have a stroke diagnosis?: No Reason for No Anti-thrombotic by Day Two: N/A - Med Ordered VTE Prior VTE?: No VTE Risk Level:: Medical - moderate - high VTE Device Contraindication: N/A - Device Ordered VTE Drug Contraindication: N/A - Med Ordered
--- NOTE | 2025-01-26 09:26 | MHC.CM.PN ---
CM met with Patient at bedside and addressed IMM with him,providing Patient with the original and a copy has been placed on the chart. Patient may benefit from a PT Eval (Home new VNA VS STR)to assist with disposition;CM has initiated and will follow for dc planning. PCP is Dr. Babatunde Hoff and HCP is Son/Marcial.Patient's Significant Other will transport if ultimately home is the dc plan.
[2025-01-26 09:47] LABS: MANUAL DIFF FLAG NO
--- NOTE | 2025-01-26 09:51 | PHA.MEDREC ---
Addendum entered by Dalton Snyder PharmD 01/26/25 10:11: reviewed Original Note: Pharmacy Consult ? Medication Reconciliation Pharmacy has reviewed the medication reconciliation done by nursing. claims match med list. Patient was very confused he didn't know what medications he takes.
[2025-01-26 09:52] LABS: Hematocrit 39.4 % (42.0-52.0); Hemoglobin 13.8 g/dl (14.0-18.0); Imm Gran Abs Auto 0.03 X10*3/uL (0.00-0.03); Imm Gran Pct Auto 0.6 % (0.0-0.4); Lymphocytes Absolute Auto 1.0 X10*3/uL (1.2-4.9); Mean Corpuscular HGB Conc 35.0 g/dl (31.0-36.0); Mean Corpuscular Hemoglobin 31.2 pg (27.0-33.0); Mean Corpuscular Volume 88.9 fL (80.0-98.0); NRBC Abs Auto 0.000 X10*3/uL (0.0-0.012); NRBC Pct Auto 0.0 /100WBC (0.0-0.2); Platelet Count 274 X10*3/uL (160-400); Red Blood Count 4.43 X10*6/uL (4.60-5.80); White Blood Count 5.0 X10*3/uL (4.8-10.8)
[2025-01-26 10:06] LABS: Anion Gap 13 (12-20); Blood Urea Nitrogen 6 mg/dL (9-16); Calcium 9.2 mg/dL (8.4-10.2); Carbon Dioxide 26 mmol/L (22-29); Chloride 101 mmol/L (96-108); Creatinine Clr Calc Pharmacy 93.4; Estimated Glomerular Filt Rate > 60; Potassium 3.5 mmol/L (3.3-5.1); Sodium 136 mmol/L (135-145)
[2025-01-26 10:12] LABS: B Type Natriuretic Peptide 94 pg/mL (<100)
--- NOTE | 2025-01-26 11:07 | MHC.CM.PN ---
CM met with Patient at bedside to discuss PT's recommendation for STR; Patient would like to speak with his S.O./Jenn (who is a PT) before deciding on a plan. CM and Patient attempted to call Jenn together but only reached the answering machine. While documenting this note, CM received a call from Jenn who confirmed that she is a PT and that she and Patient prefer that [facility]. ANGIE will continue to follow.
[2025-01-26] MEDS: 0.9 % Sodium Chloride Flush 3 ML SYRINGE IVFLUSH ×3 (11:28→21:55)
[2025-01-27] VITALS (9 sets, daily range): BP systolic 121–142; BP diastolic 57–77; PULSE 57–80; RESP 16–18; TEMP 36.4–36.8; O2SAT 94–97
--- NOTE | 2025-01-27 03:46 | MHC.PIE ---
Addendum entered by Dhara Pastor RN 01/27/25 04:27: p; pt cont to be restless, confused, agitated and combative, pt cont to spit and kick at staff. i; dr giordano notified. new order zyprexa im now e; med again given with 4 staff to hold pt for saftey, sitter cont to be at bed side, will cont to monitor Original Note: p; pt woke up confused agitated and anxious. pt trying to get out of bed and out of room going home or yelling at staff get out of my house combative and aggressive kicking at staff and spitting at staff. i; dr giordano notified. new order haldol im now e; med given with 4 staff holding pt for safety, sitter placed at bed side, will cont to monitor
[2025-01-27] MEDS: OLANZapine 10 MG VIAL 5 MG IM (04:26)
--- NOTE | 2025-01-27 08:46 | HO.PM.IMPN ---
Subjective Subjective Date of Service: 01/27/25 Review of Systems Review of Systems: Yes Unobtainable due to mental status Physical Exam Exam: Exam: sleeping comfortably lungs clear abd soft, non tender no edema Vital Signs: Vital Signs: Last Vital Signs Temp 98.1 F 01/27/25 07:47 Pulse 59 01/27/25 07:47 Resp 16 01/27/25 07:47 BP 123/57 L 01/27/25 07:47 Pulse Ox 94 01/27/25 07:47 O2 Del Method Room Air 01/27/25 07:47 BMI result Body Mass Index 24.2 Objective Data Active Medications Acetaminophen (Acetaminophen 325 Mg Tablet) 650 mg PO Q6H PRN PRN Reason: Pain, Mild 1-3,fever,headache Albuterol/Ipratropium (Albuterol/Iprat 2.5/0.5mg 3 Ml Ampul.Neb) 3 ml INHALE Q4H PRN PRN Reason: Shortness of Breath/Wheezing Calcium Carbonate (Calcium Carbonate 750 Mg Tab.Chew) 750 mg PO Q4H PRN PRN Reason: Heartburn Haloperidol (Haloperidol 0.5 Mg Tablet) 0.5 mg PO BEDTIME DANIEL Last Admin: 01/26/25 21:55 Dose: 0.5 mg Documented By: JOSE Sodium Chloride (Ns) 1,000 mls @ 75 mls/hr IVCONT .[id number] [facility] Last Admin: 01/27/25 06:42 Dose: Not Given Documented By: JOSE Non-Admin Reason: see note Lisinopril (Lisinopril 10 Mg Tablet) 10 mg PO BEDTIME DANIEL; Protocol Last Admin: 01/26/25 21:55 Dose: 10 mg Documented By: JOSE Magnesium Hydroxide (Milk Of Magnesia 30 Ml Oral.Susp) 30 ml PO DAILY PRN PRN Reason: Constipation Melatonin (Melatonin 3 Mg Tablet) 6 mg PO BEDTIME PRN PRN Reason: Insomnia Polyethylene Glycol (Polyethylene Glycol 3350 17 Gm Powd.Pack) 17 gm PO DAILY PRN PRN Reason: Constipation Senna (Sennosides 8.6 Mg Tablet) 17.2 mg PO BEDTIME DANIEL Last Admin: 01/26/25 21:55 Dose: 17.2 mg Documented By: JOSE Sertraline HCl (Sertraline Hcl 25 Mg Tablet) 25 mg PO DAILY [facility] Last Admin: 01/26/25 11:29 Dose: 25 mg Documented By: ALEX Sodium Chloride (0.9 % Sodium Chloride Flush 3 Ml Syringe) 3 ml IVFLUSH QSHIFT [facility] Last Admin: 01/26/25 21:55 Dose: 3 ml Documented By: JOSE Trazodone HCl (Trazodone Hcl 50 Mg Tablet) 50 mg PO BEDTIME PRN PRN Reason: Sleep Last Admin: 01/26/25 21:55 Dose: 50 mg Documented By: JOSE Labs 01/26/25 09:07 01/26/25 09:07 Labs: Laboratory Results - last 24 hr 01/26/25 09:07 MCV 88.9 MCH 31.2 MCHC 35.0 RDW 12.9 Plt Count 274 MPV 9.8 Immature Gran % (Auto) 0.6 H Neut % (Auto) 65.4 Lymph % (Auto) 20.3 [place] % (Auto) 9.3 Eos % (Auto) 3.8 Baso % (Auto) 0.6 Lymph # (Auto) 1.0 L [place] # (Auto) 0.5 Eos # (Auto) 0.2 Baso # (Auto) 0.0 Abs Immat Gran (auto) 0.03 Absolute Neuts (auto) 3.3 Absolute Nucleated RBC 0.000 Nucleated RBC % (auto) 0.0 Anion Gap 13 Estim Creat Clear Calc 93.4 Estimated GFR > 60 Random Glucose 110 Calcium 9.2 B-Natriuretic Peptide 94 Microbiology Microbiology Results: Microbiology 01/25/25 18:33 Urine Culture - Final Urine clean catch - Clean Catch Midstream Assessment and Plan (1) Near syncope: Status: Acute Plan 79M PMH dementia, htn, hyponatremia, anxiety, copd, presented with near syncope Near-syncope Suspect orthostatic, non participatory with orthostatic measurements given IVF Moved lisinopril to bedtime PT eval - recommending STR acute hospital delerium in patient with unspecified dementia given antipsychotics overnight now sleeping orienting strategies maintain night/day cycles Chronic hyponatremia Stable supine Hypertension Lisinopril at bedtime Anxiety Sertraline DVT prophylaxis-Lovenox Full Code reason for continued hospitalization: acute delerium Quality Stroke Does the patient have a stroke diagnosis?: No Reason for No Anti-thrombotic by Day Two: N/A - Med Ordered VTE Prior VTE?: No VTE Risk Level:: Medical - moderate - high VTE Device Contraindication: N/A - Device Ordered VTE Drug Contraindication: N/A - Med Ordered
[2025-01-27] MEDS: 0.9 % Sodium Chloride Flush 3 ML SYRINGE IVFLUSH (10:40)
--- NOTE | 2025-01-27 14:56 | MHC.CM.PN ---
This CM met with pt and his significant other Jenn, present at bedside to discuss discharge plan. Pt has significant weakness and difficulty ambulating. This CM explained what VNA services at home vs STR services look like, and that at this time STR is the recommendation for his current functional abilities. Pt and his significant other are in agreement with STR, no preference in facility noted. List of facility options printed from [facility] and given to the pt and his significant other to review. STR referrals placed in [facility], awaiting bed offers, will then review with the pt and his significant other. Anticipating discharge to STR tomorrow.
[2025-01-28 04:00] VITALS: BP 164/80; PULSE 65; RESP 18; TEMP 36.8; O2SAT 94
[2025-01-28 07:39] VITALS: BP 121/73; PULSE 63; RESP 18; TEMP 36.2; O2SAT 95
--- NOTE | 2025-01-28 09:47 | MHC.CM.PN ---
This CM spoke with pt and his significant other to review his STR bed offers, currently 4 facilities are offering him a STR bed. Pts significant other will speak with this CM in the next hour to give this CM their STR selection.
[2025-01-28] MEDS: 0.9 % Sodium Chloride Flush 3 ML SYRINGE IVFLUSH (09:52)
[2025-01-28 11:36] VITALS: BP 151/72; PULSE 63; RESP 18; TEMP 36.7; O2SAT 98
--- NOTE | 2025-01-28 14:17 | MHC.CM.PN ---
EMR reviewed and per MD rounds, pt is not medically cleared for discharge due to management of orthostasis. Per pts significant other Jenn, she is between [facility] and [facility] when it comes to their STR facility preference.
[2025-01-28 16:00] VITALS: BP 135/79; PULSE 67; RESP 18; TEMP 36.7; O2SAT 96
--- NOTE | 2025-01-28 17:05 | HO.PM.IMPN ---
Subjective Subjective Date of Service: 01/28/25 Interval History: seems more awake ,alert Physical Exam Vital Signs: Vital Signs: Last Vital Signs Temp 98.1 F 01/28/25 16:00 Pulse 67 01/28/25 16:00 Resp 18 01/28/25 16:00 BP 135/79 01/28/25 16:00 Pulse Ox 96 01/28/25 16:00 O2 Del Method Room Air 01/28/25 16:00 BMI result Body Mass Index 24.2 Objective Data Active Medications Acetaminophen (Acetaminophen 325 Mg Tablet) 650 mg PO Q6H PRN PRN Reason: Pain, Mild 1-3,fever,headache Albuterol/Ipratropium (Albuterol/Iprat 2.5/0.5mg 3 Ml Ampul.Neb) 3 ml INHALE Q4H PRN PRN Reason: Shortness of Breath/Wheezing Calcium Carbonate (Calcium Carbonate 750 Mg Tab.Chew) 750 mg PO Q4H PRN PRN Reason: Heartburn Haloperidol (Haloperidol 0.5 Mg Tablet) 0.5 mg PO BEDTIME [facility] Last Admin: 01/27/25 21:54 Dose: 0.5 mg Documented By: SONNY Sodium Chloride (Ns) 1,000 mls @ 75 mls/hr IVCONT .[id number] [facility] Last Admin: 01/28/25 09:52 Dose: 75 mls/hr Lisinopril (Lisinopril 10 Mg Tablet) 10 mg PO BEDTIME [facility]; Protocol Last Admin: 01/27/25 21:54 Dose: 10 mg Documented By: SONNY Magnesium Hydroxide (Milk Of Magnesia 30 Ml Oral.Susp) 30 ml PO DAILY PRN PRN Reason: Constipation Melatonin (Melatonin 3 Mg Tablet) 6 mg PO BEDTIME PRN PRN Reason: Insomnia Last Admin: 01/27/25 21:56 Dose: 6 mg Documented By: SONNY Polyethylene Glycol (Polyethylene Glycol 3350 17 Gm Powd.Pack) 17 gm PO DAILY PRN PRN Reason: Constipation Senna (Sennosides 8.6 Mg Tablet) 17.2 mg PO BEDTIME [facility] Last Admin: 01/27/25 21:54 Dose: 17.2 mg Documented By: SONNY Sertraline HCl (Sertraline Hcl 25 Mg Tablet) 25 mg PO DAILY [facility] Last Admin: 01/28/25 09:52 Dose: 25 mg Documented By: CHRISTIAN Sodium Chloride (0.9 % Sodium Chloride Flush 3 Ml Syringe) 3 ml IVFLUSH QSHIFT [facility] Last Admin: 01/28/25 15:36 Dose: Not Given Documented By: SERGIO Non-Admin Reason: IV Running Trazodone HCl (Trazodone Hcl 50 Mg Tablet) 50 mg PO BEDTIME PRN PRN Reason: Sleep Last Admin: 01/27/25 21:56 Dose: 50 mg Documented By: SONNY Labs 01/26/25 09:07 01/26/25 09:07 Assessment and Plan (1) Near syncope: Status: Acute Plan 79M PMH dementia, htn, hyponatremia, anxiety, copd, presented with near syncope Near-syncope Suspect orthostatic, non participatory with orthostatic measurements given IVF moniter orthostatic Moved lisinopril to bedtime PT eval - recommending STR acute hospital delerium in patient with unspecified dementia Seems more comfortable orienting strategies maintain night/day cycles Chronic hyponatremia Stable supine Hypertension Lisinopril at bedtime Anxiety Sertraline DVT prophylaxis-Lovenox Full Code reason for continued hospitalization: acute delerium Quality Stroke Does the patient have a stroke diagnosis?: No Reason for No Anti-thrombotic by Day Two: N/A - Med Ordered VTE Prior VTE?: No VTE Risk Level:: Medical - moderate - high VTE Device Contraindication: N/A - Device Ordered VTE Drug Contraindication: N/A - Med Ordered
[2025-01-28 19:55] VITALS: BP 145/76; PULSE 66; RESP 16; TEMP 36.6; O2SAT 95
[2025-01-28 23:35] VITALS: BP 142/69; PULSE 51; RESP 16; TEMP 36.5; O2SAT 98
[2025-01-29] VITALS (16 sets, daily range): BP systolic 109–168; BP diastolic 57–93; PULSE 64–87; RESP 16–18; TEMP 36.2–36.7; O2SAT 94–97
--- NOTE | 2025-01-29 | ECG_ITS ---
Test Reason : dysrhythmia Blood Pressure : */* mmHG Vent. Rate : 65 BPM Atrial Rate : 65 BPM P-R Int : 158 ms QRS Dur : 80 ms QT Int : 506 ms P-R-T Axes : 73 16 77 degrees QTcB Int : 526 ms Normal sinus rhythm Nonspecific ST and T wave abnormality Prolonged QT Abnormal ECG When compared with ECG of 25-Jan-2025 17:36, QT has lengthened Referred By: Marjorie Munoz Electronically Signed By: LEVI HU
--- NOTE | 2025-01-29 06:26 | PM.EVENT ---
Event Note Date of Service: 01/29/25 Event Note: 5:40 a.m. - Bradycardia, irregular rhythm noted on tele. We will obtain ECG. Time Spent With Patient Time: Total time managing care of this patient today ____ minutes.
[2025-01-29 07:29] LABS: MANUAL DIFF FLAG NO
[2025-01-29 07:36] LABS: Hematocrit 37.7 % (42.0-52.0); Hemoglobin 13.2 g/dl (14.0-18.0); Imm Gran Abs Auto 0.06 X10*3/uL (0.00-0.03); Imm Gran Pct Auto 1.1 % (0.0-0.4); Lymphocytes Absolute Auto 1.4 X10*3/uL (1.2-4.9); Mean Corpuscular HGB Conc 35.0 g/dl (31.0-36.0); Mean Corpuscular Hemoglobin 31.2 pg (27.0-33.0); Mean Corpuscular Volume 89.1 fL (80.0-98.0); NRBC Abs Auto 0.000 X10*3/uL (0.0-0.012); NRBC Pct Auto 0.0 /100WBC (0.0-0.2); Platelet Count 233 X10*3/uL (160-400); Red Blood Count 4.23 X10*6/uL (4.60-5.80); White Blood Count 5.5 X10*3/uL (4.8-10.8)
[2025-01-29 07:51] LABS: Anion Gap 8 (12-20); Blood Urea Nitrogen 11 mg/dL (9-16); Calcium 8.7 mg/dL (8.4-10.2); Carbon Dioxide 26 mmol/L (22-29); Chloride 108 mmol/L (96-108); Creatinine Clr Calc Pharmacy 89.2; Estimated Glomerular Filt Rate > 60; Magnesium 1.7 mg/dL (1.6-2.6); Potassium 3.3 mmol/L (3.3-5.1); Sodium 139 mmol/L (135-145)
--- NOTE | 2025-01-29 08:04 | HO.PM.IMPN ---
Subjective Subjective Date of Service: 01/29/25 Interval History: bradycardia,orthostasis Review of Systems feels weak and dizziness Review of Systems: Yes all other systems are reviewed and are negative Physical Exam Exam: Exam: General: Alert, no distress Resp: CTA bilateral, no accessory muscles used CVS: S1,S2,RRR GI: soft, non tender, non distended Vital Signs: Vital Signs: Last Vital Signs Temp 97.6 F 01/29/25 07:30 Pulse 67 01/29/25 07:30 Resp 18 01/29/25 07:30 BP 148/67 H 01/29/25 07:30 Pulse Ox 97 01/29/25 07:30 O2 Del Method Room Air 01/29/25 07:30 BMI result Body Mass Index 24.2 Objective Data Active Medications Acetaminophen (Acetaminophen 325 Mg Tablet) 650 mg PO Q6H PRN PRN Reason: Pain, Mild 1-3,fever,headache Albuterol/Ipratropium (Albuterol/Iprat 2.5/0.5mg 3 Ml Ampul.Neb) 3 ml INHALE Q4H PRN PRN Reason: Shortness of Breath/Wheezing Calcium Carbonate (Calcium Carbonate 750 Mg Tab.Chew) 750 mg PO Q4H PRN PRN Reason: Heartburn Haloperidol (Haloperidol 0.5 Mg Tablet) 0.5 mg PO BEDTIME DANIEL On Hold: 01/29/25 06:45 Last Admin: 01/28/25 19:55 Dose: 0.5 mg Documented By: SONNY Sodium Chloride (Ns) 1,000 mls @ 75 mls/hr IVCONT .[id number] [facility] Last Admin: 01/29/25 01:03 Dose: 75 mls/hr Documented By: SONNY Magnesium Sulfate (Magnesium Sulfate/H2o) 2 gm in 50 mls @ 50 mls/hr IV ONCE ONE Stop: 01/29/25 08:52 Lisinopril (Lisinopril 10 Mg Tablet) 10 mg PO BEDTIME DANIEL; Protocol Last Admin: 01/28/25 19:56 Dose: 10 mg Documented By: SONNY Magnesium Hydroxide (Milk Of Magnesia 30 Ml Oral.Susp) 30 ml PO DAILY PRN PRN Reason: Constipation Melatonin (Melatonin 3 Mg Tablet) 6 mg PO BEDTIME PRN PRN Reason: Insomnia Last Admin: 01/28/25 19:55 Dose: 6 mg Documented By: SONNY Polyethylene Glycol (Polyethylene Glycol 3350 17 Gm Powd.Pack) 17 gm PO DAILY PRN PRN Reason: Constipation Senna (Sennosides 8.6 Mg Tablet) 17.2 mg PO BEDTIME [facility] Last Admin: 01/28/25 19:55 Dose: 17.2 mg Documented By: SONNY Sertraline HCl (Sertraline Hcl 25 Mg Tablet) 25 mg PO DAILY DANIEL On Hold: 01/29/25 06:47 Last Admin: 01/28/25 09:52 Dose: 25 mg Documented By: CHRISTIAN Sodium Chloride (0.9 % Sodium Chloride Flush 3 Ml Syringe) 3 ml IVFLUSH QSHIFT [facility] Last Admin: 01/29/25 05:58 Dose: Not Given Documented By: SONNY Non-Admin Reason: IV Running Trazodone HCl (Trazodone Hcl 50 Mg Tablet) 50 mg PO BEDTIME PRN On Hold: 01/29/25 06:47 PRN Reason: Sleep Last Admin: 01/28/25 19:57 Dose: 50 mg Documented By: SONNY Labs 01/29/25 07:22 01/29/25 07:22 Labs: Laboratory Results - last 24 hr 01/29/25 07:22 MCV 89.1 MCH 31.2 MCHC 35.0 RDW 13.2 Plt Count 233 MPV 9.5 Immature Gran % (Auto) 1.1 H Neut % (Auto) 56.8 Lymph % (Auto) 25.1 [place] % (Auto) 11.2 H Eos % (Auto) 5.1 H Baso % (Auto) 0.7 Lymph # (Auto) 1.4 [place] # (Auto) 0.6 Eos # (Auto) 0.3 Baso # (Auto) 0.0 Abs Immat Gran (auto) 0.06 H Absolute Neuts (auto) 3.1 Absolute Nucleated RBC 0.000 Nucleated RBC % (auto) 0.0 Anion Gap 8 L Estim Creat Clear Calc 89.2 Estimated GFR > 60 Random Glucose 110 Calcium 8.7 Magnesium 1.7 Assessment and Plan (1) Near syncope: Status: Acute Plan 79M PMH dementia, htn, hyponatremia, anxiety, copd, presented with near syncope Near-syncope Suspect orthostatic, non participatory with orthostatic measurements given IVF, nita stockings moniter orthostatic Moved lisinopril to bedtime PT eval - recommending STR Overnight found to have bradycardia, prolonged QT: ? Psych medication Medication related versus electrolytes derangement Potassium is 3.3, magnesium 1.7: Will replete potassium and magnesium. Goal potassium around 4 and magnesium around 2. Repeat EKG in the morning Psych evaluation for psych medication adjustment acute hospital delerium in patient with unspecified dementia Seems more comfortable orienting strategies maintain night/day cycles Psych medication adjustment as above, psych evaluation. Chronic hyponatremia Stable supine Hypertension Lisinopril at bedtime Anxiety Sertraline DVT prophylaxis-Lovenox Full Code reason for continued hospitalization: acute delerium, orthostasis -need ivf , nita stocking ,orthostatic/symptoms monitering , need psych input for med adjustment -overnight bradycardia -also electrolytic monitor monitoring. Quality Stroke Does the patient have a stroke diagnosis?: No Reason for No Anti-thrombotic by Day Two: N/A - Med Ordered VTE Prior VTE?: No VTE Risk Level:: Medical - moderate - high VTE Device Contraindication: N/A - Device Ordered VTE Drug Contraindication: N/A - Med Ordered
[2025-01-29] MEDS: 0.9 % Sodium Chloride Flush 3 ML SYRINGE IVFLUSH (08:18)
[2025-01-29] MEDS: Magnesium Sulfate/H2O 2 GM/50 ML PIGGYBACK IV (08:18)
[2025-01-29] MEDS: Potassium Chloride ER 20 MEQ TAB.ER.PRT 40 MEQ PO (08:18)
--- NOTE | 2025-01-29 12:59 | PM.PSYCN ---
History of Present Illness Date of Service: 01/29/2025 Chief Complaint: Near syncope Reason for Consult: bradycardia, orthostasis -?psych meds related Requesting physician: Jesse Guerrier Discussed with referring provider: Yes Sources of Information: patient interviewed and chart reviewed HPI Narrative: 79M PMH dementia, htn, hyponatremia, anxiety, copd, presented with near syncope. Patient evaluated for potential adverse reactions of delirium, bradycardia, prolonged QTC of his psychotropic medications. He was found sitting in a chair in his room with his son and female friend at bedside. According to his son and female friend, patient has impaired short-term memory at baseline. However, after his recent fall that brought [facility]la to [facility], he has been significantly confused. He is alert and oriented x4 and confused at times. He denies anxiety or depression. He denies SI/HI/AVH. His female friend notes that he is currently on sertraline and Haldol and the trazodone was discontinued by his psychiatric provider. However, trazodone was on his current medication list that was reconciled, per hospitalist. He has been on Haldol, sertraline, and trazodone during this hospitalization and have been placed on hold since last night. His female friend notes that the patient has been consuming a cannabis gummy daily and drinking 1-2 beers daily for the past several months. Hospitalist and nursing notes that the patient has not had behavioral changes. Past Psychiatric History: Denied. Reports having anxiety disorder for many years but never treated. Denied ever being suicidal. Medical Evaluation Reviewed: Yes [facility] Medical History Asthma exacerbation COPD (chronic obstructive pulmonary disease) Surgical History History of hernia surgery Social History: Reports living with his friend Jenn Taylor whom they have known each other since 1985 when they joined the same [employer]. Reports members of the group referred to each other's brothers and sisters and therefore he refers to her as his sister. Reports living in the home he cared for his parents in with his mom passing away last in 2004. Has 2 brothers and 2 adult sons. Ex- in 1998. Reports enjoying gardening. 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 Denied legal issues. Diagnostics Vital Signs (24Hr): Vital Signs - 24 hr 01/28/25 16:00 01/28/25 19:55 01/28/25 23:35 Temperature 98.1 F 98 F 97.7 F Pulse Rate 67 66 51 Respiratory Rate 18 16 16 Blood Pressure 135/79 145/76 H 142/69 H Pulse Oximetry 96 95 98 Oxygen Delivery Method Room Air Room Air Room Air 01/29/25 03:17 01/29/25 06:25 01/29/25 06:25 Temperature 97.4 F Pulse Rate 71 64 70 Respiratory Rate 16 Blood Pressure 109/57 L 138/67 168/93 H Pulse Oximetry 96 Oxygen Delivery Method Room Air 01/29/25 06:25 01/29/25 07:30 01/29/25 08:00 Temperature 97.6 F Pulse Rate 73 67 82 Respiratory Rate 18 Blood Pressure 113/85 148/67 H 144/72 H Pulse Oximetry 97 Oxygen Delivery Method Room Air 01/29/25 08:05 01/29/25 08:06 01/29/25 11:09 Temperature 98.0 F Pulse Rate 76 80 87 Respiratory Rate 18 Blood Pressure 138/70 140/76 H 131/61 Pulse Oximetry 97 Oxygen Delivery Method Room Air BMI result Body Mass Index 24.2 Labs 01/29/25 07:22 01/29/25 07:22 Labs: Laboratory Results - last 48 hr 01/29/25 07:22 WBC 5.5 RBC 4.23 L Hgb 13.2 L Hct 37.7 L MCV 89.1 MCH 31.2 MCHC 35.0 RDW 13.2 Plt Count 233 MPV 9.5 Immature Gran % (Auto) 1.1 H Neut % (Auto) 56.8 Lymph % (Auto) 25.1 [place] % (Auto) 11.2 H Eos % (Auto) 5.1 H Baso % (Auto) 0.7 Lymph # (Auto) 1.4 [place] # (Auto) 0.6 Eos # (Auto) 0.3 Baso # (Auto) 0.0 Abs Immat Gran (auto) 0.06 H Absolute Neuts (auto) 3.1 Absolute Nucleated RBC 0.000 Nucleated RBC % (auto) 0.0 Sodium 139 Potassium 3.3 Chloride 108 Carbon Dioxide 26 Anion Gap 8 L BUN 11 Creatinine 0.67 Estim Creat Clear Calc 89.2 Estimated GFR > 60 Random Glucose 110 Calcium 8.7 Magnesium 1.7 Mental Status Exam Mental Status Exam Narrative: Appearance: Casually dressed in hospital attire, adequate hygiene Behavior: Calm and cooperative throughout the interview. Eye contact is appropriate, and there are no signs of psychomotor agitation or retardation Speech: Normal volume and prosody Thought process: Logical and goal-directed Thought content: Future oriented no self-harming thoughts Mood: Euthymic Affect: Full, mood-congruent SI:denies HI:denies VH/AH:none Delusions: None Insight/judgment: Fair insight and judgment Memory/cog: Alert, oriented x 4. grossly intact to conversational testing Medications Medications Current Medications Acetaminophen (Acetaminophen 325 Mg Tablet) 650 mg PO Q6H PRN PRN Reason: Pain, Mild 1-3,fever,headache Albuterol/Ipratropium (Albuterol/Iprat 2.5/0.5mg 3 Ml Ampul.Neb) 3 ml INHALE Q4H PRN PRN Reason: Shortness of Breath/Wheezing Calcium Carbonate (Calcium Carbonate 750 Mg Tab.Chew) 750 mg PO Q4H PRN PRN Reason: Heartburn Haloperidol (Haloperidol 0.5 Mg Tablet) 0.5 mg PO BEDTIME DANIEL On Hold: 01/29/25 06:45 Last Admin: 01/28/25 19:55 Dose: 0.5 mg Sodium Chloride (Ns) 1,000 mls @ 75 mls/hr IVCONT .[id number] DANIEL Last Admin: 01/29/25 09:35 Dose: Not Given Lisinopril (Lisinopril 10 Mg Tablet) 10 mg PO BEDTIME DANIEL; Protocol Last Admin: 01/28/25 19:56 Dose: 10 mg Magnesium Hydroxide (Milk Of Magnesia 30 Ml Oral.Susp) 30 ml PO DAILY PRN PRN Reason: Constipation Melatonin (Melatonin 3 Mg Tablet) 6 mg PO BEDTIME PRN PRN Reason: Insomnia Last Admin: 01/28/25 19:55 Dose: 6 mg Polyethylene Glycol (Polyethylene Glycol 3350 17 Gm Powd.Pack) 17 gm PO DAILY PRN PRN Reason: Constipation Senna (Sennosides 8.6 Mg Tablet) 17.2 mg PO BEDTIME DANIEL Last Admin: 01/28/25 19:55 Dose: 17.2 mg Sertraline HCl (Sertraline Hcl 25 Mg Tablet) 25 mg PO DAILY DANIEL On Hold: 01/29/25 06:47 Last Admin: 01/28/25 09:52 Dose: 25 mg Sodium Chloride (0.9 % Sodium Chloride Flush 3 Ml Syringe) 3 ml IVFLUSH QSHIFT DANIEL Last Admin: 01/29/25 08:18 Dose: 3 ml Trazodone HCl (Trazodone Hcl 50 Mg Tablet) 50 mg PO BEDTIME PRN On Hold: 01/29/25 06:47 PRN Reason: Sleep Last Admin: 01/28/25 19:57 Dose: 50 mg Allergies Allergies Allergy/AdvReac Type Severity Reaction Status Date / Time No Known Allergies Allergy Verified 01/25/25 17:33 Assessment & Plan Assessment & Plan (1) Prolonged QT interval: Status: Acute Code(s): R94.31 - Abnormal electrocardiogram [ECG] [EKG] Assessment and Plan: He is on low dose sertraline, trazodone, and haldol for anxiety and has no acute symptoms. QTc today is elevated, 526. He has h/o normal QTc. His psychotropic medications are likely not the cause of current QTc although possible. Recommend to resume psychotropic medications as prescribed, and repeat EKG tomorrow. May discontinue Trazadone. Psych may reevaluated if QTc continue is more prolonged. Total time managing care of this patient today ____ minutes. Patient educated on: medication risk/benefits and therapeutic strategies
[2025-01-30] VITALS (12 sets, daily range): BP systolic 139–175; BP diastolic 70–98; PULSE 57–687; RESP 16–19; TEMP 36.4–37.2; O2SAT 96–97
--- NOTE | 2025-01-30 | ECG_ITS ---
Test Reason : STAT ORDER Blood Pressure : */* mmHG Vent. Rate : 70 BPM Atrial Rate : 70 BPM P-R Int : 180 ms QRS Dur : 78 ms QT Int : 480 ms P-R-T Axes : 72 6 61 degrees QTcB Int : 518 ms Normal sinus rhythm Nonspecific T wave abnormality Prolonged QT Abnormal ECG When compared with ECG of 29-Jan-2025 06:30, No significant change was found Referred By: Jesse Guerrier Electronically Signed By: LEVI HU
[2025-01-30] MEDS: 0.9 % Sodium Chloride Flush 3 ML SYRINGE IVFLUSH (01:40)
--- NOTE | 2025-01-30 08:19 | HO.PM.IMPN ---
Subjective Subjective Date of Service: 01/30/25 Interval History: prolong qt orthostasis Review of Systems dizziness improving denies new symptoms Review of Systems: Yes all other systems are reviewed and are negative Physical Exam Exam: Exam: General: Alert, no distress Resp: CTA bilateral, no accessory muscles used CVS: S1,S2,RRR GI: soft, non tender, non distended Vital Signs: Vital Signs: Last Vital Signs Temp 98 F 01/30/25 06:56 Pulse 64 01/30/25 06:56 Resp 17 01/30/25 06:56 BP 154/73 H 01/30/25 06:56 Pulse Ox 97 01/30/25 06:56 O2 Del Method Room Air 01/30/25 06:56 BMI result Body Mass Index 24.2 Objective Data Active Medications Acetaminophen (Acetaminophen 325 Mg Tablet) 650 mg PO Q6H PRN PRN Reason: Pain, Mild 1-3,fever,headache Albuterol/Ipratropium (Albuterol/Iprat 2.5/0.5mg 3 Ml Ampul.Neb) 3 ml INHALE Q4H PRN PRN Reason: Shortness of Breath/Wheezing Calcium Carbonate (Calcium Carbonate 750 Mg Tab.Chew) 750 mg PO Q4H PRN PRN Reason: Heartburn Haloperidol (Haloperidol 0.5 Mg Tablet) 0.5 mg PO BEDTIME [facility] Last Admin: 01/28/25 19:55 Dose: 0.5 mg Documented By: SONNY Sodium Chloride (Ns) 1,000 mls @ 75 mls/hr IVCONT .[id number] [facility] Last Admin: 01/30/25 01:42 Dose: 75 mls/hr Documented By: SERGIO Magnesium Hydroxide (Milk Of Magnesia 30 Ml Oral.Susp) 30 ml PO DAILY PRN PRN Reason: Constipation Melatonin (Melatonin 3 Mg Tablet) 6 mg PO BEDTIME PRN PRN Reason: Insomnia Last Admin: 01/28/25 19:55 Dose: 6 mg Documented By: SONNY Polyethylene Glycol (Polyethylene Glycol 3350 17 Gm Powd.Pack) 17 gm PO DAILY PRN PRN Reason: Constipation Senna (Sennosides 8.6 Mg Tablet) 17.2 mg PO BEDTIME [facility] Last Admin: 01/29/25 22:03 Dose: Not Given Documented By: HO.KOCOTD Non-Admin Reason: Patient Refused Sertraline HCl (Sertraline Hcl 25 Mg Tablet) 25 mg PO DAILY [facility] Last Admin: 01/28/25 09:52 Dose: 25 mg Documented By: CHRISTIAN Sodium Chloride (0.9 % Sodium Chloride Flush 3 Ml Syringe) 3 ml IVFLUSH QSHIFT [facility] Last Admin: 01/30/25 07:37 Dose: Not Given Documented By: MACK Non-Admin Reason: IV Running Labs 01/29/25 07:22 01/30/25 09:11 Assessment and Plan (1) Near syncope: Status: Acute Plan 79M PMH dementia, htn, hyponatremia, anxiety, copd, presented with near syncope Near-syncope Suspect orthostatic, non participatory with orthostatic measurements given IVF, nita stockings moniter orthostatic Moved lisinopril to bedtime PT eval - recommending STR Overnight found to have bradycardia, prolonged QT: ? Psych medication Medication related versus electrolytes derangement Electrolyte repleted, potassium is 3.5, magnesium 1.9 Given extra potassium today. Goal potassium around 4 and magnesium around 2. Repeat EKG in the morning Psych evaluationnoted-recommended to discontinue trazodone, monitoring EKG in a.m.. acute hospital delerium in patient with unspecified dementia Seems more comfortable orienting strategies maintain night/day cycles Psych medication adjustment as above, psych evaluation. Chronic hyponatremia Stable supine Hypertension Lisinopril at bedtime Anxiety Sertraline DVT prophylaxis-Lovenox Full Code reason for continued hospitalization: acute delerium, orthostasis -need ivf , nita stocking ,orthostatic/symptoms monitering , need psych input for med adjustment -qtc proloned , also electrolytic monitor monitoring, tele monitering as wellas repeat ekg to recheck QT in a.m., may need cardiac evaluation if still does not improve.. Quality Stroke Does the patient have a stroke diagnosis?: No Reason for No Anti-thrombotic by Day Two: N/A - Med Ordered VTE Prior VTE?: No VTE Risk Level:: Medical - moderate - high VTE Device Contraindication: N/A - Device Ordered VTE Drug Contraindication: N/A - Med Ordered
[2025-01-30 09:42] LABS: Anion Gap 11 (12-20); Blood Urea Nitrogen 7 mg/dL (9-16); Calcium 9.0 mg/dL (8.4-10.2); Carbon Dioxide 29 mmol/L (22-29); Chloride 103 mmol/L (96-108); Creatinine Clr Calc Pharmacy 96.4; Estimated Glomerular Filt Rate > 60; Magnesium 1.9 mg/dL (1.6-2.6); Potassium 3.5 mmol/L (3.3-5.1); Sodium 139 mmol/L (135-145)
[2025-01-30] MEDS: Potassium Chloride Packet 20 MEQ PACKET 40 MEQ PO (10:38)
--- NOTE | 2025-01-30 12:55 | MHC.CM.PN ---
EMR reviewed and per MD rounds, pt is not medically cleared for discharge due to management of orthostasis.
--- NOTE | 2025-01-31 | ECG_ITS ---
Test Reason : prolonged qtc Blood Pressure : */* mmHG Vent. Rate : 69 BPM Atrial Rate : 69 BPM P-R Int : 166 ms QRS Dur : 78 ms QT Int : 412 ms P-R-T Axes : 0 0 39 degrees QTcB Int : 441 ms Sinus rhythm with Premature atrial complexes Otherwise normal ECG When compared with ECG of 30-Jan-2025 09:15, Nonspecific T wave abnormality, improved in Lateral leads Referred By: Jesse Guerrier Electronically Signed By: LEVI HU
[2025-01-31 03:06] VITALS: BP 154/89; PULSE 63; RESP 18; TEMP 36.4; O2SAT 96
[2025-01-31 07:12] VITALS: BP 169/87; PULSE 71; RESP 18; TEMP 36.2; O2SAT 97
--- NOTE | 2025-01-31 07:47 | HO.PM.IMPN ---
Subjective Subjective Date of Service: 01/31/25 Interval History: orthostasis ,prolonged qtc Review of Systems Review of Systems: Yes all other systems are reviewed and are negative Physical Exam Vital Signs: Vital Signs: Last Vital Signs Temp 97.2 F 01/31/25 07:12 Pulse 71 01/31/25 07:12 Resp 18 01/31/25 07:12 BP 169/87 H 01/31/25 07:12 Pulse Ox 97 01/31/25 07:12 O2 Del Method Room Air 01/31/25 07:12 BMI result Body Mass Index 24.2 Objective Data Active Medications Acetaminophen (Acetaminophen 325 Mg Tablet) 650 mg PO Q6H PRN PRN Reason: Pain, Mild 1-3,fever,headache Albuterol/Ipratropium (Albuterol/Iprat 2.5/0.5mg 3 Ml Ampul.Neb) 3 ml INHALE Q4H PRN PRN Reason: Shortness of Breath/Wheezing Calcium Carbonate (Calcium Carbonate 750 Mg Tab.Chew) 750 mg PO Q4H PRN PRN Reason: Heartburn Haloperidol (Haloperidol 0.5 Mg Tablet) 0.5 mg PO BEDTIME [facility] Last Admin: 01/30/25 22:43 Dose: 0.5 mg Documented By: AKIN Sodium Chloride (Ns) 1,000 mls @ 75 mls/hr IVCONT .[id number] [facility] Last Admin: 01/31/25 02:21 Dose: 75 mls/hr Documented By: AKIN Magnesium Hydroxide (Milk Of Magnesia 30 Ml Oral.Susp) 30 ml PO DAILY PRN PRN Reason: Constipation Melatonin (Melatonin 3 Mg Tablet) 6 mg PO BEDTIME PRN PRN Reason: Insomnia Last Admin: 01/28/25 19:55 Dose: 6 mg Documented By: SONNY Polyethylene Glycol (Polyethylene Glycol 3350 17 Gm Powd.Pack) 17 gm PO DAILY PRN PRN Reason: Constipation Senna (Sennosides 8.6 Mg Tablet) 17.2 mg PO BEDTIME [facility] Last Admin: 01/30/25 22:43 Dose: Not Given Documented By: AKIN Non-Admin Reason: Patient Refused Sertraline HCl (Sertraline Hcl 25 Mg Tablet) 25 mg PO DAILY [facility] Last Admin: 01/30/25 10:38 Dose: 25 mg Documented By: MACK Sodium Chloride (0.9 % Sodium Chloride Flush 3 Ml Syringe) 3 ml IVFLUSH QSHIFT [facility] Last Admin: 01/30/25 22:47 Dose: Not Given Documented By: AKIN Non-Admin Reason: IV Running Labs 01/29/25 07:22 01/30/25 09:11 Labs: Laboratory Results - last 24 hr 01/30/25 01/30/25 09:01 09:11 Hold Purple Top SEE NOTE Anion Gap 11 L Estim Creat Clear Calc 96.4 Estimated GFR > 60 Random Glucose 103 Calcium 9.0 Magnesium 1.9 Assessment and Plan (1) Near syncope: Status: Acute Plan 79M PMH dementia, htn, hyponatremia, anxiety, copd, presented with near syncope Near-syncope Suspect orthostatic, non participatory with orthostatic measurements given IVF, nita stockings moniter orthostatic Moved lisinopril to bedtime PT eval - recommending STR Overnight found to have bradycardia, prolonged QT: ? Psych medication Medication related versus electrolytes derangement Electrolyte repleted, potassium is 3.5, magnesium 1.9 Given extra potassium today. Goal potassium around 4 and magnesium around 2. Repeat EKG in the morning Psych evaluationnoted-recommended to discontinue trazodone, monitoring EKG in a.m.. acute hospital delerium in patient with unspecified dementia Seems more comfortable orienting strategies maintain night/day cycles Psych medication adjustment as above, psych evaluation. Chronic hyponatremia Stable supine Hypertension Lisinopril at bedtime Anxiety Sertraline DVT prophylaxis-Lovenox Full Code reason for continued hospitalization: acute delerium, orthostasis -need ivf , nita stocking ,orthostatic/symptoms monitering , need psych input for med adjustment -qtc proloned , also electrolytic monitor monitoring, tele monitering as wellas repeat ekg to recheck QT in a.m., may need cardiac evaluation if still does not improve.. Quality Stroke Does the patient have a stroke diagnosis?: No Reason for No Anti-thrombotic by Day Two: N/A - Med Ordered VTE Prior VTE?: No VTE Risk Level:: Medical - moderate - high VTE Device Contraindication: N/A - Device Ordered VTE Drug Contraindication: N/A - Med Ordered
[2025-01-31 08:45] LABS: Anion Gap 11 (12-20); Blood Urea Nitrogen 6 mg/dL (9-16); Calcium 9.0 mg/dL (8.4-10.2); Carbon Dioxide 28 mmol/L (22-29); Chloride 104 mmol/L (96-108); Creatinine Clr Calc Pharmacy 93.4; Estimated Glomerular Filt Rate > 60; Potassium 3.8 mmol/L (3.3-5.1); Sodium 139 mmol/L (135-145)
[2025-01-31 09:02] LABS: Magnesium 1.9 mg/dL (1.6-2.6)
[2025-01-31] MEDS: Potassium Chloride ER 20 MEQ TAB.ER.PRT PO (10:06)
--- NOTE | 2025-01-31 10:34 | PM.DS ---
DS: Providers Provider Date of Service: 01/31/25 Date of admission: 01/25/25 21:40 Date of discharge: 01/31/25 Primary care physician: Babatunde Hoff MD Consults: 01/29/25 08:02 Consult to Psychiatry Routine Consulting Provider: [facility] Covering Reason for consultation: bradycardia, orthostasis -?psych meds related Has provider been notified: No Attending physician on discharge: Jesse Guerrier Discharging clinician: Jesse Guerrier DS: Diagnosis Discharge Diagnosis (1) Near syncope: Status: Acute DS: Summary Hospital Course Hospital Course: HPI: 79 yo male with PMH dementia, hypertension, hyponatremia, anxiety, asthma/ COPD not on oxygen, bilateral inguinal hernia repair, marijuana use via gummies 2-3 per day, presents to the emergency room after experiencing a near fall witnessed by his significant other with no loss of consciousness and no hit to the head. Also confirmed the patient is not currently on any blood thinners. Significant other indicate the patient had just eaten branch and ambulated to the recliner chair in the living area and was too weak to make it into the chair. Caregiver came over and attempted to move patient to the floor safely. Once patient was on the floor, it was impossible for patient to get up on his own and also impossible for this significant other to assist patient to a sitting/standing position. Patient then used his Alert device and notified EMS. Patient's blood pressure was checked in the interim by his caregiver and it was noted to be initially 99/62 and then 108 over 78. Caregiver also indicates that patient may have undiagnosed sleep apnea. Patient did have an opportunity for sleep study in the last 2 years but refused to be seen in the sleep lab for the study. Workup in the emergency department included CT of the head which was negative for acute findings and chest x-ray which noted no pneumonia, pulmonary edema or pleural effusion. Vital signs currently stable. Labs negative for acute anemia, leukocytosis, transaminitis, electrolyte imbalances or elevated troponin. UA negative for UTI. Na 134. Patient did denied any chest pain or shortness of breath at the time of the event. There was no loss of bowel or bladder witnessed. Hospital course: 79M PMH dementia, htn, hyponatremia, anxiety, copd, presented with near syncope Near-syncope:Suspect orthostatic, non participatory with orthostatic measurements. given IVF, reji stockings, seems improved. off lisinopril . Monitor blood pressure closely. PT eval - recommending STR Overnight found to have bradycardia, prolonged QT: ? Psych medication Medication related versus electrolytes derangement. QT prolongation: Improved with electrolyte replacement and holding trazodone.ekg today: qtc 441ms. Psych recommended to continue haloperidol and sertraline. acute hospital delerium in patient with unspecified dementia Seems more comfortable orienting strategies,maintain night/day cycles seen by psych-continue haloperidol and sertraline. Assessment and plan coordination time spent 45 minute, patient will be going to rehab. Time Attestation Total time managing care of this patient today: 45 mintues. Discharge Coordination Time (in mins): 45 min Quality: Safe Use of Opioids Does Pt have an Active Cancer Diagnosis on the Problem List?: No Quality: Stroke Does the patient have a stroke diagnosis?: No Physical Exam Exam: Exam: General: Alert, no distress Resp: CTA bilateral, no accessory muscles used CVS: S1,S2,RRR GI: soft, non tender, non distended Vital Signs: Vital Signs: Last Vital Signs Temp 97.2 F 01/31/25 07:12 Pulse 71 01/31/25 07:12 Resp 18 01/31/25 07:12 BP 169/87 H 01/31/25 07:12 Pulse Ox 97 01/31/25 07:12 O2 Del Method Room Air 01/31/25 07:12 BMI result Body Mass Index 24.2 DS: Data Data Completed and Pending Labs on day of discharge: Laboratory Results - last 24 hr 01/31/25 07:59 Sodium 139 Potassium 3.8 Chloride 104 Carbon Dioxide 28 Anion Gap 11 L BUN 6 L Creatinine 0.64 Estim Creat Clear Calc 93.4 Estimated GFR > 60 Random Glucose 103 Calcium 9.0 Magnesium 1.9 Additional Comments Additional comments: ct head: IMPRESSION: 1. No acute intracranial findings. CXr:1. No acute findings. Discharge Plan Discharge Anticipated Discharge Date/Time: 01/31/25 10:31 Patient Disposition: Xfer SNF Discharge Diagnosis: syncope likely orthostasis related ,prolonged qt improved. Referrals: Nancy Lam [Outside] - 1 Week Babatunde Hoff MD [Primary Care Provider, Internal Medicine] - 1 Week Discharge Medications: New magnesium oxide 400 mg (241.3 mg magnesium) Tablet 400 mg PO BIDPC Qty: 20 0RF potassium chloride 8 mEq capsule, extended release 8 meq PO DAILY Qty: 4 0RF Continued haloperidol 0.5 mg tablet 0.5 mg PO BEDTIME sertraline 25 mg tablet 25 mg PO DAILY Discontinued trazodone 50 mg tablet 50 mg PO QD-BID PRN (Reason: Sleep) Discharge Orders: Discharge Order (Routine); Ordered 01/31/25 Ordered By: Jesse Guerrier Diet: Advance to usual diet Activity on Discharge: As tolerated Stand Alone Forms: Patient Portal Discharge page Print Language: [place]se Care Plan Goals: Encouraged for p.o. hydration and intake., monitored for orthostasis. Orthostatic precautions. Reji stocking. QT prolongation: Improved with electrolyte replacement and holding trazodone. Psych recommended to continue haloperidol and sertraline. Health Concerns: As above. Plan of Treatment: As above. Assessment: As above.
--- NOTE | 2025-01-31 10:44 | MHC.CM.PN ---
CM met with Patient at bedside; he has chosen [facility]. IMM was addressed with Patient at bedside and the original was given to him and a copy has been placed on the chart. With Patient's permission, CM informed S.O./Jenn at listed # , of the dc plan. Per MD, Patient is medically cleared for dc to SNF/STR today. Patient will dc to [facility] today at 2PM, via [facility].
[2025-01-31 11:35] VITALS: BP 166/79; PULSE 63; RESP 18; TEMP 36.6; O2SAT 98
--- NOTE | 2025-02-01 15:48 | P.CDIM_ITS ---
PROVIDER RESPONSE TEXT: To clarify, the appropriate diagnosis supported by the clinical indicators: Other (explain): no hypomagnesemia -mag replaced due to prolonged qt QUERY TEXT: PHYSICIAN'S DOCUMENTATION REQUEST Date of Query: 01/30/2025 02:17 PM EDT Patient Name: Onesimo Forrester Admit Date: 01/26/2025 Dear Jesse Guerrier MD, A review of the medical record indicates additional documentation may be needed. Please review below and update the documentation accordingly. Clinical Indicators: magnesium 1.7 Will replete magnesium Based on the above, could you clarify the appropriate diagnosis, if significant, that supports the above abnormalities and additional evaluation, monitoring, and/or treatment rendered: Hypomagnesemia Labs indicate a diagnosis of (please specify) Other (explain) Clinically unable to determine (explain) Thank you, Shobha Sheldon RN Use of terms such as suspected, likely, concern for, or probable (associated with a specific diagnosis that is being evaluated, monitored, or treated as if it exists) are acceptable and can be coded in the inpatient setting, when documented at the time of discharge. Please use your independent medical judgment in providing your response. THIS QUERY IS PART OF THE PERMANENT MEDICAL RECORD
--- NOTE | 2025-02-01 15:48 | P.CDIM_ITS ---
PROVIDER RESPONSE TEXT: To clarify, the appropriate diagnosis supported by the clinical indicators: Other (explain): Potassium replaced due to prolonged QT QUERY TEXT: PHYSICIAN'S DOCUMENTATION REQUEST Date of Query: 01/30/2025 02:16 PM EDT Patient Name: Onesimo Forrester Admit Date: 01/26/2025 Dear Jesse Guerrier MD, A review of the medical record indicates additional documentation may be needed. Please review below and update the documentation accordingly. Clinical Indicators: Potassium is 3.3 Will replete potassium Based on the above, could you clarify the appropriate diagnosis, if significant, that supports the above abnormalities and additional evaluation, monitoring, and/or treatment rendered: Hypokalemia Labs indicate a diagnosis of (please specify) Other (explain) Clinically unable to determine (explain) Thank you, Shobha Sheldon RN Use of terms such as suspected, likely, concern for, or probable (associated with a specific diagnosis that is being evaluated, monitored, or treated as if it exists) are acceptable and can be coded in the inpatient setting, when documented at the time of discharge. Please use your independent medical judgment in providing your response. THIS QUERY IS PART OF THE PERMANENT MEDICAL RECORD
== END 2025-01-31 14:19 | disposition skilled nursing facility (03) | DRG 312 ==
LOC: HO.ED 21:48 → HO.EDOVER 21:52 → HO.IMC 01-26 07:46
PROVIDERS: Internal Medicine; Admitting Provider Nurse Practitioner Family; Emergency Provider Emergency Medicine Emergency Medical Services; PCP Internal Medicine Medical Oncology; Visit Provider Internal Medicine
DX: I95.1 Orthostatic hypotension (principal); E87.1 Hypo-osmolality and hyponatremia; F05 Delirium due to known physiological condition; F03.90 Unspecified dementia, unspecified severity, without behavioral disturbance, psychotic disturbance, mood disturbance, and anxiety; J44.9 Chronic obstructive pulmonary disease, unspecified; R94.31 Abnormal electrocardiogram [ECG] [EKG]; G47.33 Obstructive sleep apnea (adult) (pediatric); F41.9 Anxiety disorder, unspecified; I10 Essential (primary) hypertension; R00.1 Bradycardia, unspecified; T43.215A Adverse effect of selective serotonin and norepinephrine reuptake inhibitors, initial encounter; Z87.891 Personal history of nicotine dependence; Z79.899 Other long term (current) drug therapy
CPT/HCPCS: 36415; 70450; 71045; 80048; 80053; 80307; 81001; 82550; 83735; 83880; 84443; 84484; 85025; 87086; 93005; 93306; 97110; 97112; 97162; 97530; 99285; J1630; J2359; J3475; Q9957

== ENCOUNTER → 2025-01-25 17:34 | Outpatient (BNV) | payer MEDICARE, SELFPAY | PROVIDERS: Admitting Provider Nurse Practitioner Family; Emergency Provider Emergency Medicine Emergency Medical Services; PCP Internal Medicine Medical Oncology; Visit Provider Internal Medicine | DX: R94.31 Abnormal electrocardiogram [ECG] [EKG] (principal); R55 Syncope and collapse | CPT/HCPCS: 93010 ==

== ENCOUNTER → 2025-01-25 18:12 | Outpatient (BNV) | payer MEDICARE, SELFPAY | PROVIDERS: Emergency Provider Emergency Medicine Emergency Medical Services; PCP Internal Medicine Medical Oncology; Visit Provider Radiology Diagnostic Radiology | DX: R55 Syncope and collapse (principal); R06.02 Shortness of breath | CPT/HCPCS: 70450 ==

== ENCOUNTER 2025-01-25 21:40 | Outpatient (BNV) | payer MEDICARE, SELFPAY | END 2025-01-31 10:14 | PROVIDERS: Admitting Provider Nurse Practitioner Family; Emergency Provider Emergency Medicine Emergency Medical Services; PCP Internal Medicine Medical Oncology; Visit Provider Internal Medicine | DX: I49.1 Atrial premature depolarization (principal) | CPT/HCPCS: 93010 ==

== ENCOUNTER 2025-01-25 21:40 | Outpatient (BNV) | payer MEDICARE, SELFPAY | END 2025-01-29 06:30 | PROVIDERS: Admitting Provider Nurse Practitioner Family; Emergency Provider Emergency Medicine Emergency Medical Services; PCP Internal Medicine Medical Oncology; Visit Provider Internal Medicine | DX: R94.31 Abnormal electrocardiogram [ECG] [EKG] (principal); I49.9 Cardiac arrhythmia, unspecified | CPT/HCPCS: 93010 ==

== ENCOUNTER 2025-01-25 21:40 | Outpatient (BNV) | payer MEDICARE, SELFPAY | END 2025-01-30 09:15 | PROVIDERS: Admitting Provider Nurse Practitioner Family; Emergency Provider Emergency Medicine Emergency Medical Services; PCP Internal Medicine Medical Oncology; Visit Provider Internal Medicine | DX: I45.81 Long QT syndrome (principal) | CPT/HCPCS: 93010 ==

== ENCOUNTER 2025-01-25 21:40 | Outpatient (BNV) | payer MEDICARE, SELFPAY | END 2025-01-26 07:00 | PROVIDERS: Admitting Provider Nurse Practitioner Family; Emergency Provider Emergency Medicine Emergency Medical Services; PCP Internal Medicine Medical Oncology; Visit Provider Internal Medicine | DX: I35.8 Other nonrheumatic aortic valve disorders (principal); I34.0 Nonrheumatic mitral (valve) insufficiency | CPT/HCPCS: 93306 ==

== ENCOUNTER → 2025-01-25 21:40 | Outpatient (BNV) | payer MEDICARE, SELFPAY | PROVIDERS: Admitting Provider Nurse Practitioner Family; Emergency Provider Emergency Medicine Emergency Medical Services; PCP Internal Medicine Medical Oncology; Visit Provider Nurse Practitioner Family | DX: F41.9 Anxiety disorder, unspecified (principal); R94.31 Abnormal electrocardiogram [ECG] [EKG] | CPT/HCPCS: 99222 ==

== ENCOUNTER → 2025-01-25 21:40 | Outpatient (BNV) | payer MEDICARE, SELFPAY | PROVIDERS: Admitting Provider Nurse Practitioner Family; Emergency Provider Emergency Medicine Emergency Medical Services; PCP Internal Medicine Medical Oncology; Visit Provider Internal Medicine | DX: R55 Syncope and collapse (principal) | CPT/HCPCS: 99223; 99231; 99232; 99233; 99239; 99499 ==

== ENCOUNTER 2025-03-24 16:17 | Outpatient (REF) | payer MEDICARE, SELFPAY ==
--- OUTSIDE RECORDS SUMMARY | 2024-12-12 09:15 | XMS_ITS ---
Author Organization Babatunde Hoff III, MD Address [address] [place] [address] [place] [address] Care Team Providers Care Game Protector Name Role Phone Dr. Babatunde Hoff III Primary Care Provider [phone] Allergies Allergen (clinical drug ingredient) Drug/Non Drug Allergy documented on EMR Reaction Allergy Type Onset Date Status No Known Drug Allergy Unknown Drug Allergy Active No Known Food Allergy Unknown Drug Allergy Active Reason For Referral Reason Evaluate and Treat Bilateral Hearing Loss Diagnosis 1 Bilateral hearing lo ss, unspecified hearing loss type (H91.93) Referral Organization Babatunde Hoff III, MD Referring Provider First Name Babatunde Referring Provider Last Name Kavya Referring Provider Speciality Internal M edicine Referred Provider [facility] er, Speech and Hearing Referred Provider Specialty Audiologists General Notes Monique Ham 12/22/2024 09:35:59 AM > Faxed referral with progress note. Referral Priority Routine Referral Appointment Date 03/24/2025 REASON FOR VISIT Atrial arrhythmia, Hyper tension, Allergies, Overweight, Gout, Hearing loss Medications Medication SIG (Take, Route, Frequency, Duration) Notes Start Date End Date Status Sertraline HCl 25 MG 1.5 tablet Orally O nce a day 09/02/2024 Active Albuterol Sulfate HFA 108 (90 Base) [...] has it been since you last smoked? Vladimir ter than 10 years Additional Findings: Tobacco non-user Ex-cigaret te smoker Problems Problem Type SNOMED Code ICD Code Onset Dates Problem Status W/U Status Risk Notes Problem [id number] Atrial arrhythmia (I49.8) Active confirmed The EKG showed premature atrial contractions which were blocked. He remains asymptomatic. His labs were normal. It was arranged that he will come back to the office for reexamination. Vital Signs Height 67 in 12/12/2024 Weight 165 lbs 12/12/2024 BMI 25.84 kg/m2 12/12/2024 Encounters Encounter Location Date Provider Diagnosis Babatunde Hoff III, MD [address] [place] [address] [place] [address] 12/12/2024 Babatunde Hoff Essential hypertensi on I10 ; Atrial arrhythmia I49.8 ; Former smoker Z87.891 ; Overweight E66.3 ; Pulmonary emphysema, unspecified emphysema type J43.9 ; Environmental allergies Z91.09 and Bilateral hearing loss, unspecified hearing loss type H91.93 Assessments Encounter Date Diagnosis (ICD Code) Assessment Notes Treat ment Notes Treatment Clinical Notes 12/12/2024 Essential hypertension (ICD-10 - I10) His blood pressure has been controlled. Symptoms at this time. I asked him to bring his medication bottles with him to the office on his next visit. 12/12/2024 Atrial arrhythmia (ICD-10 - I49.8) The EKG showed premature atrial contractions which were blocked. He remains asymptomatic. His labs were normal. It was arranged that he will come back to the office for reexamination. 12/12/2024 Former smoker (ICD-10 - Z87.891) He is highly motivated not to smoke tobacco. He has a plan to prevent relapse in times of stress. 12/12/2024 Overweight (ICD-10 - E66.3) He is very slightly overweight. I recommended losing a few pounds through a diet restricted in fat calories and sodium. He has gained 4 pounds since his last visit and his body mass index is 25.53. He weighs 163 pounds. 12/12/2024 Pulmonary emphysema, unspecified emphysema type (ICD-10 - J43.9) His pulmonary status is stable and he is using his medications appropriately. No change in his regimen is needed today. 12/12/2024 Environmental allergies (ICD-10 - Z91.09) He had mild allergic symptoms during pollen season. He feels well today. 12/12/2024 Bilateral hearing loss, unspecified hearing loss type (ICD-10 - H91.93) His hearing remains adequate. Plan Of Treatment Medication Medication Name Sig Start Date Stop Date Notes Sertraline HCl 25 MG 1.5 tablet Orally Once a day 09/03/19 25 Albuterol Sulfate HFA 108 (9 0 Base) MCG/ACT Inhalation Haloperidol 5 MG 1 Tablet Orally at Bedtime 09/02/2024 Referrals Referral Date Details 12/12/2024 12/12/2024, Evaluate and Treat Bilateral Hearing Loss, Speech and Hearing [facility] Next Appt Details Follow Up: 2 Weeks, Reason: OV Provider Name:Babatunde Hoff , 05/04/2025 02:00:00 PM, [address] [place] [address] [address], [place], [address], Provider Name:Babatunde Hoff , 12/09/2025 02:00:00 PM, [address] [place] [address] [address], [place], [address], Progress Notes * Onesimo BUSTILLO GDOB:1945 (79 yo M)Acc No.[id number]:12/12/2024 Patient: Onseimo MCFARLANE Provider: Chaparrita Hoff MD :1945 A ge:79 Y S ex:Male Date:12/12/2024 Address:[address] [place], [place] [id number] Subjective: * Chief Complaints: * A trial arrhythmiaHyper tensionAllergiesOverweightGoutHearing loss * HPI: * : This telehealth visit took place over 15 minutes with the patient at home and me in my office. He gave consent for billing. On his last visit he appeared to be in a bigeminal rhythm. An EKG was ordered. He was completely asymptomatic and unaware of the rhythm. EKG was read as normal sinus rhythm with blocked PACs. He remains asymptomatic. Comprehensive blood work was ordered and was unremarkable. He was given an appointment to come back to the office check his rhythm. His blood pressure at home has been stable. Telehealth L ocation of provider rendering services: { ...} [address] [facility] [address] L ocation of patient: herminia prince listed in demographics for today's visit P atient identification confirmed using: SABINA Lopez ame T elehealth method: T elephone only. Patient not visible to care provider. C onsent: P atient verbally consented to treatment, Patient verbally consented to billing insurance company, Patient informed of any privacy concerns related to method of visit T otal time spent with patient (mins) 1 5 * ROS: G eneral/Constitutional: pain o nly normal aches and pains. C hills d enies.?Fatigue a dmits. F ever d enies. E NT: Decreased hearing i n both ears. R espiratory: Cough d enies. C ardiovascular: Chest pain with exertion d enies. D yspnea on exertion?denies. S hortness of breath d enies. G astrointestinal: Constipation o ccasional. D ecreased appetite d enies. D iarrhea d enies. H eartburn d enies. N ausea d enies. R ectal bleeding [...] pain d enies. P sychiatric: Depressed mood w hich is mild. * Medical History: * Surgical History: b [...] dditional Findings: Tobacco non-user E x-cigarette smoker H lee ann was for many years to [employer]uelo who in 2013. He is not working now, did [employer] and [employer]. 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 One son was a patient consumer safety inspector at [employer] and now is a membership sales manager. He is in a platonic relationship at home with Jenn. * Medications: T akingHaloperidol 5 MG Tablet 1 Tablet Orally at Bedtime Sertraline HCl 25 MG Tablet 1.5 tablet Orally Once a day Albuterol Sulfate HFA 108 (90 Base) MCG/ACT Aerosol Solution Inhalation Medication List reviewed and reconciled with the patientTaking Haloperidol 5 MG Tablet 1 Tablet Orally at Bedtime Taking Sertraline HCl 25 MG Tablet 1.5 tablet Orally Once a day Taking Albuterol Sulfate HFA 108 (90 Base) MCG/ACT Aerosol Solution Inhalation Medication List reviewed and reconciled with the patient * Allergies: N o Known Drug AllergyNo Known Food Allergyno[Allergies Verified] Objective: * Vitals: H t: 67, Wt:165, BMI:25.84, Ht-cm: 170.18, Wt-k.84. Assessment: * Assessment: 1. A trial arrhythmia - I49.8 (Primary) N otes :The EKG showed premature atrial contractions which were blocked. He remains asymptomatic.? His labs were normal. It was arranged that he will come back to the office for reexamination. 2 . E ssential hypertension - I10 N otes :His blood pressure has been controlled. Symptoms at this time. I asked him to bring his medication bottles with him to the office on his next visit. 3 . F ormer smoker - Z87.891 N otes :He is highly motivated not to smoke tobacco. He has a plan to prevent relapse in times of stress. 4 . O verweight - E66.3 N otes :He is very slightly overweight. I recommended losing a few pounds through a diet restricted in fat calories and sodium. He has gained 4 pounds since his last visit and his body mass index is 25.53. He weighs 163 pounds. 5 . P ulmonary emphysema, unspecified emphysema type - J43.9 N otes :His pulmonary status is stable and he is using his medications appropriately. No change in his regimen is needed today. 6 . E nvironmental allergies - Z91.09 N otes :He had mild allergic symptoms during pollen season. He feels well today. 7 . B ilateral hearing loss, unspecified hearing loss type - H91.93 N otes :His hearing remains adequate. Plan: * Treatment: 2. B ilateral hearing loss, unspecified hearing loss type Referral To:Speech and Hearing [facility] Audiologists Reason:Evaluate and Treat Bilateral Hearing Loss * Procedure Codes: 9 8012 SYNCH AUDIO-ONLY EST SF 10 * Preventive Medicine: Counseling: C are goal follow-up plan: Counseling for abnormal BMI given Y es Above Normal BMI Follow-up D ietary management education, guidance, and counseling, Dietary needs education S moking/Tobacco Use Patient counseled on the dangers of tobacco use and urged to quit. 0 12/12/2024 * Follow Up: 2 Weeks (Reason: OV) * Images: * Sign off status: Completed true * Provider: Chaparrita Hoff MD Date: 0 12/12/2024 Generated for John loyd/Edda/eTrigobertosmitting on: 1 05/24/2024 05:26 PM EST History and Physical Notes * HPI (History of Present Illness) Category Sub-Category Detail Notes Telehealth Location of [facility] rendering services:: {...} [address] [facility] [address] Location of patient:: address listed in demographics for today's visit Patient identification confirmed using:: Name, Telehealth method:: Telephone only. Dariela ent not visible to care provider. Consent:: Patient verbally c onsented to treatment, Patient verbally consented to billing insurance company, Patient informed of any privacy concerns related to method of visit Total time spent with patient (mins): 15 Consultation Request Notes Referral Date Referring Provider Referred Provider Not sweta 12/12/2024 Kavya [facility], Speech and Hearing Evaluate and Treat Bilateral Hearing Loss
--- OUTSIDE RECORDS SUMMARY | 2024-12-26 09:30 | XMS_ITS ---
Author Organization Babatunde Hoff III, MD Address [address] [place] [address] [place] [address] Care Team Providers Care School Principal Name Role Phone Dr. Babatunde Hoff III Primary Care Provider Allergies Allergen (clinical drug ingredient) Drug/Non Drug Allergy documented on EMR Reaction Allergy Type Onset Date Status No Known Drug Allergy Unknown Drug Allergy Active No Known Food Allergy Unknown Drug Allergy Active REASON FOR VISIT Hypertension, Emphysema, Environmental allergies, Overweight, History of gout, Benign prostatic hypertrophy, Cognitive impairment, Bilateral hearing loss, Atrial arrhythmia Medications Medication SIG (Take, Route, Frequency, Duration) Notes Start Date End Date Status Sertraline HCl 25 MG 1.5 tablet Orally O nce a day 09/02/2024 Active Haloperidol 5 MG 1 Tablet Orally at Bedtime 09/02/2024 Active Albuterol Sulfate HFA 108 (90 Base) MCG/ACT Inhalation Active Social History Tobacco Use: Social History [...] Additional Findings: Tobacco non-user Ex-cigaret te smoker Vital Signs Temperature 97.3 degrees Fahrenheit 12/27/19 25 Blood pressure systolic 132 mm Hg 12/27/19 25 Blood pressure diastolic 71 mm Hg 025 Heart Rate 55 /min 12/26/2024 Height 67 in 12/26/2024 Weight 165 lbs 12/26/2024 BMI 25.84 kg/m2 12/26/2024 Encounters Encounter Location Date Provider Diagnosis Babatunde Hoff III, MD [address] [place] [address] [address] [place], [place] [id number] 12/26/2024 Babatunde Hoff Essential hypertensi on I10 ; Former smoker Z87.891 ; Overweight E66.3 ; Pulmonary emphysema, unspecified emphysema type J43.9 ; Environmental allergies Z91.09 ; Brief psychotic disorder F23 ; 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 No change in his medications was made. Follow-up visit was arranged in the near future to confirm this. 12/26/2024 Former smoker (ICD-1 0 - Z87.891) He is highly motivated not to smoke tobacco. He has a plan to prevent relapse in times of stress. 12/26/2024 Overweight (ICD-10 - E66.3) He is very slightly overweight. I recommended losing a few pounds through a diet restricted in fat calories and sodium. He has gained 4 pounds since his last visit and his body mass index is 25.53. He weighs 163 pounds. 12/26/2024 Pulmonary emphysema, unspecified emphysema type (ICD-10 - J43.9) His pulmonary status is stable and he is using his medications appropriately. No change in his regimen is needed today. 12/26/2024 Environmental allerg ies (ICD-10 - Z91.09) He had mild allergic symptoms during pollen season. He feels well today. 12/26/2024 Brief psychotic disorder (ICD-10 - F23) He developed a brief paranoid psychosis with multiple calls to the police and visits to the emergency room. He is now on medication and doing well with resolution of the psychosis. He understands what happened to him. He is back at home with his significant other, Jenn.He continues on the risperidone and trazodone without difficulty. 12/26/2024 Neurodegenerative cognitive impairment (ICD-10 - G31.9) His memory is intact for the most part, but he does have some cognitive impairment. There has been no change in his dementia. He has conducting all of the activities of daily life without impairment. 12/26/2024 Bilateral hearing lo ss, unspecified hearing loss type (ICD-10 - H91.93) His hearing remains adequate. Plan Of Treatment Medication Medication Name Sig Start Date Stop Date Notes Sertraline HCl 25 MG 1.5 tablet Orally Once a day 09/03/19 25 Haloperidol 5 MG 1 Tablet Orally at Bedtime 09/02/2024 Albuterol Sulfate HFA 108 (9 0 Base) MCG/ACT Inhalation Next Appt Details Follow Up: 3 Months, Reason: OV Provider Name:Babatunde Silas Kavya , 05/04/2025 02:00:00 PM, [address] [place] [address] [address], [place], [address], Provider Name:Babatunde Nance Kavya , 12/09/2025 02:00:00 PM, [address] [place] [address] [address], [place], [address], Progress Notes * Onesimo BUSTILLO GDOB:1945 (79 yo M)Acc No.[id number]:12/26/2024 Progress Notes Patient: Onesimo MFCARLANE Provider: Chaparrita Hoff MD :1945 A ge:79 Y S ex:Male Date:12/26/2024 Address:[address] [place], [place] [id number] Subjective: * Chief Complaints: * H ypertensionEmphysemaEnvironmental allergiesOverweightHistory of goutBenign prostatic hypertrophyCognitive impairmentBilateral hearing lossAtrial arrhythmia * HPI: C OVID-19 Screening: Lincoln nance returns for management of his blood pressure. His emphysema and allergies and weight and gout and prostatism have all been stable. His mental status is stable. Is compliant with all of his medications. Is living independently at home without difficulty. His significant other, Jenn, checks his blood pressure every day and brings in a written record. His systolic blood pressures have been between 129 and 139 and the diastolic between 80 and 90. He has had no shortness of breath. His blood pressure today was in the normal range and no change in his regimen was necessary. At their request a digital rectal examination for colon cancer screening was done today and was within normal limits. It was guaiac negative. Questions H ave you had any new [...] with exertion d enies. D yspnea on exertion?with prolonged activity. S hortness of breath d enies. G [...] 2013. 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 One son was a patient product safety and standards engineer at [employer] and now is a client service and consulting manager. He is in a platonic relationship [...] * Vitals: H t: 67, Wt:165, BMI:25.84, BP:132/71, HR:55, Temp:97.3, Ht-cm: 170.18, Wt-k.84. * P ast Orders: Lab:Lipid Panel * Collection Date 12/01/2024 04/01/2024 05/28/2023 Collection Time 09:45 AM 10:11 AM 10:31 AM Order Date 12/01/2024 04/01/2024 05/28/2023 Triglycerides 62 (Ref Range: <150 mg/dL) 68 (Ref Range: <150 mg/dL) 45 (Ref Range: <150 mg/dL) Cholesterol 198 (Ref Range: <200 mg/dL) 184 (Ref Range: <200 mg/dL) 188 (Ref Range: <200 mg/dL) LDL Cholesterol Calculated 118 H (Ref Range: <100 mg/dL) 108 H (Ref Range: <100 mg/dL) 111 H (Ref Range: <100 mg/dL) HDL Cholesterol 68 (Ref Range: >40 mg/dL) 63 (Ref Range: >40 mg/dL) 68 (Ref Range: >40 mg/dL) ???Lab:Uric Acid (Order Date - 12/01/2024) (Collection Date & Time - 12/01/2024 09:45 AM)?ValueReference Range?Uric Acid4.13.4-7.0 - mg/dL * Lab:Comprehensive [place]. Pane l Fast * Collection Date 12/01/2024 04/01/2024 05/28/2023 Collection Time 09:45 AM 10:11 AM 10:31 AM Order Date 12/01/2024 04/01/2024 05/28/2023 Sodium 137 (Ref Range: 135-145 mmol/L) 137 (Ref Range: 135-145 mmol/L) 131 L (Ref Range: 135-145 mmol/L) Bilirubin Total 0.8 (Ref Range: 0.0-1.0 mg/dL) 0.7 (Ref Range: 0.0-1.0 mg/dL) 0.7 (Ref Range: 0.0-1.0 mg/dL) Aspartate Amino Transferase 38 H (Ref Range: 5-37 U/L) 23 (Ref Range: 5-37 U/L) 17 (Ref Range: 5-37 U/L) Alanine Aminotransferase 20 (Ref Range: 0-40 U/L) 16 (Ref Range: 0-40 U/L) 13 (Ref Range: 0-40 U/L) Total Protein 7.4 (Ref Range: 6.5-8.0 g/dL) 7.1 (Ref Range: 6.5-8.0 g/dL) 7.1 (Ref Range: 6.5-8.0 g/dL) Albumin Level 4.6 (Ref Range: 3.5-5.0 g/dL) 4.3 (Ref Range: 3.5-5.0 g/dL) 4.2 (Ref Range: 3.5-5.0 g/dL) Alkaline Phosphatase 64 (Ref Range: 39-117 U/L) 60 (Ref Range: 39-117 U/L) 59 (Ref Range: 39-117 U/L) Potassium 4.3 (Ref Range: 3.3-5.1 mmol/L) 3.6 (Ref Range: 3.3-5.1 mmol/L) 4.0 (Ref Range: 3.3-5.1 mmol/L) Chloride 101 (Ref Range: 96-108 mmol/L) 102 (Ref Range: 96-108 mmol/L) 98 (Ref Range: 96-108 mmol/L) Carbon Dioxide 28 (Ref Range: 22-29 mmol/L) 29 (Ref Range: 22-29 mmol/L) 25 (Ref Range: 22-29 mmol/L) Anion Gap 12 (Ref Range: 12-20) 10 L (Ref Range: 12-20) 12 (Ref Range: 12-20) Blood Urea Nitrogen 9 (Ref Range: 9-16 mg/dL) 5 L (Ref Range: 9-16 mg/dL) 9 (Ref Range: 9-16 mg/dL) Creatinine 0.71 (Ref Range: 0.5-1.4 mg/dL) 0.76 (Ref Range: 0.5-1.4 mg/dL) 0.76 (Ref Range: 0.5-1.4 mg/dL) Estimated Glomerular Filt Rate > 60 > 60 > 60 Glucose Fasting 102 H (Ref Range: 60-99 mg/dL) 99 (Ref Range: 60-99 mg/dL) 95 (Ref Range: 60-99 mg/dL) Calcium 9.2 (Ref Range: 8.4-10.2 mg/dL) 9.4 (Ref Range: 8.4-10.2 mg/dL) 9.4 (Ref Range: 8.4-10.2 mg/dL) * Lab:Complete Blood Count Aut o Diff * Collection Date 12/01/2024 04/01/2024 06/29/2023 Collection Time 09:45 AM 10:11 AM 02:14 PM Order Date 12/01/2024 04/01/2024 06/29/2023 White Blood Count 4.9 (Ref Range: 4.8-10.8 X10*3/uL) 5.0 (Ref Range: 4.8-10.8 X10*3/uL) 3.8 L (Ref Range: 4.8-10.8 X10*3/uL) Red Blood Count 4.51 L (Ref Range: 4.60-5.80 X10*6/uL) 4.52 L (Ref Range: 4.60-5.80 X10*6/uL) 4.70 (Ref Range: 4.60-5.80 X10*6/uL) Hemoglobin 14.0 (Ref Range: 14.0-18.0 g/dl) 13.8 L (Ref Range: 14.0-18.0 g/dl) 14.2 (Ref Range: 14.0-18.0 g/dl) Hematocrit 41.1 L (Ref Range: 42.0-52.0 %) 39.9 L (Ref Range: 42.0-52.0 %) 41.9 L (Ref Range: 42.0-52.0 %) Mean Corpuscular Volume 91.1 (Ref Range: 80.0-98.0 fL) 88.3 (Ref Range: 80.0-98.0 fL) 89.1 (Ref Range: 80.0-98.0 fL) Mean Corpuscular Hemoglobin 31.0 (Ref Range: 27.0-33.0 pg) 30.5 (Ref Range: 27.0-33.0 pg) 30.2 (Ref Range: 27.0-33.0 pg) Mean Corpuscular HGB Conc 34.1 (Ref Range: 31.0-36.0 g/dl) 34.6 (Ref Range: 31.0-36.0 g/dl) 33.9 (Ref Range: 31.0-36.0 g/dl) Red Cell Distribution Width 13.2 (Ref Range: 11.0-16.0 %) 13.1 (Ref Range: 11.0-16.0 %) 13.1 (Ref Range: 11.0-16.0 %) Platelet Count 281 (Ref Range: 160-400 X10*3/uL) 281 (Ref Range: 160-400 X10*3/uL) 269 (Ref Range: 160-400 X10*3/uL) Mean Platelet Volume 9.7 (Ref Range: 9.4-12.4 fL) 9.8 (Ref Range: 9.4-12.4 fL) 9.1 L (Ref Range: 9.4-12.4 fL) Neutrophils Percent Auto 49.7 (Ref Range: 45-73 %) 49.1 (Ref Range: 45-73 %) 43.6 L (Ref Range: 45-73 %) Imm Gran Pct Auto 0.6 H (Ref Range: 0.0-0.4 %) 0.6 H (Ref Range: 0.0-0.4 %) 0.8 H (Ref Range: 0.0-0.4 %) Lymphocytes Percent Auto 34.2 (Ref Range: 20-40 %) 34.4 (Ref Range: 20-40 %) 37.9 (Ref Range: 20-40 %) Monocytes Percent Auto 11.2 H (Ref Range: 2-11 %) 11.5 H (Ref Range: 2-11 %) 15.6 H (Ref Range: 2-11 %) Eosinophils Percent Auto 3.7 (Ref Range: 0-4 %) 3.6 (Ref Range: 0-4 %) 1.6 (Ref Range: 0-4 %) Basophils Percent Auto 0.6 (Ref Range: 0-2 %) 0.8 (Ref Range: 0-2 %) 0.5 (Ref Range: 0-2 %) NRBC Pct Auto 0.0 (Ref Range: 0.0-0.2 /100WBC) 0.0 (Ref Range: 0.0-0.2 /100WBC) 0.0 (Ref Range: 0.0-0.2 /100WBC) Neutrophils Absolute Auto 2.4 (Ref Range: 2.0-8.3 x10*3/uL) 2.5 (Ref Range: 2.0-8.3 x10*3/uL) 1.6 L (Ref Range: 2.0-8.3 x10*3/uL) Imm Gran Abs Auto 0.03 (Ref Range: 0.00-0.03 X10*3/uL) 0.03 (Ref Range: 0.00-0.03 X10*3/uL) 0.03 (Ref Range: 0.00-0.03 X10*3/uL) Lymphocytes Absolute Auto 1.7 (Ref Range: 1.2-4.9 X10*3/uL) 1.7 (Ref Range: 1.2-4.9 X10*3/uL) 1.4 (Ref Range: 1.2-4.9 X10*3/uL) Monocytes Absolute Auto 0.6 (Ref Range: 0.1-1.2 X10*3/uL) 0.6 (Ref Range: 0.1-1.2 X10*3/uL) 0.6 (Ref Range: 0.1-1.2 X10*3/uL) Eosinophils Absolute Auto 0.2 (Ref Range: 0.0-0.4 X10*3/uL) 0.2 (Ref Range: 0.0-0.4 X10*3/uL) 0.1 (Ref Range: 0.0-0.4 X10*3/uL) Basophils Absolute Auto 0.0 (Ref Range: 0.0-0.2 X10*3/uL) 0.0 (Ref Range: 0.0-0.2 X10*3/uL) 0.0 (Ref Range: 0.0-0.2 X10*3/uL) NRBC Abs Auto 0.000 (Ref Range: 0.0-0.012 X10*3/uL) 0.000 (Ref Range: 0.0-0.012 X10*3/uL) 0.000 (Ref Range: 0.0-0.012 X10*3/uL) * Lab:Prostate Specific Antige n * Collection Date 12/01/2024 04/01/2024 05/28/2023 Collection Time 09:45 AM 10:11 AM 10:31 AM Order Date 12/01/2024 04/01/2024 05/28/2023 Prostate Specific Antigen 1.42 (Ref Range: <0.05-4.0 ng/mL) 1.06 (Ref Range: <0.05-4.0 ng/mL) 0.83 (Ref Range: <0.05-4.0 ng/mL) * Examination: G eneral Examination: GENERAL APPEARANCE: [...] normal, no s3, or vascular bruits. LUNGS: : diminished breath sounds throughout: no wheezes, rales, rhonchi. BREASTS: no masses palpable bilaterally. ABDOMEN: b owel sounds normal, no ascites, no organomegaly, no mass: overweight. RECTAL EXAM: : normal tone: no external hemorrhoids: no masses palpable: no melena: no red blood: prostate normal: stool guaiac negative. MUSCULOSKELETAL: e xtremities unremarkable, no clubbing, cyanosis or edema. PERIPHERAL PULSES: n ormal. NEUROLOGIC: a lert and oriented, cranial nerves 2-12 grossly intact, deep tendon reflexes 2+ symmetrical, motor strength normal upper and lower extremities, sensory exam intact, Mild cognitive impairment with memory defects, depressive disorder. PSYCH: a lert, oriented: anxious appearing: mood depressed: speech diminished output, volume. Assessment: * Assessment: 1. E ssential hypertension - I10 (Primary) N otes :His blood pressure today is at its target range. No change in his medications was made. Follow-up visit was arranged in the near future to confirm this. 2 . F ormer smoker - Z87.891 N otes :He is highly motivated not to smoke tobacco. He has a plan to prevent relapse in times of stress. 3 . O verweight - E66.3 N otes :He is very slightly overweight. I recommended losing a few pounds through a diet restricted in fat calories and sodium. He has gained 4 pounds since his last visit and his body mass index is 25.53. He weighs 163 pounds. 4 . P ulmonary emphysema, unspecified emphysema type - J43.9 N otes :His pulmonary status is stable and he is using his medications appropriately. No change in his regimen is needed today. 5 . E nvironmental allergies - Z91.09 N otes :He had mild allergic symptoms during pollen season. He feels well today. 6 . B rief psychotic disorder - F23 [...] on the risperidone and trazodone without difficulty. 7 . N eurodegenerative cognitive impairment - G31.9 N otes :His memory is intact for the most part, but he does have some cognitive impairment. There has been no change in his dementia. He has conducting all of the activities of daily life without impairment. 8 . B ilateral hearing loss, unspecified hearing loss type - H91.93 N otes :His hearing remains adequate. Plan: * Treatment: * Procedure Codes: * Preventive Medicine: Counseling: C are goal follow-up plan: Counseling for abnormal BMI given Y es Above Normal BMI Follow-up D ietary management education, guidance, and counseling S moking/Tobacco Use Patient counseled on the dangers of tobacco use and urged to quit. 0 12/26/2024 * Follow Up: 3 Months (Reason: OV) * Images: * Sign off status: Completed true * Provider: Chaparrita Hoff MD Date: 0 12/26/2024 Generated for John loyd/Edda/eTransmitting on: 1 05/24/2024 05:26 PM EST History [...] normal, no s3, or vascular bruits LUNGS: : diminished breath sounds throughout: no wheezes, rales, rhonchi ABDOMEN: bowel sounds normal, no ascites, no organomegaly, no mass: overweight NEUROLOGIC: alert and oriented, cranial nerves 2-12 grossly intact, deep tendon reflexes 2+ symmetrical, motor strength normal upper and lower extremities, sensory exam intact, Mild cognitive impairment with memory defects, depressive disorder SKIN: no suspicious lesion s, anicteric PERIPHERAL PULSES: normal BREASTS: no masses palpable b ilaterally MUSCULOSKELETAL: extremities unremark able, no clubbing, cyanosis or edema LYMPH NODES: no enlarged lymph no mehnaz,spleen normal RECTAL EXAM: : normal tone: no ex ternal hemorrhoids: no masses palpable: no melena: no red blood: prostate normal: stool guaiac negative PSYCH: alert, oriented: anx ious appearing: mood depressed: speech diminished output, volume ORAL CAVITY: normal, unremarkable
--- OUTSIDE RECORDS SUMMARY | 2025-02-06 04:49 | XMS_ITS ---
Author Organization Babatunde Hoff III, MD Address [address] [place] [address] [place] [address] Care Team Providers Care Beck Tender Name Role Phone Dr. Babatunde Hoff III Primary Care Provider REASON FOR VISIT FYI Social History Sex Assigned At : Social History Observation Description Sex Assigned At Male Encounters Encounter Location Date Provider Diagnosis Babatunde Hoff III, MD [address] [place] [address] [place] [address] 02/06/2025 Babatunde Hoff Plan Of Treatment Next Appt Details Provider Name:Babatunde Hoff , 05/04/2025 02:00:00 PM, [address] [place] [address] [place], [address], Provider Name:Babatunde Hoff , 12/09/2025 02:00:00 PM, [address] [place] [address] [place], [address], Progress Notes * Onesimo BUSTILLO GDOB:1945 (79 yo M)Acc No.[id number]:02/06/2025 Patient: Onesimo MCFARLANE Binh :1945 A ge:79 Y S ex:Male Address:[address] [place] [address] * true * Date: Generated for John loyd/Edda/Lamonte on: 05/24/2024 05:25 PM EST
--- OUTSIDE RECORDS SUMMARY | 2025-02-11 12:00 | XMS_ITS ---
Author Organization Babatunde Hoff III, MD Address [address] [place] [address] [place] [address] Care Team Providers Care Stock Transfer Clerk Name Role Phone Dr. Babatunde Hoff III Primary Care Provider REASON FOR VISIT Follow up Social History Sex Assigned At : Social History Observation Description Sex Assigned At Male Encounters Encounter Location Date Provider Diagnosis Babatunde Hoff III, MD [address] [place] [address] [place] [address] 02/11/2025 Babatunde Hoff Plan Of Treatment Next Appt Details Provider Name:Babatunde Hoff , 05/04/2025 02:00:00 PM, [address] [place] [address] [place], [address], Provider Name:Babatunde Hoff , 12/09/2025 02:00:00 PM, [address] [place] [address] [place], [address], Progress Notes * Onesimo BUSTILLO GDOB:1945 (79 yo M)Acc No.[id number]:02/11/2025 Progress Notes Patient: Onesimo MCFARLANE Provider: Chaparrita Hoff MD :1945 A ge:79 Y S ex:Male Date:02/11/2025 Address:[address] [place] [id number] Subjective: * Chief Complaints: * 1 . Follow up. * Medical History: Objective: * Vitals: Assessment: Plan: * Treatment: * Images: * The named appointment provid er may or may not be the originator of this progress note, and it is not deemed complete until electronically signed by the appointment provider. Sign off status: Pending * Provider: Chaparrita Hoff MD Date: Generated for John loyd/Edda/Gauravitting on: 05/24/2024 05:27 PM EST
--- OUTSIDE RECORDS SUMMARY | 2025-02-26 08:49 | XMS_ITS ---
Author Organization Babatunde Hoff III, MD Address [address] [place] [address] [place] [address] Care Team Providers Care Algorithm Developer Name Role Phone Dr. Babatunde Hoff III Primary Care Provider [phone] REASON FOR VISIT Verbal order Social History Sex Assigned At : Social History Observation Description Sex Assigned At Male Encounters Encounter Location Date Provider Diagnosis Babatunde Hoff III, MD [address] [place] [address] [place] [address] 02/26/2025 Babatunde Hoff Plan Of Treatment Next Appt Details Provider Name:Babatunde Hoff , 05/04/2025 02:00:00 PM, [address] [place] [address] [place], [address], Provider Name:Babatunde Hoff , 12/09/2025 02:00:00 PM, [address] [place] [address] [place], [address], Progress Notes * Onesimo BUSTILLO GDOB:1945 (79 yo M)Acc No.[id number]:02/26/2025 Patient: Onesimo MCFARLANE Binh :1945 A ge:79 Y S ex:Male Address:[address] [place] [address] * true * Date: Generated for John loyd/Edda/Lamonte on: 05/24/2024 05:25 PM EST
--- OUTSIDE RECORDS SUMMARY | 2025-02-27 08:35 | XMS_ITS ---
Author Organization Babatunde Hoff III, MD Address [address] [place] [address] [place] [address] Care Team Providers Care Executive Vice President And Chief Operating Officer Name Role Phone Dr. Babatunde Hoff III Primary Care Provider REASON FOR VISIT PT Verbal Orders Social History Sex Assigned At : Social History Observation Description Sex Assigned At Male Encounters Encounter Location Date Provider Diagnosis Babatunde Hoff III, MD [address] [place] [address] [place] [address] 02/27/2025 Babatunde Hoff Plan Of Treatment Next Appt Details Provider Name:Babatunde Hoff , 05/04/2025 02:00:00 PM, [address] [place] [address] [place], [address], Provider Name:Babatunde Hoff , 12/09/2025 02:00:00 PM, [address] [place] [address] [place], [address], Progress Notes * Onesimo BUSTILLO GDOB:1945 (79 yo M)Acc No.[id number]:02/27/2025 Patient: Onesimo MCFARLANE :1945 A ge:79 Y S ex:Male Address:[address] [place] [phone] * true * Date: Generated for John loyd/Edda/Lamonte on: 05/24/2024 05:26 PM EST
--- OUTSIDE RECORDS SUMMARY | 2025-03-02 10:29 | XMS_ITS ---
Author Organization Babatunde Hoff III, MD Address [address] [place] [address] [place] [address] Care Team Providers Care Dental Laboratory Worker Name Role Phone Dr. Babatunde Hoff III Primary Care Provider REASON FOR VISIT Verbal Orders Social History Sex Assigned At : Social History Observation Description Sex Assigned At Male Encounters Encounter Location Date Provider Diagnosis Babatunde Hoff III, MD [address] [place] [address] [place] [address] 03/02/2025 Babatunde Hoff Plan Of Treatment Next Appt Details Provider Name:Babatunde Hoff , 05/04/2025 02:00:00 PM, [address] [place] [address] [place], [address], Provider Name:Babatunde Hoff , 12/09/2025 02:00:00 PM, [address] [place] [address] [place], [address], Progress Notes * Onesimo BUSTILLO GDOB:1945 (79 yo M)Acc No.[id number]:03/02/2025 Patient: Onesimo MCFARLANE Binh :1945 A ge:79 Y S ex:Male Address:[address] [place] [address] * true * Date: Generated for John loyd/Edda/Lamonte on: 05/24/2024 05:26 PM EST
--- OUTSIDE RECORDS SUMMARY | 2025-03-09 08:30 | XMS_ITS ---
Author Organization Babatunde Hoff III, MD Address [address] [place] [address] [place] [address] Care Team Providers Care Printer'S Devil Name Role Phone Dr. Babatunde Hoff III Primary Care Provider Allergies Allergen (clinical drug ingredient) Drug/Non Drug Allergy documented on EMR Reaction Allergy Type Onset Date Status No Known Drug Allergy Unknown Drug Allergy Active No Known Food Allergy Unknown Drug Allergy Active REASON FOR VISIT Was [place] [facility] [place]: 01[place], DIscharged: 01/31/25, Dx: Syncope, Sent to Rehab at [facility] and Discharged 03/04/2025 Medications Medication SIG (Take, Route, Frequency, Duration) Notes Start Date End Date Status Sertraline HCl 25 MG 1.5 tablet Orally O nce a day 09/02/2024 Active Haloperidol 5 MG 1 Tablet Orally at Bedtime 09/02/2024 Active Albuterol Sulfate HFA 108 (90 Base) MCG/ACT Inhalation Active Potassium Chloride ER 8 MEQ 1 tablet with food Orally once a day for 30 days 03/09/2025 03/04/2026 Active Potassium Chloride ER 8 MEQ 1 tablet Orally Once a day Active Social History Tobacco Use: Social History [...] non-user Ex-cigaret te smoker Vital Signs Temperature 97.1 degrees Fahrenheit 03/09/20 25 Blood pressure systolic 136 mm Hg 03/09/20 25 Blood pressure diastolic 79 mm Hg 025 Heart Rate 60 /min 03/09/2025 Height 67 in 03/09/2025 Weight 165 lbs 03/09/2025 BMI 25.84 kg/m2 03/09/2025 Encounters Encounter Location Date Provider Diagnosis Babatunde Hoff III, MD [address] [place] [address] [place] [address] 03/09/2025 Babatunde Hoff Essential hypertensi on I10 ; Pulmonary emphysema, unspecified emphysema type J43.9 ; Former smoker Z87.891 ; Overweight E66.3 ; Environmental allergies Z91.09 ; 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 No change in his medications was made. Follow-up visit was arranged in the near future to confirm this. 03/09/2025 Pulmonary emphysema, unspecified emphysema type (ICD-10 - J43.9) His pulmonary status is stable and he is using his medications appropriately. No change in his regimen is needed today. 03/09/2025 Former smoker (ICD-1 0 - Z87.891) He is highly motivated not to smoke tobacco. He has a plan to prevent relapse in times of stress. 03/09/2025 Overweight (ICD-10 - E66.3) He is very slightly overweight. I recommended losing a few pounds through a diet restricted in fat calories and sodium. He has gained 4 pounds since his last visit and his body mass index is 25.53. He weighs 163 pounds. 03/09/2025 Environmental allerg ies (ICD-10 - Z91.09) He had mild allergic symptoms during pollen season. He feels well today. 03/09/2025 Neurodegenerative cognitive impairment (ICD-10 - G31.9) His memory is intact for the most part, but he does have some cognitive impairment. There has been no change in his dementia. He has conducting all of the activities of daily life without impairment. 03/09/2025 Brief psychotic disorder (ICD-10 - F23) He developed a brief paranoid psychosis with multiple calls to the police and visits to the emergency room. He is now on medication and doing well with resolution of the psychosis. He understands what happened to him. He is back at home with his significant other, Jenn.He continues on the risperidone and trazodone without difficulty. 03/09/2025 Bilateral hearing lo ss, unspecified hearing loss type (ICD-10 - H91.93) His hearing remains adequate. 03/09/2025 Mixed hyperlipidemia (ICD-10 - E78.2) Plan Of Treatment Medication Medication Name Sig Start Date Stop Date Notes Sertraline HCl 25 MG 1.5 tablet Orally Once a day 09/03/19 25 Haloperidol 5 MG 1 Tablet Orally at Bedtime 09/02/2024 Albuterol Sulfate HFA 108 (9 0 Base) MCG/ACT Inhalation Potassium Chloride ER 8 MEQ 1 tablet wit h food Orally once a day for 30 days 03/09/2025 03/04/2026 Potassium Chloride ER 8 MEQ 1 tablet Orally Once a day Pending Test Test Name Order Date PROFILE, FASTING (COMPREHENSIVE METABOLI C) 03/09/2025 MAGNESIUM 03/09/2025 CBC w DIFF 03/09/2025 Lipid Panel 03/09/2025 Next Appt Details Follow Up: 4 Weeks, Reason: ov Provider Name:Babatunde Hoff , 05/04/2025 02:00:00 PM, [address] [place] [address] [address], [place], [address], Provider Name:Babatunde Hoff , 12/09/2025 02:00:00 PM, [address] [place] [address] [address], [place], [address], Progress Notes * Onesimo BUSTILLO GDOB:1945 (79 yo M)Acc No.[id number]:03/09/2025 Patient: Onesimo MCFARLANE Provider: Chaparrita Hoff MD :1945 A ge:79 Y S ex:Male Date:03/09/2025 Address:[address] [place], [place] [phone] Subjective: * Chief Complaints: * W as [place] [facility] [place]: 01/25/25, DIscharged: 01/31/25, Dx: SyncopeSent to Rehab at [facility] and Discharged 03/04/2025 * HPI: C OVID-19 Screening: He had a syncopal episode at home January 25, 2025 and went to the [facility] emergency room where he was Until January 31 and then discharged to a rehabilitation facility from which he was discharged February 25, 2025. No new significant diagnoses were made. He has been doing well at home. Since that time. He denies any pain or shortness of breatth, nausea, vomiting or diarrhea. He is taking potassium which was refilled. His magnesium oxide was stopped as he is having diarrhea. He is sleeping well. Close followup was arranged.Prolongation of his QT ECC interval was noted but resolved In the hospital. Questions H ave you had any new [...] d enies. D ecreased appetite d enies.?Diarrhea R ecently since he began magnesium oxide. H eartburn d enies. N ausea?denies. R ectal bleeding d enies. V omiting [...] P sychiatric: Depressed mood w hich is moderate. * Medical History: * Surgical History: b [...] 2013. He is not working now, did [employer] and [employer]. 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 One son was a patient director drug safety at [employer] and now is a human resource manager. He is in a platonic relationship at home with Jenn. * Medications: T akingPotassium Chloride ER 8 MEQ Tablet Extended Release 1 tablet Orally Once a day Haloperidol 5 MG Tablet 1 Tablet Orally at Bedtime Sertraline HCl 50 MG Tablet 1 tablet Orally Once a day Albuterol Sulfate HFA 108 (90 Base) MCG/ACT Aerosol Solution Inhalation Medication List reviewed and reconciled with the patientTaking Potassium Chloride ER 8 MEQ Tablet Extended Release 1 tablet Orally Once a day Taking Haloperidol 5 MG Tablet 1 Tablet Orally at Bedtime Taking Sertraline HCl 50 MG Tablet 1 tablet Orally Once a day Taking Albuterol Sulfate HFA 108 (90 Base) MCG/ACT Aerosol Solution Inhalation Medication List reviewed and reconciled with the patient * Allergies: N o Known Drug AllergyNo Known Food Allergyno[Allergies Verified] Objective: * Vitals: H t: 67, Wt:165, BMI:25.84, BP:136/79, HR:60, Temp:97.1, Ht-cm: 170.18, Wt-k.84. * Examination: G eneral Examination: GENERAL APPEARANCE: p leelder, well nourished, well developed, in no acute distress, calm and relaxed: overweight: elderly man. HEAD: a traumatic, normocephalic. EYES: e lei, perrla, anicteric, conjugate. EARS: : Normal anatomy with bilateral hearing loss. NOSE: s eptum intact. ORAL CAVITY: n ormal, unremarkable. NECK/THYROID: n o jugular venous distention, no carotid bruit, thyroid normal. LYMPH NODES: n o enlarged lymph nodes,spleen normal. SKIN: n o suspicious lesions, anicteric. HEART: n o clicks, gallops, murmurs, or rubs, regular rhythm, S1, S2 normal, no s3, or vascular bruits. LUNGS: c lear to auscultation: no wheezes, rales, rhonchi.? BREASTS: no masses palpable bilaterally. ABDOMEN: b owel sounds normal, no ascites, no organomegaly, no mass: overweight. RECTAL EXAM: n ot examined. MUSCULOSKELETAL: e xtremities unremarkable, no clubbing, cyanosis or edema. PERIPHERAL PULSES: n ormal. NEUROLOGIC: a lert and oriented, cranial nerves 2-12 grossly intact, deep tendon reflexes 2+ symmetrical, motor strength normal upper and lower extremities, sensory exam intact, Uses a walker, gait slow and unsteady. PSYCH: A lert and oriented to person and place but not to time. Assessment: * Assessment: 1. P ulmonary emphysema, unspecified emphysema type - J43.9 (Primary) N otes :His pulmonary status is stable and he is using his medications appropriately. No change in his regimen is needed today. 2 . E ssential hypertension - I10 N otes :His blood pressure today is at its target range. No change in his medications was made. Follow-up visit was arranged in the near future to confirm this. 3 . F ormer smoker - Z87.891 [...] 25.53. He weighs 163 pounds. 5 . E nvironmental allergies - Z91.09 N otes :He had mild allergic symptoms during pollen season. He feels well today. 6 . N eurodegenerative cognitive impairment - G31.9 N otes :His memory is intact for the most part, but he does have some cognitive impairment. There has been no change in his dementia. He has conducting all of the activities of daily life without impairment. 7 . B rief psychotic disorder - F23 [...] on the risperidone and trazodone without difficulty. 8 . B ilateral hearing loss, unspecified hearing loss type - H91.93 N otes :His hearing remains adequate. 9 . M ixed hyperlipidemia - E78.2 Plan: * Treatment: 2. E ssential hypertension Continue Haloperidol Tablet, 5 MG, 1 Tablet, Orally, at Bedtime; C ontinue Sertraline HCl Tablet, 25 MG, 1.5 tablet, Orally, Once a day; C ontinue Albuterol Sulfate HFA Aerosol Solution, 108 (90 Base) MCG/ACT, Inhalation; S tart Potassium Chloride ER Tablet Extended Release, 8 MEQ, 1 tablet with food, Orally, once a day, 30 days, 30 Tablet, Refills 11. L AB: PROFILE, FASTING (COMPREHENSIVE METABOLIC) L AB: MAGNESIUM L AB: CBC w DIFF L AB: Lipid Panel 3. M ixed hyperlipidemia L AB: PROFILE, FASTING (COMPREHENSIVE METABOLIC) L AB: MAGNESIUM L AB: CBC w DIFF L AB: Lipid Panel * Procedure Codes: * Preventive Medicine: Counseling: C are goal follow-up plan: Counseling for abnormal BMI given Y es Above Normal BMI Follow-up D ietary management education, guidance, and counseling S moking/Tobacco Use Patient counseled on the dangers of tobacco use and urged to quit. 1 * Follow Up: 4 Weeks (Reason: ov) * Images: * Sign off status: Completed true * Provider: Chaparrita Hoff MD Date: Generated for John loyd/Edda/Gauravitting on: 05/24/2024 05:26 PM EST History and Physical Notes * HPI (History of Present Illness) Category Sub-Category Detail Notes COVID-19 Screening Questions Have you had any new onset fever, chills, cough, congestion, sore throat, shortness of breath, muscle aches?: No Examination Category Sub-Category Detail Notes General Examination GENERAL APPEARANCE: pleasant , well nourished, well developed, in no acute distress, calm and relaxed: overweight: elderly man HEAD: atraumatic, normocep halic EYES: eomi, perrla, anicte yusef, conjugate EARS: : Normal anatomy wit h bilateral hearing loss NOSE: septum intact NECK/THYROID: no jugular venous di stention, no carotid bruit, thyroid normal HEART: no clicks, gallops, murmurs, or rubs, regular rhythm, S1, S2 normal, no s3, or vascular bruits LUNGS: clear to auscultatio n: no wheezes, rales, rhonchi ABDOMEN: bowel sounds normal, no ascites, no organomegaly, no mass: overweight NEUROLOGIC: alert and oriented, cranial nerves 2-12 grossly intact, deep tendon reflexes 2+ symmetrical, motor strength normal upper and lower extremities, sensory exam intact, Uses a walker, gait slow and unsteady SKIN: no suspicious lesion s, anicteric PERIPHERAL PULSES: normal BREASTS: no masses palpable b ilaterally MUSCULOSKELETAL: extremities unremark able, no clubbing, cyanosis or edema LYMPH NODES: no enlarged lymph no mehnaz,spleen normal RECTAL EXAM: not examined PSYCH: Alert and oriented t o person and place but not to time ORAL CAVITY: normal, unremarkable
--- OUTSIDE RECORDS SUMMARY | 2025-03-23 10:46 | XMS_ITS ---
Author Organization Babatunde Hoff III, MD Address [address] [place] [address] [place] [address] Care Team Providers Care Deflector Operator Name Role Phone Dr. Babatunde Hoff III Primary Care Provider REASON FOR VISIT Message Social History Sex Assigned At : Social History Observation Description Sex Assigned At Male Encounters Encounter Location Date Provider Diagnosis Babatunde Hoff III, MD [address] [place] [address] [place] [address] 03/23/2025 Babatunde Hoff Plan Of Treatment Next Appt Details Provider Name:Babatunde Hoff , 05/04/2025 02:00:00 PM, [address] [place] [address] [place], [address], Provider Name:Babatunde Hoff , 12/09/2025 02:00:00 PM, [address] [place] [address] [place], [address], Progress Notes * Onesimo BUSTILLO GDOB:1945 (79 yo M)Acc No.[id number]:03/23/2025 Patient: Rashawn MELÉNDEZOnesimo :1945 A ge:79 Y S ex:Male Address:[address] [place] [address] * true * Date: Generated for John loyd/Edda/Lamonte on: 05/24/2024 05:25 PM EST
--- OUTSIDE RECORDS SUMMARY | 2025-03-24 12:00 | XMS_ITS ---
Author Organization Babatunde Hoff III, MD Address [address] [place] [address] [place] [address] Care Team Providers Care Elevator Service Technician Name Role Phone Dr. Babatunde Hoff III Primary Care Provider REASON FOR VISIT Follow up Social History Sex Assigned At : Social History Observation Description Sex Assigned At Male Encounters Encounter Location Date Provider Diagnosis Babatunde Hoff III, MD [address] [place] [address] [place] [address] 03/24/2025 Babatunde Hoff Plan Of Treatment Next Appt Details Provider Name:Babatunde Hoff , 05/04/2025 02:00:00 PM, [address] [place] [address] [place], [address], Provider Name:Babatunde Hoff , 12/09/2025 02:00:00 PM, [address] [place] [address] [place], [address], Progress Notes * Onesimo BUSTILLO GDOB:1945 (79 yo M)Acc No.[id number]:03/24/2025 Progress Notes Patient: Onesimo MCFARLANE Provider: Chaparrita Hoff MD :1945 A ge:79 Y S ex:Male Date:03/24/2025 Address:[address] [place] [phone] Subjective: * Chief Complaints: * 1 . Follow up. * Medical History: Objective: * Vitals: Assessment: Plan: * Treatment: * Images: * The named appointment provid er may or may not be the originator of this progress note, and it is not deemed complete until electronically signed by the appointment provider. Sign off status: Pending * Provider: Chaparrita Hoff MD Date: 05/24/2024 Generated for John loyd/Edda/Gauarvitting on: 05/24/2024 05:25 PM EST
--- OUTSIDE RECORDS SUMMARY | 2025-03-24 17:26 | XMS_ITS | Patient Health Record ---
Author Organization [facility] [place] Address [address] [place] [address] Care Team Providers Care Fish Boning Machine Feeder Name Role Phone Babatunde Hoff MD Primary Care Provider Alfonso Gastelum Unavailable [phone] Allergies Allergen (clinical drug ingredient) Drug/Non Drug [...] Start Date Coverage End Date Medicare National [employer] [address] [place] [address] [id number] Onesimo Forrester Self - patient is the insured [employer] [address] [place] [address] [id number] Onesimo Forrester Self - patient is the insured Medical (General) History Medical History History ICD Code Anxiety Chicken pox Hepatitis A High blood pressure Measles Mumps Surgical History Surgery Date(Month/Year) inguinal hernia 1988
--- OUTSIDE RECORDS SUMMARY | 2025-03-24 17:26 | XMS_ITS | Encounter Summary ---
Author Organization [facility] Address [address] [place] [address] Care Team Providers Care Business Test Analyst Name Role Phone To Gu MD Primary Care Provider [phone] Encounter Details Date Type Department Care Team (Late st Contact Info) Description 02/19/2025 Lab Requisition [facility] - Main Lab [address] [facility] [place] [phone] To Gu MD [address] [place], [place] [id number] Anemia, unspecified Social History Tobacco Use Types Packs/Day Years Used Date Smoking Tobacco: Never Smokeless Tobacco: Never Alcohol Use Standard Drinks/Week Comments Yes 0 (1 standard drink = 0.6 oz pur e alcohol) Sex and Gender Information Value Date Recorded Sex Assigned at Not on file Legal Sex Male 7:10 AM EST Gender Identity Not on file Sexual Orientation Not on file documented as of this encounter Plan of Treatment Not on file documented as of this encounter Procedures Procedure Name Priority Date/Time Associated Diagnosis Comments VITAMIN B12 AND FOLATE Routine 02/19/2025 6:02 AM EDT Anemia, unspecified IRON AND TIBC Routine 02/19/2025 6:02 AM EDT Anemia, unspecified COMPLETE BLOOD COUNT Routine 02/19/2025 6:02 AM EDT Anemia, unspecified RENAL FUNCTION PANEL Routine 02/19/2025 6:02 AM EDT Anemia, unspecified documented in this encounter Results * (ABNORMAL) Vitamin B12 and folate (02/19/2025 6:02 AM EDT) [facility] Vitamin B-12 453 250 - 900 pcg/mL LAB CHEMISTRY METHOD 02/19/2025 11:20 AM EDT [facility] Folate >20.0(H) 2.8 - 17.0 ng/ml LAB CHEMISTRY METHOD 02/19/2025 11:20 AM EDT [facility] Blood Venous blood specimen / Unknown Venipuncture / Unknown 02/19/2025 6:02 AM EDT 02/19/2025 9:43 AM EDT us To Gu MD LAB BLOOD ORDERABLES Final Resul t Performing Organization Address [facility] Co de Phone Number [facility] [address] [place] [address], [place] [phone] * Iron and TIBC (02/19/2025 6:02 AM EDT) [facility] Iron 82 50 - 160 mcg/dL LAB CHEMISTRY METHOD 02/19/2025 10:53 AM EDT [facility] TIBC 306 250 - 450 mcg/dL LAB CHEMISTRY METHOD 02/19/2025 10:53 AM EDT [facility] Iron Saturation 27 20 - 50 % LAB CHEMISTRY METHOD 02/19/2025 10:53 AM EDT [facility] Blood Venous blood specimen / Unknown Venipuncture / Unknown 02/19/2025 6:02 AM EDT 02/19/2025 9:43 AM EDT us To Gu MD LAB BLOOD ORDERABLES Final Resul t Performing Organization Address City/[facility]/ZIP Co de Phone Number [facility] [address] [place] [address], [place] [phone] * (ABNORMAL) Renal function panel (02/19/2025 6:02 AM EDT) Sodium 136 133 - 145 mmol/L LAB CHEMISTRY METHOD 02/19/2025 10:53 AM [facility] Potassium 4.0 3.5 - 5.5 mmol/L LAB CHEMISTRY METHOD 02/19/2025 10:53 AM [facility] Chloride 101 96 - 110 mmol/L LAB CHEMISTRY METHOD 02/19/2025 10:53 AM [facility] CO2 27 21 - 32 mmol/L LAB CHEMISTRY METHOD 02/19/2025 10:53 AM [facility] Anion Gap 8 3 - 11 LAB CHEMISTRY METHOD 02/19/2025 10:53 AM [facility] Glucose 108(H) 70 - 100 mg/dL LAB CHEMISTRY METHOD 02/19/2025 10:53 AM [facility] BUN 10 5 - 25 mg/dL LAB CHEMISTRY METHOD 02/19/2025 10:53 AM [facility] Creatinine 0.70 0.70 - 1.30 mg/dL LAB CHEMISTRY METHOD 02/19/2025 10:53 AM [facility] eGFR 93 >=60 mL/min/1. 73m2 LAB CHEMISTRY METHOD 02/19/2025 10:53 AM [facility] Comment:Calculation based on the Chronic Kidney Disease Epidemiology Collaboration (CKD-EPI) equation refit without adjustment for race. BUN/Creatinine Ratio 14.3 LAB CHEMISTRY METHOD 02/19/2025 10:53 AM [facility] Albumin 3.7 3.2 - 5.0 g/dL LAB CHEMISTRY METHOD 02/19/2025 10:53 AM [facility] Calcium 9.3 8.5 - 10.5 mg/dL LAB CHEMISTRY METHOD 02/19/2025 10:53 AM [facility] Phosphorus 3.4 2.5 - 4.5 mg/dL LAB CHEMISTRY METHOD 02/19/2025 10:53 AM [facility] Blood Venous blood specimen / Unknown Venipuncture / Unknown 02/19/2025 6:02 AM EDT 02/19/2025 9:43 AM EDT To Gu MD LAB BLOOD ORDERABLES Final Resul t [facility] [address] [place] [address], * (ABNORMAL) Complete blood count (02/19/2025 6:02 AM EDT) WBC 4.6(L) 4.8 - 10.8 K/mcL LAB HEMETOLOGY METHOD 02/19/2025 11:03 AM [facility] RBC 4.40(L) 4.50 - 5.50 M/mcL LAB HEMETOLOGY METHOD 02/19/2025 11:03 AM [facility] Hemoglobin 13.7 13.5 - 17.5 g/dL LAB HEMETOLOGY METHOD 02/19/2025 11:03 AM [facility] Hematocrit 40.3(L) 42.0 - 54.0 % LAB HEMETOLOGY METHOD 02/19/2025 11:03 AM [facility] MCV 91.2 79.0 - 98.0 FL LAB HEMETOLOGY METHOD 02/19/2025 11:03 AM [facility] MCH 31.0 27.0 - 32.0 pcg LAB HEMETOLOGY METHOD 02/19/2025 11:03 AM [facility] MCHC 34.0 32.0 - 37.0 g/dL LAB HEMETOLOGY METHOD 02/19/2025 11:03 AM [facility] RDW 12.8 11.0 - 15.0 % LAB HEMETOLOGY METHOD 02/19/2025 11:03 AM EDT [facility] Platelets 302 130 - 400 K/mcL LAB HEMETOLOGY METHOD 02/19/2025 11:03 AM EDT [facility] MPV 9.7 7.0 - 11.0 FL LAB HEMETOLOGY METHOD 02/19/2025 11:03 AM EDT [facility] NRBC 0.0 <1.0 % LAB HEMETOLOGY METHOD 02/19/2025 11:03 AM EDT [facility] NRBC Absolute 0.00 <0.10 K/mcL LAB HEMETOLOGY METHOD 02/19/2025 11:03 AM EDT [facility] Blood Venous blood specimen / Unknown Venipuncture / Unknown 02/19/2025 6:02 AM EDT 02/19/2025 9:43 AM EDT us To Gu MD LAB BLOOD ORDERABLES Final Resul t [facility] [address] [place] [address], documented in this encounter Visit Diagnoses Diagnosis Anemia, unspecified documented in this encounter Care Teams Business Test Analyst Relationship Specialty Start Date End Date To Gu MD [address] [place] [address] [address] [place] [address] PCP - General Geriatric Medicine 02/02/25 documented as of this encounter
--- OUTSIDE RECORDS SUMMARY | 2025-03-24 17:26 | XMS_ITS | Encounter Summary ---
Author Organization [facility] Address [address] [place] [address] Care Team Providers Care Executive Assistant To President Name Role Phone To Gu MD Primary Care Provider [phone] Encounter Details Date Type Department Care Team (Late st Contact Info) Description 02/20/2025 Lab Requisition [facility] - Main Lab [address] [facility] [place] [id number] To Gu MD [address] [place] [address] Essential (primary) hypertension Social History Tobacco Use Types Packs/Day Years [...] Procedure Name Priority Date/Time Associated Diagnosis Comments COMPLETE BLOOD COUNT Routine 02/23/2025 5:53 AM EDT Essential (primary) hypertension BASIC METABOLIC PANEL Routine 02/23/2025 5:53 AM EDT Essential (primary) hypertension documented in this encounter Results * Basic metabolic panel (02/23/2025 5:53 AM EDT) Sodium 136 133 - 145 mmol/L LAB CHEMISTRY METHOD 02/23/2025 11:[address] [facility] Potassium 4.1 3.5 - 5.5 mmol/L LAB CHEMISTRY METHOD 02/23/2025 11:57 AM [facility] LAB Chloride 99 96 - 110 mmol/L LAB CHEMISTRY METHOD 02/23/2025 11:57 AM [facility] LAB CO2 29 21 - 32 mmol/L LAB CHEMISTRY METHOD 02/23/2025 11:57 AM [facility] LAB Anion Gap 8 3 - 11 LAB CHEMISTRY METHOD 02/23/2025 11:57 AM [facility] LAB Glucose 92 70 - 100 mg/dL LAB CHEMISTRY METHOD 02/23/2025 11:57 AM [facility] BUN 10 5 - 25 mg/dL LAB CHEMISTRY METHOD 02/23/2025 11:57 AM [facility] LAB Creatinine 0.72 0.70 - 1.30 mg/dL LAB CHEMISTRY METHOD 02/23/2025 11:57 AM [facility] LAB eGFR 92 >=60 mL/min/1. 73m2 LAB CHEMISTRY METHOD 02/23/2025 11:57 AM [facility] LAB Comment:Calculation based on the Chronic Kidney Disease Epidemiology Collaboration (CKD-EPI) equation refit without adjustment for race. BUN/Creatinine Ratio 13.9 LAB CHEMISTRY METHOD 02/23/2025 11:57 AM [facility] LAB Calcium 9.1 8.5 - 10.5 mg/dL LAB CHEMISTRY METHOD 02/23/2025 11:57 AM [facility] LAB Blood Venous blood specimen / Unknown Venipuncture / Unknown 02/23/2025 5:53 AM EDT 02/23/2025 10:52 AM EDT us To Gu MD LAB BLOOD ORDERABLES Final Resul t [facility] LAB [address] [place] [address], * (ABNORMAL) Complete blood count (02/23/2025 5:53 AM EDT) [facility] Signature WBC 5.6 4.8 - 10.8 K/mcL LAB HEMETOLOGY METHOD 02/23/2025 11:35 AM [facility] LAB RBC 4.30(L) 4.50 - 5.50 M/mcL LAB HEMETOLOGY METHOD 02/23/2025 11:35 AM [facility] LAB Hemoglobin 13.0(L) 13.5 - 17.5 g/dL LAB HEMETOLOGY METHOD 02/23/2025 11:35 AM [facility] LAB Hematocrit 39.7(L) 42.0 - 54.0 % LAB HEMETOLOGY METHOD 02/23/2025 11:35 AM [facility] LAB MCV 92.3 79.0 - 98.0 FL LAB HEMETOLOGY METHOD 02/23/2025 11:35 AM [facility] LAB MCH 30.2 27.0 - 32.0 pcg LAB HEMETOLOGY METHOD 02/23/2025 11:35 AM [facility] LAB MCHC 32.7 32.0 - 37.0 g/dL LAB HEMETOLOGY METHOD 02/23/2025 11:35 AM [facility] LAB RDW 12.9 11.0 - 15.0 % LAB HEMETOLOGY METHOD 02/23/2025 11:35 AM [facility] LAB Platelets 282 130 - 400 K/mcL LAB HEMETOLOGY METHOD 02/23/2025 11:35 AM [facility] LAB MPV 9.9 7.0 - 11.0 FL LAB HEMETOLOGY METHOD 02/23/2025 11:35 AM [facility] LAB NRBC 0.0 <1.0 % LAB HEMETOLOGY METHOD 02/23/2025 11:35 AM [facility] LAB NRBC Absolute 0.00 <0.10 K/[facility] LAB HEMETOLOGY METHOD 02/23/2025 11:35 AM EDT [facility] LAB Blood Venous blood specimen / Unknown Venipuncture / Unknown 02/23/2025 5:53 AM EDT 02/23/2025 10:53 AM EDT us To Gu MD LAB BLOOD ORDERABLES Final Resul t [facility] LAB [address] [place] [address], [place] [phone] documented in this encounter Visit Diagnoses Diagnosis Essential (primary) hypertension Unspecified essential hypertension documented in this encounter Care Teams Executive Assistant To President Relationship Specialty Start Date End Date To Gu MD [address] [place] [address] [address] [place] [address] PCP - General Geriatric Medicine 02/02/25 documented as of this encounter
--- OUTSIDE RECORDS SUMMARY | 2025-03-24 17:26 | XMS_ITS | Encounter Summary ---
Author Organization [facility] Address [address] [place] [address] Care Team Providers Care Citrix Consultant Name Role Phone To Gu MD Primary Care Provider Encounter Details Date Type Department Care Team (Late st Contact Info) Description 02/14/2025 Lab Requisition [facility] - Main Lab 299 [facility] [place] [phone] To Gu MD [address] [place] [address] Essential (primary) hypertension Social History Tobacco Use [...] Associated Diagnosis Comments COMPLETE BLOOD COUNT Routine 02/16/2025 4:51 AM EDT Essential (primary) hypertension BASIC METABOLIC PANEL Routine 02/16/2025 4:51 AM EDT Essential (primary) hypertension documented in this encounter Results * Basic metabolic panel (02/16/2025 4:51 AM EDT) Sodium 142 133 - 145 mmol/L LAB CHEMISTRY METHOD 02/16/2025 11:08 AM EDT [facility] Potassium 3.9 3.5 - 5.5 mmol/L LAB CHEMISTRY METHOD 02/16/2025 11:08 AM [facility] LAB Chloride 107 96 - 110 mmol/L LAB CHEMISTRY METHOD 02/16/2025 11:08 AM [facility] LAB CO2 29 21 - 32 mmol/L LAB CHEMISTRY METHOD 02/16/2025 11:08 AM [facility] LAB Anion Gap 6 3 - 11 LAB CHEMISTRY METHOD 02/16/2025 11:08 AM [facility] LAB Glucose 79 70 - 100 mg/dL LAB CHEMISTRY METHOD 02/16/2025 11:08 AM [facility] LAB BUN 16 5 - 25 mg/dL LAB CHEMISTRY METHOD 02/16/2025 11:08 AM [facility] LAB Creatinine 0.94 0.70 - 1.30 mg/dL LAB CHEMISTRY METHOD 02/16/2025 11:08 AM [facility] LAB eGFR 81 >=60 mL/min/1. 73m2 LAB CHEMISTRY METHOD 02/16/2025 11:08 AM [facility] LAB Comment:Calculation based on the Chronic Kidney Disease Epidemiology Collaboration (CKD-EPI) equation refit without adjustment for race. BUN/Creatinine Ratio 17.0 LAB CHEMISTRY METHOD 02/16/2025 11:08 AM [facility] LAB Calcium 8.7 8.5 - 10.5 mg/dL LAB CHEMISTRY METHOD 02/16/2025 11:08 AM [facility] LAB Blood Venous blood specimen / Unknown Venipuncture / Unknown 02/16/2025 4:51 AM EDT 02/16/2025 10:20 AM EDT us To Gu MD LAB BLOOD ORDERABLES Final Resul t [facility] LAB [address] [place] [address], * (ABNORMAL) Complete blood count (02/16/2025 4:51 AM EDT) [facility] Signature WBC 6.6 4.8 - 10.8 K/mcL LAB HEMETOLOGY METHOD 02/16/2025 10:46 AM [facility] LAB RBC 2.90(L) 4.50 - 5.50 M/mcL LAB HEMETOLOGY METHOD 02/16/2025 10:46 AM [facility] LAB Hemoglobin 7.5(L) 13.5 - 17.5 g/dL LAB HEMETOLOGY METHOD 02/16/2025 10:46 AM [facility] LAB Hematocrit 25.1(L) 42.0 - 54.0 % LAB HEMETOLOGY METHOD 02/16/2025 10:46 AM [facility] LAB MCV 86.9 79.0 - 98.0 FL LAB HEMETOLOGY METHOD 02/16/2025 10:46 AM [facility] LAB MCH 26.0(L) 27.0 - 32.0 pcg LAB HEMETOLOGY METHOD 02/16/2025 10:46 AM [facility] LAB MCHC 29.9(L) 32.0 - 37.0 g/dL LAB HEMETOLOGY METHOD 02/16/2025 10:46 AM [facility] LAB RDW 14.5 11.0 - 15.0 % LAB HEMETOLOGY METHOD 02/16/2025 10:46 AM [facility] LAB Platelets 209 130 - 400 K/mcL LAB HEMETOLOGY METHOD 02/16/2025 10:46 AM [facility] LAB MPV 9.9 7.0 - 11.0 FL LAB HEMETOLOGY METHOD 02/16/2025 10:46 AM [facility] LAB NRBC 0.0 <1.0 % LAB HEMETOLOGY METHOD 02/16/2025 10:46 AM [facility] LAB NRBC Absolute 0.00 <0.10 K/[facility] LAB HEMETOLOGY METHOD 02/16/2025 10:46 AM EDT [facility] LAB Blood Venous blood specimen / Unknown Venipuncture / Unknown 02/16/2025 4:51 AM EDT 02/16/2025 10:18 AM EDT us To Gu MD LAB BLOOD ORDERABLES Final Resul t [facility] LAB [address] [place] [address], documented in this encounter Visit Diagnoses Diagnosis Essential (primary) hypertension Unspecified essential hypertension documented in this encounter Care Teams Citrix Consultant Relationship Specialty Start Date End Date To Gu MD [address] [place] [address] [address] [place] [address] PCP - General Geriatric Medicine 02/02/25 documented as of this encounter
--- OUTSIDE RECORDS SUMMARY | 2025-03-24 17:26 | XMS_ITS | Encounter Summary ---
Author Organization [facility] Address [address] [place] [address] Care Team Providers Care Licensing Court Magistrate Name Role Phone To Gu MD Primary Care Provider [phone] Encounter Details Date Type Department Care Team (Late st Contact Info) Description 02/07/2025 Lab Requisition [facility] - Main Lab [address] [facility] [place] [address] To Gu MD [address] [place], [place] [id number] Essential (primary) hypertension; Vitamin D deficiency, unspecified; Hypo-osmolality and hyponatremia; Syncope and collapse; Vitamin B12 deficiency anemia, unspecified Social History Tobacco Use Types Packs/Day [...] Associated Diagnosis Comments COMPLETE BLOOD COUNT Routine 02/09/2025 6:08 AM EDT Essential (primary) hypertension Vitamin D deficiency, unspecified Hypo-osmolality and hyponatremia Syncope and collapse Vitamin B12 deficiency anemia, unspecified VITAMIN D 25 HYDROXY Routine 02/09/2025 6:05 AM EDT Essential (primary) hypertension Vitamin D deficiency, unspecified Hypo-osmolality and hyponatremia Syncope and collapse Vitamin B12 deficiency anemia, unspecified FOLATE Routine 02/09/2025 6:05 AM EDT Essential (primary) hypertension Vitamin D deficiency, unspecified Hypo-osmolality and hyponatremia Syncope and collapse Vitamin B12 deficiency anemia, unspecified VITAMIN B12 Routine 02/09/2025 6:05 AM EDT Essential (primary) hypertension Vitamin D deficiency, unspecified Hypo-osmolality and hyponatremia Syncope and collapse Vitamin B12 deficiency anemia, unspecified BASIC METABOLIC PANEL Routine 02/09/2025 6:05 AM EDT Essential (primary) hypertension Vitamin D deficiency, unspecified Hypo-osmolality and hyponatremia Syncope and collapse Vitamin B12 deficiency anemia, unspecified documented in this encounter Results * (ABNORMAL) Complete blood count (02/09/2025 6:08 AM EDT) [facility] WBC 5.3 4.8 - 10.8 K/mcL LAB HEMETOLOGY METHOD 02/09/2025 8:59 AM [facility] LAB RBC 4.50 4.50 - 5.50 M/mcL LAB HEMETOLOGY METHOD 02/09/2025 8:59 AM [facility] LAB Hemoglobin 14.0 13.5 - 17.5 g/dL LAB HEMETOLOGY METHOD 02/09/2025 8:59 AM [facility] LAB Hematocrit 40.8(L) 42.0 - 54.0 % LAB HEMETOLOGY METHOD 02/09/2025 8:59 AM [facility] LAB MCV 90.1 79.0 - 98.0 FL LAB HEMETOLOGY METHOD 02/09/2025 8:59 AM [facility] LAB MCH 30.9 27.0 - 32.0 pcg LAB HEMETOLOGY METHOD 02/09/2025 8:59 AM [facility] LAB MCHC 34.3 32.0 - 37.0 g/dL LAB HEMETOLOGY METHOD 02/09/2025 8:59 AM [facility] LAB RDW 12.7 11.0 - 15.0 % LAB HEMETOLOGY METHOD 02/09/2025 8:59 AM EDT [facility] LAB Platelets 291 130 - 400 K/mcL LAB HEMETOLOGY METHOD 02/09/2025 8:59 AM EDT [facility] LAB MPV 10.0 7.0 - 11.0 FL LAB HEMETOLOGY METHOD 02/09/2025 8:59 AM EDT [facility] LAB NRBC 0.0 <1.0 % LAB HEMETOLOGY METHOD 02/09/2025 8:59 AM EDT [facility] LAB NRBC Absolute 0.00 <0.10 K/mcL LAB HEMETOLOGY METHOD 02/09/2025 8:59 AM EDT [facility] LAB Blood Venous blood specimen / Unknown Venipuncture / Unknown 02/09/2025 6:08 AM EDT 02/09/2025 8:47 AM EDT us To Gu MD LAB BLOOD ORDERABLES Final Resul t [facility] LAB [address] [place] [address], [place] [phone] * Vitamin D 25 hydroxy (02/09/2025 6:05 AM EDT) Vit D, 25-Hydroxy 31.2 30.0 - 80.0 ng/mL LAB CHEMISTRY METHOD 02/09/2025 12:55 PM EDT [facility] LAB Blood Venous blood specimen / Unknown Venipuncture / Unknown 02/09/2025 6:05 AM EDT 02/09/2025 8:50 AM EDT us To Gu MD LAB BLOOD ORDERABLES Final Resul t [facility] LAB [address] [place] [address], [place] [phone] * (ABNORMAL) Folate (02/09/2025 6:05 AM EDT) Pathologist [facility] Folate >20.0(H) 2.8 - 17.0 ng/ml LAB CHEMISTRY METHOD 02/09/2025 10:51 AM EDT [facility] LAB Blood Venous blood specimen / Unknown Venipuncture / Unknown 02/09/2025 6:05 AM EDT 02/09/2025 8:50 AM EDT us To Gu MD LAB BLOOD ORDERABLES Final Resul t [facility] [address] [place] [address], [place] [phone] * Vitamin B12 (02/09/2025 6:05 AM EDT) Pathologist [facility] Vitamin B-12 474 250 - 900 pcg/mL LAB CHEMISTRY METHOD 02/09/2025 11:19 AM EDT [facility] LAB Blood Venous blood specimen / Unknown Venipuncture / Unknown 02/09/2025 6:05 AM EDT 02/09/2025 8:50 AM EDT us To Gu MD LAB BLOOD ORDERABLES Final Resul t [facility] [address] [place] [address], [place] [phone] * Basic metabolic panel (02/09/2025 6:05 AM EDT) [facility] Sodium 136 133 - 145 mmol/L LAB CHEMISTRY METHOD 02/09/2025 9:48 AM EDT [facility] LAB Potassium 3.7 3.5 - 5.5 mmol/L LAB CHEMISTRY METHOD 02/09/2025 9:48 AM EDT [facility] LAB Chloride 100 96 - 110 mmol/L LAB CHEMISTRY METHOD 02/09/2025 9:48 AM [facility] LAB CO2 28 21 - 32 mmol/L LAB CHEMISTRY METHOD 02/09/2025 9:48 AM [facility] LAB Anion Gap 8 3 - 11 LAB CHEMISTRY METHOD 02/09/2025 9:48 AM [facility] LAB Glucose 97 70 - 100 mg/dL LAB CHEMISTRY METHOD 02/09/2025 9:48 AM [facility] LAB BUN 13 5 - 25 mg/dL LAB CHEMISTRY METHOD 02/09/2025 9:48 AM [facility] LAB Creatinine 0.71 0.70 - 1.30 mg/dL LAB CHEMISTRY METHOD 02/09/2025 9:48 AM [facility] LAB eGFR 92 >=60 mL/min/1. 73m2 LAB CHEMISTRY METHOD 02/09/2025 9:48 AM [facility] LAB Comment:Calculation based on the Chronic Kidney Disease Epidemiology Collaboration (CKD-EPI) equation refit without adjustment for race. BUN/Creatinine Ratio 18.3 LAB CHEMISTRY METHOD 02/09/2025 9:48 AM [facility] LAB Calcium 9.2 8.5 - 10.5 mg/dL LAB CHEMISTRY METHOD 02/09/2025 9:48 AM [facility] LAB Blood Venous blood specimen / Unknown Venipuncture / Unknown 02/09/2025 6:05 AM EDT 02/09/2025 8:50 AM EDT us To Gu MD LAB BLOOD ORDERABLES Final Resul t [facility] LAB [address] [place] [address], documented in this encounter Visit Diagnoses Diagnosis Essential (primary) hypertension Unspecified essential hypertension Vitamin D deficiency, unspecified Hypo-osmolality and hyponatremia Syncope and collapse Vitamin B12 deficiency anemia, unspecified documented in this encounter Care Teams Licensing Court Magistrate Relationship Specialty Start Date End Date To Gu MD [address] [place] [address] [address] [place] [address] PCP - General Geriatric Medicine 02/02/25 documented as of this encounter
--- OUTSIDE RECORDS SUMMARY | 2025-03-24 17:27 | XMS_ITS | Encounter Summary ---
Author Organization [facility] Address [address] [place] [address] Care Team Providers Care Prescription Eyeglass Maker Name Role Phone To Gu MD Primary Care Provider [phone] Encounter Details Date Type Department Care Team (Late st Contact Info) Description 02/02/2025 Lab Requisition [facility] - Main Lab [address] [facility] [place] [phone] To Gu MD [address] [place] [address] Essential (primary) hypertension Social History Tobacco Use Types Packs/Day Years Used Date Smoking Tobacco: Never Assessed Sex and Gender Information Value Date Recorded Sex Assigned at Not on file Legal Sex Male 7:10 AM EST Gender Identity Not on file Sexual Orientation Not on file documented as of this encounter Plan of Treatment Not on file documented as of this encounter Procedures Procedure Name Priority Date/Time Associated Diagnosis Comments COMPLETE BLOOD COUNT Routine 02/02/2025 7:05 AM EDT Essential (primary) hypertension BASIC METABOLIC PANEL Routine 02/02/2025 7:05 AM EDT Essential (primary) hypertension documented in this encounter Results * (ABNORMAL) Basic metabolic panel (02/02/2025 7:05 AM EDT) Sodium 139 133 - 145 mmol/L LAB CHEMISTRY METHOD 02/02/2025 3:52 PM EDT [facility] LAB Potassium 3.7 3.5 - 5.5 mmol/L LAB CHEMISTRY METHOD 02/02/2025 3:52 PM EDT [facility] LAB Chloride 102 96 - 110 mmol/L LAB CHEMISTRY METHOD 02/02/2025 3:52 PM [facility] CO2 29 21 - 32 mmol/L LAB CHEMISTRY METHOD 02/02/2025 3:52 PM [facility] LAB Anion Gap 8 3 - 11 LAB CHEMISTRY METHOD 02/02/2025 3:52 PM [facility] LAB Glucose 89 70 - 100 mg/dL LAB CHEMISTRY METHOD 02/02/2025 3:52 PM [facility] BUN 13 5 - 25 mg/dL LAB CHEMISTRY METHOD 02/02/2025 3:52 PM [facility] LAB Creatinine 0.64(L) 0.70 - 1.30 mg/dL LAB CHEMISTRY METHOD 02/02/2025 3:52 PM [facility] LAB eGFR 95 >=60 mL/min/1. 73m2 LAB CHEMISTRY METHOD 02/02/2025 3:52 PM T [facility] LAB Comment:Calculation based on the Chronic Kidney Disease Epidemiology Collaboration (CKD-EPI) equation refit without adjustment for race. BUN/Creatinine Ratio 20.3 LAB CHEMISTRY METHOD 02/02/2025 3:52 PM [facility] LAB Calcium 9.0 8.5 - 10.5 mg/dL LAB CHEMISTRY METHOD 02/02/2025 3:52 PM [facility] LAB Blood Venous blood specimen / Unknown Venipuncture / Unknown 02/02/2025 7:05 AM EDT 02/02/2025 11:45 AM EDT us To Gu MD LAB BLOOD ORDERABLES Final Resul t [facility] [address] [place] [address], [place] [phone] * (ABNORMAL) Complete blood count (02/02/2025 7:05 AM EDT) WBC 5.4 4.8 - 10.8 K/mcL LAB HEMETOLOGY METHOD 02/02/2025 1:41 PM [facility] RBC 4.50 4.50 - 5.50 M/mcL LAB HEMETOLOGY METHOD 02/02/2025 1:41 PM [facility] LAB Hemoglobin 13.8 13.5 - 17.5 g/dL LAB HEMETOLOGY METHOD 02/02/2025 1:41 PM [facility] LAB Hematocrit 41.3(L) 42.0 - 54.0 % LAB HEMETOLOGY METHOD 02/02/2025 1:41 PM [facility] LAB MCV 92.4 79.0 - 98.0 FL LAB HEMETOLOGY METHOD 02/02/2025 1:41 PM [facility] MCH 30.9 27.0 - 32.0 pcg LAB HEMETOLOGY METHOD 02/02/2025 1:41 PM [facility] LAB MCHC 33.4 32.0 - 37.0 g/dL LAB HEMETOLOGY METHOD 02/02/2025 1:41 PM [facility] LAB RDW 13.2 11.0 - 15.0 % LAB HEMETOLOGY METHOD 02/02/2025 1:41 PM [facility] Platelets 251 130 - 400 K/mcL LAB HEMETOLOGY METHOD 02/02/2025 1:41 PM [facility] LAB MPV 10.2 7.0 - 11.0 FL LAB HEMETOLOGY METHOD 02/02/2025 1:41 PM [facility] NRBC 0.0 <1.0 % LAB HEMETOLOGY METHOD 02/02/2025 1:41 PM [facility] LAB NRBC Absolute 0.00 <0.10 K/mcL LAB HEMETOLOGY METHOD 02/02/2025 1:41 PM [facility] LAB Blood Venous blood specimen / Unknown Venipuncture / Unknown 02/02/2025 7:05 AM EDT 02/02/2025 11:45 AM EDT To Gu MD LAB BLOOD ORDERABLES Final Resul t Performing Organization Address City/State/[facility] Co de Phone Number [facility] [address] [place] [address], documented in this encounter Visit Diagnoses Diagnosis Essential (primary) hypertension Unspecified essential hypertension documented in this encounter Care Teams Prescription Eyeglass Maker Relationship Specialty Start Date End Date To Gu MD [address] [place] [address] [address] [place] [address] PCP - General Geriatric Medicine 02/02/25 documented as of this encounter
--- OUTSIDE RECORDS SUMMARY | 2025-03-24 17:27 | XMS_ITS | Patient Health Record ---
Author Organization Babatunde Hoff III, MD Address [address] [place] [address] [address] [place] [address] Care Team Providers Care Opal Miner Name Role Phone Dr. Babatunde Hoff III Primary Care Provider Allergies Allergen (clinical drug ingredient) Drug/Non Drug Allergy documented on EMR Reaction Allergy Type Onset Date Status No Known Drug Allergy Unknown Drug Allergy Active No Known Food Allergy Unknown Drug Allergy Active Results Component Value Reference Range Notes Complete Blood Count Auto Di ff Reviewed date:04/02/2024 08:52:43 AM Interpretation: Performing Lab:[facility], [address] [place] [phone] Notes/Report: White Blood Count 5.0 4.8-10.8 X10*3/uL [...] 0.0-0.2 /100WBC Neutrophils Absolute Auto 2.5 2.0-8.3 x10*3/uL Imm Gran Abs Auto 0.03 0.00-0.03 X10*3/uL Lymphocytes Absolute Auto 1.7 1.2-4.9 X10*3/uL Monocytes Absolute Auto 0.6 0.1-1.2 X10*3/uL Eosinophils Absolute Auto 0.2 0.0-0.4 X10*3/uL Basophils Absolute Auto 0.0 0.0-0.2 X10*3/uL NRBC Abs Auto 0.000 0.0-0.012 X10*3/uL Comprehensive [place]. Panel Fa st Reviewed date:04/02/2024 08:52:43 AM Interpretation: Performing Lab:[facility], [address] [place] [phone] Notes/Report: Sodium 137 135-145 mmol/L Potassium 3.6 [...] Panel Reviewed date:04/02/2024 08:52:43 AM Interpretation: Performing Lab:[address] [address] Notes/Report: Triglycerides 68 <150 mg/dL Desirable Triglyceride: [...] Antigen Reviewed date:04/02/2024 08:52:43 AM Interpretation: Performing Lab:[address] [address] Notes/Report: Prostate Specific Antigen 1.06 <0.05-4.0 ng/mL PSA methodology: Chairez Alinity i Chemiluminescent Microparticle Immunoassay (CMIA) Vitamin D 25-OH Total Reviewed date:04/02/2024 08:52:43 AM Interpretation: Performing Lab:[address] [phone] Notes/Report: Vitamin D 25-OH Total 30.1 >30 [...] ff Reviewed date:12/12/2024 02:19:57 PM Interpretation: Performing Lab:[facility], [address] [place] [phone] Notes/Report: White Blood Count 4.9 4.8-10.8 X10*3/uL [...] 0.0-0.2 /100WBC Neutrophils Absolute Auto 2.4 2.0-8.3 x10*3/uL Imm Gran Abs Auto 0.03 0.00-0.03 X10*3/uL Lymphocytes Absolute Auto 1.7 1.2-4.9 X10*3/uL Monocytes Absolute Auto 0.6 0.1-1.2 X10*3/uL Eosinophils Absolute Auto 0.2 0.0-0.4 X10*3/uL Basophils Absolute Auto 0.0 0.0-0.2 X10*3/uL NRBC Abs Auto 0.000 0.0-0.012 X10*3/uL Comprehensive [place]. Panel Fa st Reviewed date:12/12/2024 02:19:57 PM Interpretation: Performing Lab:[facility], [address] [place] [phone] Notes/Report: Sodium 137 135-145 mmol/L Potassium 4.3 [...] Acid Reviewed date:12/12/2024 02:19:57 PM Interpretation: Performing Lab:[facility], [address] [place] [phone] Notes/Report: Uric Acid 4.1 3.4-7.0 mg/dL Lipid Panel Reviewed date:12/12/2024 02:19:57 PM Interpretation: Performing Lab:[facility], [address] [place] [phone] Notes/Report: Triglycerides 62 <150 mg/dL Desirable Triglyceride: [...] Antigen Reviewed date:12/12/2024 02:19:57 PM Interpretation: Performing Lab:[facility], [address] [place] [phone] Notes/Report: Prostate Specific Antigen 1.42 <0.05-4.0 ng/mL PSA methodology: Chairez Alinity i Chemiluminescent Microparticle Immunoassay (CMIA) Urine Culture Reviewed date:02/01/2025 01:11:29 PM Interpretation: Performing Lab:[facility], [address] [place] [phone] Notes/Report: Urine Culture Report Result Urine Culture 10,000 to 50,000 cfu/ml Urine Culture Mixed bacterial keven a characteristic of Urine Culture urogenital contamination. CT head/brain wo con Reviewed date:01/26/2025 06:32:37 AM Interpretation: Performing Lab: Notes/Report: [address] [place] [address] CT Scan Report Signed Patient: Onesimo Forrester MR#: [id number] 161 : 1945 Acct:[id number] Age/Sex: 79 / M ADM Date: 01/25/25 Loc: HO.ED Attending Dr: Ordering Physician: Delilah Ponce MD Date of Service: 01/25/25 Procedure(s): CT head/brain wo IV con Accession Number(s): [id number] cc: Babatunde Hoff MD; Delilah Ponce MD Report Number: [id number]: Total DLP = 748.00 mGy-cm Reason for Exam: near syncope CLINICAL HISTORY: near syncope CT head without contrast Comparison: CT/SR - CT HEAD WITHOUT IV CONTRAST - 08/19/22 06:02 EDT Findings: No intra-axial mass, midline shift, hydrocephalus, or acute hemorrhage. Age appropriate cerebral volume loss. Patchy low-density within the periventricular and subcortical white matter. There is no sinus or mastoid fluid. The orbits are within normal limits. No skull fracture. IMPRESSION: 1. No acute intracranial findings. This document has been electronically signed by: Gege Benitez MD on 01/25/2025 19:48:13 Dictated By: Gege Benitez MD Signed By: <Electronically signed by Gege Benitez MD in [place]> 01/25/251947 DD/ 47 TD/TT: 01/25/251947 Industrial Education Instructor: [address] [address] [address] Scan Report Signed Patient: Onesimo Forrester MR#: [id number] [birth year] : 1945 Acct:[id number] Age/Sex: 79 / M ADM Date: 01/25/25 Loc: HO.ED Attending Dr: Ordering Physician: Delilah Ponce MD Date of Service: 01/25/25 Procedure(s): CT head/brain wo IV con Accession Number(s): [id number] cc: Babatunde Hoff MD; Delilah Ponce MD Report Number: [id number]: Total DLP = 748.00 mGy-cm Reason for Exam: korey r syncope CLINICAL HISTORY: ne ar syncope CT head without contrast Comparison: CT/SR - CT HEAD WITHOUT IV CONTRAST - 08/19/22 06:02 EDT Findings: No intra-axial mass, midline shift, hydrocephalus, or acute hemorrhage. Age appropriate cerebral volume loss. Patchy low-density within the periventricular and subcortical white matter. There is no sinus or mastoid fluid. The orbits are withi n normal limits. No skull fracture. IMPRESSION: 1. No acute intracranial findings. This document has be en electronically signed by: Gege Benitez MD on 01/25/2025 19:48:13 Dictated By: Gege Benitez MD Signed By: <Electronically signed by Gege Benitez MD in [place]> 01/25/251947 DD/ 47 TD/TT: 01/25/251947 Industrial Education Instructor: Complete Blood Count Auto Di ff Reviewed date:01/26/2025 12:33:03 PM Interpretation: Performing Lab:[facility], [address] [place] [phone] Notes/Report: White Blood Count 5.0 4.8-10.8 X10*3/uL Red Blood Count 4.43 4.60-5.80 X10*6/uL Hemoglobin 13.8 14.0-18.0 g/dl Hematocrit 39.4 42.0-52.0 % Mean Corpuscular Volume 88.9 80.0-98.0 fL Mean Corpuscular Hemoglobin 31.2 27.0-33.0 pg Mean Corpuscular HGB Conc 35.0 31.0-36.0 g/dl Red Cell Distribution Width 12.9 11.0-16.0 % Platelet Count 274 160-400 X10*3/uL Mean Platelet Volume 9.8 9.4-12.4 fL Neutrophils Percent Auto 65.4 45-73 % Imm Gran Pct Auto 0.6 0.0-0.4 % Lymphocytes Percent Auto 20.3 20-40 % Monocytes Percent Auto 9.3 2-11 % Eosinophils Percent Auto 3.8 0-4 % Basophils Percent Auto 0.6 0-2 % NRBC Pct Auto 0.0 0.0-0.2 /100WBC Neutrophils Absolute Auto 3.3 2.0-8.3 x10*3/uL Imm Gran Abs Auto 0.03 0.00-0.03 X10*3/uL Lymphocytes Absolute Auto 1.0 1.2-4.9 X10*3/uL Monocytes Absolute Auto 0.5 0.1-1.2 X10*3/uL Eosinophils Absolute Auto 0.2 0.0-0.4 X10*3/uL Basophils Absolute Auto 0.0 0.0-0.2 X10*3/uL NRBC Abs Auto 0.000 0.0-0.012 X10*3/uL Basic Metabolic Panel Reviewed date:01/26/2025 12:33:03 PM Interpretation: Performing Lab:[facility], [address] [place] [phone] Notes/Report: Sodium 136 135-145 mmol/L Potassium 3.5 3.3-5.1 mmol/L Chloride 101 96-108 mmol/L Carbon Dioxide 26 22-29 mmol/L Anion Gap 13 12-20 Blood Urea Nitrogen 6 9-16 mg/dL Creatinine 0.64 0.5-1.4 mg/dL Creatinine Clr Calc Pharmacy 93.4 eGFR (calculated from the MDRD study equation) and eCrCl (calculated from the Cockcroft-Gault equation) are based on different parameters and may not yield comparable results. If eCrCl result is absurd, please check patient's height/weight. Estimated Glomerular Filt Rate > 60 Chronic Kidney Disease: Estimated GFR < 60 mL/min/1.73m2 Severe Kidney Disease: Estimated GFR < 15 mL/min/1.73m2 Glucose Random 110 60-115 mg/dL Calcium 9.2 8.4-10.2 mg/dL B Type Natriuretic Peptide Reviewed date:01/26/2025 12:33:03 PM Interpretation: Performing Lab:[facility], [address] [place] [phone] Notes/Report: B Type Natriuretic Peptide 94 <100 pg/mL Drug Screen Urine Reviewed date:01/26/2025 12:33:03 PM Interpretation: Performing Lab:[facility], [address] [place] [phone] Notes/Report: Opiate Screen Urine Not Detected Not Detect Opiate cut-off is 300 ng/mL. Positive results are unconfirmed and should not be used for non-medical purposes. Barbiturates, Urine Not Detected Not Detect Barbiturate cut-off is 200 ng/mL. Positive results are unconfirmed and should not be used for non-medical purposes. Phencyclidine Screen Urine Not Detected Not Detect Phencyclidine cut-off is 25 ng/mL. Positive results are unconfirmed and should not be used for non-medical purposes. Amphetamine Screen Urine Not Detected Not Detect Amphetamine cut-off is 1000 ng/mL. Positive results are unconfirmed and should not be used for non-medical purposes. Benzodiazepines Screen Urine Not Detected Not Detect Benzodiazepine cut-off is 200 ng/mL. Positive results are unconfirmed and should not be used for non-medical purposes. Cocaine Screen Urine Not Detected Not Detect Cocaine cut-off is 300 ng/mL. Positive results are unconfirmed and should not be used for non-medical purposes. Cannabinoid Screen Urine POSITIVE Not Detect Cannabinoid cut-off is 50 ng/mL. Positive results are unconfirmed and should not be used for non-medical purposes. Methadone Screen, Urine Not Detected Not Detect ng/mL Methadone cut-off is 300 ng/mL. Positive results are unconfirmed and should not be used for non-medical purposes. Fentanyl, urine Not Detected Not Detect Fentanyl cut-off is 1 ng/mL. Positive results are unconfirmed and should not be used for non-medical purposes. Oxycodone Screen Urine Not Detected Not Detect ng/mL Oxycodone cut-off is 100 ng/mL. Positive results are unconfirmed and should not be used for non-medical purposes. Buprenorphine Scr Not Detected Not Detect ng/mL Buprenorphine cut-off is 5 ng/mL. Positive results are unconfirmed and should not be used for non-medical purposes. Complete Blood Count Auto Di ff Reviewed date:02/01/2025 01:11:28 PM Interpretation: Performing Lab:[facility], [address] [place] [phone] Notes/Report: White Blood Count 5.5 4.8-10.8 X10*3/uL Red Blood Count 4.23 4.60-5.80 X10*6/uL Hemoglobin 13.2 14.0-18.0 g/dl Hematocrit 37.7 42.0-52.0 % Mean Corpuscular Volume 89.1 80.0-98.0 fL Mean Corpuscular Hemoglobin 31.2 27.0-33.0 pg Mean Corpuscular HGB Conc 35.0 31.0-36.0 g/dl Red Cell Distribution Width 13.2 11.0-16.0 % Platelet Count 233 160-400 X10*3/uL Mean Platelet Volume 9.5 9.4-12.4 fL Neutrophils Percent Auto 56.8 45-73 % Imm Gran Pct Auto 1.1 0.0-0.4 % Lymphocytes Percent Auto 25.1 20-40 % Monocytes Percent Auto 11.2 2-11 % Eosinophils Percent Auto 5.1 0-4 % Basophils Percent Auto 0.7 0-2 % NRBC Pct Auto 0.0 0.0-0.2 /100WBC Neutrophils Absolute Auto 3.1 2.0-8.3 x10*3/uL Imm Gran Abs Auto 0.06 0.00-0.03 X10*3/uL Lymphocytes Absolute Auto 1.4 1.2-4.9 X10*3/uL Monocytes Absolute Auto 0.6 0.1-1.2 X10*3/uL Eosinophils Absolute Auto 0.3 0.0-0.4 X10*3/uL Basophils Absolute Auto 0.0 0.0-0.2 X10*3/uL NRBC Abs Auto 0.000 0.0-0.012 X10*3/uL Basic Metabolic Panel Reviewed date:02/01/2025 01:11:28 PM Interpretation: Performing Lab:[facility], [address] [place] [phone] Notes/Report: Sodium 139 135-145 mmol/L Potassium 3.3 3.3-5.1 mmol/L Chloride 108 96-108 mmol/L Carbon Dioxide 26 22-29 mmol/L Anion Gap 8 12-20 Blood Urea Nitrogen 11 9-16 mg/dL Creatinine 0.67 0.5-1.4 mg/dL Creatinine Clr Calc Pharmacy 89.2 eGFR (calculated from the MDRD study equation) and eCrCl (calculated from the Cockcroft-Gault equation) are based on different parameters and may not yield comparable results. If eCrCl result is absurd, please check patient's height/weight. Estimated Glomerular Filt Rate > 60 Chronic Kidney Disease: Estimated GFR < 60 mL/min/1.73m2 Severe Kidney Disease: Estimated GFR < 15 mL/min/1.73m2 Glucose Random 110 60-115 mg/dL Calcium 8.7 8.4-10.2 mg/dL Magnesium Reviewed date:02/01/2025 01:11:29 PM Interpretation: Performing Lab:[facility], [address] [place] [phone] Notes/Report: Magnesium 1.7 1.6-2.6 mg/dL Hold Lav - Possible Hematolo gy Reviewed date:02/01/2025 01:11:28 PM Interpretation: Performing Lab:[facility], [address] [place] [phone] Notes/Report: Hold Lav - Possible Hematology SEE NOTE Specimen will be held untested for 8 hours. Call Hematology if testing is desired. Basic Metabolic Panel Reviewed date:02/01/2025 01:11:28 PM Interpretation: Performing Lab:[facility], [address] [place] [phone] Notes/Report: Sodium 139 135-145 mmol/L Potassium 3.5 3.3-5.1 mmol/L Chloride 103 96-108 mmol/L Carbon Dioxide 29 22-29 mmol/L Anion Gap 11 12-20 Blood Urea Nitrogen 7 9-16 mg/dL Creatinine 0.62 0.5-1.4 mg/dL Creatinine Clr Calc Pharmacy 96.4 eGFR (calculated from the MDRD study equation) and eCrCl (calculated from the Cockcroft-Gault equation) are based on different parameters and may not yield comparable results. If eCrCl result is absurd, please check patient's height/weight. Estimated Glomerular Filt Rate > 60 Chronic Kidney Disease: Estimated GFR < 60 mL/min/1.73m2 Severe Kidney Disease: Estimated GFR < 15 mL/min/1.73m2 Glucose Random 103 60-115 mg/dL Calcium 9.0 8.4-10.2 mg/dL Magnesium Reviewed date:02/01/2025 01:11:28 PM Interpretation: Performing Lab:[facility], [address] [place] [phone] Notes/Report: Magnesium 1.9 1.6-2.6 mg/dL Basic Metabolic Panel Reviewed date:02/01/2025 01:11:28 PM Interpretation: Performing Lab:[facility], [address] [place] [phone] Notes/Report: Sodium 139 135-145 mmol/L Potassium 3.8 3.3-5.1 mmol/L Chloride 104 96-108 mmol/L Carbon Dioxide 28 22-29 mmol/L Anion Gap 11 12-20 Blood Urea Nitrogen 6 9-16 mg/dL Creatinine 0.64 0.5-1.4 mg/dL Creatinine Clr Calc Pharmacy 93.4 eGFR (calculated from the MDRD study equation) and eCrCl (calculated from the Cockcroft-Gault equation) are based on different parameters and may not yield comparable results. If eCrCl result is absurd, please check patient's height/weight. Estimated Glomerular Filt Rate > 60 Chronic Kidney Disease: Estimated GFR < 60 mL/min/1.73m2 Severe Kidney Disease: Estimated GFR < 15 mL/min/1.73m2 Glucose Random 103 60-115 mg/dL Calcium 9.0 8.4-10.2 mg/dL Magnesium Reviewed date:02/01/2025 01:11:28 PM Interpretation: Performing Lab:[facility], [address] [place] [phone] Notes/Report: Magnesium 1.9 1.6-2.6 mg/dL Reason For Referral Reason Evaluate and Treat Physical Therapy Diagnosis 1 Generalized weakness (R53.1) Referral Organization Babatunde Hoff III, MD Referring Provider First Name Babatunde Referring Provider Last Name Kavya Referring Provider Speciality Internal M edicine Referred Provider Marie, Home Health Referred Provider Specialty Physical The rapist General Notes Monique Ham 07/14/2024 10:42:03 AM > Referral faxed with progress note and cover sheet. Referral Priority Routine Referral Appointment Date 07/17/2024 Reason Evaluate and Treat Bilateral Hearing Loss Diagnosis 1 Bilateral hearing lo ss, unspecified hearing loss type (H91.93) Referral Organization Babatunde Hoff III, MD Referring Provider First Name Babatunde Referring Provider Last Name Kavya Referring Provider Speciality Internal edicine Referred Provider [facility], Speech and Hearing Referred Provider Specialty [...] 1 tablet Orally Once a day Active Immunizations Vaccine Route Administration Date Status [...] nistered Fluzone High-Dose (HD-IIV3) Unknown 03/17/2018 Administ eredt Zostavax Unknown 01/10/2010 Administered Flu-IIv3 Unknown 05/10/2024 Administered COVID-19 Moderna SPIKEVAX Unknown 05/10/2024 Administer ed Influenza-iiv4 p-free high dose Unknown 03/31/2021 Admi nistered Fluzone High-Dose (HD-IIV3) Unknown 02/18/2017 Administ lisa Hepatitis A (adult) Unknown 10/20/1998 Administered Pneumococcal [...] Problem Status W/U Status Risk Notes Problem 8907442 Former smoker (Z87.891) Active confirmed He is highly motivated not to smoke tobacco. He has a plan to prevent relapse in times of stress. Problem 348564521 Overweight (E66.3) Active confirmed He is very slightly overweight. I recommended losing a few pounds through a diet restricted in fat calories and sodium. He has gained 4 pounds since his last visit and his body mass index is 25.53. He weighs 163 pounds. Problem 02091523 Anxiety (F41.9) Active confirmed His anxiety was not present today. Was rational and coherent and well spoken. Problem 015095527 Mixed hyperlipidemia (E78.2) Active confirmed Problem 4482712 Brief psychotic disorder (F23) Active confirmed He [...] trazodone without difficulty. Problem Benign prostatic hyperplasia (825699242) BPH (benign prostatic hyperplasia) (N40.0) Active confirmed He says he has been rising from sleep once a night occasionally depending upon his fluid intake. Problem 96586304 Essential hypertension (I10) Active confirmed His blood pressure today is at its target range. No change in his medications was made. Follow-up visit was arranged in the near future to confirm this. Problem 561562163 Microscopic hematuria (R31.2) Active confirmed Problem 850818690 Environmental allergies (Z91.09) Active confirmed He had mi ld allergic symptoms during pollen season. He feels well today. Problem 49471441 Bilateral inguin al hernia without obstruction or gangrene, recurrence not specified (K40.20) Active confirmed These hav e been repaired and no longer a problem. Problem 56011619 Pulmonary emphysema, unspecified emphysema type (J43.9) Active confirmed His pulmonary status is stable and he is using his medications appropriately. No change in his regimen is needed today. Problem Hearing loss (62448293) Bilateral hearing loss, unspecified hearing loss type (H91.93) Active confirmed His hearing remains adequate. Problem Palpitations (51522444) Palpitation (R00.2) Active confirmed Use t his to the emergency room and rhythm. He was asymptomatic. An EKG to document his was requested. Comprehensive blood work was ordered to evaluate his metabolic status. Problem 759962808 Acute gout involving toe of right foot, unspecified cause (M10.9) Active confirmed He has had no attacks of gout since his last visit. The pain in his foot has resolved. Problem 00887115 Atrial arrhythmi a (I49.8) Active confirmed The EKG showed premature atrial contractions which were blocked. He remains asymptomatic. His labs were normal. It was arranged that he will come back to the office for reexamination. Problem 45978703 Neurodegenerativ e cognitive impairment (G31.9) Active confirmed His memor y is intact for the most part, but he does have some cognitive impairment. There has been no change in his dementia. He has conducting all of the activities of daily life without impairment. Vital Signs Heart Rate 60 /min 03/09/2025 Temperature 97.1 degrees Fahrenheit 03/09/2025 Blood pressure diastolic 79 mm Hg 03/09/2025 Height 67 in 03/09/2025 Blood pressure systolic 136 mm Hg 03/09/2025 Weight 165 lbs 03/09/2025 BMI 25.84 kg/m2 03/09/2025 Encounters Encounter Location Date Provider Diagnosis Babatunde Hoff III, MD [address] [place] [address] [place] [address] 04/08/2024 Babatunde Hoff Essential hypertensi on I10 ; Overweight E66.3 ; Former smoker Z87.891 ; Pulmonary emphysema, unspecified emphysema type J43.9 ; Environmental allergies Z91.09 ; BPH (benign prostatic hyperplasia) N40.0 and Brief psychotic disorder F23 Babatunde Hoff III, MD [address] [place] [address] [place] [phone] 07/09/2024 Babatunde Hoff Generalized weakness R53.1 ; Neurodegenerative cognitive impairment G31.9 ; Essential hypertension I10 ; Environmental allergies Z91.09 ; Acute gout involving toe of right foot, unspecified cause M10.9 ; BPH (benign prostatic hyperplasia) N40.0 ; Brief psychotic disorder F23 and Former smoker Z87.891 Babatunde Hoff III, MD [address] [place] [address] [place] [address] 10/07/2024 Babatunde Hoff Essential hypertensi on I10 ; Bilateral inguinal hernia without obstruction or gangrene, recurrence not specified K40.20 ; Pulmonary emphysema, unspecified emphysema type J43.9 ; Environmental allergies Z91.09 ; Brief psychotic disorder F23 ; Neurodegenerative cognitive impairment G31.9 ; Acute gout involving toe of right foot, unspecified cause M10.9 ; Overweight E66.3 and Former smoker Z87.891 Babatunde Hoff III, MD [address] [place] [address] [place] [address] 12/08/2024 Babatunde Hoff Essential hypertensi on I10 ; Palpitation R00.2 ; Bilateral inguinal hernia without obstruction or gangrene, recurrence not specified K40.20 ; Pulmonary emphysema, unspecified emphysema type J43.9 ; Environmental allergies Z91.09 ; Overweight E66.3 ; Acute gout involving toe of right foot, unspecified cause M10.9 ; Brief psychotic disorder F23 and Former smoker Z87.891 Babatunde Hoff III, MD [address] [place] [address] [place] [address] 12/12/2024 Babatunde Hoff Essential hypertensi on I10 ; Atrial arrhythmia I49.8 ; Former smoker Z87.891 ; Overweight E66.3 ; Pulmonary emphysema, unspecified emphysema type J43.9 ; Environmental allergies Z91.09 and Bilateral hearing loss, unspecified hearing loss type H91.93 Babatunde Hoff III, MD [address] [place] [address] [place] [address] 12/26/2024 Babatunde Hoff Essential hypertensi on I10 ; Former smoker Z87.891 ; Overweight E66.3 ; Pulmonary emphysema, unspecified emphysema type J43.9 ; Environmental allergies Z91.09 ; Brief psychotic disorder F23 ; Neurodegenerative cognitive impairment G31.9 and Bilateral hearing loss, unspecified hearing loss type H91.93 Babatunde Hoff III, MD [address] [place] [address] [place] [address] 03/09/2025 Babatunde Hoff Essential hypertensi on I10 ; Pulmonary emphysema, unspecified emphysema type J43.9 ; Former smoker Z87.891 ; Overweight E66.3 ; Environmental allergies Z91.09 ; Neurodegenerative cognitive impairment G31.9 ; Brief psychotic disorder F23 ; Bilateral hearing loss, unspecified hearing loss type H91.93 and Mixed hyperlipidemia E78.2 Babatunde Hoff III, MD [address] [place] [address] [place] [address] 07/16/2024 Babatunde Hoff III, MD [address] [place] [address] [place] [address] 07/17/2024 Babatunde Hoff III, MD [address] [place] [address] [place] [address] 07/25/2024 Babatunde Hoff III, MD [address] [place] [address] 09/02/2024 Babatunde Hoff III, MD [address] [place] [place] [address] 02/06/2025 Babatunde Hoff III, MD [address] [place] [place] [address] 02/26/2025 Babatunde Hoff III, MD [address] [place] [address] 02/27/2025 Babatunde Hoff III, MD [address] [place] [address] 03/02/2025 Babatunde Hoff III, MD [address] [place] [address] 03/23/2025 Babatunde Hoff Assessments Encounter Date Diagnosis (ICD [...] the near future to confirm this. 03/09/2025 Essential hypertensi on (ICD-10 - I10) [...] in his regimen is needed today. 04/08/2024 Former smoker (ICD-1 0 - Z87.891) [...] is 25.53. He weighs 163 pounds. 03/09/2025 Former smoker (ICD-1 0 - Z87.891) He is highly motivated not to smoke tobacco. He has a plan to prevent relapse in times of stress. 04/08/2024 Pulmonary emphysema, unspecified emphysema type (ICD-10 [...] in his regimen is needed today. 03/09/2025 Overweight (ICD-10 - E66.3) He is very slightly overweight. I recommended losing a few pounds through a diet restricted in fat calories and sodium. He has gained 4 pounds since his last visit and his body mass index is 25.53. He weighs 163 pounds. 04/08/2024 Environmental allerg ies (ICD-10 - Z91.09) [...] pollen season. He feels well today. 03/09/2025 Environmental allerg ies (ICD-10 - Z91.09) [...] the risperidone and trazodone without difficulty. 03/09/2025 Neurodegenerative cognitive impairment (ICD-10 - G31.9) His memory is intact for the most part, but he does have some cognitive impairment. There has been no change in his dementia. He has conducting all of the activities of daily life without impairment. 04/08/2024 Brief psychotic disorder (ICD-10 - F23) [...] the risperidone and trazodone without difficulty. 07/09/2024 Former smoker (ICD-1 0 - Z87.891) [...] - H91.93) His hearing remains adequate. 03/09/2025 Bilateral hearing lo ss, unspecified hearing [...] prevent relapse in times of stress. 03/09/2025 Mixed hyperlipidemia (ICD-10 - E78.2) Plan Of Treatment Pending Test Test Name Order Date PROFILE, FASTING (COMPREHENSIVE METABOLI C) 10/07/2024 PROFILE, FASTING (COMPREHENSIVE METABOLI C) 12/07/2023 PROFILE, FASTING (COMPREHENSIVE METABOLI C) 03/09/2025 MAGNESIUM 03/09/2025 PSA, TOTAL 10/07/2024 PSA, TOTAL 12/07/2023 CBC w DIFF 10/07/2024 CBC w DIFF 03/09/2025 XR CHEST 2 VIEW PA & LAT 02/10/2021 Stress Test 07/11/2021 PFT with DLCO 02/09/2021 CBC WITH AUTO DIFF 12/07/2023 Uric Acid 10/07/2024 Lipid Panel 12/07/2023 Lipid Panel 03/09/2025 Lipid Panel 10/07/2024 Vitamin D 25-OH Total 12/07/2023 ECG 12 lead EKG 12/08/2024 Next Appt Details Provider Name:Babatunde Hoff , 05/04/2025 02:00:00 PM, [address] [place] [address] [address], [place], [address], Provider Name:Babatunde Hoff , 12/09/2025 02:00:00 PM, [address] [facility] [address], [place], [address], Insurance Providers Payer Name Payer Address Payer Phone Subscriber Number Group Number Insured Name Patient Relationship to Insured Coverage Start Date Coverage End Date MEDICARE NGS [address] [place] [phone] [id number] UsamaOnesimo hong Self - patient is the insured [facility] [address] [place], [place] [id number] [phone] [id number] Onesimo Forrester Self - patient is [...]
--- OUTSIDE RECORDS SUMMARY | 2025-03-24 17:27 | XMS_ITS | Encounter Summary ---
Author Organization [facility] Address [id number] [place] [phone] Care Team Providers Care Bonderite Operator Name Role Phone To Gu MD Primary Care Provider Encounter Details Date Type Department Care Team (Late st Contact Info) Description 02/28/2025 Lab Requisition [facility] - Main Lab [address] [facility] [place] [phone] To Gu MD [address] [place] [address] Essential (primary) hypertension Social History Tobacco Use [...] on file documented as of this encounter Visit Diagnoses Diagnosis Essential (primary) hypertension Unspecified essential hypertension documented in this encounter Care Teams Bonderite Operator Relationship Specialty Start Date End Date To Gu MD [address] [place] [address] PCP - General Geriatric Medicine 02/02/25 documented as of this encounter
--- OUTSIDE RECORDS SUMMARY | 2025-03-24 17:27 | XMS_ITS | Clinical Summary ---
Author Organization [facility] [address] [facility] Address [address] [place] [address] Phone Care Team Providers Care Automobile Mechanic Apprentice Name Role Phone To Gu MD Primary Care Provider Allergies No known active allergies Medications albuterol HFA (PROAIR HFA ; PROVENTIL HFA ; VENTOLIN HFA) 90 mcg/actuation inhaler Inhale 2 Puffs into the lungs every 4 hours as needed for Cough or Wheezing. 3 Active ascorbic acid (VITAMIN C) 250 mg tablet Take 1 tablet (250 mg total) by mouth 1 (one) time each day. 3 Active haloperidoL (HALDOL) 0.5 mg tablet Take 1 Tablet by mouth at bedtime. Per psychiatrist at [facility] 3 Active lisinopriL (PRINIVIL,ZESTRI L) 5 mg tablet Take 1 Tablet by mouth daily. Dx HTN 3 Active multivit-min/iro n/folic acid/K (ADULTS MULTIVITAMIN ORAL) Take by mouth. 3 Active traZODone (DESYREL) 50 mg tablet Take 1 Tablet by mouth at bedtime. Per psych for insomnia 3 Active Active Problems Problem Noted Date Diagnosed Date Other insomnia 02/26/2023 Primary hypertension 02/26/2023 Encounters Date Type Department Care Team Description 02/28/2025 Lab Requisition [facility] - Main Lab [address] [place] [address] To Gu MD Essential (primary) hypertension 02/20/2025 Lab Requisition [facility] - Main Lab [address] [place] [phone] To Gu MD Essential (primary) hypertension 02/19/2025 Lab Requisition [facility] Lab [address] [place] [phone] To Gu MD Anemia, unspecified 02/14/2025 Lab Requisition [facility] Lab [address] [place] [phone] To Gu MD Essential (primary) hypertension 02/07/2025 Lab Requisition [facility] Lab [address] [place] [phone] To Gu MD Essential (primary) hypertension; Vitamin D deficiency, unspecified; Hypo-osmolality and hyponatremia; Syncope and collapse; Vitamin B12 deficiency anemia, unspecified 02/02/2025 Lab Requisition [facility] Lab [address] [place] [phone] To Gu MD Essential (primary) hypertension from Last 3 Months Surgical History Surgery Date Site/Laterality Comments HERNIA REPAIR Left PROCEDURE: LAPAROSCOPY, INGUINAL HERNIA REPAIR Family History Relation Name Status Comments Father Mother Son 1 Alive Son 2 Alive Social History Tobacco Use Types Packs/Day Years Used Date Smoking Tobacco: Never Smokeless Tobacco: Never Alcohol Use Standard Drinks/Week Comments Yes 0 (1 standard drink = 0.6 oz pur e alcohol) Sex and Gender Information Value Date Recorded Sex Assigned at Not on file Legal Sex Male 7:10 AM EST Gender Identity Not on file Sexual Orientation Not on file Obstetrics History Plan of Treatment Health Maintenance Due Date Last Done Comments DTaP,Tdap,and Td Vaccines (1 - Tdap) 10/26/1962 Zoster Vaccines (1 of 2) 10/26/1993 RSV Immunization Adult Patients (1 - 1-dose 75+ series) 10/26/2018 Cholesterol Screening (Lipid Panel) 06/17/2023 Falls Risk Assessment 06/17/2023 Medicare Annual Wellness Visit 06/17/2023 Social Influencers of Health Screening 06/17/2023 Depression Screening 05/14/2024 COVID-19 Vaccine ( season) 2025 Influenza Vaccine (#1) 2025 2, 03/31/2021, 02/18/2020, Additional history exists Hypertension/CHF/CAD Annual BMP Blood Test 02/23/2026 02/23/2025, 02/19/2025, 02/16/2025, Additional history exists Pneumococcal Vaccine: 50+ Years Completed 03/17/2018, 03/26/2017 HIB Vaccines Aged Out No longer eligi ble based on patient's age to complete this topic HPV Vaccines Aged Out No longer eligi ble based on patient's age to complete this topic Hepatitis A Vaccines Aged Out No long er eligible based on patient's age to complete this topic Hepatitis B Vaccines Aged Out No long er eligible based on patient's age to complete this topic IPV Vaccines Aged Out No longer eligi ble based on patient's age to complete this topic MMR Vaccines Aged Out No longer eligi ble based on patient's age to complete this topic Meningococcal ACWY Vaccine Aged Out N o longer eligible based on patient's age to complete this topic Meningococcal B Vaccine Aged Out No l onger eligible based on patient's age to complete this topic RSV Immunization Patients Under 20 months Aged Out No longer eligible based on patient's age to complete this topic Varicella Vaccines Aged Out No longer eligible based on patient's age to complete this topic Procedures Procedure Name Priority Date/Time Associated Diagnosis Comments BASIC METABOLIC PANEL Routine 02/23/2025 5:53 AM EDT Essential (primary) hypertension COMPLETE BLOOD COUNT Routine 02/23/2025 5:53 AM EDT Essential (primary) hypertension VITAMIN B12 AND FOLATE Routine 02/19/2025 6:02 AM EDT Anemia, unspecified IRON AND TIBC Routine 02/19/2025 6:02 AM EDT Anemia, unspecified RENAL FUNCTION PANEL Routine 02/19/2025 6:02 AM EDT Anemia, unspecified COMPLETE BLOOD COUNT Routine 02/19/2025 6:02 AM EDT Anemia, unspecified BASIC METABOLIC PANEL Routine 02/16/2025 4:51 AM EDT Essential (primary) hypertension COMPLETE BLOOD COUNT Routine 02/16/2025 4:51 AM EDT Essential (primary) hypertension COMPLETE BLOOD COUNT Routine 02/09/2025 6:08 AM [...] deficiency anemia, unspecified BASIC METABOLIC PANEL Routine 02/02/2025 7:05 AM EDT Essential (primary) hypertension COMPLETE BLOOD COUNT Routine 02/02/2025 7:05 AM EDT Essential (primary) hypertension from Last 3 Months Results * (ABNORMAL) Complete blood count (02/23/2025 5:53 AM EDT) Only the most recent of5 resultswithin the time period is included. [facility] WBC 5.6 4.8 - 10.8 K/[facility] LAB [facility] RBC 4.30(L) 4.50 - 5.50 M/mcL LAB HEMETOLOGY METHOD 02/23/2025 11:35 AM [facility] LAB Hemoglobin 13.0(L) 13.5 - 17.5 g/dL LAB HEMETOLOGY METHOD 02/23/2025 11:35 AM [facility] LAB Hematocrit 39.7(L) 42.0 - 54.0 % LAB HEMETOLOGY METHOD 02/23/2025 11:35 AM [facility] LAB MCV 92.3 79.0 - 98.0 FL LAB HEMETOLOGY METHOD 02/23/2025 11:35 AM [facility] LAB MCH 30.2 27.0 - 32.0 pcg LAB HEMETOLOGY METHOD 02/23/2025 11:35 AM [facility] LAB MCHC 32.7 32.0 - 37.0 g/dL LAB HEMETOLOGY METHOD 02/23/2025 11:35 AM [facility] LAB RDW 12.9 11.0 - 15.0 % LAB HEMETOLOGY METHOD 02/23/2025 11:35 AM [facility] Platelets 282 130 - 400 K/mcL LAB HEMETOLOGY METHOD 02/23/2025 11:35 AM [facility] MPV 9.9 7.0 - 11.0 FL LAB HEMETOLOGY METHOD 02/23/2025 11:35 AM [facility] NRBC 0.0 <1.0 % LAB HEMETOLOGY METHOD 02/23/2025 11:35 AM [facility] LAB NRBC Absolute 0.00 <0.10 K/mcL LAB HEMETOLOGY METHOD 02/23/2025 11:35 AM [facility] Blood Venous blood specimen / Unknown Venipuncture / Unknown 02/23/2025 5:53 AM EDT 02/23/2025 10:53 AM EDT us To Gu MD LAB BLOOD ORDERABLES Final Resul t [facility] [address] [place] [address], [place] [phone] * Basic metabolic panel (02/23/2025 5:53 AM EDT) Only the most recent of4 resultswithin the time period is included. Sodium 136 133 - 145 mmol/L LAB CHEMISTRY METHOD 02/23/2025 11:57 AM [facility] Potassium 4.1 3.5 - 5.5 mmol/L LAB CHEMISTRY METHOD 02/23/2025 11:57 AM [facility] Chloride 99 96 - 110 mmol/L LAB CHEMISTRY METHOD 02/23/2025 11:57 AM [facility] CO2 29 21 - 32 mmol/L LAB CHEMISTRY METHOD 02/23/2025 11:57 AM [facility] Anion Gap 8 3 - 11 LAB CHEMISTRY METHOD 02/23/2025 11:57 AM [facility] Glucose 92 70 - 100 mg/dL LAB CHEMISTRY METHOD 02/23/2025 11:57 AM [facility] BUN 10 5 - 25 mg/dL LAB CHEMISTRY METHOD 02/23/2025 11:57 AM [facility] Creatinine 0.72 0.70 - 1.30 mg/dL LAB CHEMISTRY METHOD 02/23/2025 11:57 AM [facility] LAB eGFR 92 >=60 mL/min/1. 73m2 LAB CHEMISTRY METHOD 02/23/2025 11:57 AM [facility] Comment:Calculation based on the Chronic Kidney Disease Epidemiology Collaboration (CKD-EPI) equation refit without adjustment for race. BUN/Creatinine Ratio 13.9 LAB CHEMISTRY METHOD 02/23/2025 11:57 AM EDT [facility] Calcium 9.1 8.5 - 10.5 mg/dL LAB CHEMISTRY METHOD 02/23/2025 11:57 AM EDT [facility] Blood Venous blood specimen / Unknown Venipuncture / Unknown 02/23/2025 5:53 AM EDT 02/23/2025 10:52 AM EDT us To Gu MD LAB BLOOD ORDERABLES Final Resul t Performing Organization Address [facility] de Phone Number [facility] [address] [place] [address], [place] [phone] * (ABNORMAL) Vitamin B12 and folate (02/19/2025 6:02 AM EDT) Pathologist [facility] Vitamin B-12 453 250 - 900 pcg/mL LAB CHEMISTRY METHOD 02/19/2025 11:20 AM EDT [facility] Folate >20.0(H) 2.8 - 17.0 ng/ml LAB CHEMISTRY METHOD 02/19/2025 11:20 AM EDT [facility] Blood Venous blood specimen / Unknown Venipuncture / Unknown 02/19/2025 6:02 AM EDT 02/19/2025 9:43 AM EDT us To Gu MD LAB BLOOD ORDERABLES Final Resul t Performing Organization Address City/[facility]/ZIP Co de Phone Number [facility] [address] [place] [address], [place] [phone] * Iron and TIBC (02/19/2025 6:02 AM EDT) Iron 82 50 - 160 mcg/dL LAB CHEMISTRY METHOD 02/19/2025 10:53 AM EDT [facility] TIBC 306 250 - 450 mcg/dL LAB CHEMISTRY METHOD 02/19/2025 10:53 AM EDT [facility] Iron Saturation 27 20 - 50 % LAB CHEMISTRY METHOD 02/19/2025 10:53 AM [facility] Blood Venous blood specimen / Unknown Venipuncture / Unknown 02/19/2025 6:02 AM EDT 02/19/2025 9:43 AM EDT us To Gu MD LAB BLOOD ORDERABLES Final Resul t [facility] [address] [place] [address], [place] [phone] * (ABNORMAL) Renal function panel (02/19/2025 6:02 AM EDT) Sodium 136 133 - 145 mmol/L LAB CHEMISTRY METHOD 02/19/2025 10:53 AM [facility] Potassium 4.0 3.5 - 5.5 mmol/L LAB CHEMISTRY METHOD 02/19/2025 10:53 AM [facility] Chloride 101 96 - 110 mmol/L LAB CHEMISTRY METHOD 02/19/2025 10:53 AM [facility] CO2 27 21 - 32 mmol/L LAB CHEMISTRY METHOD 02/19/2025 10:53 AM [facility] Anion Gap 8 3 - 11 LAB CHEMISTRY METHOD 02/19/2025 10:53 AM [facility] Glucose 108(H) 70 - 100 mg/dL LAB CHEMISTRY METHOD 02/19/2025 10:53 AM [facility] BUN 10 5 - 25 mg/dL LAB CHEMISTRY METHOD 02/19/2025 10:53 AM [facility] Creatinine 0.70 0.70 - 1.30 mg/dL LAB CHEMISTRY METHOD 02/19/2025 10:53 AM [facility] eGFR 93 >=60 mL/min/1. 73m2 LAB CHEMISTRY METHOD 02/19/2025 10:53 AM EDT [facility] Comment:Calculation based on the Chronic Kidney Disease Epidemiology Collaboration (CKD-EPI) equation refit without adjustment for race. BUN/Creatinine Ratio 14.3 LAB CHEMISTRY METHOD 02/19/2025 10:53 AM EDT [facility] Albumin 3.7 3.2 - 5.0 g/dL LAB CHEMISTRY METHOD 02/19/2025 10:53 AM EDT [facility] Calcium 9.3 8.5 - 10.5 mg/dL LAB CHEMISTRY METHOD 02/19/2025 10:53 AM EDT [facility] Phosphorus 3.4 2.5 - 4.5 mg/dL LAB CHEMISTRY METHOD 02/19/2025 10:53 AM EDT [facility] Blood Venous blood specimen / Unknown Venipuncture / Unknown 02/19/2025 6:02 AM EDT 02/19/2025 9:43 AM EDT us To Gu MD LAB BLOOD ORDERABLES Final Resul t Performing Organization Address City/[facility]/ZIP Co de Phone Number [facility] [address] [place] [address], * Vitamin D 25 hydroxy (02/09/2025 6:05 AM EDT) Vit D, 25-Hydroxy 31.2 30.0 - 80.0 ng/mL LAB CHEMISTRY METHOD 02/09/2025 12:55 PM EDT [facility] Blood Venous blood specimen / Unknown Venipuncture / Unknown 02/09/2025 6:05 AM EDT 02/09/2025 8:50 AM EDT us To Gu MD LAB BLOOD ORDERABLES Final Resul t [facility] [address] [place] [address], [place] [phone] * (ABNORMAL) Folate (02/09/2025 6:05 AM EDT) Folate >20.0(H) 2.8 - 17.0 ng/ml LAB CHEMISTRY METHOD 02/09/2025 10:51 AM EDT [facility] Blood Venous blood specimen / Unknown Venipuncture / Unknown 02/09/2025 6:05 AM EDT 02/09/2025 8:50 AM EDT To Gu MD LAB BLOOD ORDERABLES Final Resul t Performing Organization Address City/[facility]/ZIP Co de Phone Number [facility] [address] [place] [address], [place] [phone] * Vitamin B12 (02/09/2025 6:05 AM EDT) Pathologist [facility] Vitamin B-12 474 250 - 900 pcg/mL LAB CHEMISTRY METHOD 02/09/2025 11:19 AM EDT [facility] Blood Venous blood specimen / Unknown Venipuncture / Unknown 02/09/2025 6:05 AM EDT 02/09/2025 8:50 AM EDT To Gu MD LAB BLOOD ORDERABLES Final Resul t Performing Organization Address City/[facility]/ZIP Co de Phone Number [facility] [address] [place] [address], [place] [phone] from Last 3 Months Insurance MEDICARE [facility] Care Teams Automobile Mechanic Apprentice Relationship Specialty Start Date End Date To Gu MD [address] [place] [address] [address] [place] [address] PCP - General Geriatric Medicine 02/02/25
== END 2025-03-24 16:18 | disposition home or self-care (01) ==
LOC: HO.SH 16:17
PROVIDERS: Visit Provider Internal Medicine Medical Oncology
DX: Z01.118 Encounter for examination of ears and hearing with other abnormal findings (principal); H90.3 Sensorineural hearing loss, bilateral
CPT/HCPCS: 92557; 92567

== ENCOUNTER 2025-04-27 11:43 | Outpatient (REF) | payer MEDICARE, SELFPAY ==
[2025-04-27 12:04] LABS: MANUAL DIFF FLAG NO
[2025-04-27 12:28] LABS: Hematocrit 42.1 % (42.0-52.0); Hemoglobin 14.2 g/dl (14.0-18.0); Imm Gran Abs Auto 0.03 X10*3/uL (0.00-0.03); Imm Gran Pct Auto 0.6 % (0.0-0.4); Lymphocytes Absolute Auto 1.8 X10*3/uL (1.2-4.9); Mean Corpuscular HGB Conc 33.7 g/dl (31.0-36.0); Mean Corpuscular Hemoglobin 30.4 pg (27.0-33.0); Mean Corpuscular Volume 90.1 fL (80.0-98.0); NRBC Abs Auto 0.000 X10*3/uL (0.0-0.012); NRBC Pct Auto 0.0 /100WBC (0.0-0.2); Platelet Count 226 X10*3/uL (160-400); Red Blood Count 4.67 X10*6/uL (4.60-5.80); White Blood Count 5.3 X10*3/uL (4.8-10.8)
[2025-04-27 12:58] LABS: Alanine Aminotransferase 20 U/L (0-40); Albumin Level 4.8 g/dL (3.5-5.0); Alkaline Phosphatase 75 U/L (39-117); Anion Gap 12 (12-20); Aspartate Amino Transferase 28 U/L (5-37); Blood Urea Nitrogen 11 mg/dL (9-16); Calcium 9.5 mg/dL (8.4-10.2); Carbon Dioxide 27 mmol/L (22-29); Chloride 100 mmol/L (96-108); Cholesterol 196 mg/dL (<200); Estimated Glomerular Filt Rate > 60; HDL Cholesterol 62 mg/dL (>40); Magnesium 2.1 mg/dL (1.6-2.6); Potassium 3.8 mmol/L (3.3-5.1); Sodium 135 mmol/L (135-145); Total Protein 7.4 g/dL (6.5-8.0); Triglycerides 75 mg/dL (<150)
== END 2025-04-27 11:44 | disposition home or self-care (01) ==
LOC: HO.LAB 11:43
PROVIDERS: PCP Internal Medicine Medical Oncology; Visit Provider Internal Medicine Medical Oncology
DX: I10 Essential (primary) hypertension (principal); E78.2 Mixed hyperlipidemia; J43.9 Emphysema, unspecified; I49.8 Other specified cardiac arrhythmias
CPT/HCPCS: 36415; 80053; 80061; 83735; 85025